=== PATIENT | female | born 1990 | race Caucasian/White ===

== ENCOUNTER 2016-06-10 20:46 | Emergency (ER) | payer OTHER ==
[~2016-06-10] VITALS: Ht 154.9 cm; Wt 46.1 kg
[~2016-06-10 20:46] MED LIST: CLX/20 PO; DOXY25TA7 PO; FERR325T51 PO; PREDNISOLONE 5 MG PO; PRENTAB26 PO; VLT500 PO; ZNTT/150 PO
[2016-06-10 20:50] VITALS: TEMP 37.4; Ht 154.9 cm; Wt 46.1 kg
[2016-06-10] MEDS ORDERED: ACET-1256 PO (21:02)
[2016-06-10] MEDS ORDERED: NORE5TAB5 PO (21:02)
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
[2016-06-10] MEDS ORDERED: AMOXICIL/CLAVU 875MG HOME PACK PO ONE (21:30)
[2016-06-10] MEDS ORDERED: AMOX875T PO (21:34)
[2016-06-10 22:15] VITALS: BP 93/48; PULSE 82; O2SAT 97
[2016-08-02] MEDS ORDERED: FERR325T PO (04:16)
[2016-09-14] MEDS ORDERED: OXYC-57 PO (13:33)
[2016-09-14] MEDS ORDERED: ONDA4TAB10 SL (13:33)
[2016-09-15] MEDS ORDERED: CITA20TA9 PO (15:40)
[2016-09-15] MEDS ORDERED: OXYC-57 PO (15:42)
[2016-09-15] MEDS ORDERED: ONDA4TAB46 PO (15:42)
[2016-11-24] MEDS ORDERED: CITA20TA4 PO (14:49)
== END 2016-06-10 22:15 | disposition home or self-care (01) ==
LOC: C.EDB 20:47 → C.EDC 22:15
DX: R59.1 Generalized enlarged lymph nodes (principal); J02.9 Acute pharyngitis, unspecified; K21.9 Gastro-esophageal reflux disease without esophagitis

== ENCOUNTER 2016-08-02 03:32 | Inpatient (IN) | payer OTHER ==
[~2016-08-02] VITALS: Ht 154.9 cm; Wt 44.6 kg
[~2016-08-02 03:32] MED LIST changes: +ACET-1256 PO; +NORE5TAB5 PO; -PREDNISOLONE 5 MG PO; -VLT500 PO; -ZNTT/150 PO
[2016-08-02] MEDS ORDERED: ONDANSETRON INJ 2 MG/ML 2 ML VIAL IV STA (03:55)
[2016-08-02] MEDS ORDERED: PANTOprazole INJ 40 MG in SYRINGE 0 ML IV ONE (04:00)
[2016-08-02] MEDS ORDERED: KETOROLAC TROMETHAMINE 15 MG/ML VIAL IV ONE (04:00)
[2016-08-02] MEDS ORDERED: GI COCKTAIL PO ONE (04:00)
[2016-08-02] MEDS ORDERED: SODIUM CHLORIDE 0.9% 1000ML 1,000 ML IV ONE (04:00)
[2016-08-02] MEDS ORDERED: FERR1TAB62 PO (04:16)
[2016-08-02 04:18] LABS: BASO % 0.5 %; BASO ABS # 0.04 K/uL (0-0.2); COMPLETE YES; EOS % 5.1 %; HEMATOCRIT 46.6 % (37-47); IG% 0.1 %; LYMPH % 33.7 %; LYMPH ABS # 2.59 K/uL (1.2-3.4); MEAN CELL VOLUME 86.5 fL (80-100); MEAN CORPUSCULAR HGB CONC 32.4 g/dl (32-36); MEAN PLATELET VOLUME 9.7 fL (7.4-10.4); MONO % 7.9 %; NEUT % 52.7 %; PLATELET COUNT 274 K/uL (130-400); RED BLOOD COUNT 5.39 M/uL (4.2-5.4); URINE APPEARANCE CLEAR (CLEAR); URINE BILIRUBIN NEG (NEG); URINE COLOR DK YELLOW; URINE EPITHELIAL CELL AUTO 20-30 /lpf (0-5); URINE NITRITE NEG (NEG); URINE SPECIFIC GRAVITY 1.028 (1.000-1.030); UROBILINOGEN NEG (NEG); WHITE BLOOD COUNT 7.69 K/uL (4.8-10.8); ZZUR CULT IF INDIC CLEAN CATCH NO
[2016-08-02 04:19] LABS: MANUAL MICROSCOPIC REQUIRED? NO; REVIEW REQ? NO
[2016-08-02] MEDS ORDERED: KETOROLAC TROMETHAMINE 30 MG/ML VIAL ONE (04:22)
[2016-08-02] MEDS ORDERED: LIDOCAINE HCL 2% VISC SOLN 20 ML UDC ONE (04:22)
[2016-08-02] MEDS ORDERED: ALUMINUM/MAGNESIUM SUSP 30 ML UDC ONE (04:22)
[2016-08-02 04:36] LABS: BUN/CREATININE RATIO 25.4 (10-20); CREATININE 0.85 mg/dl (0.60-1.20); POTASSIUM 3.6 mmol/L (3.5-5.1)
[2016-08-02 04:39] LABS: ALB/GLOB RATIO 1.2 (0.9-2)
[2016-08-02] MEDS ORDERED: MoRPHine SULFATE 2 MG/ML CARP IV STA (04:49)
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
[2016-08-02] MEDS ORDERED: ALUMINUM/MAGNESIUM/SIMETH (MAALOX MAX) 30 ML UDC PO PRN (05:30)
[2016-08-02] MEDS ORDERED: POLYETHYLENE (MIRALAX) 17 GM PACK PO PRN (05:30)
[2016-08-02] MEDS ORDERED: ONDANSETRON INJ 2 MG/ML 2 ML VIAL IV PRN (05:30)
[2016-08-02] MEDS ORDERED: ACETAMINOPHEN 325 MG TAB PO PRN (05:30)
[2016-08-02] MEDS ORDERED: MoRPHine SULFATE 2 MG/ML CARP IV PRN (05:30)
[2016-08-02] MEDS ORDERED: MAGNESIUM HYDROXIDE SUSP 30 ML UDC PO PRN (05:30)
[2016-08-02 05:35] VITALS: O2SAT 99
--- NOTE | 2016-08-02 05:41 | History and Physical ---
History & Physical Date & Time of Service: Aug 02, 2016 at 05:29 Chief Complaint: Abd Pain,Nausea,Vomiting,Diarrhea Primary Care Physician: Yakov Nolasco D.O.Int.Med. History of Present Illness Source: patient 26 y/o F Hx renal calculi, pancreatitis. Pt developed upper quadrant/ epigastric abdominal pain, nausea, vomiting. She is 6 months post- and breast feeding presently and was concerned with potential dehydration. Initial lipase is elevated. She feels symptoms are similar to previous episode of pancreatitis. No etiology was elucidated during previous episode. She has not had fevers or diarrhea. Past Medical/Surgical History 1) Pancreatitis - idiopathic - pt had been evaluated for suspected PSC at [place] - underwent ERCP which was normal 2) Renal calculi w/stent placement 3) Depression 4) Anxiety 5) Eating disorder - resolved Surgical Problems: (1) History of lithotripsy Status: Resolved (2) History of renal stent Status: Resolved Family History FH: cancer FH: gallbladder disease Heart disease Mother had breast CA Father with HTN Social History Smoking Status: Never Smoker Drug Use: none Marital Status: Housing status: lives with significant other Occupational Status: employed Immunizations History of Influenza Vaccine: Yes History of Tetanus Vaccine?: Yes History of Pneumococcal: Unknown History of Hepatitis B Vaccine: Yes Multi-Drug Resistant Organisms History of MDRO: No Allergies Coded Allergies: Cephalexin (Unverified Allergy, Unknown, itching, 08/02/16) Home Medications Scheduled Citalopram (Citalopram Hydrobromide), 20 MG PO HS Ferrous Sulfate (Ferrous Sulfate), 325 MG PO DAILY Multivit/Min/Iron/Fol Ac/Pren ( Vitamin), 1 TAB PO HS Norethindrone (Aygestin), 5 MG PO HS Scheduled PRN Acetaminophen (Tylenol), 1,000 MG PO Q4 PRN for Pain Doxylamine Succinate (Sleep) (Unisom), 25 MG PO HS PRN for Sleep Review of Systems Constitutional: No chills, No fever, No sweats Eyes: No eye pain, No worsening of vision ENT: No hearing loss, No nasal symptoms, No unusual epistaxis Respiratory: No cough, No sputum, No wheezing Cardiovascular: No PND, No chest pain, No orthopnea Abdomen: + nausea, + pain, + vomiting Musculoskeletal: No joint pain, No muscle pain Genitourinary - Female: No dysuria, No hematuria, No urinary frequency, No urinary incontinence, No urinary retention, No urinary urgency Neurologic: No memory loss, No paralysis Psychiatric: No depression symptoms Endocrine: No excessive thirst, No fatigue Hematologic / Lymphatic: No abnormal bleeding/bruising Integumentary: No rash Allergic / Immunologic: No environmental allergies Physical Exam Vital Signs Date Time Temp Pulse Resp B/P Pulse Ox O2 Delivery O2 Flow Rate FiO2 08/02/16 04:53 71 16 87/52 98 Room Air 08/02/16 03:34 36.3 105 18 106/69 98 Room Air General Appearance: WD/WN, no apparent distress Head: normocephalic, atraumatic Eyes: normal inspection, PERRL, EOMI ENT: normal ENT inspection, hearing grossly normal, TMs normal, pharynx normal Neck: supple, thyroid normal, no JVD Respiratory/Chest: chest non-tender, lungs clear, normal breath sounds, no respiratory distress, no accessory muscle use Cardiovascular: regular rate, rhythm, no edema, no gallop, no JVD, no murmur, normal peripheral pulses, + JVD Abdomen/GI: normal bowel sounds, + tenderness (epigastric) Back: no CVA tenderness Extremities/Musculoskelatal: normal inspection, no calf tenderness, normal capillary refill, no pedal edema, normal range of motion Neurologic/Psych: white metal corrosion proofer II-XII nml as tested, no motor/sensory deficits, alert, normal mood/affect, normal reflexes, oriented x 3 Skin: normal color, warm/dry, no rash Diagnostics Laboratory Results Results Past 24 Hours Test 08/02/16 04:00 Range/Units White Blood Count 7.69 4.8-10.8 K/uL Red Blood Count 5.39 4.2-5.4 M/uL Hemoglobin 15.1 12.0-16.0 g/dL Hematocrit 46.6 37-47 % Mean Corpuscular Volume 86.5 80-100 fL Mean Corpuscular Hemoglobin 28.0 25-34 pg Mean Corpuscular Hemoglobin Concent 32.4 32-36 g/dl Platelet Count 274 130-400 K/uL Mean Platelet Volume 9.7 7.4-10.4 fL Neutrophils (%) (Auto) 52.7 % Lymphocytes (%) (Auto) 33.7 % Monocytes (%) (Auto) 7.9 % Eosinophils (%) (Auto) 5.1 % Basophils (%) (Auto) 0.5 % Neutrophils # (Auto) 4.05 1.4-6.5 K/uL Lymphocytes # (Auto) 2.59 1.2-3.4 K/uL Monocytes # (Auto) 0.61 0.11-0.59 K/uL Eosinophils # (Auto) 0.39 0-0.5 K/uL Basophils # (Auto) 0.04 0-0.2 K/uL RDW Standard Deviation 40.1 36.4-46.3 fL RDW Coefficient of Variation 12.6 11.5-14.5 % Immature Granulocyte % (Auto) 0.1 % Immature Granulocyte # (Auto) 0.01 0.00-0.02 K/uL Urine Color DK YELLOW Urine Appearance CLEAR CLEAR Urine pH 5.0 4.5-7.5 Urine Specific [place] 1.028 1.000-1.030 Urine Protein NEG NEG Urine Glucose (UA) NEG NEG Urine Ketones NEG NEG Urine Occult Blood 2+ NEG Urine Nitrite NEG NEG Urine Bilirubin NEG NEG Urine Urobilinogen NEG NEG Urine Leukocyte Esterase NEG NEG Urine WBC (Auto) 1-5 0-5 /hpf Urine RBC (Auto) 10-30 0-4 /hpf Urine Hyaline Casts (Auto) 1-5 0-5 /lpf Urine Epithelial Cells (Auto) 20-30 0-5 /lpf Urine Bacteria (Auto) NEG NEG Urine Test NEG NEG Sodium Level 144 136-145 mmol/L Potassium Level 3.6 3.5-5.1 mmol/L Chloride Level 109 98-107 mmol/L Carbon Dioxide Level 30 21-32 mmol/L Anion Gap 5.0 3-11 mmol/L Blood Urea Nitrogen 22 7-18 mg/dl Creatinine 0.85 0.60-1.20 mg/dl Est Creatinine Clear Calc Drug Dose 68.1 ml/min Estimated GFR () 108.1 Estimated GFR (Non- 93.2 BUN/Creatinine Ratio 25.4 10-20 Random Glucose 86 70-99 mg/dl Calcium Level 9.0 8.5-10.1 mg/dl Total Bilirubin 0.3 0.2-1 mg/dl Aspartate Amino Transf (AST/SGOT) 11 15-37 U/L Alanine Aminotransferase (ALT/SGPT) 26 12-78 U/L Alkaline Phosphatase 86 45-117 U/L Total Protein 7.1 6.4-8.2 gm/dl Albumin 3.8 3.4-5.0 gm/dl Globulin 3.3 2.5-4.0 gm/dl Albumin/Globulin Ratio 1.2 0.9-2 Amylase Level 143 25-115 U/L Lipase 1226 73-393 U/L Impression Assessment and Plan 26 y/o F Hx renal calculi, pancreatitis. Pt developed upper quadrant abdominal pain, nausea, vomiting. She is 6 months post- and breast feeding presently and was concerned with potential dehydration. Initial lipase is elevated. She feels symptoms are similar to previous episode of pancreatitis. No etiology was elucidated during previous episode. Pt will be treated w/IVF, antiemetics, pain control. Abdominal US requested. Would consider GI consult if there is no immediate improvement. Placed on clear liquid diet. SCDs, full code Total time for this admit including review of labs, meds, records - discussion with pt and ER attending - 33 min Level of Care Med/Surg Resuscitation Status FULL RESUSCITATION VTE Prophylaxis VTE Risk Assessment Done? Y/N: Yes Risk Level: Low Given or contraindicated: SCD's
[2016-08-02 06:34] VITALS: BP 90/60; PULSE 84; TEMP 36.5; O2SAT 100
[2016-08-02 06:35] VITALS: BP 90/60; PULSE 18; TEMP 36.5; Ht 154.9 cm; Wt 44.6 kg
--- NOTE | 2016-08-02 06:54 | DIAGNOSTIC IMAGING REPORT ---
BILIARY ULTRASOUND CLINICAL HISTORY: Right upper quadrant abdominal pain COMPARISON STUDY: 02/03/2016 FINDINGS: The pancreas appears sonographically normal. There are no focal hepatic masses. There is no right-sided hydronephrosis. Multiple right renal calculi are suspected. There is no right-sided hydronephrosis. No gallstones are visualized. There is minimal sludge in the gallbladder. There is no gallbladder wall thickening. There is no ductal dilatation. The common bile duct measures 3 mm. IMPRESSION: 1. Right-sided nephrolithiasis 2. Minimal sludge within the gallbladder. No ductal dilatation. 3. Ultrasonographically normal pancreas and liver Electronically signed by: Rajinder Hernandez M.D. 08/02/2016 6:52 AM Dictated Date/Time: 08/02/2016 6:50 AM
--- NOTE | 2016-08-02 06:59 | DIAGNOSTIC IMAGING REPORT ---
ABDOMEN 2VIEW W/PA CHEST RTN CLINICAL HISTORY: epigastric abd pain NAUSEA COMPARISON STUDY: No previous studies for comparison. FINDINGS: The erect chest reveals no free air. There is no focal pulmonary consolidation. Erect and supine views the abdomen reveal no abnormally dilated loops of large or small bowel. There are scattered right lower quadrant air-fluid levels. There are multiple bilateral renal calculi. There is a 4 mm left pelvic basin calcification. This appears to have been present in March 2015, favoring a phlebolith over distal ureteral calculus.. IMPRESSION: 1. No evidence of bowel obstruction. No evidence of free air 2. Nonspecific right lower quadrant air-fluid levels 3. Suspected bilateral nephrolithiasis 4. There is a curvilinear structure within the left mid abdomen which resembles a small piece of catheter. It is unclear what this is intrinsic or extrinsic to the patient. Electronically signed by: Rajinder Hernandez M.D. 08/02/2016 6:57 AM Dictated Date/Time: 08/02/2016 6:53 AM
[2016-08-02 07:23] VITALS: BP 93/56; PULSE 75; TEMP 36.6; O2SAT 99
[2016-08-02] MEDS: D5NSS + 20MEQ KCL 1,000 ML IV SCH ×2 (07:40→12:20)
[2016-08-02 13:20] LABS: HEMATOCRIT 36.8 % (37-47); MEAN CELL VOLUME 88.5 fL (80-100); MEAN CORPUSCULAR HEMOGLOBIN 29.1 pg (25-34); MEAN CORPUSCULAR HGB CONC 32.9 g/dl (32-36); MEAN PLATELET VOLUME 9.6 fL (7.4-10.4); PLATELET COUNT 190 K/uL (130-400); RED BLOOD COUNT 4.16 M/uL (4.2-5.4); WHITE BLOOD COUNT 4.95 K/uL (4.8-10.8)
--- NOTE | 2016-08-02 13:41 | DIAGNOSTIC IMAGING REPORT ---
KUB HISTORY: Generalized abdominal pain. pancreatitis COMPARISON: None. FINDINGS: The bowel gas pattern is unremarkable. There are no dilated loops of small bowel to suggest an obstruction. Bilateral nephrolithiasis, unchanged. Dominant stone within the left kidney measures 8 mm. Curvilinear structure within the left midabdomen remains unchanged in position. Stable calcifications in the left deep pelvis which favors a phlebolith. No pneumoperitoneum or pneumatosis. A button overlying the deep pelvis was demonstrated to be external to the patient. IMPRESSION: 1. No change compared to the prior study. No evidence for bowel obstruction. 2. Bilateral nephrolithiasis. 3. Stable small curvilinear structure within the left midabdomen. This resembles a small catheter or stent. Electronically signed by: Gagandeep Pollock M.D. 08/02/2016 1:39 PM Dictated Date/Time: 08/02/2016 1:32 PM
[2016-08-02 13:48] LABS: ALB/GLOB RATIO 1.2 (0.9-2); BUN/CREATININE RATIO 18.2 (10-20); CALCIUM 7.6 mg/dl (8.5-10.1); CREATININE 0.7 mg/dl (0.60-1.20); POTASSIUM 3.9 mmol/L (3.5-5.1)
[2016-08-02 14:11] LABS: BASO % 0.6 %; BASO ABS # 0.03 K/uL (0-0.2); COMPLETE YES; EOS % 4.8 %; IG% 0.2 %; LYMPH % 43.8 %; LYMPH ABS # 2.17 K/uL (1.2-3.4); MONO % 6.1 %; NEUT % 44.5 %
[2016-08-02 14:44] VITALS: BP 90/55; PULSE 71; TEMP 36.5; O2SAT 100
--- NOTE | 2016-08-02 15:43 | Discharge Instructions ---
Discharge Instructions Date of Service Aug 02, 2016. Admission Reason for Admission: Pancreatitis Discharge Discharge Diagnosis / Problem: 1) Viral gastroenteritis with elevated lipase Discharge Goals Goal(s): Decrease discomfort, Improve nutritional status, Diagnostic testing, Therapeutic intervention, Prevent Disease Progression Activity Recommendations Activity Limitations: resume your previous activity Lifting Limitations: none Exercise/Sports Limitations: none May Resume Sexual Activity: when tolerated Shower/Bathe: no limitations Driving or Machine Use: no limitations No work thru (and including) of this week. . Instructions / Follow-Up Instructions / Follow-Up 1) Follow up with GI as scheduled this month. Current Hospital Diet Patient's current hospital diet: Clear Liquid Diet Discharge Diet Recommended Diet: Regular Diet Procedures Procedures Performed: None Pending Studies Studies pending at discharge: no Laboratory Results Last 24 Hours Test 08/02/16 04:00 08/02/16 12:55 White Blood Count 7.69 K/uL 4.95 K/uL Red Blood Count 5.39 M/uL 4.16 M/uL Hemoglobin 15.1 g/dL 12.1 g/dL Hematocrit 46.6 % 36.8 % Mean Corpuscular Volume 86.5 fL 88.5 fL Mean Corpuscular Hemoglobin 28.0 pg 29.1 pg Mean Corpuscular Hemoglobin Concent 32.4 g/dl 32.9 g/dl Platelet Count 274 K/uL 190 K/uL Mean Platelet Volume 9.7 fL 9.6 fL Neutrophils (%) (Auto) 52.7 % 44.5 % Lymphocytes (%) (Auto) 33.7 % 43.8 % Monocytes (%) (Auto) 7.9 % 6.1 % Eosinophils (%) (Auto) 5.1 % 4.8 % Basophils (%) (Auto) 0.5 % 0.6 % Neutrophils # (Auto) 4.05 K/uL 2.20 K/uL Lymphocytes # (Auto) 2.59 K/uL 2.17 K/uL Monocytes # (Auto) 0.61 K/uL 0.30 K/uL Eosinophils # (Auto) 0.39 K/uL 0.24 K/uL Basophils # (Auto) 0.04 K/uL 0.03 K/uL RDW Standard Deviation 40.1 fL 40.9 fL RDW Coefficient of Variation 12.6 % 12.7 % Immature Granulocyte % (Auto) 0.1 % 0.2 % Immature Granulocyte # (Auto) 0.01 K/uL 0.01 K/uL Urine Color DK YELLOW Urine Appearance CLEAR Urine pH 5.0 Urine Specific [place] 1.028 Urine Protein NEG Urine Glucose (UA) NEG Urine Ketones NEG Urine Occult Blood 2+ Urine Nitrite NEG Urine Bilirubin NEG Urine Urobilinogen NEG Urine Leukocyte Esterase NEG Urine WBC (Auto) 1-5 /hpf Urine RBC (Auto) 10-30 /hpf Urine Hyaline Casts (Auto) 1-5 /lpf Urine Epithelial Cells (Auto) 20-30 /lpf Urine Bacteria (Auto) NEG Urine Test NEG Sodium Level 144 mmol/L 147 mmol/L Potassium Level 3.6 mmol/L 3.9 mmol/L Chloride Level 109 mmol/L 116 mmol/L Carbon Dioxide Level 30 mmol/L 26 mmol/L Anion Gap 5.0 mmol/L 5.0 mmol/L Blood Urea Nitrogen 22 mg/dl 13 mg/dl Creatinine 0.85 mg/dl 0.70 mg/dl Est Creatinine Clear Calc Drug Dose 68.1 ml/min 84.2 ml/min Estimated GFR () 108.1 136.7 Estimated GFR (Non- 93.2 117.9 BUN/Creatinine Ratio 25.4 18.2 Random Glucose 86 mg/dl 123 mg/dl Calcium Level 9.0 mg/dl 7.6 mg/dl Total Bilirubin 0.3 mg/dl 0.3 mg/dl Aspartate Amino Transf (AST/SGOT) 11 U/L 7 U/L Alanine Aminotransferase (ALT/SGPT) 26 U/L 22 U/L Alkaline Phosphatase 86 U/L 57 U/L Total Protein 7.1 gm/dl 4.9 gm/dl Albumin 3.8 gm/dl 2.7 gm/dl Globulin 3.3 gm/dl 2.2 gm/dl Albumin/Globulin Ratio 1.2 1.2 Amylase Level 143 U/L 68 U/L Lipase 1226 U/L 195 U/L Medical Emergencies . Who to Call and When: Medical Emergencies: If at any time you feel your situation is an emergency, please call 911 immediately. . Non-Emergent Contact Non-Emergency issues call your: Primary Care Provider, Sql Programmer Analyst Call Non-Emergent contact if: you have a fever, your pain is not controlled, your pain is worsening, your pain is unusual for you, your pain is concerning you . . "Provider Documentation" section prepared by Ronak Meyer. . VTE Core Measure Inpt VTE Proph given/why not?: SCD's
--- NOTE | 2016-08-02 15:53 | Discharge Summary ---
Discharge Summary Date of Service Aug 02, 2016. Discharge Summary Admission Date: Aug 02, 2016 at 05:27 Discharge Date: Aug 02, 2016 Discharge Disposition: Home Principal Diagnosis: #1 viral gastroenteritis #2 elevated lipase Procedures: None Vaccinations: None Consultations: None Pending Studies/Follow-Up: None Medication Reconciliation Continued Medications: Acetaminophen (Tylenol) 500 Mg Tab 1000 MG PO Q4 PRN for Pain Citalopram (Citalopram Hydrobromide) 20 Mg Tab 20 MG PO HS Doxylamine Succinate (Sleep) (Unisom) 25 Mg Tab 25 MG PO HS PRN for Sleep Ferrous Sulfate (Ferrous Sulfate) 325 Mg Tab 325 MG PO DAILY Multivit/Min/Iron/Fol Ac/Pren ( Vitamin) Tab 1 TAB PO HS, TAB Norethindrone (Aygestin) 5 Mg Tab 5 MG PO HS, TAB Admission Information HPI (per Admitting provider): 26-year-old female with history of renal calculi and pancreatitis presents to the emergency department with upper quadrant epigastric pain nausea vomiting and diarrhea. The patient explained that her had similar symptoms the day previous and since has resolved. The patient was seen and evaluated in emergency department. Her initial lipase was noted to be elevated. Given her prior episodes of pancreatitis and concern for her ability to tolerate by mouth liquids, she was brought to the hospital for further evaluation including intravenous fluids. Physical Exam (per Admitting): General Appearance: WD/WN, no apparent distress Head: normocephalic, atraumatic Eyes: normal inspection, PERRL, EOMI ENT: normal ENT inspection, hearing grossly normal, TMs normal, pharynx normal Neck: supple, thyroid normal, no JVD Respiratory/Chest: chest non-tender, lungs clear, normal breath sounds, no respiratory distress, no accessory muscle use Cardiovascular: regular rate, rhythm, no edema, no gallop, no JVD, no murmur , normal peripheral pulses, + JVD Abdomen/GI: normal bowel sounds, + tenderness (epigastric) Back: no CVA tenderness Extremities/Musculoskelatal: normal inspection, no calf tenderness, normal capillary refill, no pedal edema, normal range of motion Neurologic/Psych: central supply nurse II-XII nml as tested, no motor/sensory deficits, alert , normal mood/affect, normal reflexes, oriented x 3 Skin: normal color, warm/dry, no rash Hospital Course The patient was placed in the general medical floor. When I saw her later on the day of her admission she noted much improved symptoms; she denied nausea and vomiting. She no further episodes of diarrhea since early in the morning. A repeat lipase had normalized. Her CBC remainder of her comprehensive metabolic panel also unremarkable. I gave the patient the option of staying overnight were going home this evening. She felt as if she be more comfortable at home, especially since family members were coming to help care for her 6- month-old child. Discussed the possible etiologies of this presentation. She has had a history of questionable pancreatitis before; however in this case, with her having similar symptoms, and her symptoms include nausea vomiting diarrhea, I suspect both her and her had a viral gastroenteritis. A short-term elevation of lipase would not be unheard of in the setting of a gastroenteritis. Fortunately, the patient has follow-up with her business intelligence director next week and they will be able to review the diagnostics completed today. Of note, there also was found to be a small curvilinear structure in her left abdomen on her admission abdominal x-ray and on a repeat KUB film after admission. I discussed this finding with radiology; this likely represents a temporary pancreatic stent was placed previously and is slowly progressing. I reviewed this finding with the patient; it does not have any bearing on her admission and her presentation. Total time spent on discharge = This includes examination of the patient, discharge planning, medication reconciliation, and communication with other providers. Discharge Instructions Reviewed the signs and symptoms for which she would need to return to the hospital. These include inability to tolerate by mouth food and fluids, increasing abdominal pain, or fever. Recommended that she not work for the next 2 days. 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
[2016-08-02 16:42] VITALS: BP 90/55; PULSE 71; TEMP 36.5; O2SAT 100
[2016-09-14] MEDS ORDERED: OXYC-57 PO (13:33)
[2016-09-14] MEDS ORDERED: ONDA4TAB10 SL (13:33)
[2016-09-15] MEDS ORDERED: CITA20TA9 PO (15:40)
[2016-09-15] MEDS ORDERED: OXYC-57 PO (15:42)
[2016-09-15] MEDS ORDERED: ONDA4TAB46 PO (15:42)
[2016-11-24] MEDS ORDERED: CITA20TA4 PO (14:49)
== END 2016-08-02 16:55 | disposition home or self-care (01) | DRG 392 ==
LOC: ENRESERVDT → ENRESERVTM → C.EDB 03:33 → C.4E 05:27
PROVIDERS: ADMIT Internal Medicine; ATTEND Family Medicine
DX: A08.4 Viral intestinal infection, unspecified (principal); R79.89 Other specified abnormal findings of blood chemistry; F32.9 Major depressive disorder, single episode, unspecified; K21.9 Gastro-esophageal reflux disease without esophagitis; Z80.3 Family history of malignant neoplasm of breast; Z87.442 Personal history of urinary calculi

== ENCOUNTER → 2016-08-11 | Outpatient (CLI) | payer OTHER ==
[~2016-08-11] MED LIST changes: +CITA20TA4 PO; +CITA20TA9 PO; +FERR1TAB62 PO; -FERR325T51 PO; +NORE1TAB50 PO; +ONDA4TAB10 SL; +ONDA4TAB46 PO; +OXYC-57 PO; +OXYC1TAB3 PO; +POTA1CAP2 PO
--- NOTE | 2016-08-12 08:11 | MAMMOGRAPHY REPORT ---
ULTRASOUND OF LEFT BREAST: 08/11/2016 CLINICAL HISTORY: The patient is currently breast-feeding, and reports an increasing palpable lump i n the left breast since May. She reports that a left breast "lesion" was seen on an outside MR CP in March. COMPARISON: Comparison is made to exams dated: 04/24/2014 ultrasound and 04/25/2014 ultrasound biopsy - [facility]. The outside MRCP exam is not available for review. TECHNIQUE: Real-time targeted ultrasound of the left breast was performed. FINDINGS: Targeted ultrasound was performed of the area of the palpable lump pointed out by the pat ient, in the left breast at 12:00 periareolar region. At the site of the palpable lump there is an oval anechoic circumscribed mass which measures 1.1 x 0.8 x 1.1 cm. Findings are consistent with a benign simple cyst. Expected benign lactational changes are noted in this region. IMPRESSION: ACR BI-RADS CATEGORY 2: BENIGN The palpable lump in the left 12:00 breast corresponds with a benign 1.1 cm simple cyst. There is n o sonographic evidence of malignancy. Recommend clinical follow-up. The patient was verbally notif ied of the results. Gretel Goodman M.D. /:08/11/2016 14:35:[address] [employer]: Susan TOLEDO)([place]), [facility] letter sent: Normal 1/2 BI-RADS Code: ACR BI-RADS Category 2: Benign
== END | disposition home or self-care (01) ==
LOC: C.MAMM 13:58
PROVIDERS: ATTEND Family Medicine
DX: N63 Unspecified lump in breast (principal)

== ENCOUNTER 2016-08-31 05:44 | Emergency (ER) | payer OTHER ==
[~2016-08-31] VITALS: Ht 154.9 cm; Wt 44.5 kg
[~2016-08-31 05:44] MED LIST changes: -CITA20TA4 PO; -CITA20TA9 PO; -NORE1TAB50 PO; -ONDA4TAB10 SL; -ONDA4TAB46 PO; -OXYC-57 PO; -OXYC1TAB3 PO; -POTA1CAP2 PO
[2016-08-31 05:49] VITALS: TEMP 36.3; Ht 154.9 cm; Wt 44.5 kg
[2016-08-31] MEDS ORDERED: KETOROLAC TROMETHAMINE 15 MG/ML VIAL IV ONE (06:00)
[2016-08-31] MEDS ORDERED: SODIUM CHLORIDE 0.9% 1000ML 1,000 ML IV ONE (06:00)
[2016-08-31] MEDS ORDERED: ONDANSETRON INJ 2 MG/ML 2 ML VIAL IV STA ×2 (06:00→10:45)
[2016-08-31] MEDS ORDERED: KETOROLAC TROMETHAMINE 30 MG/ML VIAL ONE (06:10)
[2016-08-31] MEDS: MoRPHine SULFATE 2 MG/ML CARP IV PRN ×3 (06:17→11:15)
[2016-08-31 06:18] LABS: BASO % 0.5 %; BASO ABS # 0.04 K/uL (0-0.2); COMPLETE YES; HEMATOCRIT 44.5 % (37-47); IG% 0.3 %; LYMPH % 38.5 %; LYMPH ABS # 2.81 K/uL (1.2-3.4); MEAN CELL VOLUME 86.4 fL (80-100); MEAN CORPUSCULAR HEMOGLOBIN 29.3 pg (25-34); MEAN CORPUSCULAR HGB CONC 33.9 g/dl (32-36); MEAN PLATELET VOLUME 9.7 fL (7.4-10.4); NEUT % 50.7 %; PLATELET COUNT 248 K/uL (130-400); RED BLOOD COUNT 5.15 M/uL (4.2-5.4); WHITE BLOOD COUNT 7.29 K/uL (4.8-10.8)
[2016-08-31 06:36] LABS: BUN/CREATININE RATIO 22.2 (10-20); CALCIUM 8.7 mg/dl (8.5-10.1); CREATININE 0.87 mg/dl (0.60-1.20); POTASSIUM 3.5 mmol/L (3.5-5.1)
[2016-08-31 06:39] LABS: ALB/GLOB RATIO 1.3 (0.9-2)
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
--- NOTE | 2016-08-31 07:09 | DIAGNOSTIC IMAGING REPORT ---
ABDOMEN 2VIEW W/PA CHEST RTN CLINICAL HISTORY: epigastric abd pain COMPARISON STUDY: 08/02/2016 FINDINGS: The soft tissues, psoas shadows, renal outlines and intestinal gas pattern appear normal. There is no evidence for bowel obstruction. There is no evidence for free intraperitoneal air. No abnormal abdominal calcifications are seen. A frontal view of the chest was performed and is unremarkable. Bilateral nephrocalcinosis. IMPRESSION: No acute process the chest or abdomen. Bilateral nephrocalcinosis. Electronically signed by: Abdirashid Hernandez M.D. 08/31/2016 7:08 AM Dictated Date/Time: 08/31/2016 7:07 AM
--- NOTE | 2016-08-31 07:36 | DIAGNOSTIC IMAGING REPORT ---
Right upper quadrant ultrasound GALLBLADDER-ABD LIMITED CLINICAL HISTORY: RUQ abd pain. N/V. Nausea. Vomiting. TECHNIQUE: Ultrasound COMPARISON STUDY: 08/02/2016 FINDINGS: Sludge within the gallbladder lumen. Common bile duct 3 mm. Liver is uniform. Pancreas and right kidney are unremarkable. Several nonobstructing right renal calcifications. IMPRESSION: 1. Gallbladder sludge. 2. Normal caliber bile duct. 3. Several nonobstructing right renal calcifications. 4. No change from the prior exam. Electronically signed by: Abdirashid Hernandez M.D. 08/31/2016 7:34 AM Dictated Date/Time: 08/31/2016 7:29 AM
[2016-08-31 09:02] VITALS: O2SAT 100
--- NOTE | 2016-08-31 10:49 | EMERGENCY ROOM VISIT NOTE ---
ED Visit Note First contact with patient: 08:22 Care of this patient was signed out to me by Jeison Anthony PA-C at change of shift. At that time, patient was awaiting right upper quadrant ultrasound. Labs were reviewed and show no leukocytosis. LFTs and kidney functions within normal limits. Urinalysis was obtained and did show blood as well as evidence of contamination. This will be sent for culture. Ultrasound was obtained and was unchanged from a previous ultrasound. There is gallbladder sludge but no evidence of acute cholecystitis. The patient was reassessed and pain was under control. She was given an additional dose of morphine and Zofran prior to discharge. She remained slightly hypotensive which is baseline for her. She will follow-up with her primary care provider and Dr. Barker as scheduled. She will return as needed for any worsening or new/concerning symptoms. She verbalized understanding of my assessment and treatment plan and was discharged home in good condition. Problem List Medical Problems: (1) Anemia Nos Status: Chronic (2) Depression Status: Chronic (3) Esophageal Reflux Status: Chronic (4) Gastroenteritis Status: Resolved (5) Hydronephrosis Status: Resolved (6) Kidney stones Status: Resolved (7) Pancreatitis Status: Resolved (8) Pancreatitis Status: Chronic Surgical Problems: (1) History of lithotripsy Status: Resolved (2) History of renal stent Status: Resolved (3) Hydronephrosis Status: Resolved Current/Historical Medications Scheduled Citalopram (Citalopram Hydrobromide), 20 MG PO HS Ferrous Sulfate (Ferrous Sulfate), 325 MG PO DAILY Multivit/Min/Iron/Fol Ac/Pren ( Vitamin), 1 TAB PO HS Norethindrone (Aygestin), 5 MG PO HS Scheduled PRN Acetaminophen (Tylenol), 1,000 MG PO Q4 PRN for Pain Doxylamine Succinate (Sleep) (Unisom), 25 MG PO HS PRN for Sleep Allergies Coded Allergies: Cephalexin (Verified Adverse Reaction, Mild, ITCHINESS, 08/31/16) Vital Signs Date Time Temp Pulse Resp B/P Pulse Ox O2 Delivery O2 Flow Rate FiO2 08/31/16 11:11 74 16 100/52 08/31/16 09:02 80 16 92/55 100 Room Air 08/31/16 07:22 71 16 89/53 99 Room Air 08/31/16 05:49 36.3 87 19 97/65 97 Room Air Laboratory Results 08/31/16 06:06 Red Blood Count 5.15, Mean Corpuscular Volume 86.4, Mean Corpuscular Hemoglobin 29.3, Mean Corpuscular Hemoglobin Concent 33.9, Mean Platelet Volume 9.7, Neutrophils (%) (Auto) 50.7, Lymphocytes (%) (Auto) 38.5, Monocytes (%) (Auto) 6.0, Eosinophils (%) (Auto) 4.0, Basophils (%) (Auto) 0.5, Neutrophils # (Auto) 3.69, Lymphocytes # (Auto) 2.81, Monocytes # (Auto) 0.44, Eosinophils # (Auto) 0.29, Basophils # (Auto) 0.04 08/31/16 06:06 Test 08/31/16 06:06 08/31/16 08:45 White Blood Count 7.29 K/uL (4.8-10.8) Red Blood Count 5.15 M/uL (4.2-5.4) Hemoglobin 15.1 g/dL (12.0-16.0) Hematocrit 44.5 % (37-47) Mean Corpuscular Volume 86.4 fL (80-100) Mean Corpuscular Hemoglobin 29.3 pg (25-34) Mean Corpuscular Hemoglobin Concent 33.9 g/dl (32-36) Platelet Count 248 K/uL (130-400) Mean Platelet Volume 9.7 fL (7.4-10.4) Neutrophils (%) (Auto) 50.7 % Lymphocytes (%) (Auto) 38.5 % Monocytes (%) (Auto) 6.0 % Eosinophils (%) (Auto) 4.0 % Basophils (%) (Auto) 0.5 % Neutrophils # (Auto) 3.69 K/uL (1.4-6.5) Lymphocytes # (Auto) 2.81 K/uL (1.2-3.4) Monocytes # (Auto) 0.44 K/uL (0.11-0.59) Eosinophils # (Auto) 0.29 K/uL (0-0.5) Basophils # (Auto) 0.04 K/uL (0-0.2) RDW Standard Deviation 40.8 fL (36.4-46.3) RDW Coefficient of Variation 12.8 % (11.5-14.5) Immature Granulocyte % (Auto) 0.3 % Immature Granulocyte # (Auto) 0.02 K/uL (0.00-0.02) Anion Gap 7.0 mmol/L (3-11) Est Creatinine Clear Calc Drug Dose 67.6 ml/min Estimated GFR () 105.1 Estimated GFR (Non- 90.7 BUN/Creatinine Ratio 22.2 (10-20) Calcium Level 8.7 mg/dl (8.5-10.1) Total Bilirubin 0.3 mg/dl (0.2-1) Aspartate Amino Transf (AST/SGOT) 11 U/L (15-37) Alanine Aminotransferase (ALT/SGPT) 25 U/L (12-78) Alkaline Phosphatase 83 U/L (45-117) Total Protein 6.8 gm/dl (6.4-8.2) Albumin 3.8 gm/dl (3.4-5.0) Globulin 3.0 gm/dl (2.5-4.0) Albumin/Globulin Ratio 1.3 (0.9-2) Amylase Level 90 U/L (25-115) Lipase 191 U/L (73-393) Urine Color DK YELLOW Urine Appearance CLOUDY (CLEAR) Urine pH 5.5 (4.5-7.5) Urine Specific [place] 1.030 (1.000-1.030) Urine Protein 2+ (NEG) Urine Glucose (UA) NEG (NEG) Urine Ketones NEG (NEG) Urine Occult Blood 3+ (NEG) Urine Nitrite NEG (NEG) Urine Bilirubin NEG (NEG) Urine Urobilinogen NEG (NEG) Urine Leukocyte Esterase SMALL (NEG) Urine WBC (Auto) 5-10 /hpf (0-5) Urine RBC (Auto) >30 /hpf (0-4) Urine Hyaline Casts (Auto) 1-5 /lpf (0-5) Urine Epithelial Cells (Auto) >30 /lpf (0-5) Urine Bacteria (Auto) NEG (NEG) Urine Test NEG (NEG) Medications Administered Medications (Trade) Dose Ordered Sig/Tereso Route Start Time Stop Time Status Last Admin Dose Admin Sodium Chloride (Nss 1000ml) 1,000 ml @ 999 mls/hr Q1H1M ONCE IV 08/31/16 06:00 08/31/16 07:00 DC 08/31/16 06:14 999 MLS/HR Ketorolac Tromethamine (Toradol Inj) 15 mg NOW ONCE IV 08/31/16 06:00 08/31/16 06:02 DC 08/31/16 06:16 15 MG Morphine Sulfate (MoRPHine SULFATE INJ) 2 mg Q1H PRN IV 08/31/16 06:00 08/31/16 12:14 DC 08/31/16 11:15 2 MG Ondansetron HCl (Zofran Inj) 4 mg NOW STAT IV 08/31/16 06:00 08/31/16 06:02 DC 08/31/16 06:15 4 MG Ondansetron HCl (Zofran Inj) 4 mg NOW STAT IV 08/31/16 10:45 08/31/16 10:47 DC 08/31/16 11:15 4 MG Departure Information Impression Primary Impression: Epigastric abdominal pain Dispostion Home / Self-Care Condition GOOD Referrals Yakov Nolasco D.O.Int.Med. (PCP) Forms HOME CARE DOCUMENTATION FORM, IMPORTANT VISIT INFORMATION Patient Instructions My [facility] Additional Instructions You have been treated in the Emergency Department your Abdominal Pain. Laboratory results and imaging studies have ruled out any emergent causes for your abdominal pain which would warrant admission or surgery. Drink plenty of water and stay well hydrated. As with any trip to the Emergency Department, you should follow-up with your Primary Care Provider from today's visit. Call Dr. Barker today to schedule follow up. Return to the emergency department if your symptoms persist despite treatment plan outlined above or if the following symptoms occur: Worsening pain, worsening vomiting, fevers or any other new/concerning symptoms.
[2016-08-31 11:08] LABS: URINE APPEARANCE CLOUDY (CLEAR); URINE BILIRUBIN NEG (NEG); URINE COLOR DK YELLOW; URINE EPITHELIAL CELL AUTO >30 /lpf (0-5); URINE NITRITE NEG (NEG); URINE PH 5.5 (4.5-7.5); UROBILINOGEN NEG (NEG); ZZUR CULT IF INDIC CLEAN CATCH NO
[2016-08-31 11:11] VITALS: BP 100/52; PULSE 74
[2016-08-31 11:16] LABS: MANUAL MICROSCOPIC REQUIRED? NO; REVIEW REQ? NO
[2016-09-14] MEDS ORDERED: OXYC-57 PO (13:33)
[2016-09-14] MEDS ORDERED: ONDA4TAB10 SL (13:33)
[2016-09-15] MEDS ORDERED: CITA20TA9 PO (15:40)
[2016-09-15] MEDS ORDERED: ONDA4TAB46 PO (15:42)
[2016-09-15] MEDS ORDERED: OXYC-57 PO (15:42)
[2016-11-24] MEDS ORDERED: CITA20TA4 PO (14:49)
== END 2016-08-31 11:32 | disposition home or self-care (01) ==
LOC: C.EDB 05:45
DX: R10.13 Epigastric pain (principal); R11.2 Nausea with vomiting, unspecified; R00.0 Tachycardia, unspecified; N20.0 Calculus of kidney; K82.8 Other specified diseases of gallbladder; Z87.19 Personal history of other diseases of the digestive system

== ENCOUNTER 2016-09-01 04:28 | Emergency (ER) | payer OTHER ==
[~2016-09-01] VITALS: Ht 154.9 cm; Wt 46.2 kg
[2016-09-01 04:30] VITALS: TEMP 36.7; Ht 154.9 cm; Wt 46.2 kg
[2016-09-01] MEDS ORDERED: LIDOCAINE HCL 2% VISC SOLN 20 ML UDC PO STA (04:44)
[2016-09-01] MEDS ORDERED: ONDANSETRON INJ 2 MG/ML 2 ML VIAL IV STA (04:44)
[2016-09-01] MEDS ORDERED: FAMOTIDINE 20MG/102 ML D5W IV STA (04:44)
[2016-09-01] MEDS ORDERED: ALUMINUM/MAGNESIUM SUSP 30 ML UDC PO STA (04:44)
[2016-09-01] MEDS ORDERED: SODIUM CHLORIDE 0.9% 1000ML 1,000 ML IV STA (04:44)
[2016-09-01 05:06] VITALS: O2SAT 96
[2016-09-01 05:24] LABS: BASO % 0.4 %; BASO ABS # 0.03 K/uL (0-0.2); COMPLETE YES; EOS % 4.8 %; HEMATOCRIT 39.4 % (37-47); IG% 0.3 %; LYMPH % 36.3 %; MEAN CELL VOLUME 87.6 fL (80-100); MEAN CORPUSCULAR HEMOGLOBIN 29.1 pg (25-34); MEAN CORPUSCULAR HGB CONC 33.2 g/dl (32-36); MONO % 8.4 %; NEUT % 49.8 %; PLATELET COUNT 225 K/uL (130-400); WHITE BLOOD COUNT 6.89 K/uL (4.8-10.8)
[2016-09-01 05:30] LABS: URINE APPEARANCE CLEAR (CLEAR); URINE BILIRUBIN NEG (NEG); URINE COLOR DK YELLOW; URINE EPITHELIAL CELL AUTO >30 /lpf (0-5); URINE NITRITE NEG (NEG); URINE SPECIFIC GRAVITY 1.024 (1.000-1.030); UROBILINOGEN NEG (NEG); ZZUR CULT IF INDIC CLEAN CATCH NO
[2016-09-01] MEDS ORDERED: DiphenhydrAMINE HCL 50 MG/ML VIAL IV STA (05:32)
[2016-09-01] MEDS ORDERED: KETOROLAC TROMETHAMINE 30 MG/ML VIAL IV STA (05:32)
[2016-09-01] MEDS ORDERED: METOCLOPRAMIDE HCL INJ 5 MG/ML 2 ML VIAL IV STA (05:32)
[2016-09-01 05:37] LABS: MANUAL MICROSCOPIC REQUIRED? NO; REVIEW REQ? NO
[2016-09-01 05:50] LABS: ALT/SGPT 22 U/L (12-78); AST/SGOT 12 U/L (15-37); BLOOD UREA NITROGEN 18 mg/dl (7-18); BUN/CREATININE RATIO 25.6 (10-20); CALCIUM 8.1 mg/dl (8.5-10.1); CARBON DIOXIDE 27 mmol/L (21-32); CHLORIDE 111 mmol/L (98-107); GLUCOSE 78 mg/dl (70-99); POTASSIUM 3.5 mmol/L (3.5-5.1); SODIUM 145 mmol/L (136-145)
[2016-09-01 05:52] LABS: ALKALINE PHOSPHATASE 81 U/L (45-117)
[2016-09-01 06:05] LABS: PREG INTERNAL NEGATIVE QC NEG CLEAR BACKGROUND; PREG INTERNAL POSITIVE QC POS CONTROL LINE
[2016-09-01 06:07] VITALS: BP 104/71
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
[2016-09-01] MEDS ORDERED: ONDANSETRON HOME PACK 4MG OD TAB PO ONE (07:00)
[2016-09-01 07:09] VITALS: PULSE 78; O2SAT 98
[2016-09-14] MEDS ORDERED: ONDA4TAB10 SL (13:33)
[2016-09-14] MEDS ORDERED: OXYC-57 PO (13:33)
[2016-09-15] MEDS ORDERED: CITA20TA9 PO (15:40)
[2016-09-15] MEDS ORDERED: OXYC-57 PO (15:42)
[2016-09-15] MEDS ORDERED: ONDA4TAB46 PO (15:42)
[2016-11-24] MEDS ORDERED: CITA20TA4 PO (14:49)
== END 2016-09-01 07:10 | disposition home or self-care (01) ==
LOC: C.EDB 04:28
DX: R10.13 Epigastric pain (principal); D64.9 Anemia, unspecified; F32.9 Major depressive disorder, single episode, unspecified; K21.9 Gastro-esophageal reflux disease without esophagitis; E87.6 Hypokalemia; Z87.442 Personal history of urinary calculi; K85.90 Acute pancreatitis without necrosis or infection, unspecified; Z80.9 Family history of malignant neoplasm, unspecified; Z83.79 Family history of other diseases of the digestive system; Z82.49 Family history of ischemic heart disease and other diseases of the circulatory system; Z79.899 Other long term (current) drug therapy

== ENCOUNTER 2016-09-22 05:14 | Day surgery (SDC) | payer OTHER ==
[2016-09-15 15:43] VITALS: BMI 19.0
[~2016-09-22] VITALS: Ht 154.9 cm; Wt 45.5 kg
[~2016-09-22 05:14] MED LIST changes: +ANCEF: ALLERGY NOTED TO ORDERED MEDICATION SCH; +CITA20TA9 PO; -CLX/20 PO; +ONDA4TAB46 PO; +OXYC-57 PO
[2016-09-22 05:25] VITALS: BP 96/60; PULSE 77; TEMP 36.9; O2SAT 98; Ht 154.9 cm; Wt 45.5 kg
[2016-09-22] MEDS ORDERED: CEFAZOLIN 2000 MG/60 ML D5W IV SCH (06:00)
[2016-09-22] MEDS ORDERED: CLINDAMYCIN 600 MG/54 ML D5W IV SCH (06:00)
[2016-09-22] MEDS ORDERED: LACTATED RINGER'S 1000ML 1,000 ML IV SCH ×3 (06:00→08:10)
[2016-09-22] MEDS ORDERED: FENTANYL CITRATE INJ 50 MCG/1 ML 2 ML VIAL ONE ×2 (06:34→07:18)
[2016-09-22] MEDS ORDERED: MIDAZOLAM HCL 1 MG/ML 2ML VIAL ONE (06:34)
[2016-09-22] MEDS ORDERED: HYDROmorphone INJ 2 MG/ML SYR/VIAL ONE (06:47)
[2016-09-22] MEDS ORDERED: CONRAY 60% 50 ML VIAL ONE (06:49)
--- NOTE | 2016-09-22 06:49 | History & Physical Bridge Note ---
H&P Re-Evaluation Bridge Note: I have examined the patient, reviewed the History & Physical and in the interval since the performance of the History & Physical I have noted the following changes of clinical significance: No changes noted
[2016-09-22] MEDS ORDERED: SCOPOLAMINE 1.5 MG TDSY TD ONE ×2 (06:51→07:00)
[2016-09-22] MEDS ORDERED: BUPIVACAINE/EPINEPHRINE 0.5% MPF 1:200,000 30 ML VIAL ONE (07:04)
[2016-09-22] MEDS ORDERED: ROCURONIUM BROMIDE 10 MG/ML 5 ML VIAL ONE (07:26)
[2016-09-22] MEDS ORDERED: PROPOFOL IV EMULSION 10 MG/ML 20 ML VIAL IV ONE (07:26)
[2016-09-22] MEDS ORDERED: METOCLOPRAMIDE HCL INJ 5 MG/ML 2 ML VIAL ONE (07:26)
[2016-09-22] MEDS ORDERED: NEOSTIGMINE METHYLSULFATE 5 MG/5 ML SYR ONE (07:26)
[2016-09-22] MEDS ORDERED: ONDANSETRON INJ 2 MG/ML 2 ML VIAL ONE (07:26)
[2016-09-22] MEDS ORDERED: GLYCOPYRROLATE INJ 0.2 MG/ML VIAL ONE (07:26)
[2016-09-22] MEDS ORDERED: DiphenhydrAMINE HCL 50 MG/ML VIAL ONE (07:26)
[2016-09-22] MEDS ORDERED: LIDOCAINE HCL 2% 2 ML VIAL (20MG/ML) ONE (07:26)
[2016-09-22] MEDS ORDERED: DEXAMETHASONE SOD INJ 4 MG/ML VIAL ONE (07:26)
[2016-09-22] MEDS ORDERED: SODIUM CHLORIDE 0.9% INJ 10 ML VIAL ONE (07:41)
[2016-09-22] MEDS ORDERED: LARYING-O-JET KIT (LTA) ONE ×2 (07:42)
[2016-09-22] MEDS ORDERED: OXYC-57 PO (08:12)
--- NOTE | 2016-09-22 08:14 | Discharge Instructions ---
Discharge Instructions Date of Service Sep 22, 2016. Visit Reason for Visit: Gallbladder Sludge Discharge Discharge Diagnosis / Problem: laparoscopic cholecystectomy Discharge Goals Goal(s): Decrease discomfort Activity Recommendations Activity Limitations: as noted below Lifting Limitations: no more than 10 pounds Shower/Bathe: no limitations Driving or Machine Use: resume 3 days after discharge Anesthesia . Post Anesthesia Instructions: If you have had General Anesthesia or IV Sedation: * Do not drive today. * Resume driving when surgeon permits. * Do not make important decisions or sign legal documents today. * Call surgeon for: 1. Temperature elevations greater than 101 degrees F. 2. Uncontrollable pain. 3. Excessive bleeding. 4. Persistent nausea and vomiting. 5. Medication intolerance (nausea, vomiting or rash). * For nausea and vomiting use only clear liquids such as: tea, soda, bouillon until nausea subsides, then gradually increase diet as tolerated. * If you have any concerns or questions, call your surgeon's office. If physician is unavailable and it is an emergency, call 911 or go to the nearest emergency room. . Instructions / Follow-Up Instructions / Follow-Up Dr. Barker in 2 weeks, office [phone], Bill cell [phone] Diet Recommendations Recommended Home Diet: no limitations Procedures Procedures Performed: Laparoscopic Cholecystectomy with Cholangiogram Pending Studies Studies pending at discharge: yes List of pending studies: Pathology Medical Emergencies . Who to Call and When: Medical Emergencies: If at any time you feel your situation is an emergency, please call 911 immediately. . Non-Emergent Contact Non-Emergency issues call your: Surgeon Call Non-Emergent contact if: you have a fever, temperature is above 101.5, your pain is not controlled . . "Provider Documentation" section prepared by Mike Lawrence. .
[2016-09-22] MEDS ORDERED: OXYCODONE/ACETAMINOPHEN 5-325 TAB PO PRN ×2 (08:15)
[2016-09-22] MEDS ORDERED: MoRPHine SULFATE 4 MG/ML 1 ML CARP\\VIAL IV PRN (08:15)
[2016-09-22] MEDS ORDERED: MoRPHine SULFATE 2 MG/ML CARP IV PRN (08:15)
[2016-09-22] MEDS ORDERED: ONDANSETRON INJ 2 MG/ML 2 ML VIAL IV PRN ×2 (08:15→08:45)
--- NOTE | 2016-09-22 08:31 | [facility] Operative Report ---
Operative Report Operative Date Sep 22, 2016. 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 Gallbladder Anesthesia GET Complication(s) None Disposition Recovery Room / PACU I attest to the content of the Intraoperative Record and any orders documented therein. Any exceptions are noted below.
[2016-09-22] MEDS ORDERED: ATROPINE SULFATE 0.1 MG/ML 5ML SYR IV PRN (08:45)
[2016-09-22] MEDS ORDERED: PROMETHAZINE HCL INJ 6.25 MG in SODIUM CHLORIDE 0.9% 50ML 50 ML IV PRN (08:45)
[2016-09-22] MEDS ORDERED: FENTANYL CITRATE INJ 50 MCG/1 ML 2 ML VIAL IV PRN (08:45)
--- NOTE | 2016-09-22 09:00 | OPERATIVE REPORT ---
DATE OF OPERATION: 09/22/2016 PREOPERATIVE DIAGNOSIS: History of recurrent gallstone pancreatitis. POSTOPERATIVE DIAGNOSIS: Same with an umbilical hernia. PROCEDURES: Laparoscopic cholecystectomy with intraoperative cholangiogram and repair of umbilical hernia. SURGEON: Dr. Barker. DIPPER AND DRIER: Tj Lawrence PA-C and Kathi Shetty PA-C. ESTIMATED BLOOD LOSS: Approximately 10 mL. COMPLICATIONS: No immediate. ANESTHESIA: General. The patient tolerated the procedure well. OPERATION AND FINDINGS: OPERATIVE NOTE: After informed consent was obtained, the patient taken to the operating suite, placed in supine position. After successful intubation, the abdomen was sterilely prepped and draped in usual fashion. We began with an incision at the inferior portion of her umbilicus. As soon as we opened the skin we noted an umbilical hernia and we had gone through the hernia sac. We went ahead and took down the hernia sac and placed 0 Vicryl stay sutures in the fascial edges. We then finger penetrated the peritoneum and did a finger sweep. A 12 mm Suman trocar was placed and the abdomen was insufflated to 15 mmHg. Laparoscope was inserted and the abdomen examined 360 degrees. No gross abnormalities were identified. We placed a subxiphoid 5 mm port and 2 right upper quadrant 5 mm ports under direct vision. The patient was placed in reverse Trendelenburg position. We grasped the gallbladder and elevated it superiorly and laterally. There were some adhesions to the neck of the gallbladder that we took down with traction as well as some sharp scissor lysis. We then used a [place] dissector to bluntly delineate the cystic duct. We clamped it once distally and then transected about 60% of it. We brought in a cholangiocath and inserted it into the cystic duct and then inflated the balloon. We used Omnipaque and performed an intraoperative cholangiogram. The common hepatic, common bile duct and duodenum readily filled with contrast as did the right and left radicles I did not see any evidence of intraluminal defects. Once we completed the cholangiogram I then clipped the cystic duct twice proximally and finished transecting it. The cystic artery was skeletonized, clipped twice proximally and once distally and transected as well. The gallbladder was removed from the gallbladder fossa using electrocautery. It was removed intact and placed into an EndoCatch bag. Several small bleeding points on the fossa were controlled using electrocautery. We thoroughly irrigated the right upper quadrant. At the end of the procedure, there was adequate hemostasis and no evidence of a bile leak. We did lift up the left lobe of the liver. There was no evidence of any hiatal hernia or other gross abnormality. We then removed the gallbladder as well as the trocars and desufflated the abdomen. The hernia defect was closed using interrupted figure-of-8 0 Vicryl sutures. We then irrigated all wounds and closed the skin with 4-0 Monocryl. Marcaine was injected around all the incisions for postoperative analgesia and skin glue used as a dressing. The patient was awakened, extubated, and transferred to recovery in stable condition. I attest to the content of the Intraoperative Record and any orders documented therein. Any exception s are noted below.
--- NOTE | 2016-09-22 09:12 | Anesthesiology Progress Note ---
Anesthesia Post Op Note Date & Time Sep 22, 2016 at 09:12 Vital Signs Pain Intensity: 4 Vital Signs Past 12 Hours Date Time Temp Pulse Resp B/P (MAP) Pulse Ox O2 Delivery O2 Flow Rate FiO2 09/22/16 09:05 64 12 111/66 94 Room Air 09/22/16 08:55 63 16 128/84 99 Room Air 09/22/16 08:45 64 16 134/86 100 Room Air 09/22/16 08:35 68 18 128/80 100 Mask 10 09/22/16 08:25 79 18 130/75 100 Mask 10 09/22/16 08:19 36.7 86 16 139/81 100 Mask 10 09/22/16 05:25 36.9 77 18 96/60 (72) 98 Room Air Notes Mental Status: alert / awake / arousable, participated in evaluation Pt Amnestic to Procedure: Yes Nausea / Vomiting: adequately controlled Pain: adequately controlled Airway Patency, RR, SpO2: stable & adequate BP & HR: stable & adequate Hydration State: stable & adequate Anesthetic Complications: no major complications apparent
[2016-09-22 09:25] VITALS: BP 115/69; PULSE 70; TEMP 37.1; O2SAT 98
[2016-09-22 09:55] VITALS: BP 104/63; PULSE 72; TEMP 37.1; O2SAT 98
[2016-09-22 10:25] VITALS: BP 101/59; PULSE 75; TEMP 37.1; O2SAT 98
--- NOTE | 2016-09-22 10:30 | DIAGNOSTIC IMAGING REPORT ---
INTRAOPERATIVE CHOLANGIOGRAM CLINICAL HISTORY: Intraoperative examination during cholecystectomy COMPARISON STUDY: Gallbladder ultrasound dated 08/31/2016 FLUOROSCOPY TIME: 3.5 seconds. 3 fluoroscopic spot images were acquired. FINDINGS: The cystic duct was cannulated and contrast was instilled into the common bile duct. There is free flow into the duodenum. There were no filling defects to indicate retained calculi. IMPRESSION: No retained calculi identified. Free flow into the duodenum. Electronically signed by: Rajinder Hernandez M.D. 09/22/2016 10:29 AM Dictated Date/Time: 09/22/2016 10:28 AM
[2016-09-22 11:25] VITALS: BP 105/60; PULSE 70; TEMP 37.1; O2SAT 97
[2016-11-24] MEDS ORDERED: CITA20TA4 PO (14:49)
== END 2016-09-22 12:10 | disposition home health service (06) ==
LOC: C.ACU 05:14
PROVIDERS: ATTEND Surgery
DX: K85.10 Biliary acute pancreatitis without necrosis or infection (principal); K42.9 Umbilical hernia without obstruction or gangrene; K82.8 Other specified diseases of gallbladder; K82.4 Cholesterolosis of gallbladder; F41.8 Other specified anxiety disorders; Z68.1 Body mass index [BMI] 19.9 or less, adult; Z98.890 Other specified postprocedural states; F32.9 Major depressive disorder, single episode, unspecified

== ENCOUNTER 2016-11-17 03:17 | Emergency (ER) | payer OTHER ==
[~2016-11-17] VITALS: Ht 154.9 cm; Wt 45.3 kg
[~2016-11-17 03:17] MED LIST changes: -ANCEF: ALLERGY NOTED TO ORDERED MEDICATION SCH; -FERR1TAB62 PO; +FERR325T PO
[2016-11-17 03:22] VITALS: TEMP 36.5; Ht 154.9 cm; Wt 45.3 kg
[2016-11-17] MEDS ORDERED: SODIUM CHLORIDE 0.9% 1000ML 1,000 ML IV STA (03:33)
[2016-11-17] MEDS ORDERED: ONDANSETRON INJ 2 MG/ML 2 ML VIAL IV STA (03:33)
[2016-11-17] MEDS ORDERED: KETOROLAC TROMETHAMINE 30 MG/ML VIAL IV STA (03:33)
[2016-11-17 03:57] LABS: BASO % 0.9 %; BASO ABS # 0.07 K/uL (0-0.2); COMPLETE YES; EOS % 6.4 %; HEMATOCRIT 43.8 % (37-47); IG% 0.4 %; LYMPH % 30.1 %; LYMPH ABS # 2.32 K/uL (1.2-3.4); MEAN CELL VOLUME 85.7 fL (80-100); MEAN CORPUSCULAR HEMOGLOBIN 29.9 pg (25-34); MEAN CORPUSCULAR HGB CONC 34.9 g/dl (32-36); MEAN PLATELET VOLUME 9.6 fL (7.4-10.4); MONO % 6.5 %; NEUT % 55.7 %; PLATELET COUNT 270 K/uL (130-400); RED BLOOD COUNT 5.11 M/uL (4.2-5.4)
[2016-11-17 04:13] LABS: BUN/CREATININE RATIO 18.1 (10-20); CALCIUM 8.7 mg/dl (8.5-10.1); CREATININE 0.92 mg/dl (0.60-1.20); POTASSIUM 3.2 mmol/L (3.5-5.1)
[2016-11-17 04:46] LABS: PREG INTERNAL NEGATIVE QC NEG CLEAR BACKGROUND; PREG INTERNAL POSITIVE QC POS CONTROL LINE
[2016-11-17] MEDS ORDERED: MoRPHine SULFATE 4 MG/ML 1 ML CARP\\VIAL IV STA (04:51)
[2016-11-17] MEDS ORDERED: POTASSIUM CHLORIDE 10 MEQ TABCR PO STA (04:56)
[2016-11-17 05:03] LABS: URINE APPEARANCE CLEAR (CLEAR); URINE BILIRUBIN NEG (NEG); URINE COLOR DK YELLOW; URINE EPITHELIAL CELL AUTO >30 /lpf (0-5); URINE NITRITE NEG (NEG); URINE SPECIFIC GRAVITY 1.024 (1.000-1.030); UROBILINOGEN NEG (NEG); ZZUR CULT IF INDIC CLEAN CATCH NO
[2016-11-17 05:04] LABS: MANUAL MICROSCOPIC REQUIRED? NO; REVIEW REQ? NO
[2016-11-17 05:29] VITALS: O2SAT 100
[2016-11-17] MEDS ORDERED: DiphenhydrAMINE HCL 50 MG/ML VIAL IV STA (05:29)
[2016-11-17] MEDS ORDERED: DiphenhydrAMINE HCL 50 MG/ML VIAL ONE (05:29)
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
[2016-11-17] MEDS ORDERED: OXYCODONE IR HOME PACK PO ONE (05:45)
[2016-11-17] MEDS ORDERED: ONDANSETRON HOME PACK 4MG OD TAB PO ONE (05:45)
[2016-11-17] MEDS ORDERED: ONDA4TAB10 SL (05:46)
[2016-11-17] MEDS ORDERED: OXYC1TAB3 PO (05:46)
[2016-11-17 06:45] VITALS: BP 109/78; PULSE 78; O2SAT 100
--- NOTE | 2016-11-17 06:59 | DIAGNOSTIC IMAGING REPORT ---
(RENAL)RETROPERITON COMP HISTORY: 26 years-old Female acute left-sided flank pain. COMPARISON: CT abdomen and pelvis 03/17/2015 TECHNIQUE: Multiple real-time sonographic images of the kidneys and urinary bladder were obtained assessing grayscale appearance and color flow. FINDINGS: Right kidney measures 10.1 x 3.7 x 4.7 cm. At least 3 calculi with twinkle artifact are noted within the right kidney, largest of which measures up to 0.7 cm. There is no associated hydronephrosis identified. Left kidney measures 11.5 x 4.5 x 4.0 cm. There is moderate dilation of the central and peripheral calyces, renal pelvis and proximal ureter secondary to an obstructing stone measuring up to 1.7 cm in the region of the ureteropelvic junction. There is an additional nonobstructing calculus of the inferior pole left kidney measuring up to 1.2 x 0.7 cm. Urinary bladder is collapsed with limited evaluation of the ureteral jets. IMPRESSION: 1. 1.7 cm calculus of the left ureteropelvic junction is present causing associated moderate obstructive uropathy. 2. Multiple additional nonobstructing renal calculi are present bilaterally. 3. Collapsed urinary bladder. The above report was generated using voice recognition software. It may contain grammatical, syntax or spelling errors. Electronically signed by: Aldo Carlos M.D. 11/17/2016 6:58 AM Dictated Date/Time: 11/17/2016 6:54 AM
[2016-11-18] MEDS ORDERED: NORE1TAB50 PO (15:38)
[2016-11-24] MEDS ORDERED: CITA20TA4 PO (14:49)
== END 2016-11-17 06:45 | disposition home or self-care (01) ==
LOC: C.EDB 03:18 → C.EDA 06:45
DX: N20.2 Calculus of kidney with calculus of ureter (principal); R10.9 Unspecified abdominal pain; R11.2 Nausea with vomiting, unspecified

== ENCOUNTER 2016-11-18 11:55 | Inpatient (IN) | payer OTHER ==
[~2016-11-18] VITALS: Ht 154.9 cm; Wt 46.2 kg
[2016-11-18] VITALS (9 sets, daily range): BP systolic 89–99; BP diastolic 50–66; PULSE 79–90; TEMP 36.5–36.8; O2SAT 97–99; Ht 154.9 cm; Wt 46.2 kg
[~2016-11-18 11:55] MED LIST changes: +ONDA4TAB10 SL; -OXYC-57 PO; +OXYC1TAB3 PO
[2016-11-18 12:59] LABS: BASO % 0.4 %; BASO ABS # 0.03 K/uL (0-0.2); COMPLETE YES; EOS % 3.2 %; HEMATOCRIT 39.6 % (37-47); IG% 0.4 %; LYMPH % 24.4 %; LYMPH ABS # 1.99 K/uL (1.2-3.4); MEAN CELL VOLUME 85.9 fL (80-100); MEAN CORPUSCULAR HEMOGLOBIN 29.9 pg (25-34); MEAN CORPUSCULAR HGB CONC 34.8 g/dl (32-36); MEAN PLATELET VOLUME 9.4 fL (7.4-10.4); MONO % 8.4 %; NEUT % 63.2 %; PLATELET COUNT 248 K/uL (130-400); RED BLOOD COUNT 4.61 M/uL (4.2-5.4); WHITE BLOOD COUNT 8.14 K/uL (4.8-10.8)
[2016-11-18] MEDS ORDERED: SODIUM CHLORIDE 0.9% 500ML 500 ML IV STA (13:04)
[2016-11-18] MEDS ORDERED: HYDROmorphone INJ 0.5 MG/0.5 ML SYR IV STA (13:04)
[2016-11-18 13:18] LABS: ALT/SGPT 28 U/L (12-78); AST/SGOT 15 U/L (15-37); BLOOD UREA NITROGEN 12 mg/dl (7-18); BUN/CREATININE RATIO 9.6 (10-20); CALCIUM 8.3 mg/dl (8.5-10.1); CARBON DIOXIDE 26 mmol/L (21-32); CHLORIDE 108 mmol/L (98-107); GLUCOSE 100 mg/dl (70-99); POTASSIUM 2.9 mmol/L (3.5-5.1); SODIUM 140 mmol/L (136-145)
[2016-11-18 13:21] LABS: ALKALINE PHOSPHATASE 71 U/L (45-117)
--- NOTE | 2016-11-18 13:34 | DIAGNOSTIC IMAGING REPORT ---
KUB HISTORY: 26 years-old Female nephrolithiasis with acute left flank pain COMPARISON: Renal ultrasound 11/17/2016, abdominal radiograph 08/31/2016 TECHNIQUE: KUB radiograph FINDINGS: 1.6 x 1.6 cm calculus which was previously noted to be within the region of the ureteropelvic junction is again seen at the level of L2. Right-sided nephrolithiasis redemonstrated as well with calculi measuring up to 4 mm. No additional calculi seen along the course of either ureter Cholecystectomy clips are seen. Bowel gas pattern is nonobstructive. There is no fracture. IMPRESSION: 1. 1.6 cm left ureteropelvic junction calculus has not significantly changed in position. 2. Bilateral nephrolithiasis redemonstrated. The above report was generated using voice recognition software. It may contain grammatical, syntax or spelling errors. Electronically signed by: Aldo Carlos M.D. 11/18/2016 1:33 PM Dictated Date/Time: 11/18/2016 1:28 PM
[2016-11-18 13:48] LABS: URINE APPEARANCE CLOUDY (CLEAR); URINE BILIRUBIN NEG (NEG); URINE COLOR DK YELLOW; URINE EPITHELIAL CELL AUTO >30 /lpf (0-5); URINE NITRITE NEG (NEG); URINE SPECIFIC GRAVITY 1.025 (1.000-1.030); UROBILINOGEN NEG (NEG); ZZUR CULT IF INDIC CLEAN CATCH YES
[2016-11-18 13:50] LABS: PREG INTERNAL NEGATIVE QC NEG CLEAR BACKGROUND; PREG INTERNAL POSITIVE QC POS CONTROL LINE
[2016-11-18 13:54] LABS: MANUAL MICROSCOPIC REQUIRED? NO; REVIEW REQ? NO
[2016-11-18] MEDS ORDERED: ONDANSETRON INJ 2 MG/ML 2 ML VIAL IV STA (13:56)
[2016-11-18] MEDS ORDERED: POTASSIUM CHLORIDE 10 MEQ TABCR PO STA (13:56)
[2016-11-18] MEDS ORDERED: POTASSIUM CHLORIDE 10 MEQ / 100ML WTR IV STA (13:56)
[2016-11-18] MEDS ORDERED: ALUMINUM/MAGNESIUM/SIMETH (MAALOX MAX) 30 ML UDC PO PRN (15:30)
[2016-11-18] MEDS ORDERED: ONDANSETRON INJ 2 MG/ML 2 ML VIAL IV PRN ×2 (15:30→17:00)
[2016-11-18] MEDS ORDERED: POLYETHYLENE (MIRALAX) 17 GM PACK PO PRN (15:30)
[2016-11-18] MEDS ORDERED: HYDROmorphone INJ 0.5 MG/0.5 ML SYR IV PRN (15:30)
[2016-11-18] MEDS ORDERED: ACETAMINOPHEN 325 MG TAB PO PRN (15:30)
[2016-11-18] MEDS ORDERED: MAGNESIUM HYDROXIDE SUSP 30 ML UDC PO PRN (15:30)
[2016-11-18] MEDS ORDERED: NORE1TAB50 PO (15:38)
--- NOTE | 2016-11-18 16:09 | History and Physical ---
History & Physical Date & Time of Service: Nov 18, 2016 at 15:42 Chief Complaint: Left Flank Pain, Nausea, Vomiting Primary Care Physician: Yakov Nolasco D.O.Int.Med. History of Present Illness Source: patient, clinic records, hospital records This is a 26 y/o female with a history of kidney stones, depression, GERD, ulcerative colitis, recurrent pancreatitis, and iron deficiency anemia who presented to the ED on 11/18 with left flank pain x 2 days. The patient had actually presented to the ED on 11/17 with similar complaints. The patient was found to have a 1.7 cm left ureteral calculus with moderate obstructive uropathy on renal ultrasound on 11/17, which was confirmed on KUB on 11/18. The patient had been given oxycodone and sent home. The patient returned due to worsening pain. The patient describes the pain as a 7/10 aching pain in the left flank at its worst. She has received Dilaudid in the ED, and now rates her pain as a 3/10. She also complains of nausea, vomiting, and chills. She denies prasanna hematuria or dysuria but does note decreased urinary frequency. The patient has a history of previous kidney stones and lithotripsy for which she has seen Dr. Fajardo. The patient denies fevers, sweats, chest pain, palpitations, claudication, cough, wheezing, shortness of breath, dysuria, hematuria, urinary retention, paralysis, weakness, numbness and tingling. Past Medical/Surgical History Medical Problems: (1) Iron deficiency anemia Status: Chronic (2) Depression Status: Chronic (3) Esophageal Reflux Status: Chronic (4) Gastroenteritis Status: Resolved (5) Hydronephrosis Status: Resolved (6) Kidney stones Status: Resolved (7) Pancreatitis Status: Resolved Ulcerative colitis Surgical Problems: (1) History of lithotripsy Status: Resolved (2) History of renal stent Status: Resolved (3) Hydronephrosis Status: Resolved Family History FH: cancer FH: gallbladder disease Heart disease Myocardial infarction Social History Smoking Status: Never Smoker Smokeless Tobacco Use: No Alcohol Use: none Drug Use: none Marital Status: Housing status: lives with family ( and child) Occupational Status: employed Immunizations History of Influenza Vaccine: Yes History of Tetanus Vaccine?: Yes History of Pneumococcal: Unknown History of Hepatitis B Vaccine: Yes Multi-Drug Resistant Organisms History of MDRO: No Allergies Coded Allergies: Cephalexin (Verified Allergy, Mild, ITCHINESS, 11/18/16) Nickel (Verified Allergy, Unknown, ITCHY RED WITH EARRINGS, 11/18/16) Morphine (Verified Adverse Reaction, Unknown, SHORTNESS OF BREATH, 11/18/16 ) Home Medications Scheduled Citalopram Hydrobromide (Celexa), 20 MG PO HS Ferrous Sulfate (Ferrous Sulfate), 325 MG PO HS Multivit/Min/Iron/Fol Ac/Pren ( Vitamin), 1 TAB PO HS Norethindrone (Contraceptive) (Norethindrone), 0.35 MG PO HS Ondasetron Odt (Zofran Odt), 4 MG SL Q6H Scheduled PRN Acetaminophen (Tylenol), 1,000 MG PO Q4 PRN for Pain Doxylamine Succinate (Sleep) (Unisom), 25 MG PO HS PRN for Sleep Ondansetron Hcl (Zofran), 4 MG PO PRN PRN for Nausea Oxycodone Immediate Rel Tab (Roxicodone Ir), 1-2 TAB PO Q4H PRN for Severe Pain Review of Systems Constitutional: + chills, + fatigue, No fever, No sweats, No weakness Eyes: No worsening of vision, No eye pain, No diplopia ENT: No hearing loss, No sore throat, No trouble swallowing Respiratory: No cough, No wheezing, No shortness of breath Cardiovascular: No chest pain, No claudication, No palpitations Abdomen: + pain, + nausea, + vomiting Musculoskeletal: No joint pain, No muscle pain, No calf pain Genitourinary - Female: + problem reported (decreased frequency), No dysuria, No hematuria Neurologic: No paralysis, No weakness, No numbness/tingling Integumentary: No rash, No itch, No color change Physical Exam Vital Signs Date Time Temp Pulse Resp B/P (MAP) Pulse Ox O2 Delivery O2 Flow Rate FiO2 11/18/16 14:16 92 18 114/68 99 Room Air 11/18/16 13:31 79 16 90/60 99 Room Air 11/18/16 12:02 36.7 92 18 102/69 97 Room Air General appearance: +Thin. Well-developed, well-nourished, no apparent distress Head: Normocephalic, atraumatic Eyes: Normal inspection, PERRL, EOMI ENT: Normal ENT inspection, hearing grossly normal, pharynx normal Neck: Supple, no JVD, trachea midline Respiratory/Chest: Lungs clear to auscultation, normal breath sounds, no respiratory distress Cardiovascular: Regular rate & rhythm, no gallop, no murmur Abdomen/GI: +Left flank TTP. Left CVA tenderness. Normal bowel sounds, soft Extremities/Musculoskeletal: Normal inspection, no calf tenderness, no pedal edema Neurological/Psych: Alert, normal mood/affect, oriented x 3 Skin: Normal color, warm/dry, no rash Diagnostics Laboratory Results Results Past 24 Hours Test 11/18/16 12:45 11/18/16 13:15 11/18/16 15:28 Range/Units White Blood Count 8.14 4.8-10.8 K/uL Red Blood Count 4.61 4.2-5.4 M/uL Hemoglobin 13.8 12.0-16.0 g/dL Hematocrit 39.6 37-47 % Mean Corpuscular Volume 85.9 80-100 fL Mean Corpuscular Hemoglobin 29.9 25-34 pg Mean Corpuscular Hemoglobin Concent 34.8 32-36 g/dl Platelet Count 248 130-400 K/uL Mean Platelet Volume 9.4 7.4-10.4 fL Neutrophils (%) (Auto) 63.2 % Lymphocytes (%) (Auto) 24.4 % Monocytes (%) (Auto) 8.4 % Eosinophils (%) (Auto) 3.2 % Basophils (%) (Auto) 0.4 % Neutrophils # (Auto) 5.15 1.4-6.5 K/uL Lymphocytes # (Auto) 1.99 1.2-3.4 K/uL Monocytes # (Auto) 0.68 0.11-0.59 K/uL Eosinophils # (Auto) 0.26 0-0.5 K/uL Basophils # (Auto) 0.03 0-0.2 K/uL RDW Standard Deviation 43.0 36.4-46.3 fL RDW Coefficient of Variation 13.8 11.5-14.5 % Immature Granulocyte % (Auto) 0.4 % Immature Granulocyte # (Auto) 0.03 0.00-0.02 K/uL Sodium Level 140 136-145 mmol/L Potassium Level 2.9 3.5-5.1 mmol/L Chloride Level 108 98-107 mmol/L Carbon Dioxide Level 26 21-32 mmol/L Anion Gap 6.0 3-11 mmol/L Blood Urea Nitrogen 12 7-18 mg/dl Creatinine 1.30 0.60-1.20 mg/dl Est Creatinine Clear Calc Drug Dose 47.0 ml/min Estimated GFR () 64.7 Estimated GFR (Non- 55.8 BUN/Creatinine Ratio 9.6 10-20 Random Glucose 100 70-99 mg/dl Calcium Level 8.3 8.5-10.1 mg/dl Total Bilirubin 0.3 0.2-1 mg/dl Direct Bilirubin < 0.1 0-0.2 mg/dl Aspartate Amino Transf (AST/SGOT) 15 15-37 U/L Alanine Aminotransferase (ALT/SGPT) 28 12-78 U/L Alkaline Phosphatase 71 45-117 U/L Total Protein 6.4 6.4-8.2 gm/dl Albumin 3.4 3.4-5.0 gm/dl Lipase 152 73-393 U/L Urine Color DK YELLOW Urine Appearance CLOUDY CLEAR Urine pH 6.0 4.5-7.5 Urine Specific [place] 1.025 1.000-1.030 Urine Protein 1+ NEG Urine Glucose (UA) NEG NEG Urine Ketones TRACE NEG Urine Occult Blood 2+ NEG Urine Nitrite NEG NEG Urine Bilirubin NEG NEG Urine Urobilinogen NEG NEG Urine Leukocyte Esterase SMALL NEG Urine WBC (Auto) 10-30 0-5 /hpf Urine RBC (Auto) >30 0-4 /hpf Urine Hyaline Casts (Auto) 5-10 0-5 /lpf Urine Epithelial Cells (Auto) >30 0-5 /lpf Urine Bacteria (Auto) NEG NEG Urine Test NEG NEG Microbiology Results 11/18/16 Urine Culture, Received Pending Diagnostic Radiology Reviewed the following studies and agree with interpretation as follows: Patient Name: EDDA SALAZAR Unit Number: [id number] Dictated: 11/18/161327 Transcribed: 11/18/161327 GIO Printed Date/Time: [~ rep prt dt]/[~ rep prt tm] [~ rep ct labl] - [~ rep ct ivnm] [facility] Radiology [place] [address] Dictated: 11/18/16 1328 Transcribed: 11/18/16 1328 JRB Printed Date/Time: [~ rep prt dt]/[~ rep prt tm] [~ rep ct labl] - [~ rep ct ivnm] Patient: EDDA SALAZAR Address1: [address] [place] [address] Med Rec: [id number] Address2: Acct ID: [id number] [facility] Zip: [place] [address] Date: 1990 Sex: F Room/Bed: Ref Phy: Yakov Nolasco D.O.Int.Med. SC: CARLOS Att Phy: Report #: [id number] Leslie Phy: Yakov Nolasco D.O.Int.Med. Test: KUB Admit Phy: Store Shopper: FLORENCIO Interpreting Phy: Ramin Carlos D.O. Diagnosis: LEFT FLANK PAIN, NAUSEA , VOMITING Ordering Phy: Rip Turner DO Service Date: 11/18/16 Admit Date: 11/18/16 MNE: [id number] CONF: DICTATED BY: Ramin Carlos D.O.]] CC: Rip Turner, Yakov Salmon D.O.Int.Med. Endcc: [~ rep ct add3]] KUB HISTORY: 26 years-old Female nephrolithiasis with acute left flank pain COMPARISON: Renal ultrasound 11/17/2016, abdominal radiograph 08/31/2016 TECHNIQUE: KUB radiograph FINDINGS: 1.6 x 1.6 cm calculus which was previously noted to be within the region of the ureteropelvic junction is again seen at the level of L2. Right-sided nephrolithiasis redemonstrated as well with calculi measuring up to 4 mm. No additional calculi seen along the course of either ureter Cholecystectomy clips are seen. Bowel gas pattern is nonobstructive. There is no fracture. IMPRESSION: 1. 1.6 cm left ureteropelvic junction calculus has not significantly changed in position. 2. Bilateral nephrolithiasis redemonstrated. The above report was generated using voice recognition software. It may contain grammatical, syntax or spelling errors. Electronically signed by: Aldo Carlos M.D. 11/18/2016 1:33 PM Dictated Date/Time: 11/18/2016 1:28 PM The status of this report is Signed. Draft = Not yet reviewed or approved by Radiologist. Signed = Reviewed and approved by Radiologist. <AttendingPhy></AttendingPhy> <FamilyPhy>Yakov Nolasco D.O.Int.Med.</ FamilyPhy> <PrimaryPhy>Yakov Nolasco D.O.Int.Med.</PrimaryPhy> <UnitNumber> [id number]</UnitNumber> <VisitNumber>[id number]</VisitNumber> <PatientName> LYNDSEYROSE MARIEEDDA</PatientName> <DateOfBirth>1990</DateOfBirth> <Location> C.EDB</Location> <ServiceDate>11/18/16</ServiceDate> <MNE>ESINDI</MNE> < OrderingPhy>Rip Turner DO</OrderingPhy> <OrderingPhyMNE>f rep ord dr quintana</ OrderingPhyMNE> <DictatingPhyMNE>f rep dict dr quintana</DictatingPhyMNE> <CCListMNE> f rep ct mne</CCListMNE> <AdmittingPhyMNE>f pt admit dr quintana</AdmittingPhyMNE> < AttendingPhyMNE>f pt attend dr quintana</AttendingPhyMNE> <ConsultingPhyMNE>f pt consult dr quintana</ConsultingPhyMNE> <FamilyPhyMNE>f pt fam dr quintana</FamilyPhyMNE> <OtherPhyMNE>f pt other dr quintana</OtherPhyMNE> < PrimaryPhyMNE>f pt prim care dr quintana</PrimaryPhyMNE> <ReferringPhyMNE>f pt referring dr quintana</ReferringPhyMNE> Impression Assessment and Plan 26 y/o female with a history of kidney stones, depression, GERD, ulcerative colitis, recurrent pancreatitis, and iron deficiency anemia who presented to the ED on 11/18 with left flank pain x 2 days. 1.6 cm left ureteral stone at uteropelvic junction with moderate obstruction. Pt afebrile, VSS on arrival to ED. Pt did develop hypotension with BP of 90/60, but this improved after receiving a 500 cc bolus of NSS. No leukocytosis. Potassium low at 2.9, and was replaced in the ED with KCl 40 mEq PO and 10 mEq IV. 1.6-1.7 cm left ureteral stone, h/o kidney stones -Admit to med/surg -NSS + 20 mEq KCl at 100 cc/hr -Flomax 0.4 mg PO qhs -Dilaudid 0.5 mg IV q4h prn pain -Zofran 4 mg IV q6h prn nausea -Urology consulted, appreciate recs: Spoke with Dr. De Anda. Will try to get pt in for stent placement this evening around 17:30 and can do lithotripsy at a later date. -NPO for procedure DUSTIN -Creatinine 1.3 on admission, had been 0.92 one day prior to arrival -IVF as above, continue to monitor Hypokalemia--likely secondary to vomiting -Potassium 2.9 on admission -Received 40 mEq PO and 10 mEq IV in ED -Check magnesium now, replace if needed -Continue to monitor Depression -Continue Celexa 20 mg PO qd Ulcerative colitis--per pt and outpt records, pt had been on mesalamine, no longer taking anything for now. Follows with Dr. Arora's office Recurrent pancreatitis--resolved, believed to be secondary to gallbladder sludge. Cholecystectomy 09/22/[address] Barker Iron deficiency anemia--stable -Hgb WNL on admission -Continue ferrous sulfate 325 mg PO qhs DVT prophylaxis -Hold chemical prophylaxis due to stent placement -TACOS noel and AMILCARs Code Status -Level I, FULL RESUSCITATION STATUS Resident Physician Supervision Note: I was present with A Geovanny AGARWAL during the history and exam. I discussed the PA with the resident and agree with the findings and plan as documented in the note. Any exceptions or clarifications are listed here: 26 y/o F Hx UC, pancreatitis Presents with significant flank pain for second time in 2 days - diagnosed with 1.6mm L ureteral calculus OE AAO x 3 S1,2 R CTAB NT, ND, BS+ No CCE P: Pt was evaluate by uruology in ER and will proceed to OR for stenting scheduled this afternoon Med will f/u post in AM Documented By: Onel Shukla Level of Care Med/Surg Resuscitation Status FULL RESUSCITATION VTE Prophylaxis VTE Risk Assessment Done? Y/N: Yes Risk Level: Moderate Given or contraindicated: T.E.D. Stockings, SCD's
[2016-11-18] MEDS ORDERED: PROMETHAZINE HCL INJ 6.25 MG in SODIUM CHLORIDE 0.9% 50ML 50 ML IV PRN (17:00)
[2016-11-18] MEDS ORDERED: FENTANYL CITRATE INJ 50 MCG/1 ML 2 ML VIAL IV PRN (17:00)
[2016-11-18] MEDS ORDERED: ATROPINE SULFATE 0.1 MG/ML 5ML SYR IV PRN (17:00)
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
[2016-11-18] MEDS ORDERED: CONRAY 30% 150ML BOTTLE ONE (17:49)
[2016-11-18] MEDS ORDERED: MIDAZOLAM HCL 1 MG/ML 2ML VIAL ONE (17:51)
[2016-11-18] MEDS ORDERED: FENTANYL CITRATE INJ 50 MCG/1 ML 2 ML VIAL ONE (17:51)
[2016-11-18] MEDS ORDERED: GENTAMICIN SULFATE 40 MG/ML 2 ML VIAL ONE (18:09)
[2016-11-18] MEDS ORDERED: BELLADONNA/OPIUM SUPP 60 MG SUPP PR ONE ×2 (18:28→19:06)
[2016-11-18] MEDS ORDERED: LIDOCAINE HCL 2% 2 ML VIAL (20MG/ML) ONE (18:32)
[2016-11-18] MEDS ORDERED: PROPOFOL IV EMULSION 10 MG/ML 20 ML VIAL IV ONE (18:32)
[2016-11-18] MEDS ORDERED: ONDANSETRON INJ 2 MG/ML 2 ML VIAL ONE (18:32)
[2016-11-18] MEDS ORDERED: DEXAMETHASONE SOD INJ 4 MG/ML VIAL ONE (18:32)
[2016-11-18] MEDS ORDERED: METOCLOPRAMIDE HCL INJ 5 MG/ML 2 ML VIAL ONE (18:35)
[2016-11-18] MEDS ORDERED: DiphenhydrAMINE HCL 50 MG/ML VIAL ONE (18:36)
--- NOTE | 2016-11-18 18:43 | [facility] Operative Report ---
Operative Report Operative Date Nov 18, 2016. Pre-Operative Diagnosis Left renal stone Post-Operative Diagnosis same Procedure(s) Performed Cystoscopy, retrograde, stent placement Left Surgeon Dr De Anda Supervisor Acoustical [employer]ile Carpenters Surgeon(s) none Estimated Blood Loss o ml Findings Large obstructing UPJ stone on Left Specimens none Drains 6 x24 Double J on Left Complication(s) None Disposition Recovery Room / PACU Indications Obstructing UPJ stone with intractable n/v. Long conversation of options. Patient consented and agreeable. All questions answered. Description of Procedure Patient was consented and brought back to the operating room. Patient was placed under anesthesia and into the dorsal lithotomy position. A time out was completed. A 30degree Cystoscope was placed into the bladder and the entire bladder was examined. The UO's were identified. The left UO was cannulized with a catheter and a retrograde pyelogram was completed. A wire was then placed. With the wire in place, a 6 x 24 Double J stent was placed. It was confirmed with fluoroscopy. With the stent in place, the bladder was emptied. The scope was removed. The patient was cleaned, aroused from anesthesia, and transferred to the pacu in stable condition having tolerated the procedure well with no complications. I was present and participated in all aspects of the procedure. The patient will be monitored in the PACU until transferred. Plan to monitor the patient. Will likely need ESWL or Laser Lithotripsy once over acute episode for management of large stone. I attest to the content of the Intraoperative Record and any orders documented therein. Any exceptions are noted below.
--- NOTE | 2016-11-18 18:52 | DIAGNOSTIC IMAGING REPORT ---
RETROGRADE INCLUDES KUB HISTORY: CYSTO WITH STENT PLACEMENT FLUOROSCOPY TIME: 31 seconds. FINDINGS: 3 fluoroscopic spot images were submitted for review. There is a left ureteral stent which appears in good position. Contrast within the left renal collecting system. There is a large stone within the left renal pelvis. IMPRESSION: Fluoroscopy provided for left ureteral stent placement. Electronically signed by: Gagandeep Pollock M.D. 11/18/2016 6:51 PM Dictated Date/Time: 11/18/2016 6:49 PM
--- NOTE | 2016-11-18 19:26 | Anesthesiology Progress Note ---
Anesthesia Post Op Note Date & Time Nov 18, 2016 at 19:26 Vital Signs Pain Intensity: 0 Vital Signs Past 12 Hours Date Time Temp Pulse Resp B/P (MAP) Pulse Ox O2 Delivery O2 Flow Rate FiO2 11/18/16 19:17 80 16 11/18/16 19:17 80 16 100 11/18/16 19:16 111/65 11/18/16 19:12 75 14 100 11/18/16 19:12 76 14 11/18/16 19:11 106/66 11/18/16 19:07 78 16 100 11/18/16 19:07 78 16 11/18/16 19:06 108/65 11/18/16 19:05 93 15 100 11/18/16 19:05 91 15 11/18/16 19:01 112/72 11/18/16 19:00 90 18 11/18/16 19:00 92 18 100 11/18/16 18:56 119/70 11/18/16 18:55 108 16 100 11/18/16 18:55 36.6 92 16 119/70 99 Mask 10 11/18/16 18:55 108 16 11/18/16 16:55 36.7 82 16 97/64 (75) 99 Room Air 11/18/16 16:55 36.7 82 16 97/64 (75) 99 Room Air 11/18/16 16:17 36.7 84 16 99/63 98 Room Air 11/18/16 16:03 84 16 99/63 98 Room Air 11/18/16 14:16 92 18 114/68 99 Room Air 11/18/16 13:31 79 16 90/60 99 Room Air 11/18/16 12:02 36.7 92 18 102/69 97 Room Air Notes Mental Status: alert / awake / arousable, participated in evaluation Pt Amnestic to Procedure: Yes Nausea / Vomiting: adequately controlled Pain: adequately controlled Airway Patency, RR, SpO2: stable & adequate BP & HR: stable & adequate Hydration State: stable & adequate Anesthetic Complications: no major complications apparent
[2016-11-18] MEDS: NSS + 20MEQ KCL 1000ML 1,000 ML IV SCH (20:31)
[2016-11-18] MEDS ORDERED: TAMSULOSIN HCL 0.4 MG CAP PO SCH (21:00)
[2016-11-18] MEDS ORDERED: PRENATAL VITAMIN TAB PO SCH (21:00)
[2016-11-18] MEDS ORDERED: FERROUS SULFATE 325 MG TAB PO SCH (21:00)
[2016-11-18] MEDS ORDERED: CITALOPRAM 20 MG TAB PO SCH (21:00)
[2016-11-19] MEDS: NSS + 20MEQ KCL 1000ML 1,000 ML IV SCH (02:59)
[2016-11-19 03:01] VITALS: BP 92/47; PULSE 86; TEMP 36.8; O2SAT 97
[2016-11-19 07:16] LABS: HEMATOCRIT 34.4 % (37-47); MEAN CELL VOLUME 87.8 fL (80-100); MEAN CORPUSCULAR HEMOGLOBIN 29.6 pg (25-34); MEAN CORPUSCULAR HGB CONC 33.7 g/dl (32-36); MEAN PLATELET VOLUME 9.6 fL (7.4-10.4); PLATELET COUNT 204 K/uL (130-400); RED BLOOD COUNT 3.92 M/uL (4.2-5.4); WHITE BLOOD COUNT 6.05 K/uL (4.8-10.8)
[2016-11-19 07:51] VITALS: BP 92/54; PULSE 77; TEMP 36.7; O2SAT 98
[2016-11-19 07:57] LABS: CALCIUM 7.5 mg/dl (8.5-10.1); CREATININE 0.75 mg/dl (0.60-1.20); MAGNESIUM 1.8 mg/dl (1.8-2.4); POTASSIUM 3.7 mmol/L (3.5-5.1)
--- NOTE | 2016-11-19 10:00 | Discharge Instructions ---
Discharge Instructions Date of Service Nov 19, 2016. Admission Reason for Admission: Left Ureteral Calculus Discharge Discharge Diagnosis / Problem: cystoscopy and left ureteral stent Discharge Goals Goal(s): Decrease discomfort, Improve function, Improve disease control Activity Recommendations Activity Limitations: as noted below Lifting Limitations: gradually increase as tolerated Exercise/Sports Limitations: rest today, gradually increase as tolerated May Resume Sexual Activity: when tolerated Shower/Bathe: no limitations Driving or Machine Use: no limitations . Current Hospital Diet Patient's current hospital diet: Clear Liquid Diet Discharge Diet Recommended Diet: Regular Diet Procedures Procedures Performed: Cystoscopy, retrograde, stent placement Left Pending Studies Studies pending at discharge: no Medical Emergencies . Who to Call and When: Medical Emergencies: If at any time you feel your situation is an emergency, please call 911 immediately. . Non-Emergent Contact Non-Emergency issues call your: Primary Care Provider Call Non-Emergent contact if: you have a fever, temperature is above 101, your pain is not controlled, your pain is worsening, your pain is unusual for you . . "Provider Documentation" section prepared by Syd Brush . VTE Core Measure Inpt VTE Proph given/why not?: Norman Bhat, AMILCAR's
--- NOTE | 2016-11-19 10:15 | Discharge Summary ---
Discharge Summary Date of Service Nov 19, 2016. Discharge Summary Admission Date: Nov 18, 2016 at 15:41 Discharge Date: Nov 19, 2016 Discharge Disposition: Home Principal Diagnosis: Left ureteral calculus Immunizations: Have You Had Influenza Vaccine: Yes History of Tetanus Vaccine?: Yes History of Pneumococcal: Unknown History of Hepatitis B Vaccine: Yes Consultations: Urology consult for cystoscopy and stent Medication Reconciliation Continued Medications: Acetaminophen (Tylenol) 500 Mg Tab 1000 MG PO Q4 PRN for Pain Citalopram Hydrobromide (Celexa) 20 Mg Tab 20 MG PO HS, TAB Doxylamine Succinate (Sleep) (Unisom) 25 Mg Tab 25 MG PO HS PRN for Sleep Ferrous Sulfate (Ferrous Sulfate) 325 Mg Tab 325 MG PO HS Multivit/Min/Iron/Fol Ac/Pren ( Vitamin) Tab 1 TAB PO HS, TAB Norethindrone (Contraceptive) (Norethindrone) 0.35 Mg Tab 0.35 MG PO HS Discontinued Medications: Ondansetron Hcl (Zofran) 4 Mg Tab 4 MG PO PRN PRN for Nausea, TAB Ondasetron Odt (Zofran Odt) 4 Mg Tab 4 MG SL Q6H, #10 TAB Oxycodone Immediate Rel Tab (Roxicodone Ir) 5 Mg Tab 1-2 TAB PO Q4H PRN for Severe Pain, #15 TAB Referrals At Discharge Follow up Referrals: Urologist Referral - Within 1 Week with Bryon De Anda D.O. Discharge Exam Pt is seen and examined by me. Pt denies, nausea, vomiting and abdominal pain. Pt denies Cp, Sob, dizziness, palpitation and LOC. Pt states her pain is completely resolved since she received stent and slept very good last night, and able to tolerate the diet. Review of Systems: Constitutional: No fever, No chills, No weight loss, No weakness Cardiovascular: No chest pain Abdomen: No pain, No nausea, No vomiting Genitourinary - Female: No dysuria, No urinary frequency, No urinary urgency , No urinary incontinence, No urinary retention Physical Exam: General Appearance: no apparent distress Neck: supple, no adenopathy Respiratory/Chest: lungs clear, normal breath sounds, no respiratory distress Cardiovascular: regular rate, rhythm, no edema, no gallop Abdomen / GI: normal bowel sounds, non tender, no organomegaly Extremities: normal inspection, no calf tenderness Skin: normal color, warm/dry Hospital Course Assessment and Plan 26 y/o female with a history of kidney stones, depression, GERD, ulcerative colitis, recurrent pancreatitis, and iron deficiency anemia who presented to the ED on 11/18 with left flank pain x 2 days. 1.6 cm left ureteral stone at uteropelvic junction with moderate obstruction. Pt afebrile, VSS on arrival to ED. Pt did develop hypotension with BP of 90/60, but this improved after receiving a 500 cc bolus of NSS. No leukocytosis. Potassium low at 2.9, and was replaced in the ED with KCl 40 mEq PO and 10 mEq IV. 1.6-1.7 cm left ureteral stone, h/o kidney stones -Admit to med/surg -NSS + 20 mEq KCl at 100 cc/hr -Flomax 0.4 mg PO qhs -Dilaudid 0.5 mg IV q4h prn pain -Zofran 4 mg IV q6h prn nausea -Urology consulted, appreciate recs: Spoke with Dr. De Anda. Will try to get pt in for stent placement this evening around 17:30 and can do lithotripsy at a later date. -NPO for procedure 11/19/16. Pt is s/p cystoscopy and left ureteral stent, need to follow up with urology for possible ESWL once acute symptoms subsides Pt is good to go home. DUSTIN -Creatinine 1.3 on admission, had been 0.92 one day prior to arrival -IVF as above, continue to monitor Hypokalemia--likely secondary to vomiting -Potassium 2.9 on admission -Received 40 mEq PO and 10 mEq IV in ED -Check magnesium now, replace if needed -Continue to monitor Depression -Continue Celexa 20 mg PO qd Ulcerative colitis--per pt and outpt records, pt had been on mesalamine, no longer taking anything for now. Follows with Dr. Arora's office Recurrent pancreatitis--resolved, believed to be secondary to gallbladder sludge. Cholecystectomy 09/22/[address] Barker Iron deficiency anemia--stable -Hgb WNL on admission -Continue ferrous sulfate 325 mg PO qhs Total Time Spent: Greater than 30 minutes This includes examination of the patient, discharge planning, medication reconciliation, and communication with other providers. Discharge Instructions Please refer to the electronic Patient Visit Report (Discharge Instructions) for additional information. Follow-Up Follow up with PCP in 2 week Follow up with urology in 1 week Additional Copies To Yakov Nolasco D.O.Int.Med.
[2016-11-19 10:27] VITALS: BP 92/54; PULSE 77; TEMP 36.7; O2SAT 98
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
[2016-11-24] MEDS ORDERED: CITA20TA4 PO (14:49)
== END 2016-11-19 11:20 | disposition home or self-care (01) | DRG 694 ==
LOC: C.EDB 11:57 → C.MSN 15:41 → ENRESERV 15:57
PROVIDERS: ADMIT Internal Medicine; ATTEND Internal Medicine
PROC: 0T778DZ Dilation of Left Ureter with Intraluminal Device, Via Natural or Artificial Opening Endoscopic (ICD-10-PCS; principal; 2016-11-18 17:30)
DX: N20.1 Calculus of ureter (principal); N17.9 Acute kidney failure, unspecified; K51.90 Ulcerative colitis, unspecified, without complications; K21.9 Gastro-esophageal reflux disease without esophagitis; F32.9 Major depressive disorder, single episode, unspecified; E87.6 Hypokalemia; K52.9 Noninfective gastroenteritis and colitis, unspecified

== ENCOUNTER → 2016-12-01 | Outpatient (CLI) | payer OTHER ==
[~2016-12-01] MED LIST changes: +CITA20TA4 PO; -CITA20TA9 PO; +NORE1TAB50 PO; -NORE5TAB5 PO; -ONDA4TAB46 PO; -OXYC1TAB3 PO; +POTA1CAP2 PO
--- NOTE | 2016-12-01 15:52 | DIAGNOSTIC IMAGING REPORT ---
KUB CLINICAL HISTORY: Nephrolithiasis. COMPARISON STUDY: KUB November 18, 2016. FINDINGS: There has been interval placement of a left double-J ureteral stent. Proximal aspect of the stent projects over the renal pelvis and distal aspect projects over the bladder. A left pelvic calcification represents a phlebolith. A 1.8 x 1.5 cm left renal pelvis calculus is noted. Smaller bilateral renal calculi are noted. No ureteral calculi are identified. IMPRESSION: 1. Appropriately positioned left ureteral stent. 1.8 x 1.5 cm left renal pelvis calculus. 2. No ureteral calculi. 3. Bilateral nephrolithiasis. Electronically signed by: Alexis Ulrich M.D. 12/01/2016 3:50 PM Dictated Date/Time: 12/01/2016 3:47 PM
== END | disposition home or self-care (01) ==
LOC: C.RAD 10:29
PROVIDERS: ATTEND Urology
DX: N20.0 Calculus of kidney (principal)

== ENCOUNTER → 2016-12-02 | Day surgery (SDC) | payer OTHER ==
[2016-11-24 14:49] VITALS: Ht 154.9 cm; Wt 50.0 kg
[~2016-12-02] VITALS: Ht 154.9 cm; Wt 50.0 kg
[~2016-12-02] MED LIST changes: +ATROPINE SULFATE 0.1 MG/ML 5ML SYR IV PRN; +CIPROFLOXACIN 400MG / D5W IV SCH; +DEXAMETHASONE SOD INJ 4 MG/ML VIAL ONE; +EpHEDrine SULFATE INJ 50 MG/ML AMP IV PRN; +FENTANYL CITRATE INJ 50 MCG/1 ML 2 ML VIAL IV PRN; +FENTANYL CITRATE INJ 50 MCG/1 ML 2 ML VIAL ONE; +FLUMAZENIL 0.1 MG/1 ML 10 ML VIAL IV PRN; +LABETALOL HCL IV 5 MG/ML 20ML IV PRN; +LACTATED RINGER'S 1000ML 1,000 ML IV SCH; +LIDOCAINE HCL 2% 2 ML VIAL (20MG/ML) ONE; +MEPERIDINE HCL 25 MG/ML CARP IV PRN; +MIDAZOLAM HCL 1 MG/ML 2ML VIAL ONE; +NALOXONE HCL 0.4 MG/1 ML VIAL/CARP IV PRN; +ONDANSETRON INJ 2 MG/ML 2 ML VIAL IV PRN; +ONDANSETRON INJ 2 MG/ML 2 ML VIAL ONE; +PHENYLEPHRINE 100MCG/ML 5ML SYR IV PRN; +PROPOFOL IV EMULSION 10 MG/ML 20 ML VIAL IV ONE
--- NOTE | 2016-12-02 11:23 | Discharge Instructions-SurgCtr ---
Discharge Instructions Date of Service Dec 02, 2016. Visit Reason for Visit: Stones Discharge Discharge Diagnosis / Problem: left renal stone Discharge Goals Goal(s): Decrease discomfort, Increase independence, Improve disease control Activity Recommendations Activity Limitations: resume your previous activity Anesthesia . Post Anesthesia Instructions: If you have had General Anesthesia or IV Sedation: * Do not drive today. * Resume driving when surgeon permits. * Do not make important decisions or sign legal documents today. * Call surgeon for: 1. Temperature elevations greater than 101 degrees F. 2. Uncontrollable pain. 3. Excessive bleeding. 4. Persistent nausea and vomiting. 5. Medication intolerance (nausea, vomiting or rash). * For nausea and vomiting use only clear liquids such as: tea, soda, bouillon until nausea subsides, then gradually increase diet as tolerated. * If you have any concerns or questions, call your surgeon's office. If physician is unavailable and it is an emergency, call 911 or go to the nearest emergency room. . Diet Recommendations Home Diet: resume previous diet Procedures Procedures Performed: Left Extracorporeal Shock Wave Lithotripsy - Renal Pending Studies Studies pending at discharge: no Medical Emergencies . Who to Call and When: Medical Emergencies: If at any time you feel your situation is an emergency, please call 911 immediately. . Non-Emergent Contact Non-Emergency issues call your: Urologist Call Non-Emergent contact if: temperature is above 100.5 . . "Provider Documentation" section prepared by Baljit Junior. .
--- NOTE | 2016-12-02 11:24 | [facility] Post Operative Brief Note ---
Immediate Operative Summary Operative Date Dec 02, 2016. Pre-Operative Diagnosis Left renal calculi Post-Operative Diagnosis Same as pre-op Procedure(s) Performed Left Extracorporeal Shock Wave Lithotripsy - Renal Surgeon Dr. Thien Junior Wash Oil Cooler Operator Surgeon(s) None Estimated Blood Loss 0 mL Findings stone appeared to fragment Specimens None
--- NOTE | 2016-12-02 11:45 | OPERATIVE REPORT ---
DATE OF OPERATION: 12/02/2016 PROCEDURE PERFORMED: Left renal ESWL. PREOPERATIVE DIAGNOSIS: Left renal stone. POSTOPERATIVE DIAGNOSIS: Same. INDICATIONS: The patient is a 26-year-old female with a stent placed for 1.5 cm left renal stone, here for lithotripsy. DESCRIPTION OF THE PROCEDURE: She was taken to the operating room. She was placed in the supine position after being given ciprofloxacin. She had Venodyne stockings placed. She was placed in supine position and given general anesthesia. The stone was localized from posterior and she was given 2500 shocks, the majority at level 4 with the last 200 being over the kidney where the stones had spread out, trying to break the broken stones into smaller pieces. At the end the procedure, she was transferred to the recovery room in stable condition. I attest to the content of the Intraoperative Record and any orders documented therein. Any exception s are noted below.
[2016-12-02 12:15] VITALS: TEMP 36.8
--- NOTE | 2016-12-02 12:31 | Anesthesia Progress Nt - [facility] ---
Anesthesia Post Op Note Date & Time Dec 02, 2016 at 12:31 Vital Signs Pain Intensity: 2 Vital Signs Past 12 Hours Date Time Temp Pulse Resp B/P (MAP) Pulse Ox O2 Delivery O2 Flow Rate FiO2 12/02/16 12:15 36.8 75 16 109/71 (84) 100 Room Air 12/02/16 12:09 36.9 71 16 105/72 99 Room Air 12/02/16 12:05 105/72 12/02/16 12:01 72 12 100 12/02/16 12:01 72 12 12/02/16 12:00 104/74 12/02/16 11:56 76 17 12/02/16 11:56 76 17 100 12/02/16 11:55 100/74 12/02/16 11:51 79 16 12/02/16 11:51 81 16 104/67 100 12/02/16 11:46 83 17 12/02/16 11:46 83 17 100 12/02/16 11:45 104/68 12/02/16 11:41 64 13 100 12/02/16 11:41 64 13 12/02/16 11:40 69 18 103/70 100 12/02/16 11:40 68 18 12/02/16 11:35 68 19 107/73 100 12/02/16 11:35 68 19 12/02/16 11:35 36.5 72 14 107/73 100 8 12/02/16 08:37 37 95 16 104/65 (78) 99 Room Air Notes Mental Status: alert / awake / arousable, participated in evaluation Pt Amnestic to Procedure: Yes Nausea / Vomiting: adequately controlled Pain: adequately controlled Airway Patency, RR, SpO2: stable & adequate BP & HR: stable & adequate Hydration State: stable & adequate Anesthetic Complications: no major complications apparent
[2016-12-02 12:35] VITALS: BP 105/68; PULSE 77; O2SAT 100
== END | disposition home or self-care (01) ==
LOC: X.SURG 08:19
PROVIDERS: ATTEND Urology
DX: N20.0 Calculus of kidney (principal); Z39.2 Encounter for routine postpartum follow-up; R10.9 Unspecified abdominal pain; K21.9 Gastro-esophageal reflux disease without esophagitis; K51.90 Ulcerative colitis, unspecified, without complications; R20.2 Paresthesia of skin

== ENCOUNTER → 2016-12-13 | Outpatient (CLI) | payer OTHER ==
[~2016-12-13] MED LIST changes: -ATROPINE SULFATE 0.1 MG/ML 5ML SYR IV PRN; -CIPROFLOXACIN 400MG / D5W IV SCH; -DEXAMETHASONE SOD INJ 4 MG/ML VIAL ONE; -EpHEDrine SULFATE INJ 50 MG/ML AMP IV PRN; -FENTANYL CITRATE INJ 50 MCG/1 ML 2 ML VIAL IV PRN; -FENTANYL CITRATE INJ 50 MCG/1 ML 2 ML VIAL ONE; -FLUMAZENIL 0.1 MG/1 ML 10 ML VIAL IV PRN; -LABETALOL HCL IV 5 MG/ML 20ML IV PRN; -LACTATED RINGER'S 1000ML 1,000 ML IV SCH; -LIDOCAINE HCL 2% 2 ML VIAL (20MG/ML) ONE; -MEPERIDINE HCL 25 MG/ML CARP IV PRN; -MIDAZOLAM HCL 1 MG/ML 2ML VIAL ONE; -NALOXONE HCL 0.4 MG/1 ML VIAL/CARP IV PRN; -ONDANSETRON INJ 2 MG/ML 2 ML VIAL IV PRN; -ONDANSETRON INJ 2 MG/ML 2 ML VIAL ONE; -PHENYLEPHRINE 100MCG/ML 5ML SYR IV PRN; -PROPOFOL IV EMULSION 10 MG/ML 20 ML VIAL IV ONE
--- NOTE | 2016-12-13 11:34 | DIAGNOSTIC IMAGING REPORT ---
KUB CLINICAL HISTORY: Nephrolithiasis. COMPARISON STUDY: KUB December 01, 2016. FINDINGS: A left ureteral stent is in place. There has been interval fragmentation of the left renal pelvis calculus shown on exam of December 01, 2016. There are numerous calculi fragments within the proximal left ureter which measure up to 6 mm. A 7 mm calculus within the lower pole the left kidney is noted. A left pelvic calcification reflects a phlebolith. There are multiple right renal calculi. IMPRESSION: 1. Left ureteral stent in place. Interval fragmentation of left renal pelvis calculus. Numerous calculus fragments within the proximal left ureter which measure up to approximately 6 mm. 2. Bilateral nephrolithiasis. Electronically signed by: Alexis Ulrich M.D. 12/13/2016 11:32 AM Dictated Date/Time: 12/13/2016 11:30 AM
== END | disposition home or self-care (01) ==
LOC: C.RAD 10:50
PROVIDERS: ATTEND Urology
DX: N20.0 Calculus of kidney (principal); N20.1 Calculus of ureter

== ENCOUNTER 2016-12-26 07:21 | Emergency (ER) | payer OTHER ==
[~2016-12-26] VITALS: Ht 154.9 cm; Wt 45.5 kg
[~2016-12-26 07:21] MED LIST changes: -ONDA4TAB10 SL; -POTA1CAP2 PO
[2016-12-26 07:25] VITALS: TEMP 36.9; Ht 154.9 cm; Wt 45.5 kg
[2016-12-26] MEDS ORDERED: ONDANSETRON INJ 2 MG/ML 2 ML VIAL IV STA (07:50)
[2016-12-26] MEDS ORDERED: LACTATED RINGER'S 1000ML 1,000 ML IV STA (07:50)
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
[2016-12-26 08:37] LABS: BASO % 0.4 %; BASO ABS # 0.05 K/uL (0-0.2); COMPLETE YES; EOS % 2.2 %; HEMATOCRIT 41.5 % (37-47); IG% 0.5 %; LYMPH % 14.9 %; LYMPH ABS # 1.92 K/uL (1.2-3.4); MEAN CELL VOLUME 87.2 fL (80-100); MEAN CORPUSCULAR HEMOGLOBIN 29.2 pg (25-34); MEAN CORPUSCULAR HGB CONC 33.5 g/dl (32-36); MEAN PLATELET VOLUME 9.6 fL (7.4-10.4); MONO % 5.3 %; NEUT % 76.7 %; PLATELET COUNT 278 K/uL (130-400); RED BLOOD COUNT 4.76 M/uL (4.2-5.4)
--- NOTE | 2016-12-26 08:48 | DIAGNOSTIC IMAGING REPORT ---
CHEST 2 VIEWS ROUTINE CLINICAL HISTORY: Presyncope. Tachycardia. COMPARISON STUDY: Chest radiograph August 31, 2016. FINDINGS: The lung volumes are normal. The lungs are clear. No pneumothorax or pleural effusion is present. Pulmonary vascularity is normal. Cardiomediastinal silhouette is normal. The appearance of the chest is unchanged. Cholecystectomy clips are noted. IMPRESSION: No acute cardiopulmonary findings. Electronically signed by: Alexis Ulrich M.D. 12/26/2016 8:46 AM Dictated Date/Time: 12/26/2016 8:44 AM
[2016-12-26 09:09] LABS: ALB/GLOB RATIO 1.2 (0.9-2); ALKALINE PHOSPHATASE 61 U/L (45-117); ALT/SGPT 26 U/L (12-78); AST/SGOT 16 U/L (15-37); BLOOD UREA NITROGEN 20 mg/dl (7-18); BUN/CREATININE RATIO 18.5 (10-20); CALCIUM 8.5 mg/dl (8.5-10.1); CARBON DIOXIDE 29 mmol/L (21-32); CHLORIDE 103 mmol/L (98-107); GLUCOSE 82 mg/dl (70-99); POTASSIUM 2.5 mmol/L (3.5-5.1); SODIUM 140 mmol/L (136-145)
[2016-12-26] MEDS ORDERED: SODIUM CHLORIDE 0.9% 1000ML 1,000 ML IV STA (11:34)
[2016-12-26] MEDS ORDERED: POTASSIUM CHLORIDE 10 MEQ / 100ML WTR IV STA (11:34)
[2016-12-26] MEDS ORDERED: POTASSIUM CHLORIDE 10 MEQ TABCR PO STA (11:43)
[2016-12-26] MEDS ORDERED: POTA1CAP2 PO (11:50)
[2016-12-26] MEDS ORDERED: ONDA4TAB10 SL (11:50)
[2016-12-26 11:52] VITALS: BP 116/53; PULSE 80; O2SAT 99
== END 2016-12-26 12:14 | disposition left against medical advice (07) ==
LOC: C.EDB 07:22 → C.EDA 12:14
DX: K85.90 Acute pancreatitis without necrosis or infection, unspecified (principal); E87.6 Hypokalemia; D64.9 Anemia, unspecified; F32.9 Major depressive disorder, single episode, unspecified; K21.9 Gastro-esophageal reflux disease without esophagitis; Z87.442 Personal history of urinary calculi; Z80.9 Family history of malignant neoplasm, unspecified; Z82.49 Family history of ischemic heart disease and other diseases of the circulatory system; Z79.899 Other long term (current) drug therapy; Z91.19 Patient's noncompliance with other medical treatment and regimen

== ENCOUNTER 2017-02-21 01:00 | Emergency (ER) | payer OTHER ==
[~2017-02-21] VITALS: Ht 154.9 cm; Wt 49.4 kg
[~2017-02-21 01:00] MED LIST changes: +FERR1TAB62 PO; -FERR325T PO; +ONDA4TAB10 SL
[2017-02-21 01:04] VITALS: TEMP 36.6; Ht 154.9 cm; Wt 49.4 kg
[2017-02-21] MEDS ORDERED: MECLIZINE HCL 25 MG TAB PO STA (01:22)
[2017-02-21] MEDS ORDERED: ACETAMINOPHEN 500 MG TAB PO STA (01:22)
[2017-02-21] MEDS ORDERED: SODIUM CHLORIDE 0.9% 1000ML 1,000 ML IV ONE (01:30)
[2017-02-21 01:40] LABS: BASO % 0.3 %; BASO ABS # 0.03 K/uL (0-0.2); COMPLETE YES; EOS % 1.5 %; IG% 0.4 %; LYMPH % 23.5 %; LYMPH ABS # 2.55 K/uL (1.2-3.4); MEAN CELL VOLUME 87.1 fL (80-100); MEAN CORPUSCULAR HEMOGLOBIN 30.4 pg (25-34); MEAN CORPUSCULAR HGB CONC 34.9 g/dl (32-36); MEAN PLATELET VOLUME 9.5 fL (7.4-10.4); MONO % 6.4 %; NEUT % 67.9 %; PLATELET COUNT 269 K/uL (130-400); RED BLOOD COUNT 4.48 M/uL (4.2-5.4); WHITE BLOOD COUNT 10.87 K/uL (4.8-10.8)
[2017-02-21 01:58] LABS: BUN/CREATININE RATIO 19.6 (10-20); CALCIUM 8.7 mg/dl (8.5-10.1); CREATININE 0.66 mg/dl (0.60-1.20); POTASSIUM 3.3 mmol/L (3.5-5.1)
[2017-02-21 02:00] LABS: ALB/GLOB RATIO 1.2 (0.9-2)
[2017-02-21] MEDS ORDERED: ONDANSETRON 4MG OD TAB PO STA (02:03)
[2017-02-21] MEDS ORDERED: ONDANSETRON HOME PACK 4MG OD TAB PO ONE (03:15)
[2017-02-21 03:28] VITALS: BP 123/84; PULSE 81; O2SAT 100
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
--- NOTE | 2017-02-21 06:35 | DIAGNOSTIC IMAGING REPORT ---
HEAD WITHOUT CONTRAST (CT) CLINICAL HISTORY: 27 years-old Female with Headache. Vertigo. 7wk . Acute headache with vertigo TECHNIQUE: Multiple axial CT images of the head were obtained without contrast. A dose lowering technique was utilized adhering to the principles of ALARA. CT DOSE: 537.48 mGy.cm COMPARISON: CT head 02/03/2016. FINDINGS: No acute intracranial hemorrhage, midline shift, mass, large territorial ischemia or abnormal extra-axial collection. The calvarium is intact. The paranasal sinuses, mastoid air cells, and middle ear cavities are clear. IMPRESSION: No acute intracranial abnormality. The above report was generated using voice recognition software. It may contain grammatical, syntax or spelling errors. Electronically signed by: Aldo Carlos M.D. 02/21/2017 6:33 AM Dictated Date/Time: 02/21/2017 6:32 AM
== END 2017-02-21 03:29 | disposition home or self-care (01) ==
LOC: C.EDB 01:02 → C.EDA 03:29
DX: R42 Dizziness and giddiness (principal); R11.2 Nausea with vomiting, unspecified; K21.9 Gastro-esophageal reflux disease without esophagitis; K86.1 Other chronic pancreatitis; D64.9 Anemia, unspecified; F32.9 Major depressive disorder, single episode, unspecified; Z87.442 Personal history of urinary calculi; Z87.19 Personal history of other diseases of the digestive system; Z79.899 Other long term (current) drug therapy; Z80.9 Family history of malignant neoplasm, unspecified; Z83.79 Family history of other diseases of the digestive system; Z82.49 Family history of ischemic heart disease and other diseases of the circulatory system

== ENCOUNTER → 2017-03-06 | Outpatient (CLI) | payer OTHER ==
[~2017-03-06] MED LIST changes: -ACET-1256 PO; -DOXY25TA7 PO; -NORE1TAB50 PO; -ONDA4TAB10 SL
[2017-03-06 17:19] LABS: URINE APPEARANCE CLEAR (CLEAR); URINE BILIRUBIN NEG (NEG); URINE COLOR DK YELLOW; URINE EPITHELIAL CELL AUTO 20-30 /lpf (0-5); URINE NITRITE NEG (NEG); URINE PH 5.5 (4.5-7.5); URINE SPECIFIC GRAVITY 1.026 (1.000-1.030); UROBILINOGEN NEG (NEG)
[2017-03-06 17:23] LABS: MANUAL MICROSCOPIC REQUIRED? NO; REVIEW REQ? NO
== END | disposition home or self-care (01) ==
LOC: C.LABSPEC 16:46
PROVIDERS: ATTEND Obstetrics & Gynecology
DX: Z34.81 Encounter for supervision of other normal pregnancy, first trimester (principal); Z3A.00 Weeks of gestation of pregnancy not specified

== ENCOUNTER → 2017-03-14 | Outpatient (CLI) | payer OTHER ==
[2017-03-14 16:39] LABS: BASO % 0.2 %; BASO ABS # 0.02 K/uL (0-0.2); COMPLETE YES; EOS % 1.3 %; HEMATOCRIT 40.8 % (37-47); IG% 0.5 %; LYMPH % 27.2 %; LYMPH ABS # 3.26 K/uL (1.2-3.4); MEAN CELL VOLUME 86.8 fL (80-100); MEAN CORPUSCULAR HEMOGLOBIN 30.2 pg (25-34); MEAN CORPUSCULAR HGB CONC 34.8 g/dl (32-36); MEAN PLATELET VOLUME 9.7 fL (7.4-10.4); MONO % 5.6 %; NEUT % 65.2 %; PLATELET COUNT 301 K/uL (130-400); WHITE BLOOD COUNT 11.99 K/uL (4.8-10.8)
[2017-03-17 02:52] LABS: CHLAMYDIA TRACH RNA*** NOT DETECTED (NOT DETECTED); GC (NEIS GONORRHOEAE)RNA** NOT DETECTED (NOT DETECTED)
== END | disposition home or self-care (01) ==
LOC: C.LAB1850 16:04
PROVIDERS: ATTEND Obstetrics & Gynecology
DX: Z34.81 Encounter for supervision of other normal pregnancy, first trimester (principal)

== ENCOUNTER → 2017-04-12 | Outpatient (CLI) | payer OTHER ==
[~2017-04-12] MED LIST changes: +ACET-1175 PO; +ACET-1693 PO; +BCPILLS PO; +CALC500C3 PO; +CALC667C4 PO; +CLR10 PO; +CPR500 PO; +DOXY25TA8 PO; +FOLI1TAB8 PO; +IBUP-103 PO; +MCRK20 PO; +MESA1.2T3 PO; +METO-157 PO; +METO10TA3 PO; +MGNO400 PO; +NITR1CAP16 PO; +ONDA4TAB10 SL; +OXYC-57 PO; +OXYC-737 PO; +PHEN-774 PO; +POTA-74 PO; +POTA20TA13 PO; +POTTAB2 PO; +RANI150T3 PO; +ZOFRAN ODT 4MG PO
--- NOTE | 2017-04-12 15:37 | DIAGNOSTIC IMAGING REPORT ---
(RENAL)RETROPERITON COMP HISTORY: 27 years-old Female NEPHROLITHIASIS follow-up study in a patient with nephrolithiasis and COMPARISON: Renal ultrasound 11/17/2016 TECHNIQUE: Multiple real-time sonographic images of the kidneys and urinary bladder were obtained assessing grayscale appearance and color flow FINDINGS: The right kidney measures 11.0 x 5.3 x 3.8 cm. Multiple calculi are again seen within the right kidney, largest of which measures 9 mm within the superior pole. No right-sided hydronephrosis. The left kidney measures 11.3 x 5.0 x 4.9 cm. Multiple calculi are seen within the left kidney, largest of which measures 9 mm within the interpolar region. Mild dilation of the left renal pelvis, central and peripheral calyces. Mild amount of echogenic debris is noted throughout the urinary bladder. Right ureteral jet not visualized. head is noted causing mild mass effect upon the urinary bladder. IMPRESSION: 1. Mild left-sided hydronephrosis without obstructing calculus identified. 2. Bilateral nephrolithiasis. 3. Nonspecific mild amount of echogenic debris is noted within the urinary bladder lumen. Correlate with urinalysis. The above report was generated using voice recognition software. It may contain grammatical, syntax or spelling errors. Electronically signed by: Aldo Carlos M.D. 04/12/2017 3:36 PM Dictated Date/Time: 04/12/2017 3:33 PM
== END | disposition home or self-care (01) ==
LOC: C.ULTR 14:23
PROVIDERS: ATTEND Urology
DX: N20.0 Calculus of kidney (principal)

== ENCOUNTER 2017-04-13 14:29 | Day surgery (SDC) | payer OTHER ==
[~2017-04-13] VITALS: Ht 154.9 cm; Wt 50.0 kg
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
[~2017-04-13 14:29] MED LIST changes: -ACET-1175 PO; -ACET-1693 PO; -BCPILLS PO; -CALC500C3 PO; -CALC667C4 PO; -CLR10 PO; -CPR500 PO; -DOXY25TA8 PO; -FOLI1TAB8 PO; -IBUP-103 PO; -MCRK20 PO; -MESA1.2T3 PO; -METO-157 PO; -METO10TA3 PO; -MGNO400 PO; -NITR1CAP16 PO; -ONDA4TAB10 SL; -OXYC-57 PO; -OXYC-737 PO; -PHEN-774 PO; -POTA-74 PO; -POTA20TA13 PO; -POTTAB2 PO; -RANI150T3 PO; -ZOFRAN ODT 4MG PO
[2017-04-13] MEDS ORDERED: ACET325T96 PO (14:49)
[2017-04-13] MEDS ORDERED: ACET-1175 PO (14:49)
[2017-04-13 14:53] VITALS: BP 103/60; PULSE 105; TEMP 37.1; O2SAT 99; Ht 154.9 cm; Wt 50.0 kg
[2017-04-13] MEDS ORDERED: CONRAY 30% 150ML BOTTLE ONE (15:34)
[2017-04-13] MEDS ORDERED: SUCCINYLCHOLINE CHLORIDE 20 MG/ML 10 ML VIAL IV ONE (15:40)
[2017-04-13] MEDS ORDERED: ONDANSETRON INJ 2 MG/ML 2 ML VIAL ONE (15:40)
[2017-04-13] MEDS ORDERED: PROPOFOL IV EMULSION 10 MG/ML 20 ML VIAL IV ONE (15:40)
[2017-04-13] MEDS ORDERED: FENTANYL CITRATE INJ 50 MCG/1 ML 2 ML VIAL ONE (15:41)
--- NOTE | 2017-04-13 15:52 | Discharge Instructions ---
Discharge Instructions Date of Service Apr 13, 2017. Admission Reason for Admission: Stones Discharge Discharge Diagnosis / Problem: L UPJ stone s/p ureteroscopy, laser litho and stent Discharge Goals Goal(s): Decrease discomfort, Improve function, Therapeutic intervention Activity Recommendations Activity Limitations: as noted below Lifting Limitations: no more than 25 pounds, gradually increase as tolerated Exercise/Sports Limitations: rest today, gradually increase as tolerated May Resume Sexual Activity: when tolerated Shower/Bathe: no limitations Driving or Machine Use: resume 1 day after discharge . Instructions / Follow-Up Instructions / Follow-Up In office for cystoscopy and stent removal on Apr 26 at 4:15 PM Current Hospital Diet Patient's current hospital diet: Discharge Diet Recommended Diet: Regular Diet (good fluid intake) Procedures Procedures Performed: Cystoscopy, left ureteroscopy with laser lithotripsy, ureteral stent placement Pending Studies Studies pending at discharge: no Medical Emergencies . Who to Call and When: Medical Emergencies: If at any time you feel your situation is an emergency, please call 911 immediately. . Non-Emergent Contact Non-Emergency issues call your: Urologist Call Non-Emergent contact if: you have a fever, temperature is above 101, your pain is not controlled, your pain is worsening, your pain is unusual for you, your pain is concerning you, you have any medication questions . . "Provider Documentation" section prepared by Hussein Fajardo. . VTE Core Measure Inpt VTE Proph given/why not?: [facility] [place] Drug Monitoring Program Search Results: patient reviewed within database, see additional documentation (last Rx Sep 2016)
[2017-04-13] MEDS ORDERED: FENTANYL CITRATE INJ 50 MCG/1 ML 2 ML VIAL IV PRN (16:00)
[2017-04-13] MEDS ORDERED: ATROPINE SULFATE 0.1 MG/ML 5ML SYR IV PRN (16:00)
[2017-04-13] MEDS ORDERED: EpHEDrine SULFATE INJ 50 MG/ML AMP IV PRN (16:00)
[2017-04-13] MEDS ORDERED: ONDANSETRON INJ 2 MG/ML 2 ML VIAL IV PRN (16:00)
[2017-04-13] MEDS ORDERED: PHENYLEPHRINE 100MCG/ML 5ML SYR ONE (16:46)
[2017-04-13] MEDS ORDERED: LIDOCAINE HCL 2% 2 ML VIAL (20MG/ML) ONE (16:46)
[2017-04-13] MEDS ORDERED: ARTIFICIAL TEARS OP OINT 3.5 GM TUBE ONE (16:50)
--- NOTE | 2017-04-13 17:01 | [facility] Operative Report ---
Operative Report Operative Date Apr 13, 2017. Pre-Operative Diagnosis Left ureteral and renal stones. Post-Operative Diagnosis Left renal stones. Procedure(s) Performed Cystoscopy, left semi-rigid and flexible ureteroscopy, laser lithotripsy, and left ureteral stent insertion Surgeon Dr. 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 Specimens NA Drains 6 fr multilength stent on left Anesthesia GAET Complication(s) None Disposition Recovery Room / PACU Indications 27-year-old female, well-known to our service who presents with acute left- sided colic in the midst of her . Renal ultrasound performed yesterday is demonstrated left-sided hydronephrosis and stone with no evidence of obstruction on the right-hand side. Her prior KUB demonstrates residual left -sided stones. Please see H&P for further details. Patient is elected for acute intervention today to remove her stone in the context of her early . Risks and benefits were reviewed preoperatively. Seen a questionable history of allergy to cephalexin and a contraindication to quinolones no preoperative antibiotics were provided as noted. SCDs used for DVT prophylaxis. Description of Procedure Patient was properly identified and brought into the operative suite after identification of appropriate consent on the chart. General anesthesia with endotracheal intubation was initiated and patient was prepped and draped in the standard fashion for this procedure. Full timeout procedure was followed. 22 Bulgarian rigid cystoscope was passed into the bladder under direct visualization and mass effect from the gravid uterus was appreciated. Both ureteral orifices were in the normal anatomic location, somewhat patulous due to prior history of stone intervention. Left-sided ureteral orifice was cannulated using a sensor tip wire which was advanced without resistance or difficulties. A short semirigid ureteroscope was easily able to be passed into the ureter and up to the level of the proximal ureter demonstrating no evidence of ureteral stone, inflammation, strictures or other abnormalities. No evidence of recent stone presence was noted. A second working sensor tip wire was placed via the semirigid ureteroscope under direct visualization into the renal pelvis. Semirigid ureteroscope was backloaded off of the working wire and a flexible ureteroscope was easily advanced under direct visualization to the level of the left renal pelvis, monitoring its ascent directly. Complete left-sided pyeloscopy was performed demonstrating a large stone at the level of the UPJ with inflammation of the proximal ureter felt to be consistent with obstruction at this level from her solitary calculus. No ureteral access sheath was used to avoid blind placement but a 14 Bulgarian red rubber catheter was left within the bladder alongside the ureteroscope to avoid overdistention. Using a 200 holmium laser fiber the stone was fragmented and dusted into small pieces felt to be easily passable. After this was complete pyeloscopy was repeated demonstrating no large residual stone fragments were injuries. Complete exit ureteroscopy was performed demonstrating an intact and uninjured ureter with the safety wire being within the confines of the ureter along its entire length with no submucosal areas. After this was complete the cystoscope was backloaded over the safety wire and a 6 Bulgarian multilength stent was placed with a double coil left within the bladder and a hydronephrotic drip. Bladder was drained and cystoscope was removed. Anesthesia was reversed and patient was transferred to the recovery room in stable condition. No fluoroscopy was used within the case. Follow-up care: Patient will be discharged with a short course of nitrofurantoin for antibiotic coverage as well as prescribed Percocet and Pyridium. Cystoscopy and stent removal has been scheduled. Discharge instructions reviewed the patient is advised against her current plan to work tomorrow. Patient to contact us with any fevers, chills, nausea, vomiting or other significant difficulties in the postoperative period. I attest to the content of the Intraoperative Record and any orders documented therein. Any exceptions are noted below.
[2017-04-13] MEDS ORDERED: PHEN-939 PO (17:22)
[2017-04-13] MEDS ORDERED: NITR1CAP16 PO (17:22)
[2017-04-13] MEDS ORDERED: OXYC-57 PO (17:22)
[2017-04-13] MEDS ORDERED: OXYCODONE/ACETAMINOPHEN 5-325 TAB PO PRN ×2 (17:30)
[2017-04-13] MEDS ORDERED: PHENAZOPYRIDINE HCL 200 MG TAB PO PRN (17:30)
--- NOTE | 2017-04-13 17:33 | Anesthesiology Progress Note ---
Anesthesia Post Op Note Date & Time Apr 13, 2017 at 17:31 Vital Signs Pain Intensity: 0 Vital Signs Past 12 Hours Date Time Temp Pulse Resp B/P (MAP) Pulse Ox O2 Delivery O2 Flow Rate FiO2 04/13/17 17:20 95 20 110/77 100 Oxymask 10 04/13/17 17:13 37.1 95 16 107/69 100 Oxymask 10 04/13/17 14:53 37.1 105 18 103/60 (74) 99 Room Air Notes Mental Status: alert / awake / arousable, participated in evaluation Pt Amnestic to Procedure: Yes Nausea / Vomiting: adequately controlled Pain: adequately controlled Airway Patency, RR, SpO2: stable & adequate BP & HR: stable & adequate Hydration State: stable & adequate Anesthetic Complications: no major complications apparent HR in PACU was 120's. Patient without complaints of nausea and states pain is tolerable. All questions answered. VSS. No complications.
[2017-04-13 18:00] VITALS: BP 102/59; PULSE 91; TEMP 36.8; O2SAT 98
[2017-04-13 18:31] VITALS: BP 99/60; PULSE 91; TEMP 36.8; O2SAT 98
== END 2017-04-13 18:35 | disposition home or self-care (01) ==
LOC: C.ACU 14:29
PROVIDERS: ATTEND Urology
DX: O26.831 Pregnancy related renal disease, first trimester (principal); N20.0 Calculus of kidney; Z3A.14 14 weeks gestation of pregnancy; Z87.442 Personal history of urinary calculi; O99.341 Other mental disorders complicating pregnancy, first trimester; F32.9 Major depressive disorder, single episode, unspecified; O99.611 Diseases of the digestive system complicating pregnancy, first trimester; K44.9 Diaphragmatic hernia without obstruction or gangrene; Z82.49 Family history of ischemic heart disease and other diseases of the circulatory system

== ENCOUNTER 2017-04-13 23:38 | Observation (INO) | payer OTHER ==
[~2017-04-13] VITALS: Ht 154.9 cm; Wt 46.9 kg
[~2017-04-13 23:38] MED LIST changes: +ACET-1175 PO; +ACET325T96 PO; +NITR1CAP16 PO; +OXYC-57 PO; +PHEN-939 PO
[2017-04-14] VITALS (8 sets, daily range): BP systolic 95–130; BP diastolic 60–85; PULSE 72–115; TEMP 36.5–37; O2SAT 96–100; Ht 154.9 cm; Wt 46.9 kg
[2017-04-14] MEDS ORDERED: SODIUM CHLORIDE 0.9% 1000ML 1,000 ML IV STA ×3 (00:09→14:40)
[2017-04-14] MEDS ORDERED: ONDANSETRON INJ 2 MG/ML 2 ML VIAL IV STA (00:09)
[2017-04-14] MEDS ORDERED: OXYCODONE/ACETAMINOPHEN 5-325 TAB PO STA (00:15)
[2017-04-14 00:23] LABS: BASO % 0.2 %; BASO ABS # 0.03 K/uL (0-0.2); EOS ABS # 0.14 K/uL (0-0.5); HEMATOCRIT 35.9 % (37-47); HEMOGLOBIN 12.3 g/dL (12.0-16.0); IG# 0.11 K/uL (0.00-0.02); LYMPH % 21.5 %; LYMPH ABS # 2.95 K/uL (1.2-3.4); MEAN CELL VOLUME 88.9 fL (80-100); MEAN CORPUSCULAR HEMOGLOBIN 30.4 pg (25-34); MEAN CORPUSCULAR HGB CONC 34.3 g/dl (32-36); MEAN PLATELET VOLUME 9.2 fL (7.4-10.4); MONO % 5.7 %; MONO ABS # 0.78 K/uL (0.11-0.59); NEUT % 70.8 %; NEUT ABS # 9.74 K/uL (1.4-6.5); PLATELET COUNT 255 K/uL (130-400); RED CELL DISTRIBUTION WIDTH CV 13.1 % (11.5-14.5); RED CELL DISTRIBUTION WIDTH SD 42.4 fL (36.4-46.3); WHITE BLOOD COUNT 13.75 K/uL (4.8-10.8)
[2017-04-14 00:43] LABS: ALBUMIN 2.8 gm/dl (3.4-5.0); CALCIUM 8.1 mg/dl (8.5-10.1); CREATININE 0.88 mg/dl (0.60-1.20); POTASSIUM 3.6 mmol/L (3.5-5.1)
[2017-04-14] MEDS ORDERED: PROMETHAZINE HCL INJ 12.5 MG in SODIUM CHLORIDE 0.9% 50ML 50 ML IV STA (01:27)
[2017-04-14] MEDS ORDERED: HYDROmorphone INJ 0.5 MG/0.5 ML SYR IV STA (02:17)
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
[2017-04-14] MEDS ORDERED: HYDROmorphone INJ 1 MG/ML SYR IV STA (03:49)
[2017-04-14] MEDS ORDERED: HYDROmorphone INJ 1 MG/ML SYR IV PRN (04:30)
[2017-04-14] MEDS ORDERED: ONDANSETRON INJ 2 MG/ML 2 ML VIAL IV PRN ×2 (04:30→14:45)
[2017-04-14] MEDS ORDERED: ACETAMINOPHEN 325 MG TAB PO PRN (04:30)
[2017-04-14] MEDS ORDERED: NITROFURANTOIN MONOHYDRATE 100 MG CAP PO ONE (04:30)
--- NOTE | 2017-04-14 04:48 | History and Physical ---
History & Physical Date & Time of Service: Apr 14, 2017 at 04:32 Chief Complaint: R-Flank Pain,Return From Surgery Today Primary Care Physician: Twila Hargrove M.D. History of Present Illness Source: patient 27 y/o F who is 14 weeks - history of nephrolithiasis and placement of a stent in her L ureter 1 day prior. The pt developed progressive R sided flank pain and returned therefore to the hospital. An ultrasound confirmed new R sided hydro with 2 obstructing calculi in the distal ureter. She describes nausea without vomiting and denies fevers or rigors. Her pain has not been adequately controlled with PO narcotics. 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 [employer] Smoking Status: Never Smoker Drug Use: none Marital Status: Housing status: lives with significant other Occupational Status: employed Immunizations History of Influenza Vaccine: Yes History of Tetanus Vaccine?: Yes History of Pneumococcal: Unknown History of Hepatitis B Vaccine: Yes Multi-Drug Resistant Organisms History of MDRO: No Allergies Coded Allergies: Cephalexin (Verified Allergy, Mild, ITCHINESS, 04/13/17) Nickel (Verified Allergy, Unknown, ITCHY RED WITH EARRINGS, 04/13/17) Morphine (Verified Adverse Reaction, Unknown, SHORTNESS OF BREATH, 04/13/17) Home Medications Scheduled Citalopram Hydrobromide (Citalopram Hydrobromide), 20 MG PO HS Ferrous Sulfate (Ferrous Sulfate), 325 MG PO HS Multivit/Min/Iron/Fol Ac/Pren ( Vitamin), 1 TAB PO HS Nitrofurantoin Monohyd Macro (Macrobid), 100 MG PO BID Scheduled PRN Acetaminophen Tab (Tylenol), 650 MG PO UD PRN for Pain Oxycodone/Acetaminophen 5MG/325MG (Percocet 5MG/325MG), 1 TABLET PO Q4H PRN for Pain Phenazopyridine Hcl (Pyridium), 100 MG PO Q8 PRN for Bladder pain Review of Systems Constitutional: No fever, No chills, No sweats Eyes: No worsening of vision ENT: No hearing loss, No nasal symptoms Respiratory: No cough, No sputum, No wheezing Cardiovascular: No chest pain, No PND Abdomen: + nausea, No pain, No vomiting Musculoskeletal: No joint pain Genitourinary - Female: + problem reported (R flank pain), No dysuria Neurologic: No memory loss, No paralysis, No weakness Psychiatric: No depression symptoms Endocrine: No fatigue Hematologic / Lymphatic: No abnormal bleeding/bruising Integumentary: No rash Allergic / Immunologic: No environmental allergies Physical Exam Vital Signs Date Time Temp Pulse Resp B/P (MAP) Pulse Ox O2 Delivery O2 Flow Rate FiO2 04/14/17 03:33 130 20 145/102 98 Room Air 04/14/17 01:51 118 16 145/82 97 Room Air 04/13/17 23:47 36.7 104 18 123/63 99 Room Air General Appearance: WD/WN, no apparent distress Head: normocephalic ENT: normal ENT inspection, pharynx normal Neck: supple, no JVD Respiratory/Chest: chest non-tender, lungs clear, normal breath sounds Cardiovascular: regular rate, rhythm, no edema, no gallop Abdomen/GI: normal bowel sounds, non tender, soft Back: normal inspection, + right CVA tenderness Extremities/Musculoskelatal: normal inspection, no calf tenderness, normal capillary refill Neurologic/Psych: 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 as tested, no motor/sensory deficits, alert, oriented x 3 Skin: normal color Diagnostics Laboratory Results Results Past 24 Hours Test 04/13/17 23:55 Range/Units White Blood Count 13.75 4.8-10.8 K/uL Red Blood Count 4.04 4.2-5.4 M/uL Hemoglobin 12.3 12.0-16.0 g/dL Hematocrit 35.9 37-47 % Mean Corpuscular Volume 88.9 80-100 fL Mean Corpuscular Hemoglobin 30.4 25-34 pg Mean Corpuscular Hemoglobin Concent 34.3 32-36 g/dl Platelet Count 255 130-400 K/uL Mean Platelet Volume 9.2 7.4-10.4 fL Neutrophils (%) (Auto) 70.8 % Lymphocytes (%) (Auto) 21.5 % Monocytes (%) (Auto) 5.7 % Eosinophils (%) (Auto) 1.0 % Basophils (%) (Auto) 0.2 % Neutrophils # (Auto) 9.74 1.4-6.5 K/uL Lymphocytes # (Auto) 2.95 1.2-3.4 K/uL Monocytes # (Auto) 0.78 0.11-0.59 K/uL Eosinophils # (Auto) 0.14 0-0.5 K/uL Basophils # (Auto) 0.03 0-0.2 K/uL RDW Standard Deviation 42.4 36.4-46.3 fL RDW Coefficient of Variation 13.1 11.5-14.5 % Immature Granulocyte % (Auto) 0.8 % Immature Granulocyte # (Auto) 0.11 0.00-0.02 K/uL Urine Color DK YELLOW Urine Appearance CLOUDY CLEAR Urine pH 6.5 4.5-7.5 Urine Specific [place] 1.021 1.000-1.030 Urine Protein 3+ NEG Urine Glucose (UA) NEG NEG Urine Ketones TRACE NEG Urine Occult Blood 3+ NEG Urine Nitrite NEG NEG Urine Bilirubin NEG NEG Urine Urobilinogen NEG NEG Urine Leukocyte Esterase LARGE NEG Urine WBC (Auto) >30 0-5 /hpf Urine RBC (Auto) >30 0-4 /hpf Urine Hyaline Casts (Auto) 0 0-5 /lpf Urine Epithelial Cells (Auto) 10-20 0-5 /lpf Urine Bacteria (Auto) NEG NEG Urine Pathogenic Casts 0 /lpf Urine Yeast (Auto) NONE PRSENT Sodium Level 135 136-145 mmol/L Potassium Level 3.6 3.5-5.1 mmol/L Chloride Level 98 98-107 mmol/L Carbon Dioxide Level 30 21-32 mmol/L Anion Gap 7.0 3-11 mmol/L Blood Urea Nitrogen 14 7-18 mg/dl Creatinine 0.88 0.60-1.20 mg/dl Est Creatinine Clear Calc Drug Dose 71.1 ml/min Estimated GFR () 102.9 Estimated GFR (Non- 88.8 BUN/Creatinine Ratio 16.4 10-20 Random Glucose 78 70-99 mg/dl Calcium Level 8.1 8.5-10.1 mg/dl Total Bilirubin 0.3 0.2-1 mg/dl Aspartate Amino Transf (AST/SGOT) 15 15-37 U/L Alanine Aminotransferase (ALT/SGPT) 24 12-78 U/L Alkaline Phosphatase 52 45-117 U/L Total Protein 6.0 6.4-8.2 gm/dl Albumin 2.8 3.4-5.0 gm/dl Globulin 3.2 2.5-4.0 gm/dl Albumin/Globulin Ratio 0.9 0.9-2 Lipase 991 73-393 U/L Diagnostic Radiology 6mm and 10mm stones in distal R ureter - hydronephrosis present - L hydronephrosis has resolved following stent placement Impression Assessment and Plan 27 y/o F who is 14 weeks - history of nephrolithiasis and placement of a stent in her L ureter 1 day prior. The pt developed progressive R sided flank pain and returned therefore to the hospital. An ultrasound confirmed new R sided hydro with 2 obstructing calculi in the distal ureter. She describes nausea without vomiting and denies fevers or rigors. Her pain has not been adequately controlled with PO narcotics. The pt is admitted for pain control and evaluation by urology for possible stent placement. She will be kept NPO and provided with IVF. Her UA is equivocal - she was placed on Macrobid by urology which we will continue. If an extended stay is needed, it may be prudent to consult OBGYN. US in the ER is reported as normal. Full code - SCDs pending urology eval Total time for this admit including review of labs, meds, records, US - discussion with pt and ER attending - 36 min Level of Care Med/Surg Resuscitation Status FULL RESUSCITATION VTE Prophylaxis VTE Risk Assessment Done? Y/N: Yes Risk Level: Moderate Given or contraindicated: SCD's
[2017-04-14] MEDS ORDERED: ACETAMINOPHEN 325 MG TAB ONE (05:22)
[2017-04-14] MEDS ORDERED: IV FLUIDS COMPLETED PRN (05:45)
[2017-04-14] MEDS ORDERED: HYDROmorphone INJ 1 MG/ML SYR ONE (05:56)
--- NOTE | 2017-04-14 06:37 | DIAGNOSTIC IMAGING REPORT ---
LIMITED (US) CLINICAL HISTORY: 14 wks , right flank and abdominal pain pain TECHNIQUE: Ultrasound COMPARISON STUDY: None FINDINGS: Single, viable intrauterine . heart rate is confirmed at 1 45 bpm. Posterior placenta previa. Follow-up evaluation is recommended a later date. No evidence for bronchial placenta. Action is contraction present during the exam. IMPRESSION: Single, viable intrauterine . Estimated gestational age 14 weeks. Variable position. Posterior placenta previa with follow-up at a later date recommended The above report was generated using voice recognition software. It may contain grammatical, syntax or spelling errors. Electronically signed by: Abdirashid Hernandez M.D. 04/14/2017 6:36 AM Dictated Date/Time: 04/14/2017 6:33 AM
--- NOTE | 2017-04-14 07:09 | DIAGNOSTIC IMAGING REPORT ---
(RENAL)RETROPERITON COMP HISTORY: 27 years-old Female right flank pain, hx stones w/ left ureteral stent, acute right flank pain with COMPARISON: Renal ultrasound 04/12/2017 TECHNIQUE: Multiple real-time sonographic images of the kidneys and urinary bladder were obtained assessing grayscale appearance and color flow FINDINGS: Right kidney measures 11.4 x 5.9 x 5.1 cm. There is moderate right-sided hydroureteronephrosis which is new from prior study. Multiple right-sided nonobstructing kidney stones redemonstrated, largest of which measures 6 mm. There are 2 stones noted within the mid to distal right ureter measuring 0.6 and 1.0 cm respectively nicely seen on image 39. The left kidney measures 12.0 x 4.5 x 3.7 cm. Left ureteral stent is in place with resolution of the previously described obstructive uropathy. Multiple left-sided kidney stones are again seen, largest of which is within the mid pole, 1.1 cm. Visualization of the kidney is somewhat limited secondary to obscuring bowel gas. Decompressed urinary bladder with intrauterine gestation noted. IMPRESSION: 1. Interval development of moderate right-sided hydroureteronephrosis secondary to two ureteral stones within the mid to distal right ureter measuring up to 1.0 cm. 2. Interval placement of a left ureteral stent with resolution of the previously described left-sided obstructive uropathy. 3. Decompressed urinary bladder with intrauterine gestation noted. The above report was generated using voice recognition software. It may contain grammatical, syntax or spelling errors. Electronically signed by: Aldo Carlos M.D. 04/14/2017 7:08 AM Dictated Date/Time: 04/14/2017 7:01 AM
[2017-04-14] MEDS ORDERED: D5NSS + 20MEQ KCL 1,000 ML IV SCH (07:30)
--- NOTE | 2017-04-14 07:33 | Family Medicine Progress Note ---
Progress Note Date of Service Apr 14, 2017. Subjective Pt evaluation today including: conversation w/ patient, physical exam, chart review, lab review Pain: 5/10 right flank Voiding: no voiding problems 27 year old female 14 weeks admitted this morning for right sided renal colic. Known kidney stones in the past and under [facility] urology. Most recently had left sided stones in the past week with left sided ureteral stent placement on Monday. Right sided renal colic pain started yesterday and progressively getting worse. Dilaudid helping but still having 5/10 pain at present (right flank). She denies any dysuria, fevers or chills. Medications Current Inpatient Medications Medications (Trade) Dose Ordered Sig/Tereso Route Start Time Stop Time Status Last Admin Dose Admin Hydromorphone HCl (Dilaudid Inj) 1 mg Q3H PRN IV 04/14/17 04:30 04/28/17 04:29 Acetaminophen (Tylenol Tab) 650 mg Q4H PRN PO 04/14/17 04:30 05/14/17 04:29 Ondansetron HCl (Zofran Inj) 4 mg Q6H PRN IV 04/14/17 04:30 05/14/17 04:29 Potassium Chloride/Dextrose/ Sod Cl 1,000 ml @ 100 mls/hr Q10H IV 04/14/17 07:30 04/15/17 03:29 Citalopram Hydrobromide (celeXA TAB) 20 mg HS PO 04/14/17 21:00 05/14/17 20:59 Nitrofurantoin Macrocrystals (Macrobid Cap) 100 mg BID PO 04/14/17 21:00 04/19/17 20:59 Miscellaneous (Iv Fluids Completed) 1 ea PRN PRN N/A 04/14/17 05:45 04/14/18 05:44 Sodium Chloride 1,000 ml @ 999 mls/hr Q1H1M STAT IV 04/14/17 06:59 04/14/17 07:59 Objective Vital Signs Date Time Temp Pulse Resp B/P (MAP) Pulse Ox O2 Delivery O2 Flow Rate FiO2 04/14/17 06:23 36.5 115 16 130/85 96 Room Air 04/14/17 05:25 110 20 132/91 97 04/14/17 04:51 116 16 120/79 98 Room Air 04/14/17 03:33 130 20 145/102 98 Room Air 04/14/17 01:51 118 16 145/82 97 Room Air 04/13/17 23:47 36.7 104 18 123/63 99 Room Air Physical Exam General Appearance: WD/WN, no apparent distress Eyes: normal inspection, PERRL, EOMI ENT: normal ENT inspection Neck: supple, no JVD Respiratory/Chest: chest non-tender, lungs clear, normal breath sounds, no respiratory distress, no accessory muscle use Cardiovascular: no murmur, + tachycardia Abdomen: normal bowel sounds, non tender, soft, + pertinent finding (bilateral CVA tenderness to palpation) Neurologic/Psychiatric: no motor/sensory deficits (grossly), alert, normal mood /affect Skin: normal color, warm/dry, no rash Laboratory Results 04/13/17 23:55 Red Blood Count 4.04, Mean Corpuscular Volume 88.9, Mean Corpuscular Hemoglobin 30.4, Mean Corpuscular Hemoglobin Concent 34.3, Mean Platelet Volume 9.2, Neutrophils (%) (Auto) 70.8, Lymphocytes (%) (Auto) 21.5, Monocytes (%) (Auto) 5.7, Eosinophils (%) (Auto) 1.0, Basophils (%) (Auto) 0.2, Neutrophils # (Auto) 9.74, Lymphocytes # (Auto) 2.95, Monocytes # (Auto) 0.78, Eosinophils # (Auto) 0.14, Basophils # (Auto) 0.03 04/13/17 23:55 Test 04/13/17 23:55 White Blood Count 13.75 K/uL (4.8-10.8) Red Blood Count 4.04 M/uL (4.2-5.4) Hemoglobin 12.3 g/dL (12.0-16.0) Hematocrit 35.9 % (37-47) Mean Corpuscular Volume 88.9 fL (80-100) Mean Corpuscular Hemoglobin 30.4 pg (25-34) Mean Corpuscular Hemoglobin Concent 34.3 g/dl (32-36) Platelet Count 255 K/uL (130-400) Mean Platelet Volume 9.2 fL (7.4-10.4) Neutrophils (%) (Auto) 70.8 % Lymphocytes (%) (Auto) 21.5 % Monocytes (%) (Auto) 5.7 % Eosinophils (%) (Auto) 1.0 % Basophils (%) (Auto) 0.2 % Neutrophils # (Auto) 9.74 K/uL (1.4-6.5) Lymphocytes # (Auto) 2.95 K/uL (1.2-3.4) Monocytes # (Auto) 0.78 K/uL (0.11-0.59) Eosinophils # (Auto) 0.14 K/uL (0-0.5) Basophils # (Auto) 0.03 K/uL (0-0.2) RDW Standard Deviation 42.4 fL (36.4-46.3) RDW Coefficient of Variation 13.1 % (11.5-14.5) Immature Granulocyte % (Auto) 0.8 % Immature Granulocyte # (Auto) 0.11 K/uL (0.00-0.02) Urine Color DK YELLOW Urine Appearance CLOUDY (CLEAR) Urine pH 6.5 (4.5-7.5) Urine Specific [place] 1.021 (1.000-1.030) Urine Protein 3+ (NEG) Urine Glucose (UA) NEG (NEG) Urine Ketones TRACE (NEG) Urine Occult Blood 3+ (NEG) Urine Nitrite NEG (NEG) Urine Bilirubin NEG (NEG) Urine Urobilinogen NEG (NEG) Urine Leukocyte Esterase LARGE (NEG) Urine WBC (Auto) >30 /hpf (0-5) Urine RBC (Auto) >30 /hpf (0-4) Urine Hyaline Casts (Auto) 0 /lpf (0-5) Urine Epithelial Cells (Auto) 10-20 /lpf (0-5) Urine Bacteria (Auto) NEG (NEG) Urine Pathogenic Casts /lpf (0) Urine Yeast (Auto) (NONE PRSENT) Anion Gap 7.0 mmol/L (3-11) Est Creatinine Clear Calc Drug Dose 71.1 ml/min Estimated GFR () 102.9 Estimated GFR (Non- 88.8 BUN/Creatinine Ratio 16.4 (10-20) Calcium Level 8.1 mg/dl (8.5-10.1) Total Bilirubin 0.3 mg/dl (0.2-1) Aspartate Amino Transf (AST/SGOT) 15 U/L (15-37) Alanine Aminotransferase (ALT/SGPT) 24 U/L (12-78) Alkaline Phosphatase 52 U/L (45-117) Total Protein 6.0 gm/dl (6.4-8.2) Albumin 2.8 gm/dl (3.4-5.0) Globulin 3.2 gm/dl (2.5-4.0) Albumin/Globulin Ratio 0.9 (0.9-2) Lipase 991 U/L (73-393) Assessment and Plan 27 y/o F 14 weeks (intrauterine and previa noted on US discussed with patient). History of nephrolithiasis with stent placed 1 day prior to admission on left side now with progressive right flank pain.Ultrasound confirmed new R sided hydro with 2 obstructing calculi in the distal ureter. Urology consult pending at this time. Right renal colic and obstructing nephrolithiasis with hydronephrosis - Consult urology - Will continue macrobid but also send for urine culture given - Dilaudid prescribed for pain relief - Give 1L NSS bolus now as when seen not receiving IV fluids VTE Prophylaxis - deferred chemical given likely short stay and young age. Although and dehydration are risk factors - SCDs and TEDs Code - Full Disposition - med/surg pending urology consult History Resident Physician Supervision Note: I was present with Dr. Concepcion during the history and exam. I discussed the case with the resident and agree with the findings and plan as documented in the note. Any exceptions or clarifications are listed here. female @ 14 wks seen 1hr following R stent placement and lithotripsy following which she received fentanyl. At present, she reports no flank/abd pain , dysuria, lightheadedness, n/v. General Appearance: WD/WN, no apparent distress Respiratory: chest non-tender, lungs clear, normal breath sounds, no respiratory distress Cardiovascular: normal peripheral pulses, regular rate, rhythm, no edema, no murmur Gastrointestinal: normal bowel sounds, non tender, soft, no organomegaly, other (Gravid) Assessment/Plan 27 y/o female @ 14 wks h/o nephrolithiasis w/ recent L ureteral stent presents iwth right sided flank pain w/ nephrolithiasis Right nephrolithiasis s/p stent and lithotripsy - continue macrobid, IV hydration w/ maintenance atop 1L bolus. Pain control, zofran PRN Tachycardia - likely 2/2 neprholithiasis and dehydration - responded to bolus, hydration as noted, encourage POI - US completed, routine follow up Depression - continue citalopram
--- NOTE | 2017-04-14 07:37 | Medical Student: [facility] ---
Med Student Progress Note Date of Service Apr 14, 2017. Subjective Pain: 07/18 27 y/o F who is 14 weeks with ultrasound confirmed R sided hydronephrosis and 2 obstructing calculi in distal ureter after placement of a stent in L ureter yesterday by Dr. Fajardo outpatient surgery. The pt developed progressive R sided flank pain and returned to the hospital early this morning. Nausea and some mild vomiting. Denies fevers, chills, dysuria, worsening urinary frequency, abdominal pain, back pain. Pain is well controlled at this time. She reports a hx of many stones and is followed by outpatient [facility] [employer]. Made aware of admission. Review of Systems Constitutional: No fever, No chills Respiratory: No shortness of breath Cardiac: No chest pain Abdomen: + nausea, + vomiting, No diarrhea Female : No dysuria, No urinary frequency Endo: No problem reported Skin: No rash Objective Vital Signs Date Time Temp Pulse Resp B/P (MAP) Pulse Ox O2 Delivery O2 Flow Rate FiO2 04/14/17 06:23 36.5 115 16 130/85 96 Room Air 04/14/17 05:25 110 20 132/91 97 04/14/17 04:51 116 16 120/79 98 Room Air 04/14/17 03:33 130 20 145/102 98 Room Air 04/14/17 01:51 118 16 145/82 97 Room Air 04/13/17 23:47 36.7 104 18 123/63 99 Room Air Physical Exam Eyes: bilateral eyes EOMI ENT: hearing grossly normal Respiratory/Chest: lungs clear, normal breath sounds, no respiratory distress Cardiovascular: regular rate, rhythm, no edema, no murmur Abdomen: normal bowel sounds, non tender, soft Neurologic/Psychiatric: alert, normal mood/affect, oriented x 3 Skin: normal color Lymphatic: no adenopathy Comments: no CVA tenderness at this time, no suprapubic tenderness Laboratory Results Last 24 Hours Test 04/13/17 23:55 White Blood Count 13.75 K/uL Red Blood Count 4.04 M/uL Hemoglobin 12.3 g/dL Hematocrit 35.9 % Mean Corpuscular Volume 88.9 fL Mean Corpuscular Hemoglobin 30.4 pg Mean Corpuscular Hemoglobin Concent 34.3 g/dl Platelet Count 255 K/uL Mean Platelet Volume 9.2 fL Neutrophils (%) (Auto) 70.8 % Lymphocytes (%) (Auto) 21.5 % Monocytes (%) (Auto) 5.7 % Eosinophils (%) (Auto) 1.0 % Basophils (%) (Auto) 0.2 % Neutrophils # (Auto) 9.74 K/uL Lymphocytes # (Auto) 2.95 K/uL Monocytes # (Auto) 0.78 K/uL Eosinophils # (Auto) 0.14 K/uL Basophils # (Auto) 0.03 K/uL RDW Standard Deviation 42.4 fL RDW Coefficient of Variation 13.1 % Immature Granulocyte % (Auto) 0.8 % Immature Granulocyte # (Auto) 0.11 K/uL Urine Color DK YELLOW Urine Appearance CLOUDY Urine pH 6.5 Urine Specific [place] 1.021 Urine Protein 3+ Urine Glucose (UA) NEG Urine Ketones TRACE Urine Occult Blood 3+ Urine Nitrite NEG Urine Bilirubin NEG Urine Urobilinogen NEG Urine Leukocyte Esterase LARGE Urine WBC (Auto) >30 /hpf Urine RBC (Auto) >30 /hpf Urine Hyaline Casts (Auto) 0 /lpf Urine Epithelial Cells (Auto) 10-20 /lpf Urine Bacteria (Auto) NEG Urine Pathogenic Casts /lpf Urine Yeast (Auto) Sodium Level 135 mmol/L Potassium Level 3.6 mmol/L Chloride Level 98 mmol/L Carbon Dioxide Level 30 mmol/L Anion Gap 7.0 mmol/L Blood Urea Nitrogen 14 mg/dl Creatinine 0.88 mg/dl Est Creatinine Clear Calc Drug Dose 71.1 ml/min Estimated GFR () 102.9 Estimated GFR (Non- 88.8 BUN/Creatinine Ratio 16.4 Random Glucose 78 mg/dl Calcium Level 8.1 mg/dl Total Bilirubin 0.3 mg/dl Aspartate Amino Transf (AST/SGOT) 15 U/L Alanine Aminotransferase (ALT/SGPT) 24 U/L Alkaline Phosphatase 52 U/L Total Protein 6.0 gm/dl Albumin 2.8 gm/dl Globulin 3.2 gm/dl Albumin/Globulin Ratio 0.9 Lipase 991 U/L Medications Current Inpatient Medications Medications (Trade) Dose Ordered Sig/Tereso Route Start Time Stop Time Status Last Admin Dose Admin Hydromorphone HCl (Dilaudid Inj) 1 mg Q3H PRN IV 04/14/17 04:30 04/28/17 04:29 Acetaminophen (Tylenol Tab) 650 mg Q4H PRN PO 04/14/17 04:30 05/14/17 04:29 Ondansetron HCl (Zofran Inj) 4 mg Q6H PRN IV 04/14/17 04:30 05/14/17 04:29 Potassium Chloride/Dextrose/ Sod Cl 1,000 ml @ 100 mls/hr Q10H IV 04/14/17 07:30 04/15/17 03:29 Citalopram Hydrobromide (celeXA TAB) 20 mg HS PO 04/14/17 21:00 05/14/17 20:59 Nitrofurantoin Macrocrystals (Macrobid Cap) 100 mg BID PO 04/14/17 21:00 04/19/17 20:59 Miscellaneous (Iv Fluids Completed) 1 ea PRN PRN N/A 04/14/17 05:45 04/14/18 05:44 Sodium Chloride 1,000 ml @ 999 mls/hr Q1H1M STAT IV 04/14/17 06:59 04/14/17 07:59 Assessment and Plan Assessment and Plan: 27 y/o F who is 14 weeks with R sided hydronephrosis and 2 obstructing calculi in distal ureter after placement of a stent in L ureter yesterday, prior to discharge by Dr. Fajardo. Admitted for inadequate pain control. 1. Obstructing calculi -Pain management with narcotics because of will not give NSAIDs, well controlled for now 07/18 -IVFs NS 100cc/hr maintenance after bolus is complete -Does not have urosepsis, intractable pain or vomiting, significant DUSTIN but does have hydro indicative of obstruction therefore consult urology -Consider alpha james > CCB to promote ureteral relaxation but stones are in distal ureter and will most likely be passed on their own 2. UTI -UA showed leuk esterase, nitrite negative, assume possible infection given and stones -Abx nitrofurantoin -pending urine cx -Afebrile, urosepsis highly unlikely 3. DVT -SCDs 4. -Single, viable intrauterine . Estimated gestational age 14 weeks. Variable position. -Posterior placenta previa with follow-up at a later date recommended. 4. Disposition -Med 5. Full Code Continued [facility] stay due to: other
[2017-04-14 10:05] LABS: BASO % 0.2 %; BASO ABS # 0.02 K/uL (0-0.2); EOS % 0.3 %; EOS ABS # 0.04 K/uL (0-0.5); HEMATOCRIT 32.7 % (37-47); HEMOGLOBIN 11.3 g/dL (12.0-16.0); IG# 0.11 K/uL (0.00-0.02); LYMPH % 15.7 %; LYMPH ABS # 2.05 K/uL (1.2-3.4); MEAN CELL VOLUME 88.1 fL (80-100); MEAN CORPUSCULAR HEMOGLOBIN 30.5 pg (25-34); MEAN CORPUSCULAR HGB CONC 34.6 g/dl (32-36); MONO % 4.7 %; MONO ABS # 0.62 K/uL (0.11-0.59); NEUT % 78.3 %; NEUT ABS # 10.24 K/uL (1.4-6.5); PLATELET COUNT 203 K/uL (130-400); RED CELL DISTRIBUTION WIDTH CV 13.1 % (11.5-14.5); RED CELL DISTRIBUTION WIDTH SD 42.4 fL (36.4-46.3); WHITE BLOOD COUNT 13.08 K/uL (4.8-10.8)
[2017-04-14] MEDS ORDERED: PROPOFOL IV EMULSION 10 MG/ML 20 ML VIAL IV ONE (12:20)
[2017-04-14] MEDS ORDERED: FENTANYL CITRATE INJ 50 MCG/1 ML 2 ML VIAL ONE (12:20)
[2017-04-14] MEDS ORDERED: SUCCINYLCHOLINE CHLORIDE 20 MG/ML 10 ML VIAL IV ONE (12:20)
[2017-04-14] MEDS ORDERED: ONDANSETRON INJ 2 MG/ML 2 ML VIAL ONE (12:20)
[2017-04-14] MEDS ORDERED: LIDOCAINE HCL 2% 2 ML VIAL (20MG/ML) ONE (12:20)
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
[2017-04-14] MEDS ORDERED: CONRAY 30% 150ML BOTTLE ONE (12:39)
[2017-04-14] MEDS ORDERED: CEFAZOLIN SOD 1000MG/5 ML IV PUSH IV ONE (13:01)
[2017-04-14] MEDS ORDERED: PHENYLEPHRINE 100MCG/ML 5ML SYR ONE (13:56)
--- NOTE | 2017-04-14 14:29 | [facility] Operative Report ---
Operative Report Operative Date Apr 14, 2017. Pre-Operative Diagnosis Right ureteral calculi; Right hydronephrosis Post-Operative Diagnosis Right ureteral calculi; Right hydronephrosis Procedure(s) Performed Cytoscopy, Right Ureteroscopy, Laser Lithotripsy; Right Ureteral Stent placement ([id number] with string) Surgeon Dr. Thien Driscoll Multiple Drill Operator Surgeon(s) none Estimated Blood Loss 0mL Findings obstructing mid ureteral calculi on the right; impacted pre and post procedure monitoring - stable Specimens none per surgeon Drains [id number] stent with a string (right sided) Anesthesia Gen Complication(s) None Disposition Recovery Room / PACU (stable) Indications symptomatic right ureteral stone Description of Procedure The patient was identified in the preoperative holding area, appropriate informed consents were reviewed and completed and the patient was transported to the operating suite. Prior to arrival, heart rate monitoring was completed illustrating stability. Upon arrival, she received a dose of Ancef. Adequate general anesthesia was induced and she was placed in dorsal lithotomy position where she was prepped and draped in standard fashion. I begin the case by passing a 22 [place] cystoscope with 30 lens. Inspection of the bladder revealed a left ureteral stent protruding from the left orifice and periureteral inflammation. There were no stones visible within the bladder itself. The right ureteral orifice was in orthotopic position and had no periureteral inflammation. I cannulated this with a sensor wire which was advanced the kidney without the use of fluoroscopy. I then withdrew the cystoscope and reentered the bladder with a semirigid ureteroscope. I gently guided this into the right distal ureter adjacent to the wire. I advanced to the distal ureter which easily accommodated the scope, but was otherwise unremarkable. In the mid right ureter, I encountered inflammation with 2 stones impacted just above this area of inflammation. I passed a 400 laser fiber and fragmented the stone freeing it from the site of impaction. I then irrigated all stone debris out of the ureter. After clearing the ureter, I advance the scope maximally which was easily navigated to the right uteropelvic junction. My wire was easily seen protruding into the pelvis, no stones were seen floating within the renal pelvis itself. I performed a repeat careful exit ureteroscopy before placing a stent over the existing wire. An excellent curl was seen in the bladder and a string was left attached to the distal aspect of the stent. Stone debris was irrigated out of the bladder but not passed off the table as a specimen as she has had numerous stone analyses in the past. The distal aspect of the stent appeared to be appropriately positioned but no x-ray was used to confirm the proximal aspect. She was subsequently extubated and taken to PACU underwent heart rate monitoring which confirmed stability of the fetus. I attest to the content of the Intraoperative Record and any orders documented therein. Any exceptions are noted below.
--- NOTE | 2017-04-14 14:32 | Progress Note ---
Progress Note Date of Service Apr 14, 2017. Progress Note Successful treatment of right ureteral calculi. Stent inserted. From a standpoint - d/c home seems very reasonable. I will defer the d/c decision to the hospitalist team, however, primarily because her lipase is nearly 1000. I have scheduled her for stent removal in my office on Monday at 2PM. She already is on nitrofurantoin - and I recommend continuing this for 5 days from now.
[2017-04-14] MEDS ORDERED: ATROPINE SULFATE 0.1 MG/ML 5ML SYR IV PRN (14:45)
[2017-04-14] MEDS ORDERED: FENTANYL CITRATE INJ 50 MCG/1 ML 2 ML VIAL IV PRN (14:45)
[2017-04-14] MEDS ORDERED: EpHEDrine SULFATE INJ 50 MG/ML AMP IV PRN (14:45)
[2017-04-14] MEDS ORDERED: NALOXONE HCL 0.4 MG/1 ML VIAL/CARP IV PRN (14:45)
--- NOTE | 2017-04-14 14:46 | Anesthesiology Progress Note ---
Anesthesia Post Op Note Date & Time Apr 14, 2017 at 14:45 Vital Signs Pain Intensity: 0 Vital Signs Past 12 Hours Date Time Temp Pulse Resp B/P (MAP) Pulse Ox O2 Delivery O2 Flow Rate FiO2 04/14/17 14:35 102 17 121/73 100 Oxymask 10 04/14/17 14:25 96 14 111/71 100 Oxymask 10 04/14/17 14:18 36.9 92 16 115/73 99 Oxymask 10 04/14/17 13:15 105 18 120/71 (87) 100 Room Air 04/14/17 11:43 36.7 108 18 99/65 (76) 98 Room Air 04/14/17 08:18 98 Room Air 04/14/17 08:08 37.0 72 16 110/68 (82) 98 Room Air 04/14/17 07:25 Room Air 04/14/17 06:23 36.5 115 16 130/85 96 Room Air 04/14/17 05:25 110 20 132/91 97 04/14/17 04:51 116 16 120/79 98 Room Air 04/14/17 03:33 130 20 145/102 98 Room Air Notes Mental Status: alert / awake / arousable, participated in evaluation Pt Amnestic to Procedure: Yes Nausea / Vomiting: adequately controlled Pain: adequately controlled Airway Patency, RR, SpO2: stable & adequate BP & HR: stable & adequate Hydration State: stable & adequate Anesthetic Complications: no major complications apparent
--- NOTE | 2017-04-14 16:09 | Discharge Instructions ---
Discharge Instructions Date of Service Apr 14, 2017. Admission Reason for Admission: Hydronephrosis Due To Obstruction Of Ureter Discharge Discharge Diagnosis / Problem: Kidney stones, hydronephrosis Discharge Goals Goal(s): Decrease discomfort Activity Recommendations Activity Limitations: resume your previous activity . Instructions / Follow-Up Instructions / Follow-Up Follow up with your urologist on Apr 18 2017 @ 2pm Current Hospital Diet Patient's current hospital diet: Regular Diet Discharge Diet Recommended Diet: Regular Diet Procedures Procedures Performed: Cytoscopy, Right Ureteroscopy, Laser Lithotripsy; Right Ureteral Stent placement ([id number] with string) Pending Studies Studies pending at discharge: no Medical Emergencies . Who to Call and When: Medical Emergencies: If at any time you feel your situation is an emergency, please call 911 immediately. . Non-Emergent Contact Non-Emergency issues call your: Urologist . . "Provider Documentation" section prepared by Julio Concepcion. . VTE Core Measure Inpt VTE Proph given/why not?: SCD's
[2017-04-14] MEDS ORDERED: INFLUENZA ADMINISTRATION CHARGE ONE (16:15)
[2017-04-14] MEDS ORDERED: INFLUENZA VIRUS QUAD VACCINE 0.5 ML SYR IM. ONE (16:15)
[2017-04-14] MEDS ORDERED: CITALOPRAM 20 MG TAB PO SCH (21:00)
[2017-04-14] MEDS ORDERED: NITROFURANTOIN MONOHYDRATE 100 MG CAP PO SCH (21:00)
== END 2017-04-14 19:40 | disposition home or self-care (01) ==
LOC: C.EDB 23:39 → C.MSW 04-14 04:32 → ENRESERV 04-14 05:08 → EDBEDREQ 04-14 05:44
PROVIDERS: ADMIT Internal Medicine; ATTEND Family Medicine
DX: N13.2 Hydronephrosis with renal and ureteral calculous obstruction (principal); K21.9 Gastro-esophageal reflux disease without esophagitis; F32.9 Major depressive disorder, single episode, unspecified; Z79.899 Other long term (current) drug therapy; K44.9 Diaphragmatic hernia without obstruction or gangrene; D64.9 Anemia, unspecified; F41.9 Anxiety disorder, unspecified

== ENCOUNTER → 2017-04-18 | Outpatient (CLI) | payer OTHER ==
[~2017-04-18] MED LIST changes: -ACET-1175 PO; -PHEN-939 PO
== END | disposition home or self-care (01) ==
LOC: C.LABSPEC 17:23
PROVIDERS: ATTEND Obstetrics & Gynecology
DX: O26.899 Other specified pregnancy related conditions, unspecified trimester (principal)

== ENCOUNTER → 2017-04-24 | Outpatient (CLI) | payer OTHER | END | disposition home or self-care (01) | LOC: C.LAB1850 16:16 | PROVIDERS: ATTEND Obstetrics & Gynecology | DX: Z34.82 Encounter for supervision of other normal pregnancy, second trimester (principal) ==

== ENCOUNTER 2017-06-07 04:45 | Inpatient (IN) | payer OTHER ==
[2017-06-07] VITALS (28 sets, daily range): BP systolic 76–101; BP diastolic 31–47; PULSE 106–128; TEMP 37.3–38; O2SAT 96–100; Ht 154.9 cm; Wt 56.7 kg
[~2017-06-07] VITALS: Ht 154.9 cm; Wt 56.7 kg
[~2017-06-07 04:45] MED LIST changes: +ACET-1693 PO; -ACET325T96 PO; -NITR1CAP16 PO
[2017-06-07] MEDS ORDERED: ALUMINUM/MAGNESIUM SUSP 30 ML UDC PO STA (05:00)
[2017-06-07] MEDS ORDERED: SODIUM CHLORIDE 0.9% 1000ML 2,000 ML IV STA (05:00)
[2017-06-07] MEDS ORDERED: ONDANSETRON INJ 2 MG/ML 2 ML VIAL IV STA (05:00)
[2017-06-07 05:27] LABS: BASO % 0.1 %; BASO ABS # 0.01 K/uL (0-0.2); EOS % 0.6 %; EOS ABS # 0.05 K/uL (0-0.5); HEMATOCRIT 37.5 % (37-47); HEMOGLOBIN 12.9 g/dL (12.0-16.0); IG# 0.07 K/uL (0.00-0.02); LYMPH % 5.4 %; LYMPH ABS # 0.47 K/uL (1.2-3.4); MEAN CELL VOLUME 89.7 fL (80-100); MEAN CORPUSCULAR HEMOGLOBIN 30.9 pg (25-34); MEAN CORPUSCULAR HGB CONC 34.4 g/dl (32-36); MEAN PLATELET VOLUME 9.5 fL (7.4-10.4); MONO % 1.8 %; MONO ABS # 0.16 K/uL (0.11-0.59); NEUT % 91.3 %; NEUT ABS # 7.94 K/uL (1.4-6.5); PLATELET COUNT 220 K/uL (130-400); RED CELL DISTRIBUTION WIDTH CV 13.7 % (11.5-14.5); RED CELL DISTRIBUTION WIDTH SD 44.7 fL (36.4-46.3)
[2017-06-07 06:15] LABS: ALBUMIN 2.6 gm/dl (3.4-5.0); ALKALINE PHOSPHATASE 59 U/L (45-117); ALT/SGPT 19 U/L (12-78); AST/SGOT 15 U/L (15-37); BLOOD UREA NITROGEN 12 mg/dl (7-18); CALCIUM 7.7 mg/dl (8.5-10.1); CARBON DIOXIDE 29 mmol/L (21-32); GLUCOSE 108 mg/dl (70-99); LIPASE 907 U/L (73-393); POTASSIUM 2.5 mmol/L (3.5-5.1); SODIUM 136 mmol/L (136-145)
[2017-06-07] MEDS ORDERED: ONDANSETRON HOME PACK 4MG OD TAB PO ONE (06:15)
[2017-06-07] MEDS ORDERED: POTASSIUM CHLORIDE 10 MEQ / 100ML WTR IV STA (06:17)
[2017-06-07] MEDS ORDERED: POTASSIUM CHLORIDE 10 MEQ TABCR PO STA ×2 (06:17→06:24)
[2017-06-07] MEDS ORDERED: METOCLOPRAMIDE HCL INJ 5 MG/ML 2 ML VIAL IV STA (08:09)
[2017-06-07] MEDS ORDERED: MAGNESIUM SULFATE 1GM / D5W 1 GM BAG IV STA (09:12)
--- NOTE | 2017-06-07 10:03 | DIAGNOSTIC IMAGING REPORT ---
ABDOMEN LIMITED (US) HISTORY: 27 years-old Female Assess for pancreatitis, assess gallbladder acute right upper quadrant abdominal pain COMPARISON: Renal ultrasound 04/14/2017 TECHNIQUE: Multiple real-time sonographic images of the abdominal right upper quadrant were obtained assessing grayscale appearance and color flow FINDINGS: Pancreas is obscured by bowel gas and not visualized. The liver appears to be unremarkable without focal mass or intrahepatic biliary ductal dilation. Common bile duct is normal, 4 mm. Prior cholecystectomy. Shadowing calculi of the right kidney are noted, largest of which measures 9 mm within the superior pole. No evidence of right-sided hydronephrosis. Mild right-sided pelviectasis is likely physiologic. IMPRESSION: 1. Prior cholecystectomy. No biliary ductal dilation identified. 2. Pancreas obscured by bowel gas. 3. Right-sided nephrolithiasis. The above report was generated using voice recognition software. It may contain grammatical, syntax or spelling errors. Electronically signed by: Aldo Carlos M.D. 06/07/2017 10:02 AM Dictated Date/Time: 06/07/2017 10:00 AM
[2017-06-07] MEDS ORDERED: ALUMINUM/MAGNESIUM/SIMETH (MAALOX MAX) 30 ML UDC PO PRN (10:15)
[2017-06-07] MEDS ORDERED: ONDANSETRON INJ 2 MG/ML 2 ML VIAL IV PRN (10:15)
--- NOTE | 2017-06-07 10:18 | EMERGENCY ROOM VISIT NOTE ---
ED Visit Note First contact with patient: 07:59 Patient was seen and evaluated by Rita Borges PA-C. The patient case was signed out to me at shift change, and 0700 hours. Upon my evaluation, the patient was persistently tachycardic in the 130s despite 2 L of fluid and potassium IV. She also notes continued nausea. She was given 10 mg of Reglan IV. I did discuss the case with the on-call ACTUARY MANAGER, Dr. Aggarwal. We both agree that the patient would benefit from inpatient management secondary to her hypokalemia, as well as persistent tachycardia despite adequate hydration intravenously. Case was then discussed with the hospitalist for potential inpatient management. I discussed the case with Dr. Sams. Please refer to further documentation regarding her stay.
--- NOTE | 2017-06-07 10:21 | History and Physical ---
History & Physical Date & Time of Service: Jun 07, 2017 at 10:08 Chief Complaint: Nausea Vomiting Abd Pain 22 Wks Primary Care Physician: Twila Hargrove M.D. History of Present Illness This is a 27 yo F with PMHx of recurrent acute pancreatitis, GERD, gallbladder sludge s/p lap cholecystectomy in [place] [address] Barker, and ulcerative colitis. She follows with Dr. Arora and Sophie Raza as an outpatient. Pt currently 22 weeks . The patient presents with acute onset of nausea and vomiting, abdominal pain which started last night at 11 pm. She reports repetitive vomiting overnight and saw small streaks of blood after multiple times. She denies any coffee ground emesis or large volumes of bright red blood. Pt notes having epigastric abdominal pain since this started, but denies any lower abdominal pain, cramping or vaginal bleeding. Pt does feel baby movement today. She reports having mild bouts of indigestion and takes tums as needed. Pt also admits to R frontal headache which she can feel throbbing. She denies any chest pain or shortness of breath. She had a low grade fever this morning at 100.4, and has not taken any medication for this. Her was sick last week with a GI illness with similar presentation. Here in the ER pt has received 2 L of fluids, potassium 40 meq and ordered mag 2 g IV due to depletion on prp. There is no WBC. Afebrile since admitted here although she reports feeling flushed Pt is tachycardic with HR in the 130s at time of admission, and is currently sitting around 110-120s. Past Medical/Surgical History Medical Problems: (1) Anemia Nos (2) Recurrent pancreatitis (3) Depression (4) Hypokalemia (5) Elevated liver enzymes (6) Esophageal Reflux (7) Ulcerative colitis (8) Intrauterine , 21 weeks Surgical Problems: (1) History of lithotripsy (2) History of renal stent (3) Hydronephrosis (4) S/P laparoscopic cholecystectomy Family History FH: cancer FH: gallbladder disease Heart disease Myocardial infarction Social History Smoking Status: Never Smoker Drug Use: none Marital Status: Housing status: lives with significant other Occupational Status: employed Immunizations History of Influenza Vaccine: Yes History of Tetanus Vaccine?: Yes History of Pneumococcal: Unknown History of Hepatitis B Vaccine: Yes Multi-Drug Resistant Organisms History of MDRO: No Allergies Coded Allergies: Cephalexin (Verified Allergy, Mild, ITCHINESS, 06/07/17) Nickel (Verified Allergy, Unknown, ITCHY RED WITH EARRINGS, 06/07/17) Morphine (Verified Adverse Reaction, Unknown, SHORTNESS OF BREATH, 06/07/17 ) Home Medications Scheduled Citalopram Hydrobromide (Citalopram Hydrobromide), 20 MG PO HS Ferrous Sulfate (Ferrous Sulfate), 325 MG PO HS Multivit/Min/Iron/Fol Ac/Pren ( Vitamin), 1 TAB PO HS Scheduled PRN Acetaminophen Tab (Tylenol), 650 MG PO UD PRN for Pain Physical Exam Vital Signs Date Time Temp Pulse Resp B/P (MAP) Pulse Ox O2 Delivery O2 Flow Rate FiO2 06/07/17 09:38 123 18 97/43 98 06/07/17 07:45 127 18 97 Room Air 06/07/17 07:32 82/42 06/07/17 07:15 122 32 96 06/07/17 06:45 119 15 98 06/07/17 06:23 120 06/07/17 06:21 123 18 83/46 100 Room Air 06/07/17 06:20 83/46 06/07/17 05:30 110 18 102/58 100 Room Air 06/07/17 05:28 116 18 92/53 118 102/58 120 98/60 06/07/17 05:23 99 Room Air 06/07/17 04:52 37.2 145 20 94/61 97 Room Air General Appearance: WD/WN, no apparent distress, + thin Head: normocephalic, atraumatic Eyes: PERRL, EOMI ENT: hearing grossly normal, pharynx normal Neck: supple, no JVD Respiratory/Chest: lungs clear, no respiratory distress, no accessory muscle use Cardiovascular: + tachycardia, + systolic murmur (mild soft) Abdomen/GI: normal bowel sounds, soft, no organomegaly, + pertinent finding (+ tenderness in the epigastric region, + fundal height at 1 cm above umbilicus, ) Back: normal inspection, no CVA tenderness Extremities/Musculoskelatal: normal inspection, no calf tenderness Neurologic/Psych: alert, normal mood/affect, oriented x 3 Skin: normal color, warm/dry Diagnostics Laboratory Results Results Past 24 Hours Test 06/07/17 05:00 06/07/17 05:10 Range/Units Urine Color DK YELLOW Urine Appearance CLEAR CLEAR Urine pH 5.5 4.5-7.5 Urine Specific [place] 1.021 1.000-1.030 Urine Protein TRACE NEG Urine Glucose (UA) NEG NEG Urine Ketones NEG NEG Urine Occult Blood 3+ NEG Urine Nitrite NEG NEG Urine Bilirubin NEG NEG Urine Urobilinogen NEG NEG Urine Leukocyte Esterase SMALL NEG Urine WBC (Auto) 5-10 0-5 /hpf Urine RBC (Auto) >30 0-4 /hpf Urine Hyaline Casts (Auto) 1-5 0-5 /lpf Urine Epithelial Cells (Auto) >30 0-5 /lpf Urine Bacteria (Auto) NEG NEG Urine Opiates Screen NEG NEG Urine Methadone, Qualitative NEG NEG Urine Barbiturates NEG NEG Urine Phencyclidine (PCP) Level NEG NEG Ur Amphetamine/Methamphetamine NEG NEG MDMA (Ecstasy) Screen NEG NEG Urine Benzodiazepines Screen NEG NEG Urine Cocaine Metabolite NEG NEG Urine Marijuana (THC) NEG NEG White Blood Count 8.70 4.8-10.8 K/uL Red Blood Count 4.18 4.2-5.4 M/uL Hemoglobin 12.9 12.0-16.0 g/dL Hematocrit 37.5 37-47 % Mean Corpuscular Volume 89.7 80-100 fL Mean Corpuscular Hemoglobin 30.9 25-34 pg Mean Corpuscular Hemoglobin Concent 34.4 32-36 g/dl Platelet Count 220 130-400 K/uL Mean Platelet Volume 9.5 7.4-10.4 fL Neutrophils (%) (Auto) 91.3 % Lymphocytes (%) (Auto) 5.4 % Monocytes (%) (Auto) 1.8 % Eosinophils (%) (Auto) 0.6 % Basophils (%) (Auto) 0.1 % Neutrophils # (Auto) 7.94 1.4-6.5 K/uL Lymphocytes # (Auto) 0.47 1.2-3.4 K/uL Monocytes # (Auto) 0.16 0.11-0.59 K/uL Eosinophils # (Auto) 0.05 0-0.5 K/uL Basophils # (Auto) 0.01 0-0.2 K/uL RDW Standard Deviation 44.7 36.4-46.3 fL RDW Coefficient of Variation 13.7 11.5-14.5 % Immature Granulocyte % (Auto) 0.8 % Immature Granulocyte # (Auto) 0.07 0.00-0.02 K/uL Sodium Level 136 136-145 mmol/L Potassium Level 2.5 3.5-5.1 mmol/L Chloride Level 98 98-107 mmol/L Carbon Dioxide Level 29 21-32 mmol/L Anion Gap 9.0 3-11 mmol/L Blood Urea Nitrogen 12 7-18 mg/dl Creatinine 0.60 0.60-1.20 mg/dl Estimated GFR () 142.8 Estimated GFR (Non- 123.2 BUN/Creatinine Ratio 20.6 10-20 Random Glucose 108 70-99 mg/dl Calcium Level 7.7 8.5-10.1 mg/dl Magnesium Level 1.5 1.8-2.4 mg/dl Total Bilirubin 0.2 0.2-1 mg/dl Direct Bilirubin < 0.1 0-0.2 mg/dl Aspartate Amino Transf (AST/SGOT) 15 15-37 U/L Alanine Aminotransferase (ALT/SGPT) 19 12-78 U/L Alkaline Phosphatase 59 45-117 U/L Total Protein 6.0 6.4-8.2 gm/dl Albumin 2.6 3.4-5.0 gm/dl Lipase 907 73-393 U/L Diagnostic Radiology Abd US limited HISTORY: 27 years-old Female Assess for pancreatitis, assess gallbladder acute right upper quadrant abdominal pain COMPARISON: Renal ultrasound 04/14/2017 TECHNIQUE: Multiple real-time sonographic images of the abdominal right upper quadrant were obtained assessing grayscale appearance and color flow FINDINGS: Pancreas is obscured by bowel gas and not visualized. The liver appears to be unremarkable without focal mass or intrahepatic biliary ductal dilation. Common bile duct is normal, 4 mm. Prior cholecystectomy. Shadowing calculi of the right kidney are noted, largest of which measures 9 mm within the superior pole. No evidence of right-sided hydronephrosis. Mild right-sided pelviectasis is likely physiologic. IMPRESSION: 1. Prior cholecystectomy. No biliary ductal dilation identified. 2. Pancreas obscured by bowel gas. 3. Right-sided nephrolithiasis. EKG Sinus tachycardia ST & T wave abnormality, consider inferior ischemia Abnormal ECG When compared with ECG of 26-DEC-2016 08:08, T wave inversion more evident in Inferior leads Nonspecific T wave abnormality now evident in Anterolateral leads Vent. rate 121 BPM DC interval 168 ms QRS duration 74 ms QT/QTc 316/448 ms P-R-T axes 67 86 -17 Impression Assessment and Plan Tachycardia likely secondary to acute viral illness - Admit to ICU for monitoring - IVFs: NSS + KCl at 100 ml/hr - Follow BPs - Lopressor iv prn for tachycardia if uncontrolled with fluids. Possible that anxiety is also playing a component. - lactic acid was 2.0 at time of admission, check with next set of labs - Consider echo if does not trend downward - Check Blood cultures x 2, lactic acid and repeat PRP along with magnesium Acute Recurrent Pancreatitis - NPO except meds, chips of ice allowed - Start on NSS + KCl at 100 ml/hr - Pt is annie daniel September 2016 - possible that pancreatitis is due to acute viral illness as her had similar illness 1 week ago. - Trend lipase with am labs, prp, mag Hx nephrolithiasis - US RUQ reviewed - showing nephrolithiasis in the R side as well - pt denies CVA tenderness upon exam. - UA appears clear, with mild esterase. No urinary sx. Monitor Hypokalemia - Replaced via IV and PO, will recheck PRP later today Hypomagnesemia - Replaced via IV Intrauterine - [id number] - Currently 22 wks. - Will consult DIRECTOR OF SUPPLY CHAIN - Pt feeling active movement, possible that ob may want to check doppler routinely throughout admission - Pt has had no complications during this . Ulcerative Colitis - Continue anascol, holding previous mesalamine - no recent flares GERD - Can use protonix IV at this time, consider rantidine 75 mg BID if worsening sx throughout . Hx Bulimia - Currently in remission, pt denies sx Depression/anxiety - Continue lexapro 20 mg daily DVT ppx: ambulatory, teds, scds, no chemical ppx CODE STATUS: FULL Disposition: From home, no CM needs anticipated. Time spent reviewed chart, interviewing the patient, coordination with ICU includes 105 minutes. Level of Care Telemetry Resuscitation Status FULL RESUSCITATION VTE Prophylaxis VTE Risk Assessment Done? Y/N: Yes Risk Level: Low Given or contraindicated: T.E.D. Stockings, SCD's Note Total Time: Critical Care 30 - [address] Mojica I performed a history and physical examination on the patient. I reviewed above note and agree with it. I discussed plan with APC and patient. During my face to face encounter with the patient, I answered all of the patient's questions. Patient will be admitted to ICU due to elevated [place] score and hypotension, tachycardia. Patient is also . Patient was informed of the severity of her case. D/W with Dr. Colvin the media traffic manager who accepts patient. Spent 35 minutes in critical care management in addition to the time spent on obtaining her history and physical.
[2017-06-07] MEDS ORDERED: ICU PROTOCOL FOR HYPERGLYCEMIA PRN (11:30)
[2017-06-07] MEDS ORDERED: METOPROLOL TARTRATE 1 MG/ML VIAL IV PRN (12:00)
[2017-06-07] MEDS ORDERED: PANTOprazole INJ 40 MG in SYRINGE 0 ML IV SCH (13:00)
[2017-06-07] MEDS: NSS + 20MEQ KCL 1000ML 1,000 ML IV SCH ×2 (13:23→17:51)
[2017-06-07] MEDS: POTASSIUM CHLR 10 MEQ / WTR 10 MEQ in PREMIXED WATER 100 ML IV SCH ×3 (13:24→20:57)
[2017-06-07] MEDS: ACETAMINOPHEN 325 MG TAB PO PRN ×2 (14:00→17:51)
[2017-06-07 14:07] LABS: CARBON DIOXIDE 23 mmol/L (21-32); CREATININE 0.44 mg/dl (0.60-1.20); GLUCOSE 87 mg/dl (70-99); POTASSIUM 2.4 mmol/L (3.5-5.1); SODIUM 135 mmol/L (136-145)
[2017-06-07 14:13] LABS: BLOOD UREA NITROGEN 7 mg/dl (7-18)
[2017-06-07 14:19] LABS: CALCIUM 6.4 mg/dl (8.5-10.1)
[2017-06-07] MEDS ORDERED: INFLUENZA VIRUS QUAD VACCINE 0.5 ML SYR IM. ONE (15:00)
[2017-06-07] MEDS ORDERED: INFLUENZA ADMINISTRATION CHARGE ONE (15:00)
[2017-06-07] MEDS ORDERED: POTASSIUM PHOS 3 MMOL/1 ML INFUSION IV STA (15:12)
[2017-06-07] MEDS ORDERED: NURSING VERBAL MED ORDER ONE ×2 (15:15→15:30)
[2017-06-07] MEDS ORDERED: POT PHOSPHATE MONOBASIC W/ SOD TAB PO ONE (15:15)
[2017-06-07] MEDS: MAGNESIUM OXIDE 400 MG TAB PO SCH (15:21)
[2017-06-07] MEDS ORDERED: SODIUM CHLORIDE 0.9% 500ML 500 ML IV SCH (15:30)
[2017-06-07] MEDS ORDERED: POTASSIUM PHOSPHATE INJ 18 MMOL in SODIUM CHLORIDE 0.9% 500ML 500 ML IV ONE (15:45)
--- NOTE | 2017-06-07 19:20 | GASTROINTESTINAL CONSULTATION ---
DATE OF CONSULTATION: 06/07/2017 RACE: . ATTENDING PHYSICIAN: Dr. Mojica. CONSULTING PHYSICIAN: Dr. Arora. REASON FOR CONSULTATION: Pancreatitis. HISTORY OF PRESENT ILLNESS: [place] Rosales is a 27-year-old female with a history of recurrent acute pancreatitis status post laparoscopic cholecystectomy in September [address] Barker. Prior to her cholecystectomy, she did have multiple episodes of acute pancreatitis. She also has a history of ulcerative colitis and has not been taking her oral mesalamine therapy since the time of her . She is currently 22 weeks . She presented to the Department of Emergency Medicine last evening with multiple episodes of nausea, vomiting and midepigastric abdominal pain which she described as 10/10 in intensity, radiating to her back. She described it as a sharp ache. She did state that she had some small amount of blood in her vomitus last night and did have low-grade fever to 100.4. She subsequently had laboratory studies which included a hemoglobin of 12.9, hematocrit 37.5 and a platelet count of 220. Her white blood cell count was 8.70. A lipase level on admission was 907, total bilirubin was 0.2, direct bilirubin less than 0.1, AST was 15, ALT 19, alkaline phosphatase was 59. Tox screen was negative. UA did show 3+ occult blood, small amount of leukocyte esterase and 5-10 white blood cells in her urine. Blood cultures and urine cultures were sent. She did have an abdominal ultrasound performed which showed a prior cholecystectomy with no biliary ductal dilatation. CBD was measuring 4 mm. She was admitted to the ICU, was given large volume resuscitation including a 2 liter bolus in the ER and is currently receiving 200 mL of normal saline per hour. At the time that I saw the patient, she states that she was feeling much better, she states that her abdominal pain is now approximately a 3/10 in intensity. She states that she has not had any further emesis since her arrival, and she denies any fevers, chills, nausea, hematemesis, melena or hematochezia. She does state this is her first bout of pancreatitis following the removal of her gallbladder in September 2016. She has no further complaints. PAST MEDICAL HISTORY: Includes pancreatitis, anemia, depression, ulcerative colitis, hypokalemia, and intrauterine of 21 weeks. PAST SURGICAL HISTORY: Includes lithotripsy, a history of renal stent and status post laparoscopic cholecystectomy. SOCIAL HISTORY: She is , lives with her spouse. She denies any tobacco, alcohol or illicit drug use. FAMILY HISTORY: Negative for GI malignancy or inflammatory bowel disease. ALLERGIES: KEFLEX, MORPHINE AND NICKEL. MEDICATIONS AT PRESENT: Include Celexa 20 mg p.o. at bedtime, vitamin 1 tab p.o. at bedtime, iron sulfate 325 mg p.o. at bedtime, Mag-Ox 400 mg p.o. q.a.m., Protonix 40 mg IV daily, metoprolol 5 mg IV q. 4 p.r.n. tachycardia, Tylenol 650 mg p.o. q. 4 hours p.r.n. pain or fever, Zofran 4 mg IV q. 6 p.r.n. nausea. REVIEW OF SYSTEMS: Negative x12 system review other than pertinent positives as in the HPI. PHYSICAL EXAMINATION: VITAL SIGNS: Include a temp of 37.2, pulse 120, respirations 21, blood pressure was 81/33 at last check, and pulse ox 97% on room air. GENERAL: She is awake, cooperative, in no acute distress. HEAD: Normocephalic, atraumatic. EYES: Pupils equal, round. Extraocular muscles are intact. ENT: External evaluation of ears and nose are normal. Oropharynx is clear. NECK: Soft and supple. There is no JVD or lymphadenopathy. CHEST: Clear to auscultation bilaterally. CARDIOVASCULAR SYSTEM: Regular rate and rhythm. ABDOMEN: Soft, tender in the midepigastric area. Nondistended. There is positive bowel sounds. There is no appreciable hepatosplenomegaly. Gravid uterus. EXTREMITIES: No clubbing, cyanosis, or edema. Compression stockings are in place in the bilateral lower extremities. RADIOGRAPHIC AND LABORATORY STUDIES: Reviewed in HPI. IMPRESSION: A 27-year-old female, 22 weeks with onset of nausea, recurrent vomiting and abdominal pain, elevated lipase, and electrolyte abnormalities. PLAN: At the present time, my recommendation will be supportive care. I would keep her n.p.o. I will control her pain with Tylenol as needed. I would aggressively rehydrate her with IV fluids, currently she has a rate of 200 mL per hour which is appropriate. This will ensure adequate perfusion pressures to the pancreas to decrease the risk of ischemic injury. I would hold off at present on an MRCP, though it is safe during . Her symptoms have improved and she has no elevation of her liver panel and therefore I would recommend checking a liver panel tomorrow. I told her we could reevaluate her tomorrow. She agreed with this plan and would like to avoid unnecessary testing due to her current status. Will defer electrolyte abnormalities to her primary team. I will follow her clinical course and make further recommendations as needed. Once again, thanks for allowing me to participate in the care of this patient. If you have any further questions, please do not hesitate in contacting me. CYNTHIA
[2017-06-07 19:49] LABS: BLOOD UREA NITROGEN 5 mg/dl (7-18); CALCIUM 5.7 mg/dl (8.5-10.1); CARBON DIOXIDE 21 mmol/L (21-32); CREATININE 0.45 mg/dl (0.60-1.20); GLUCOSE 81 mg/dl (70-99); POTASSIUM 2.7 mmol/L (3.5-5.1); SODIUM 137 mmol/L (136-145)
[2017-06-07] MEDS ORDERED: POTASSIUM CHLORIDE 20 MEQ TABCR PO STA (20:02)
--- NOTE | 2017-06-07 20:21 | Procedure Note ---
Procedure Note Date of Service Jun 07, 2017. Procedure Note Critical Care Medicine Point of Care Bedside Ultrasound Procedure: Limited transabdominal obstetrical ultrasound Procedure Date: June 07, 2017 Indication: 22 weeks gestation, dehydration, pancreatitis Attending: Danny Colvin DO Resident/Physician Aircraft Loadmaster Superintendent: Derrick Mcarthur Organs Examined: Uterus B mode imaging revealed a heart rate of 167 Positive movement was noted Impression: Positive movement, reassuring heart rate Images obtained are saved for permanent record
[2017-06-07] MEDS: CITALOPRAM 20 MG TAB PO SCH (20:25)
[2017-06-07] MEDS: FERROUS SULFATE 325 MG TAB PO SCH (20:25)
[2017-06-07] MEDS: PRENATAL VITAMIN TAB PO SCH (20:25)
[2017-06-07] MEDS ORDERED: MAGNESIUM SULFATE 1GM / D5W 1 GM in PREMIXED IN D5W 100 ML IV ONE (20:30)
--- NOTE | 2017-06-07 20:33 | GYNECOLOGICAL CONSULTATION ---
DATE OF CONSULTATION: 06/07/2017 CHIEF COMPLAINT: A 22-week with acute pancreatitis. HISTORY OF PRESENT ILLNESS: A 27-year-old 2, para 1-0-0-1 at 22+ weeks gestational age with an EDC of 10/09/2017 by LMP who presented earlier today with persistent nausea and vomiting. She was evaluated in the Emergency Department and then admitted with a diagnosis of acute pancreatitis. I was asked to see her on consult by Dr. Mojica. She is currently in her ICU room. She denies any vaginal bleeding or leaking. She reports movement. She has heard the heart tones today. She denies any uterine contractions or any lower abdominal pain. She states that she was in her usual state of health up until the last evening when she had an episode of vomiting, that was around 4pm. Then after 11:00 p.m. onward into today, she had persistent nausea and vomiting. She presented to the Emergency Room and her subsequent evaluation including her lab work revealed likely diagnosis of acute pancreatitis. She does state that she has had that in the past but was years ago. They do think it is viral related as her spouse was sick as well last week. Secondary to her multiple pancreatitis episodes in the past, she underwent a cholecystectomy in order to see that improved. This is her first episodes since that surgery. She currently is having a headache that is on her bilateral temples. It is new, not what she presented to the ER for. The tylenol that she is getting is not helping her headache. She does not have a history of migraines. She does usually drink caffeine daily and states that the headache could be related to caffeine withdrawal. OBSTETRICAL HISTORY: A 38 week, in 2016. GYNECOLOGIC HISTORY: Normal Paps, no STD. PAST MEDICAL HISTORY: History of kidney stones, depression, bile duct issues and history of pancreatitis, history of ulcerative colitis. PAST SURGICAL HISTORY: [place] teeth extraction, lithotripsy and laparoscopic cholecystectomy. ALLERGIES: CEPHALEXIN, MORPHINE AND NICKEL. MEDICATIONS: Ondansetron as needed, Celexa, vitamins, iron tablets, folic acid and acetaminophen. SOCIAL HISTORY: No tobacco, alcohol or street drug use. 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 REVIEW OF SYSTEMS: As noted above. She does have a history of bulimia in the past that is not a current issue for her. Her pain is much better now than on admission. PHYSICAL EXAMINATION: VITAL SIGNS: Temperature 37.3, pulse 107, blood pressure 83/38, pulse ox 99% on room air. GENERAL: She is a pleasant female sitting upright in her bed and talking to her grandma, smiling, in no acute distress. ABDOMEN: Soft, gravid. Fundal height consistent with 22 weeks, possible umbilical hernia noted. The remainder of the exam is deferred. ASSESSMENT: A 22+ week intrauterine with acute pancreatitis, no obvious obstetrical issues. PLAN: I discussed with the patient heart tones q. shifts to reassure her. She has been feeling movement; however, that can be sporadic at this gestational age. She has only been given Tylenol for headache and would like to try something stronger. She is okay to have codeine or percocet or even Fioricet, if needed, as she may be having caffeine withdrawal headache. She is unsure of her length of stay and it will be determined by her response to bowel rest and her results/trends of her labs. We will continue to follow along during her course of hospitalization. She verbalized understanding and denied any questions. CYNTHIA
[2017-06-07] MEDS ORDERED: CALCIUM GLUCONATE 10% 1,000 MG in SODIUM CHLORIDE 0.9% 50ML 50 ML IV ONE (20:45)
[2017-06-07] MEDS: BUTALBITAL/ACETAMIN/CAFFEINE TAB PO PRN (20:58)
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
[2017-06-08] VITALS (12 sets, daily range): BP systolic 83–106; BP diastolic 29–63; PULSE 102–120; TEMP 36.6–36.9; O2SAT 94–99
[2017-06-08] MEDS: POTASSIUM CHLR 10 MEQ / WTR 10 MEQ in PREMIXED WATER 100 ML IV SCH ×3 (00:32→03:12)
[2017-06-08] MEDS: NSS + 20MEQ KCL 1000ML 1,000 ML IV SCH ×2 (02:01→09:30)
[2017-06-08] MEDS: BUTALBITAL/ACETAMIN/CAFFEINE TAB PO PRN ×3 (03:14→21:25)
[2017-06-08] MEDS ORDERED: NURSING VERBAL MED ORDER ONE ×2 (04:45→11:30)
[2017-06-08 05:50] LABS: HEMATOCRIT 26.5 % (37-47); HEMOGLOBIN 8.8 g/dL (12.0-16.0); MEAN CELL VOLUME 91.7 fL (80-100); MEAN CORPUSCULAR HEMOGLOBIN 30.4 pg (25-34); MEAN CORPUSCULAR HGB CONC 33.2 g/dl (32-36); MEAN PLATELET VOLUME 9.1 fL (7.4-10.4); PLATELET COUNT 157 K/uL (130-400); RED CELL DISTRIBUTION WIDTH CV 14.3 % (11.5-14.5); RED CELL DISTRIBUTION WIDTH SD 47.4 fL (36.4-46.3); WHITE BLOOD COUNT 4.04 K/uL (4.8-10.8)
[2017-06-08 06:02] LABS: BASO % 0.5 %; BASO ABS # 0.02 K/uL (0-0.2); EOS % 0.7 %; EOS ABS # 0.03 K/uL (0-0.5); IG# 0.16 K/uL (0.00-0.02); LYMPH % 19.8 %; MONO % 5.7 %; MONO ABS # 0.23 K/uL (0.11-0.59); NEUT % 69.3 %
[2017-06-08 06:05] LABS: BLOOD UREA NITROGEN 4 mg/dl (7-18); CALCIUM 5.9 mg/dl (8.5-10.1); CARBON DIOXIDE 18 mmol/L (21-32); CREATININE 0.39 mg/dl (0.60-1.20); GLUCOSE 77 mg/dl (70-99); LIPASE 98 U/L (73-393); POTASSIUM 3.7 mmol/L (3.5-5.1); SODIUM 139 mmol/L (136-145)
[2017-06-08] MEDS: ACETAMINOPHEN 325 MG TAB PO PRN (06:46)
[2017-06-08] MEDS ORDERED: CALCIUM GLUCONATE 10% 1,000 MG in SODIUM CHLORIDE 0.9% 50ML 50 ML IV STA (07:51)
--- NOTE | 2017-06-08 07:53 | Critical Care Progress Note ---
Critical Care Progress Note Date of Service Jun 08, 2017. Attending Dr. Colvin Subjective Pt complained overnight of feeling "puffy" and "chest tightness". Pt was ultrasounded and B lines were present bilaterally. Pts fluids were turned back from 200 to 50. Pts Ca is slightly improved from yesterday and ionized Ca is pending. Potassium is greatly improved at 3.7. PT denies fever, chills, shortness of breath, chest pain. She continues with tenderness in the epigastric area but no over abd pain, nausea, or vomiting. Pt mobile around room to restroom. No change in bowel or bladder habits. Objective Vital Signs - as noted Laboratory Data - as noted Physical Exam: General - NAD, resting in bed ENT - Mucosa moist, no lesions or candidiasis Neck - Supple, trachea midline, no masses or lymphadenopathy, no JVD or bruits Lungs - No paradoxical chest wall movement, clear to auscultation bilaterally, no wheezes, rales, or rhonchi Heart - Sinus tach, No murmur, rubs, clicks, or gallops appreciated Abdomen - normoactive BS present, no bruits noted, tympanic to percussion, soft , mild tenderness in the epigastric region, abd Extremities - edema noted, pedal pulses intact Neuro - A&OX3 Strength extremities equal and appropriate bilaterally CN:PERRL, EOMI, no facial asymmetry, uvula/tongue midline Assessment & Plan (1) Recurrent pancreatitis (2) Depression (3) Intrauterine (4) Hypokalemia (5) Nausea and vomiting Reason Critically Ill: Patient is an 27-year-old female who is transferred to the ICU for acute pancreatitis in the setting of with electrolyte disturbances. PLAN: GI/Nutrition: * Acute Pancreatitis * GI Consulted; Appreciate input * Continue supportive care at this time * Fluids reduced to 50mL/Hr * MRCP if symptoms worsen * Sips and Chips if tolerated * Repeat LFTs and Lipase today * Prior Lipase 907 LIBRARY ATTENDANT: * 22wks gestation * Continue Vitamin * Dr. Jama LIBRARY ATTENDANT on board, defer care to her team Fluids/Renal: * Electrolyte Abnormalities * Potassium 3.7; trend and replete per protocol * Unetiology of hypokalemia * Calcium slightly increased, Repeat ionized 0.97 * Additional dose of 1g Ca Gluconate * U/A reflexed to culture: pending * Pt voidin.1L + Neuro: * Tylenol for pain as needed * Continue home Celexa Resp: * On room air with adequate saturations * Monitor fluid status CV: * Tachycardia and hypotensive * Pt states pressures are normal for her * Lactic Acid neg at 0.7 * PRN Lopressor for HR > 120 * Tachycardia improving now 103 ID: * No current indication for Abx, likelu viral etiology as with sx prior to pt * UA esterase positive, with hematuria and proteinuria; Culture pending * Blood Cultures pending * Afebrile * Will Cancel MRSA Screen per pt request, Refusal to consent based on possible employment implications if positive. Heme: * SCDs in place * H&H: drop to 8.8/26.5 * BUN decreasing as well. Likely dilutional from aggressive repletion * Repeat H&H at 1100 Endocrine: * Accu-Checks per protocol, started insulin infusion for 2 blood sugars greater than 180 * No hx of DM CCT: 0 Minutes; Level 3 inpatient billing. This time is exclusive of all separately billable procedures. Thank you for involving us in the care of this patient. Please refer to Dr. Shalom Colvin's addendum for further recommendations. I have personally evaluated and examined this patient. I agree with assessment and plan of Bernice Mendez PA-C. I have discussed the case with the hospitalist physician. The patient is mildly tachycardic which would not be profoundly abnormal in the setting of , the patient reports her blood pressure is normally "low normal". Her profound hypokalemia has resolved with aggressive supplementation. Patient is stable for downgrade to medical surgical floor. 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: [facility]: Case Data Medications: Current Inpatient Medications Medications (Trade) Dose Ordered Sig/Tereso Route Start Time Stop Time Status Last Admin Dose Admin Potassium Chloride/Sodium Chloride 1,000 ml @ 50 mls/hr Q20H IV 06/07/17 13:00 07/07/17 12:59 06/08/17 02:01 200 MLS/HR Acetaminophen (Tylenol Tab) 650 mg Q4H PRN PO 06/07/17 10:15 07/07/17 10:14 06/08/17 06:46 650 MG Al Hydrox/Mg Hydrox/Simethicone (Maalox Max Susp) 15 ml Q4H PRN PO 06/07/17 10:15 07/07/17 10:14 Ondansetron HCl (Zofran Inj) 4 mg Q6H PRN IV 06/07/17 10:15 07/07/17 10:14 Citalopram Hydrobromide (celeXA TAB) 20 mg HS PO 06/07/17 21:00 07/07/17 20:59 06/07/17 20:25 20 MG Prenat Multivit/ [place]/Iron/Folic Ac ( Vitamin Tab) 1 tab HS PO 06/07/17 21:00 07/07/17 20:59 06/07/17 20:25 1 TAB Ferrous Sulfate (Feosol Tab) 325 mg HS PO 06/07/17 21:00 07/07/17 20:59 06/07/17 20:25 325 MG Miscellaneous Information (Icu Protocol For Hyperglycemia) 1 ea PRN PRN N/A 06/07/17 11:30 06/09/17 11:29 Metoprolol Tartrate (Lopressor Iv) 5 mg Q4H PRN IV 06/07/17 12:00 07/07/17 11:59 Pantoprazole Sodium 40 mg/ Syringe 10 ml @ 5 mls/min DAILY@11 IV 06/07/17 13:00 06/10/17 11:01 06/07/17 13:24 5 MLS/MIN Magnesium Oxide (Mag-Ox Tab) 400 mg QAM PO 06/07/17 14:30 07/07/17 14:29 06/07/17 15:21 400 MG Acetaminophen/ Butalbital/ Caffeine (Fioricet Tab) 1 tab Q6 PRN PO 06/07/17 20:15 07/07/17 20:14 06/08/17 03:14 1 TAB Calcium Gluconate 1000 mg/Sodium Chloride 60 ml @ 240 mls/hr NOW STAT IV 06/08/17 07:36 06/08/17 07:50 UNV Vital Signs: Date Time Temp Pulse Resp B/P (MAP) Pulse Ox O2 Delivery O2 Flow Rate FiO2 06/08/17 04:01 36.7 112 25 91/31 (51) 95 Room Air 06/08/17 04:00 Room Air 06/08/17 03:01 116 24 93/29 (50) 94 Room Air 06/08/17 02:01 116 23 93/40 (57) 97 Room Air 06/08/17 01:01 112 19 91/50 (64) 99 Room Air 06/08/17 01:00 111 20 99 Room Air 06/08/17 00:01 36.6 105 21 83/39 (54) 98 Room Air 06/08/17 00:00 Room Air 06/07/17 22:31 106 18 101/40 (60) 96 06/07/17 22:01 107 18 98/42 (60) 97 06/07/17 21:31 106 18 79/41 (54) 97 06/07/17 21:01 115 19 95/41 (59) 100 Room Air 06/07/17 20:53 113 19 89/36 (53) Room Air 06/07/17 20:06 116 17 85/33 (50) 100 Room Air 06/07/17 20:04 37.3 113 18 76/34 (48) 100 Room Air 06/07/17 20:00 97 Room Air 06/07/17 19:31 120 19 80/32 (48) 100 Room Air 06/07/17 18:31 115 15 78/35 (49) 100 Room Air 06/07/17 18:01 114 26 81/43 (56) 100 Room Air 06/07/17 17:01 107 19 83/38 (53) 99 Room Air 06/07/17 16:01 37.3 111 15 83/31 (48) 98 Room Air 06/07/17 16:00 97 Room Air 06/07/17 15:31 121 19 85/37 (53) 97 Room Air 06/07/17 15:01 117 17 83/37 (52) 97 Room Air 06/07/17 14:50 120 21 97 06/07/17 14:46 121 19 81/33 (49) 97 06/07/17 14:35 120 22 97 06/07/17 14:31 120 23 87/34 (51) 97 06/07/17 14:20 120 20 97 06/07/17 14:16 122 15 85/43 (57) 98 06/07/17 14:05 125 18 97 06/07/17 14:01 127 17 89/47 (61) 98 06/07/17 13:50 128 20 97 06/07/17 13:37 97 Room Air 06/07/17 13:37 37.8 121 25 95/40 (58) 97 Room Air 06/07/17 12:28 38.0 120 16 90/42 (58) 98 Room Air 06/07/17 11:53 119 17 99/52 06/07/17 10:40 98 Room Air 06/07/17 09:38 123 18 97/43 98 06/07/17 09:32 97/43 06/07/17 09:20 129 15 96 06/07/17 08:50 138 13 98 06/07/17 08:20 134 12 96 06/07/17 07:50 125 16 97 06/07/17 07:45 127 18 97 Room Air Laboratory Results: Last 24 Hours Test 06/07/17 13:07 06/07/17 13:58 06/07/17 19:05 06/07/17 19:09 Sodium Level 135 mmol/L 137 mmol/L Potassium Level 2.4 mmol/L 2.7 mmol/L Chloride Level 103 mmol/L 107 mmol/L Carbon Dioxide Level 23 mmol/L 21 mmol/L Anion Gap 8.0 mmol/L 9.0 mmol/L Blood Urea Nitrogen 7 mg/dl 5 mg/dl Creatinine 0.44 mg/dl 0.45 mg/dl Est Creatinine Clear Calc Drug Dose 142.2 ml/min 139.1 ml/min Estimated GFR () > 150.0 > 150.0 Estimated GFR (Non- 136.4 135.4 BUN/Creatinine Ratio 15.4 11.6 Random Glucose 87 mg/dl 81 mg/dl Lactic Acid Level 0.7 mmol/L Calcium Level 6.4 mg/dl 5.7 mg/dl Magnesium Level 2.1 mg/dl 1.9 mg/dl Ionized Calcium 0.89 mmol/l Phosphorus Level 1.8 mg/dl Triglycerides Level 205 mg/dl Bedside Glucose 78 mg/dl Test 06/07/17 23:26 06/08/17 04:53 06/08/17 06:28 06/08/17 07:30 Bedside Glucose 86 mg/dl White Blood Count 4.04 K/uL Red Blood Count 2.89 M/uL Hemoglobin 8.8 g/dL Hematocrit 26.5 % Mean Corpuscular Volume 91.7 fL Mean Corpuscular Hemoglobin 30.4 pg Mean Corpuscular Hemoglobin Concent 33.2 g/dl Platelet Count 157 K/uL Mean Platelet Volume 9.1 fL Neutrophils (%) (Auto) 69.3 % Lymphocytes (%) (Auto) 19.8 % Monocytes (%) (Auto) 5.7 % Eosinophils (%) (Auto) 0.7 % Basophils (%) (Auto) 0.5 % Neutrophils # (Auto) 2.80 K/uL Lymphocytes # (Auto) 0.80 K/uL Monocytes # (Auto) 0.23 K/uL Eosinophils # (Auto) 0.03 K/uL Basophils # (Auto) 0.02 K/uL RDW Standard Deviation 47.4 fL RDW Coefficient of Variation 14.3 % Immature Granulocyte % (Auto) 4.0 % Immature Granulocyte # (Auto) 0.16 K/uL Red Blood Cell Morphology Unremarkable Sodium Level 139 mmol/L Potassium Level 3.7 mmol/L Chloride Level 114 mmol/L Carbon Dioxide Level 18 mmol/L Anion Gap 7.0 mmol/L Blood Urea Nitrogen 4 mg/dl Creatinine 0.39 mg/dl Est Creatinine Clear Calc Drug Dose 160.5 ml/min Estimated GFR () > 150.0 Estimated GFR (Non- 141.9 BUN/Creatinine Ratio 9.4 Random Glucose 77 mg/dl Calcium Level 5.9 mg/dl Magnesium Level 1.9 mg/dl Lipase 98 U/L Ionized Calcium 0.92 mmol/l Test 06/08/17 07:31
[2017-06-08] MEDS ORDERED: CALCIUM GLUCONATE 10% 1,000 MG in SODIUM CHLORIDE 0.9% 50ML 50 ML IV ONE ×2 (08:00→11:00)
--- NOTE | 2017-06-08 08:19 | Progress Note ---
Progress Note Date of Service Jun 08, 2017. Progress Note s/ pt was sleeping when i came to see her this morning. states no ob issues. no bleeding, rom or pain and feeling fm. she says no n/v and that she is eveline liquids. ICU attending indicated pt was being moved out of ICU due to improved labs. o/ af tachy, bp more normal for her abd soft gravid nt. a/ hd#2 pancreatitis, under medicine service. at 22+wks p/ cont dop tones for pt reassurance. discussed bullemia history with ICU attending, which pt has reported to be in the past. she says she has a 2 wk office appt already made. will follow along.
[2017-06-08 08:27] LABS: RETIC COUNT % 2.9 % (0.5-2.0)
--- NOTE | 2017-06-08 08:30 | Hospitalist Progress Note ---
Hospitalist Progress Note Date of Service Jun 08, 2017. (Pebbles Munoz PA-C) Subjective Pt evaluation today including: conversation w/ patient, conversation w/ family (), physical exam, chart review, lab review, review of studies Pain: Minimal epigastric pain with palpation PO Intake: Improving Voiding: no voiding problems The patient was seen and examined this morning. Pt reports feeling much better today. She notes that her abdominal pain is significantly improved. She is requesting to advance her diet this morning, as she has tolerated clears without any difficulty. Patient denies any fevers, chills, sweats overnight. She does note that she feels slightly puffy in her fingers and her toes. She also felt she was short of breath with minimal activity today. Her fluids were turned off in the ICU. Patient's is at bedside. Discussion was held with patient and her regarding moving from ICU into MedSurg unit today. All their questions and concerns were addressed. ROS: Constitutional: No fever, sweats or chills Eyes: No diplopia, no worsening or blurred vision ENT: normal hearing, no trouble swallowing Respiratory: No cough, sputum, + slight dyspnea on exertion, none at rest Cardiovascular: No chest pain, tightness or palpitations Abdomen: Minimal epigastric abdominal pain, no nausea, vomiting, diarrhea or constipation Musculoskeletal: No joint pain, calf pain, + swelling in her bilateral feet, hands Neurologic: No weakness, numbness/tingling, or balance problems (Pebbles Munoz PA-C) Objective Vital Signs Date Time Temp Pulse Resp B/P (MAP) Pulse Ox O2 Delivery O2 Flow Rate FiO2 06/08/17 04:01 36.7 112 25 91/31 (51) 95 Room Air 06/08/17 04:00 Room Air 06/08/17 03:01 116 24 93/29 (50) 94 Room Air 06/08/17 02:01 116 23 93/40 (57) 97 Room Air 06/08/17 01:01 112 19 91/50 (64) 99 Room Air 06/08/17 01:00 111 20 99 Room Air 06/08/17 00:01 36.6 105 21 83/39 (54) 98 Room Air 06/08/17 00:00 Room Air 06/07/17 22:31 106 18 101/40 (60) 96 06/07/17 22:01 107 18 98/42 (60) 97 06/07/17 21:31 106 18 79/41 (54) 97 06/07/17 21:01 115 19 95/41 (59) 100 Room Air 06/07/17 20:53 113 19 89/36 (53) Room Air 06/07/17 20:06 116 17 85/33 (50) 100 Room Air 06/07/17 20:04 37.3 113 18 76/34 (48) 100 Room Air 06/07/17 20:00 97 Room Air 06/07/17 19:31 120 19 80/32 (48) 100 Room Air 06/07/17 18:31 115 15 78/35 (49) 100 Room Air 06/07/17 18:01 114 26 81/43 (56) 100 Room Air 06/07/17 17:01 107 19 83/38 (53) 99 Room Air 06/07/17 16:01 37.3 111 15 83/31 (48) 98 Room Air 06/07/17 16:00 97 Room Air 06/07/17 15:31 121 19 85/37 (53) 97 Room Air 06/07/17 15:01 117 17 83/37 (52) 97 Room Air 06/07/17 14:50 120 21 97 06/07/17 14:46 121 19 81/33 (49) 97 06/07/17 14:35 120 22 97 06/07/17 14:31 120 23 87/34 (51) 97 06/07/17 14:20 120 20 97 06/07/17 14:16 122 15 85/43 (57) 98 06/07/17 14:05 125 18 97 06/07/17 14:01 127 17 89/47 (61) 98 06/07/17 13:50 128 20 97 06/07/17 13:37 97 Room Air 06/07/17 13:37 37.8 121 25 95/40 (58) 97 Room Air 06/07/17 12:28 38.0 120 16 90/42 (58) 98 Room Air 06/07/17 11:53 119 17 99/52 06/07/17 10:40 98 Room Air 06/07/17 09:38 123 18 97/43 98 06/07/17 09:32 97/43 06/07/17 09:20 129 15 96 06/07/17 08:50 138 13 98 (Pebbles Munoz PA-C) Physical Exam Notes: General Appearance: WD/WN, no apparent distress, + thin Head: normocephalic, atraumatic Eyes: PERRL, EOMI ENT: hearing grossly normal, pharynx normal Neck: supple, no JVD Respiratory/Chest: lungs clear, no respiratory distress, no accessory muscle use Cardiovascular: NSR HR in low 100s, + systolic murmur (mild soft) Abdomen/GI: normal bowel sounds, soft, no organomegaly, + pertinent finding (+ mild tenderness in the epigastric region, + fundal height at 1 cm above umbilicus, ) Back: normal inspection, no CVA tenderness Extremities/Musculoskeletal: Mild edema in hands and feet bilaterally nonpitting , no calf tenderness Neurologic/Psych: alert, normal mood/affect, oriented x 3 Skin: normal color, warm/dry (Pebbles Munoz PA-C) Laboratory Results Last 24 Hours Test 06/07/17 13:07 06/07/17 13:58 06/07/17 19:05 06/07/17 19:09 Sodium Level 135 mmol/L 137 mmol/L Potassium Level 2.4 mmol/L 2.7 mmol/L Chloride Level 103 mmol/L 107 mmol/L Carbon Dioxide Level 23 mmol/L 21 mmol/L Anion Gap 8.0 mmol/L 9.0 mmol/L Blood Urea Nitrogen 7 mg/dl 5 mg/dl Creatinine 0.44 mg/dl 0.45 mg/dl Est Creatinine Clear Calc Drug Dose 142.2 ml/min 139.1 ml/min Estimated GFR () > 150.0 > 150.0 Estimated GFR (Non- 136.4 135.4 BUN/Creatinine Ratio 15.4 11.6 Random Glucose 87 mg/dl 81 mg/dl Lactic Acid Level 0.7 mmol/L Calcium Level 6.4 mg/dl 5.7 mg/dl Magnesium Level 2.1 mg/dl 1.9 mg/dl Ionized Calcium 0.89 mmol/l Phosphorus Level 1.8 mg/dl Triglycerides Level 205 mg/dl Bedside Glucose 78 mg/dl Test 06/07/17 23:26 06/08/17 04:53 06/08/17 06:28 06/08/17 08:19 Bedside Glucose 86 mg/dl White Blood Count 4.04 K/uL Red Blood Count 2.89 M/uL Hemoglobin 8.8 g/dL Hematocrit 26.5 % Mean Corpuscular Volume 91.7 fL Mean Corpuscular Hemoglobin 30.4 pg Mean Corpuscular Hemoglobin Concent 33.2 g/dl Platelet Count 157 K/uL Mean Platelet Volume 9.1 fL Neutrophils (%) (Auto) 69.3 % Lymphocytes (%) (Auto) 19.8 % Monocytes (%) (Auto) 5.7 % Eosinophils (%) (Auto) 0.7 % Basophils (%) (Auto) 0.5 % Neutrophils # (Auto) 2.80 K/uL Lymphocytes # (Auto) 0.80 K/uL Monocytes # (Auto) 0.23 K/uL Eosinophils # (Auto) 0.03 K/uL Basophils # (Auto) 0.02 K/uL RDW Standard Deviation 47.4 fL RDW Coefficient of Variation 14.3 % Immature Granulocyte % (Auto) 4.0 % Immature Granulocyte # (Auto) 0.16 K/uL Red Blood Cell Morphology Unremarkable Sodium Level 139 mmol/L Potassium Level 3.7 mmol/L Chloride Level 114 mmol/L Carbon Dioxide Level 18 mmol/L Anion Gap 7.0 mmol/L Blood Urea Nitrogen 4 mg/dl Creatinine 0.39 mg/dl Est Creatinine Clear Calc Drug Dose 160.5 ml/min Estimated GFR () > 150.0 Estimated GFR (Non- 141.9 BUN/Creatinine Ratio 9.4 Random Glucose 77 mg/dl Calcium Level 5.9 mg/dl Magnesium Level 1.9 mg/dl Lipase 98 U/L Ionized Calcium 0.92 mmol/l (Pebbles Munoz, LOREE) Assessment and Plan Tachycardia likely secondary to acute viral illness - Admit to ICU for monitoring - IVFs given aggressively overnight and pt with good urine outs -now but stopped due to increased swelling in her hands and feet, along with sensation of shortness of breath with minimal exertion. Ultrasound was done at bedside by nursing showing curly B lines per patient report. - BPs slightly low upon admission however improved with fluids and likely systolic around 100s at baseline. - Lopressor not required as tachycardiac improved.-Currently running in the low 100s. Possible that anxiety is also playing a component. - lactic acid was 2.0 at time of admission, resolved - No echo at this time - Follow Blood cultures x 2 Acute Recurrent Pancreatitis - NPO except meds, chips of ice allowed - Lipase has trended downward from >900 to 98 this morning. - Appreciate GI recs, no plans for intervention at this time. - Pt is annie daniel September 2018 - possible that pancreatitis is due to acute viral illness as her had similar illness 1 week ago. - Electrolytes have been replaced and are improving Hx nephrolithiasis - US RUQ reviewed - showing nephrolithiasis in the R side as well - pt denies CVA tenderness upon exam. - UA appears clear, with mild esterase. No urinary sx. Monitor Hypokalemia - 3.7 today, Replaced via IV and PO Hypomagnesemia - 1.9 - Replaced via IV Hypocalcemia - Ca+ 5.9, ionized at 0.92 -Replaced via IV Intrauterine - Currently 22 wks. - Will consult AREA COUNSELOR - Pt feeling active movement, possible that ob may want to check doppler routinely throughout admission - Pt has had no complications during this . Ulcerative Colitis - Continue anascol, holding previous mesalamine - no recent flares GERD - Can use protonix IV at this time, consider rantidine 75 mg BID if worsening sx throughout . Hx Bulimia - Currently in remission, pt denies sx Depression/anxiety - Continue lexapro 20 mg daily DVT ppx: ambulatory, teds, scds, no chemical ppx CODE STATUS: FULL Disposition: From home, no CM needs anticipated. Move the patient out of ICU to med surg this morning. Likely discharge within 24 hours. (Pebbles Munoz, LOREE) Supervising Note Dr. Mojica I performed a history and physical examination on the patient. I reviewed above note and agree with it. I discussed plan with APC and patient. During my face to face encounter with the patient, I answered all of the patient's questions. Patient appears to be frustrated that she is still in hospital. Patient states that she does not know whats going on. I explained to her her condition and answered all of her questions. I also reinterated that I had discussed her condition yesterday and she has had multiple consultants see her during her stay including seeing the APC. I spent over 30 minutes discussing her case in addition to the time that was spent by Fani. In total, I spent in the management of her care, review of labs and discussing her condition over 65 minutes. will continue to replace her electrolytes. will hold additional IV fluid. (Hammad Mojica M.D.)
[2017-06-08] MEDS: MAGNESIUM OXIDE 400 MG TAB PO SCH (08:39)
[2017-06-08 09:12] LABS: ALBUMIN 1.6 gm/dl (3.4-5.0); ALKALINE PHOSPHATASE 35 U/L (45-117); ALT/SGPT 15 U/L (12-78); AST/SGOT 18 U/L (15-37); LIPASE 79 U/L (73-393); TOTAL PROTEIN 3.9 gm/dl (6.4-8.2)
[2017-06-08] MEDS: PYRIDOXINE HCL 50 MG TAB PO SCH ×2 (09:30→21:25)
[2017-06-08] MEDS: THIAMINE HCL INJ 100 MG in SYRINGE 9 ML IV SCH (09:30)
--- NOTE | 2017-06-08 10:15 | Gastroenterology Progress Note ---
Progress Note Date of Service: Jun 08, 2017 Subjective Pt evaluation today including: conversation w/ patient, physical exam, chart review, lab review, review of inpatient medication list Patient reports improved symptoms. Denies any further vomiting. No nausea. Minimal epigastric pain which she rates as 1/10 in intensity at present without radiation. Liver panel is normal and lipase has now normalized to 98. She has been tolerating ice chips. Seen by ASSOCIATE PROFESSOR OF COMMUNICATION this morning. No acute issues related to her . Electrolytes are being repleted. Remains slightly hypotensive and tachycardic. Review of Systems Constitutional: No fever, No chills Respiratory: + shortness of breath Cardiac: No chest pain, No palpitations Abdomen: + see HPI Psych: No problem reported Medications Current Inpatient Medications Medications (Trade) Dose Ordered Sig/Tereso Route Start Time Stop Time Status Last Admin Dose Admin Potassium Chloride/Sodium Chloride 1,000 ml @ 50 mls/hr Q20H IV 06/07/17 13:00 07/07/17 12:59 06/08/17 09:30 50 MLS/HR Acetaminophen (Tylenol Tab) 650 mg Q4H PRN PO 06/07/17 10:15 07/07/17 10:14 06/08/17 06:46 650 MG Al Hydrox/Mg Hydrox/Simethicone (Maalox Max Susp) 15 ml Q4H PRN PO 06/07/17 10:15 07/07/17 10:14 Citalopram Hydrobromide (celeXA TAB) 20 mg HS PO 06/07/17 21:00 07/07/17 20:59 06/07/17 20:25 20 MG Prenat Multivit/ Order Processing Specialist/Iron/Folic Ac ( Vitamin Tab) 1 tab HS PO 06/07/17 21:00 07/07/17 20:59 06/07/17 20:25 1 TAB Ferrous Sulfate (Feosol Tab) 325 mg HS PO 06/07/17 21:00 07/07/17 20:59 06/07/17 20:25 325 MG Miscellaneous Information (Icu Protocol For Hyperglycemia) 1 ea PRN PRN N/A 06/07/17 11:30 06/09/17 11:29 Metoprolol Tartrate (Lopressor Iv) 5 mg Q4H PRN IV 06/07/17 12:00 07/07/17 11:59 Magnesium Oxide (Mag-Ox Tab) 400 mg QAM PO 06/07/17 14:30 07/07/17 14:29 06/08/17 08:39 400 MG Acetaminophen/ Butalbital/ Caffeine (Fioricet Tab) 1 tab Q6 PRN PO 06/07/17 20:15 07/07/17 20:14 06/08/17 03:14 1 TAB Pyridoxine HCl (Vitamin B-6 Tab) 50 mg BID PO 06/08/17 09:00 07/08/17 08:59 06/08/17 09:30 50 MG Thiamine HCl 100 mg/Syringe 10 ml @ 2 mls/min QAM IV 06/08/17 09:00 06/10/17 09:04 06/08/17 09:30 2 MLS/MIN Diphenhydramine HCl (Benadryl Cap) 25 mg Q6H PRN PO 06/08/17 09:15 07/08/17 09:14 Objective Vital Signs Date Time Temp Pulse Resp B/P (MAP) Pulse Ox O2 Delivery O2 Flow Rate FiO2 06/08/17 09:38 36.9 107 25 94 06/08/17 08:01 107 25 89/39 (56) 94 Room Air 06/08/17 08:00 Room Air 06/08/17 07:31 36.9 113 23 89/39 (56) 95 Room Air 06/08/17 07:01 102 22 96/37 (56) 95 Room Air 06/08/17 04:01 36.7 112 25 91/31 (51) 95 Room Air 06/08/17 04:00 Room Air 06/08/17 03:01 116 24 93/29 (50) 94 Room Air 06/08/17 02:01 116 23 93/40 (57) 97 Room Air 06/08/17 01:01 112 19 91/50 (64) 99 Room Air 06/08/17 01:00 111 20 99 Room Air 06/08/17 00:01 36.6 105 21 83/39 (54) 98 Room Air 06/08/17 00:00 Room Air 06/07/17 22:31 106 18 101/40 (60) 96 06/07/17 22:01 107 18 98/42 (60) 97 06/07/17 21:31 106 18 79/41 (54) 97 06/07/17 21:01 115 19 95/41 (59) 100 Room Air 06/07/17 20:53 113 19 89/36 (53) Room Air 06/07/17 20:06 116 17 85/33 (50) 100 Room Air 06/07/17 20:04 37.3 113 18 76/34 (48) 100 Room Air 06/07/17 20:00 97 Room Air 06/07/17 19:31 120 19 80/32 (48) 100 Room Air 06/07/17 18:31 115 15 78/35 (49) 100 Room Air 06/07/17 18:01 114 26 81/43 (56) 100 Room Air 06/07/17 17:01 107 19 83/38 (53) 99 Room Air 06/07/17 16:01 37.3 111 15 83/31 (48) 98 Room Air 06/07/17 16:00 97 Room Air 06/07/17 15:31 121 19 85/37 (53) 97 Room Air 06/07/17 15:01 117 17 83/37 (52) 97 Room Air 06/07/17 14:50 120 21 97 06/07/17 14:46 121 19 81/33 (49) 97 06/07/17 14:35 120 22 97 06/07/17 14:31 120 23 87/34 (51) 97 06/07/17 14:20 120 20 97 06/07/17 14:16 122 15 85/43 (57) 98 06/07/17 14:05 125 18 97 06/07/17 14:01 127 17 89/47 (61) 98 06/07/17 13:50 128 20 97 06/07/17 13:37 97 Room Air 06/07/17 13:37 37.8 121 25 95/40 (58) 97 Room Air 06/07/17 12:28 38.0 120 16 90/42 (58) 98 Room Air 06/07/17 11:53 119 17 99/52 06/07/17 10:40 98 Room Air Physical Exam General Appearance: WD/WN, no apparent distress Eyes: EOMI ENT: hearing grossly normal Neck: supple Respiratory/Chest: lungs clear, normal breath sounds, no respiratory distress Cardiovascular: regular rate, rhythm Abdomen: normal bowel sounds, non tender, soft Neurologic/Psych: alert, normal mood/affect, oriented x 3 Skin: warm/dry Laboratory Results Last 24 Hours Test 06/07/17 13:07 06/07/17 13:58 06/07/17 19:05 06/07/17 19:09 Sodium Level 135 mmol/L 137 mmol/L Potassium Level 2.4 mmol/L 2.7 mmol/L Chloride Level 103 mmol/L 107 mmol/L Carbon Dioxide Level 23 mmol/L 21 mmol/L Anion Gap 8.0 mmol/L 9.0 mmol/L Blood Urea Nitrogen 7 mg/dl 5 mg/dl Creatinine 0.44 mg/dl 0.45 mg/dl Est Creatinine Clear Calc Drug Dose 142.2 ml/min 139.1 ml/min Estimated GFR () > 150.0 > 150.0 Estimated GFR (Non- 136.4 135.4 BUN/Creatinine Ratio 15.4 11.6 Random Glucose 87 mg/dl 81 mg/dl Lactic Acid Level 0.7 mmol/L Calcium Level 6.4 mg/dl 5.7 mg/dl Magnesium Level 2.1 mg/dl 1.9 mg/dl Ionized Calcium 0.89 mmol/l Phosphorus Level 1.8 mg/dl Triglycerides Level 205 mg/dl Bedside Glucose 78 mg/dl Test 06/07/17 23:26 06/08/17 04:53 06/08/17 06:28 06/08/17 08:19 Bedside Glucose 86 mg/dl White Blood Count 4.04 K/uL Red Blood Count 2.89 M/uL Hemoglobin 8.8 g/dL Hematocrit 26.5 % Mean Corpuscular Volume 91.7 fL Mean Corpuscular Hemoglobin 30.4 pg Mean Corpuscular Hemoglobin Concent 33.2 g/dl Platelet Count 157 K/uL Mean Platelet Volume 9.1 fL Neutrophils (%) (Auto) 69.3 % Lymphocytes (%) (Auto) 19.8 % Monocytes (%) (Auto) 5.7 % Eosinophils (%) (Auto) 0.7 % Basophils (%) (Auto) 0.5 % Neutrophils # (Auto) 2.80 K/uL Lymphocytes # (Auto) 0.80 K/uL Monocytes # (Auto) 0.23 K/uL Eosinophils # (Auto) 0.03 K/uL Basophils # (Auto) 0.02 K/uL RDW Standard Deviation 47.4 fL RDW Coefficient of Variation 14.3 % Immature Granulocyte % (Auto) 4.0 % Immature Granulocyte # (Auto) 0.16 K/uL Red Blood Cell Morphology Unremarkable Sodium Level 139 mmol/L Potassium Level 3.7 mmol/L Chloride Level 114 mmol/L Carbon Dioxide Level 18 mmol/L Anion Gap 7.0 mmol/L Blood Urea Nitrogen 4 mg/dl Creatinine 0.39 mg/dl Est Creatinine Clear Calc Drug Dose 160.5 ml/min Estimated GFR () > 150.0 Estimated GFR (Non- 141.9 BUN/Creatinine Ratio 9.4 Random Glucose 77 mg/dl Calcium Level 5.9 mg/dl Magnesium Level 1.9 mg/dl Lipase 98 U/L 79 U/L Ionized Calcium 0.92 mmol/l Absolute Reticulocyte Count 0.08 10^6/uL Percent Reticulocyte Count 2.9 % Phosphorus Level 1.1 mg/dl Total Bilirubin 0.2 mg/dl Direct Bilirubin < 0.1 mg/dl Aspartate Amino Transf (AST/SGOT) 18 U/L Alanine Aminotransferase (ALT/SGPT) 15 U/L Alkaline Phosphatase 35 U/L Total Protein 3.9 gm/dl Albumin 1.6 gm/dl Thyroid Stimulating Hormone (TSH) 1.120 uIu/ml Free Thyroxine 1.08 ng/dl Assessment and Plan IMPRESSION: A 27-year-old female, 22 weeks with onset of nausea, recurrent vomiting and abdominal pain, elevated lipase, and electrolyte abnormalities, now with improved symptoms. 1. Clear liquids with dietary advancement as tolerated. 2. Supportive medical management. 3. No plan for any further imaging as lipase has normalized and liver panel is normal. Agree with MARCO A Silva as above Abd: Soft, NT, ND, +BS Continue current therapy Advance diet as tolerated
[2017-06-08] MEDS ORDERED: POTASSIUM PHOS 3 MMOL/1 ML INFUSION IV STA ×2 (10:32→22:33)
[2017-06-08] MEDS ORDERED: POTASSIUM PHOSPHATE INJ 24 MMOL in SODIUM CHLORIDE 0.9% 500ML 500 ML IV ONE (11:00)
[2017-06-08 11:09] LABS: HEMATOCRIT 26.7 % (37-47); HEMOGLOBIN 8.8 g/dL (12.0-16.0)
[2017-06-08 17:48] LABS: ALBUMIN 1.7 gm/dl (3.4-5.0); ALT/SGPT 17 U/L (12-78); BLOOD UREA NITROGEN 6 mg/dl (7-18); CALCIUM 6.7 mg/dl (8.5-10.1); CARBON DIOXIDE 20 mmol/L (21-32); GLUCOSE 83 mg/dl (70-99); POTASSIUM 4.2 mmol/L (3.5-5.1); SODIUM 140 mmol/L (136-145)
[2017-06-08 17:51] LABS: ALKALINE PHOSPHATASE 37 U/L (45-117); AST/SGOT 21 U/L (15-37); TOTAL PROTEIN 4.2 gm/dl (6.4-8.2)
[2017-06-08] MEDS: FERROUS SULFATE 325 MG TAB PO SCH (21:25)
[2017-06-08] MEDS: CITALOPRAM 20 MG TAB PO SCH (21:25)
[2017-06-08] MEDS: PRENATAL VITAMIN TAB PO SCH (21:25)
[2017-06-08 22:01] LABS: CALCIUM 6.8 mg/dl (8.5-10.1); CREATININE 0.57 mg/dl (0.60-1.20); POTASSIUM 3.8 mmol/L (3.5-5.1)
[2017-06-08 22:14] LABS: PHOSPHORUS 1.5 mg/dl (2.5-4.9)
[2017-06-08] MEDS ORDERED: POTASSIUM PHOSPHATE INJ 21 MMOL in SODIUM CHLORIDE 0.9% 500ML 500 ML IV ONE (23:30)
[2017-06-08 23:52] LABS: HEMATOCRIT 26.4 % (37-47); MEAN PLATELET VOLUME 9.2 fL (7.4-10.4); PLATELET COUNT 176 K/uL (130-400); RED CELL DISTRIBUTION WIDTH CV 14.6 % (11.5-14.5); RED CELL DISTRIBUTION WIDTH SD 48.2 fL (36.4-46.3); WHITE BLOOD COUNT 5.41 K/uL (4.8-10.8)
[2017-06-08 23:54] LABS: MEAN CORPUSCULAR HGB CONC 34.1 g/dl (32-36)
[2017-06-09] VITALS (7 sets, daily range): BP systolic 88–102; BP diastolic 43–82; PULSE 108–119; TEMP 36.8; O2SAT 90–98
[2017-06-09] MEDS: NSS + 20MEQ KCL 1000ML 1,000 ML IV SCH (00:01)
[2017-06-09 00:13] LABS: CALCIUM 6.4 mg/dl (8.5-10.1); CREATININE 0.52 mg/dl (0.60-1.20); POTASSIUM 3.6 mmol/L (3.5-5.1)
[2017-06-09 06:07] LABS: BASO % 0.2 %; BASO ABS # 0.01 K/uL (0-0.2); EOS % 2.1 %; EOS ABS # 0.12 K/uL (0-0.5); HEMATOCRIT 28.2 % (37-47); HEMOGLOBIN 9.6 g/dL (12.0-16.0); IG# 0.09 K/uL (0.00-0.02); LYMPH % 29.6 %; LYMPH ABS # 1.68 K/uL (1.2-3.4); MEAN CELL VOLUME 92.2 fL (80-100); MEAN CORPUSCULAR HEMOGLOBIN 31.4 pg (25-34); MEAN PLATELET VOLUME 9.1 fL (7.4-10.4); MONO % 4.8 %; MONO ABS # 0.27 K/uL (0.11-0.59); NEUT % 61.7 %; PLATELET COUNT 176 K/uL (130-400); RED CELL DISTRIBUTION WIDTH CV 14.8 % (11.5-14.5); RED CELL DISTRIBUTION WIDTH SD 49.7 fL (36.4-46.3); WHITE BLOOD COUNT 5.67 K/uL (4.8-10.8)
[2017-06-09 06:35] LABS: BLOOD UREA NITROGEN 5 mg/dl (7-18); CALCIUM 6.7 mg/dl (8.5-10.1); CARBON DIOXIDE 19 mmol/L (21-32); CREATININE 0.43 mg/dl (0.60-1.20); GLUCOSE 74 mg/dl (70-99); LIPASE 185 U/L (73-393); PHOSPHORUS 2.3 mg/dl (2.5-4.9); POTASSIUM 3.9 mmol/L (3.5-5.1); SODIUM 141 mmol/L (136-145)
--- NOTE | 2017-06-09 06:49 | DIAGNOSTIC IMAGING REPORT ---
CHEST ONE VIEW PORTABLE CLINICAL HISTORY: chest pain dyspnea COMPARISON STUDY: 12/26/2016 FINDINGS: Interval development of bibasilar parenchymal infiltrates. Slightly more prominent on the right. Mid and upper lungs are clear. IMPRESSION: Bibasilar parenchymal infiltrates. The above report was generated using voice recognition software. It may contain grammatical, syntax or spelling errors. Electronically signed by: Abdirashid Hernandez M.D. 06/09/2017 6:48 AM Dictated Date/Time: 06/09/2017 6:48 AM
[2017-06-09] MEDS ORDERED: POTASSIUM PHOS 3 MMOL/1 ML INFUSION IV STA ×2 (08:23→15:50)
--- NOTE | 2017-06-09 08:33 | Hospitalist Progress Note ---
Hospitalist Progress Note Date of Service Jun 09, 2017. Subjective Pt evaluation today including: conversation w/ patient, physical exam, chart review, lab review Pain: None PO Intake: Good, improving Voiding: no voiding problems The patient was seen and examined this morning. Pt reports feeling tired and somewhat anxious this morning. She notes last evening her family was present and she was not happy with her interaction with my attending physician. She reports to me that visit occurred after 7 pm, and had questions regarding possibility of discharge in the late afternoon although did not receive a formal answer. She unfortunately feels the visit was defensive more than informative. I discussed with her that her electrolytes continued to be low and due to shortness of breath, fluid in lungs on US and now CXR, she stayed one more night, which she is in understanding of now. Her main concern was that in the morning she was in the ICU and then once move to medical floor, she did not have the same level of care. 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 I apologized to her for this and she seems much happier at present. Pt notes her abdominal pain is much improved. Has been eating a regular diet. This morning consisted of toast, strawberries, tea and that she is still hungry. She denies any epigastric pain, nausea, vomiting. BMs are regular, and urinating without difficulty or concerns. Discussion regarding bulemia hx was revisited as no other family members were present: She notes hx starting at age 16 when she went to college, and continued until age 23. Since age 23 her sx has resolved with the help of counseling/social support, medicating for depression with Celexa. Denies recent recurrence, purging or food restricting. Pt is very understanding of the needs for good nutrition during . In regards to her first , she denies having any symptoms or recurrence. She also notes after having her first baby ( currently 16mo old) she did not have recurrence of symptoms. Pt was encouraged that after having this child she should talk with her and coworkers if she has worsening "baby blues", as these people are her main support system. She does not see a counselor at present and does not feel she would benefit from one. She notes celexa is working well for her anxiety/depression symptoms. We discussed that in the event that her depressive sx worsen after this , her medication dose could be adjusted up for a shorter period of time if needed, and then titrate back down as her symptoms resolved. Constitutional: + fatigue, No fever, No chills, No sweats, No weakness Eyes: No redness, No diplopia ENT: No nasal symptoms, No sore throat, No trouble swallowing Respiratory: + shortness of breath (with taking deep breaths), No cough, No sputum, No dyspnea on exertion Cardiovascular: No chest pain, No edema, No palpitations Abdomen: No pain, No nausea, No vomiting, No diarrhea, No constipation, No GI bleeding Musculoskeletal: No joint pain, No swelling Female : No dysuria Neurologic: No weakness, No numbness/tingling Psychiatric: No depression symptoms, No anxiety Endo: No fatigue Skin: No rash, No itch Objective Vital Signs Date Time Temp Pulse Resp B/P (MAP) Pulse Ox O2 Delivery O2 Flow Rate FiO2 06/09/17 07:50 36.8 119 14 102/82 (89) 90 Room Air 06/08/17 23:13 Room Air 06/08/17 22:46 36.9 120 16 87/47 (60) 96 Room Air 06/08/17 17:49 112 06/08/17 16:20 Room Air 06/08/17 15:39 36.6 119 18 106/63 (77) 97 Room Air 06/08/17 11:13 Room Air 06/08/17 09:38 36.9 107 25 94 Physical Exam Notes: General Appearance: WD/WN, no apparent distress, + thin Head: normocephalic, atraumatic Eyes: PERRL, EOMI ENT: hearing grossly normal, pharynx normal Neck: supple, no JVD Respiratory/Chest: On room air, diminished breath sounds at bases bilaterall, no respiratory distress, no accessory muscle use no wheeze, rales or rhonchi Cardiovascular: NSR HR = 112 at bedside, + systolic murmur (mild soft) Abdomen/GI: normal bowel sounds, soft, no organomegaly, + pertinent finding ( no tenderness in epigastric region, + fundal height at 1 cm above umbilicus, ) Back: normal inspection, no CVA tenderness Extremities/Musculoskeletal: No edema in hands or feet, no calf tenderness Neurologic/Psych: alert, normal mood/affect, oriented x 3 Skin: normal color, warm/dry Laboratory Results Last 24 Hours Test 06/08/17 10:53 06/08/17 12:43 06/08/17 17:05 06/08/17 21:12 Hemoglobin 8.8 g/dL Hematocrit 26.7 % Bedside Glucose 70 mg/dl Sodium Level 140 mmol/L 141 mmol/L Potassium Level 4.2 mmol/L 3.8 mmol/L Chloride Level 115 mmol/L 114 mmol/L Carbon Dioxide Level 20 mmol/L 21 mmol/L Anion Gap 5.0 mmol/L 6.0 mmol/L Blood Urea Nitrogen 6 mg/dl 6 mg/dl Creatinine 0.40 mg/dl 0.57 mg/dl Est Creatinine Clear Calc Drug Dose 156.5 ml/min 109.8 ml/min Estimated GFR () > 150.0 145.2 Estimated GFR (Non- 140.8 125.3 BUN/Creatinine Ratio 14.1 10.2 Random Glucose 83 mg/dl 79 mg/dl Calcium Level 6.7 mg/dl 6.8 mg/dl Total Bilirubin 0.1 mg/dl Aspartate Amino Transf (AST/SGOT) 21 U/L Alanine Aminotransferase (ALT/SGPT) 17 U/L Alkaline Phosphatase 37 U/L Total Protein 4.2 gm/dl Albumin 1.7 gm/dl Globulin 2.5 gm/dl Albumin/Globulin Ratio 0.7 Phosphorus Level 1.5 mg/dl Test 06/08/17 23:24 06/09/17 05:37 White Blood Count 5.41 K/uL 5.67 K/uL Red Blood Count 2.90 M/uL 3.06 M/uL Hemoglobin 9.0 g/dL 9.6 g/dL Hematocrit 26.4 % 28.2 % Mean Corpuscular Volume 91.0 fL 92.2 fL Mean Corpuscular Hemoglobin 31.0 pg 31.4 pg Mean Corpuscular Hemoglobin Concent 34.1 g/dl 34.0 g/dl RDW Standard Deviation 48.2 fL 49.7 fL RDW Coefficient of Variation 14.6 % 14.8 % Platelet Count 176 K/uL 176 K/uL Mean Platelet Volume 9.2 fL 9.1 fL Sodium Level 140 mmol/L 141 mmol/L Potassium Level 3.6 mmol/L 3.9 mmol/L Chloride Level 114 mmol/L 115 mmol/L Carbon Dioxide Level 19 mmol/L 19 mmol/L Anion Gap 7.0 mmol/L 7.0 mmol/L Blood Urea Nitrogen 6 mg/dl 5 mg/dl Creatinine 0.52 mg/dl 0.43 mg/dl Est Creatinine Clear Calc Drug Dose 120.4 ml/min 145.6 ml/min Estimated GFR () 149.6 > 150.0 Estimated GFR (Non- 129.1 137.4 BUN/Creatinine Ratio 12.2 12.5 Random Glucose 83 mg/dl 74 mg/dl Calcium Level 6.4 mg/dl 6.7 mg/dl Neutrophils (%) (Auto) 61.7 % Lymphocytes (%) (Auto) 29.6 % Monocytes (%) (Auto) 4.8 % Eosinophils (%) (Auto) 2.1 % Basophils (%) (Auto) 0.2 % Neutrophils # (Auto) 3.50 K/uL Lymphocytes # (Auto) 1.68 K/uL Monocytes # (Auto) 0.27 K/uL Eosinophils # (Auto) 0.12 K/uL Basophils # (Auto) 0.01 K/uL Immature Granulocyte % (Auto) 1.6 % Immature Granulocyte # (Auto) 0.09 K/uL Phosphorus Level 2.3 mg/dl Magnesium Level 1.6 mg/dl Lipase 185 U/L Assessment and Plan Tachycardia likely secondary to acute viral illness - Admit to ICU for monitoring - now in med surg - IVFs given aggressively overnight and pt with good urine outs -now but stopped on 06/07 overnight d/t edema and sob with minimal exertion. Ultrasound was done at bedside by nursing showing curly B lines per patient report. - CXR reviewed from last night with recurrence of SOB - shows bibasilar infiltrate suggestive of fluid. No wbc, afebrile, no cough. Encourage incentive spirometry along with ambulation today. She is not short of breath with walking, and has already walked several laps about the garcia. I would hesitate to use diuretics in this patient due to unless symptoms are progressively worsened. - BPs slightly low upon admission however improved with fluids and likely systolic around 100s at baseline. - Lopressor not required - HR remains around 110. Likely that anxiety is also playing a component. - lactic acid was 2.0 at time of admission, resolved - No echo at this time - Blood cultures x 2 NGTD Acute Recurrent Pancreatitis - Resolved- Lipase has trended downward from >900 to 98 - Diet advanced to regular diet - Appreciate GI recs, no plans for intervention at this time. - Pt is annie daniel September 2018 - possible that pancreatitis is due to acute viral illness as her had similar illness 1 week ago. - Electrolytes have been replaced - Recheck prp, mag and phos this afternoon. Hx nephrolithiasis - US RUQ reviewed - showing nephrolithiasis in the R side as well - pt denies CVA tenderness upon exam. - UA appears clear, with mild esterase. No urinary sx. Monitor Hypophosphatemia - Replace via IV today again low Hypokalemia - 3.9 today-resolved Hypomagnesemia - 1.6 - Replaced via IV w 1 gram today again Hypocalcemia - Ca+ 6.7, ionized at 0.92 (on 06/08) -Replaced via IV on 06/08 Intrauterine - Currently 22 wks. 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 Ulcerative Colitis - Continue anascol, holding previous mesalamine - no recent flares GERD - Can use protonix IV at this time, consider ranitidine 75 mg BID if worsening sx throughout . Hx Bulimia - Currently in remission, pt denies sx - See HPI. Depression/anxiety - Continue lexapro 20 mg daily DVT ppx: ambulatory, teds, scds, no chemical ppx CODE STATUS: FULL Disposition: From home, no CM needs anticipated. Move the patient out of ICU to med surg Time spent during this visit including face to face counseling, chart review, reviewing studies and laboratories, included total of 55 minutes.
[2017-06-09] MEDS ORDERED: MAGNESIUM SULFATE 1GM / D5W 1 GM in PREMIXED IN D5W 100 ML IV ONE (09:00)
[2017-06-09] MEDS: THIAMINE HCL INJ 100 MG in SYRINGE 9 ML IV SCH (09:14)
[2017-06-09] MEDS: MAGNESIUM OXIDE 400 MG TAB PO SCH (09:14)
[2017-06-09] MEDS: PYRIDOXINE HCL 50 MG TAB PO SCH (09:14)
[2017-06-09] MEDS ORDERED: POTASSIUM PHOSPHATE INJ 21 MMOL in SODIUM CHLORIDE 0.9% 500ML 500 ML IV ONE (09:15)
[2017-06-09] MEDS ORDERED: ONDANSETRON 4 MG TAB PO ONE (12:50)
[2017-06-09] MEDS ORDERED: ONDANSETRON 4 MG TAB PO PRN (13:00)
[2017-06-09 15:04] LABS: BLOOD UREA NITROGEN 3 mg/dl (7-18); CALCIUM 6.6 mg/dl (8.5-10.1); CARBON DIOXIDE 19 mmol/L (21-32); CREATININE 0.46 mg/dl (0.60-1.20); GLUCOSE 92 mg/dl (70-99); PHOSPHORUS 2.2 mg/dl (2.5-4.9); SODIUM 141 mmol/L (136-145)
[2017-06-09 15:05] LABS: POTASSIUM 3.2 mmol/L (3.5-5.1)
[2017-06-09] MEDS: BUTALBITAL/ACETAMIN/CAFFEINE TAB PO PRN (15:26)
[2017-06-09] MEDS ORDERED: MCRK20 PO (16:14)
[2017-06-09] MEDS ORDERED: CALC667C4 PO (16:14)
[2017-06-09] MEDS ORDERED: MGNO400 PO (16:14)
--- NOTE | 2017-06-09 16:26 | Discharge Summary ---
Discharge Summary Date of Service Jun 09, 2017. Discharge Summary Admission Date: Jun 07, 2017 at 11:27 Discharge Date: Jun 09, 2017 Discharge Disposition: Home Principal Diagnosis: Acute pancreatitis Problems/Secondary Diagnoses: Medical Problems: (1) Anemia Nos (2) Depression (3) Elevated LFTs (4) Esophageal Reflux (5) Gastroenteritis (6) Hydronephrosis (7) Hypokalemia (8) Kidney stones (9) Recurrent pancreatitis (10) Ulcerative colitis Hypokalemia Hypomagesemia Hypophosphatemia Surgical Problems: (1) History of lithotripsy (2) History of renal stent (3) Hydronephrosis (4) S/P laparoscopic cholecystectomy Immunizations: Have You Had Influenza Vaccine: Yes History of Tetanus Vaccine?: Yes History of Pneumococcal: Unknown History of Hepatitis B Vaccine: Yes Procedures: ABDOMEN LIMITED (US) 06/07/17 IMPRESSION: 1. Prior cholecystectomy. No biliary ductal dilation identified. 2. Pancreas obscured by bowel gas. 3. Right-sided nephrolithiasis. CXR 1 view portable 06/08/17 IMPRESSION: Bibasilar parenchymal infiltrates. Consultations: Gastroenterology ICU Medication Reconciliation New Medications: Magnesium Oxide (Magnesium-Oxide) 400 Mg Tab 400 MG PO QAM for 7 Days, #7 TAB Pot Phosphate Monobasic W/ Sod (Phospha 250 Neutral) 1 Tab Tab 1 TAB PO QID for 4 Days, #16 TAB Potassium Chloride (Klor-Con M20) 20 Meq Tabcr 40 MEQ PO TODAY@1630 for 7 Days, #14 TAB Continued Medications: Acetaminophen Tab (Tylenol) 325 Mg Tab 650 MG PO UD PRN for Pain, TAB Citalopram Hydrobromide (Citalopram Hydrobromide) 20 Mg Tab 20 MG PO HS for 90 Days Ferrous Sulfate (Ferrous Sulfate) 325 Mg Tab 325 MG PO HS Multivit/Min/Iron/Fol Ac/Pren ( Vitamin) Tab 1 TAB PO HS, TAB Discharge Exam Subjective Pt evaluation today including: conversation w/ patient, physical exam, chart review, lab review Pain: None PO Intake: Good, improving Voiding: no voiding problems The patient was seen and examined this morning. Pt reports feeling tired and somewhat anxious this morning. She notes last evening her family was present and she was not happy with her interaction with my attending physician. She reports to me that visit occurred after 7 pm, and had questions regarding possibility of discharge in the late afternoon although did not receive a formal answer. She unfortunately feels the visit was defensive more than informative. I discussed with her that her electrolytes continued to be low and due to shortness of breath, fluid in lungs on US and now CXR, she stayed one more night, which she is in understanding of now. Her main concern was that in the morning she was in the ICU and then once move to medical floor, she did not have the same level of care. 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 I apologized to her for this and she seems much happier at present. Pt notes her abdominal pain is much improved. Has been eating a regular diet. This morning consisted of toast, strawberries, tea and that she is still hungry. She denies any epigastric pain, nausea, vomiting. BMs are regular, and urinating without difficulty or concerns. Discussion regarding bulemia hx was revisited as no other family members were present: She notes hx starting at age 16 when she went to college, and continued until age 23. Since age 23 her sx has resolved with the help of counseling/social support, medicating for depression with Celexa. Denies recent recurrence, purging or food restricting. Pt is very understanding of the needs for good nutrition during . In regards to her first , she denies having any symptoms or recurrence. She also notes after having her first baby ( currently 16mo old) she did not have recurrence of symptoms. Pt was encouraged that after having this child she should talk with her and coworkers if she has worsening "baby blues", as these people are her main support system. She does not see a counselor at present and does not feel she would benefit from one. She notes celexa is working well for her anxiety/depression symptoms. We discussed that in the event that her depressive sx worsen after this , her medication dose could be adjusted up for a shorter period of time if needed, and then titrate back down as her symptoms resolved. Constitutional: + fatigue, No fever, No chills, No sweats, No weakness Eyes: No redness, No diplopia ENT: No nasal symptoms, No sore throat, No trouble swallowing Respiratory: + shortness of breath (with taking deep breaths), No cough, No sputum, No dyspnea on exertion Cardiovascular: No chest pain, No edema, No palpitations Abdomen: No pain, No nausea, No vomiting, No diarrhea, No constipation, No GI bleeding Musculoskeletal: No joint pain, No swelling Female : No dysuria Neurologic: No weakness, No numbness/tingling Psychiatric: No depression symptoms, No anxiety Endo: No fatigue Skin: No rash, No itch Physical Exam Notes: General Appearance: WD/WN, no apparent distress, + thin Head: normocephalic, atraumatic Eyes: PERRL, EOMI ENT: hearing grossly normal, pharynx normal Neck: supple, no JVD Respiratory/Chest: On room air, diminished breath sounds at bases bilaterall, no respiratory distress, no accessory muscle use no wheeze, rales or rhonchi Cardiovascular: NSR HR = 103 on recheck in afternoon at bedside, + systolic murmur (mild soft) Abdomen/GI: normal bowel sounds, soft, no organomegaly, + pertinent finding ( no tenderness in epigastric region, + fundal height at 1 cm above umbilicus, ) Back: normal inspection, no CVA tenderness Extremities/Musculoskeletal: No edema in hands or feet, no calf tenderness Neurologic/Psych: alert, normal mood/affect, oriented x 3 Skin: normal color, warm/dry Hospital Course Tachycardia likely secondary to acute viral illness - improved - Admit to ICU for monitoring - now in med surg - IVFs given aggressively overnight and pt with good urine outs -now but stopped on 06/07 overnight d/t edema and sob with minimal exertion. Ultrasound was done at bedside by nursing showing curly B lines per patient report. - CXR reviewed from last night with recurrence of SOB - shows bibasilar infiltrate suggestive of fluid. No wbc, afebrile, no cough. Encourage incentive spirometry along with ambulation today. She is not short of breath with walking, and has already walked several laps about the garcia. - BPs slightly low upon admission however improved with fluids and likely systolic around 100s at baseline. - Lopressor not required - HR improved to 100-103 upon recheck Likely that anxiety is also playing a component. - lactic acid was 2.0 at time of admission, resolved - No echo at this time - Blood cultures x 2 NGTD Acute Recurrent Pancreatitis - Resolved- Lipase has trended downward from >900 to 98 - Diet advanced to regular diet - Appreciate GI recs, no plans for intervention at this time. - Pt is sp joão fredy September 2018 - possible that pancreatitis is due to acute viral illness as her had similar illness 1 week ago. - Electrolytes have been replaced - Recheck prp, mag and phos this afternoon. Hx nephrolithiasis - US RUQ reviewed - showing nephrolithiasis in the R side as well - pt denies CVA tenderness upon exam. - UA appears clear, with mild esterase. No urinary sx. Monitor Hypophosphatemia - Replace via IV today. given rx for continued supplementation Hypokalemia - 3.9 today-resolved - given rx for continued supplementation Hypomagnesemia - 1.6 - Replaced via IV w 1 gram today again - given rx for continued supplementation Hypocalcemia - Ca+ 6.7, ionized at 0.92 (on 06/08) -Replaced via IV on 06/08 Intrauterine - Currently 22 wks. - Will consult EMBLEM DRAWER IN - Pt feeling active movement, continue doppler routinely QS per ob/ ob gyn - Pt has had no complications during this . Ulcerative Colitis - Continue anascol, holding previous mesalamine - no recent flares GERD - Can use protonix IV at this time, consider ranitidine 75 mg BID if worsening sx throughout . Hx Bulimia - Currently in remission, pt denies sx - See HPI. Depression/anxiety - Continue lexapro 20 mg daily DVT ppx: ambulatory, teds, scds, no chemical ppx CODE STATUS: FULL Disposition: From home, discharge today. Provided Rx for PRP, mag and phos recheck on 06/11. Fax results to pcp. Follow up with PCP within 5 days. Total Time Spent: Greater than 30 minutes This includes examination of the patient, discharge planning, medication reconciliation, and communication with other providers. Discharge Instructions Please refer to the electronic Patient Visit Report (Discharge Instructions) for additional information. Follow-Up Follow up with PCP within 1 week, an appointment has been requested for you. Additional Copies To Twila Hargrove M.D.
--- NOTE | 2017-06-09 16:26 | Discharge Instructions ---
Discharge Instructions Date of Service Jun 09, 2017. Admission Reason for Admission: Pancreatitis Discharge Discharge Diagnosis / Problem: Acute Pancreatitis, electrolyte abnormalities Discharge Goals Goal(s): Decrease discomfort, Improve function, Increase independence, Improve disease control Activity Recommendations Activity Limitations: per Instructions/Follow-up section Lifting Limitations: gradually increase as tolerated Exercise/Sports Limitations: rest today, gradually increase as tolerated May Resume Sexual Activity: when tolerated Shower/Bathe: no limitations Driving or Machine Use: no limitations . Instructions / Follow-Up Instructions / Follow-Up You were admitted to [facility] with intractable nausea and vomiting and diagnosed with Acute pancreatitis, electrolyte abnormalities and viral gastroenteritis. During your stay here you were treated with intravenous fluids, pain control, and had replacement of phosphate, potassium, and magnesium. Imaging studies which were completed include abdominal ultrasound, and were normal considering your history of cholecystectomy (gallbladder removal). Your pain resolved and electrolytes were replaced. You were evaluated by CLOTHES DESIGNER and monitoring occurred throughout admission. -Your baby's heart rate remained within range and there were no obstetrical complications during this admission. Lab work: Have a PRP, magnesium, and phosphate levels drawn on Monday06/11/17, a script has been given to you. The results should be faxed to your PCP. Medications: Continue taking your medications as prescribed. You have been given prescriptions for oral medications for further electrolyte replacement including: Magnesium oxide 400 mg daily Potassium 40 meq once daily Appointments: Follow up with PCP within 1 week, an appointment has been requested for you. Current Hospital Diet Patient's current hospital diet: Regular Diet, Low Fat Diet Discharge Diet Recommended Diet: Regular Diet Pending Studies Studies pending at discharge: no Laboratory Results Lipid Panel Test 06/07/17 13:58 Range/Units Triglycerides Level 205 H 0-150 mg/dl Work Instructions Return To Work: 2 days Medical Emergencies . Who to Call and When: Medical Emergencies: If at any time you feel your situation is an emergency, please call 911 immediately. . Non-Emergent Contact Non-Emergency issues call your: Primary Care Provider Call Non-Emergent contact if: you have a fever, temperature is above 100.5 other concerns with your health. Call 911 or go directly to the Emergency Department if you experience any of the following: Chest pain, chest tightness, shortness of breath, abdominal pain , lightheadedness, dizziness, gastrointestinal bleeding, or have any other concerns regarding your health. . Past History Medical & Surgical History: (1) Recurrent pancreatitis (2) Esophageal Reflux (3) Ulcerative colitis (4) Intrauterine (5) Depression . "Provider Documentation" section prepared by Fani Munoz. .
[2017-06-09] MEDS: MAGNESIUM SULFATE 1GM / D5W 1 GM in PREMIXED IN D5W 100 ML IV SCH ×2 (16:29→17:33)
[2017-06-09] MEDS ORDERED: POTASSIUM CHLORIDE 20 MEQ TABCR PO ONE (16:30)
[2017-06-09] MEDS ORDERED: POTASSIUM PHOSPHATE INJ 24 MMOL in SODIUM CHLORIDE 0.9% 500ML 500 ML IV ONE (16:30)
[2017-06-09] MEDS: ACETAMINOPHEN 325 MG TAB PO PRN (18:35)
[2017-06-09] MEDS ORDERED: POTTAB2 PO (19:43)
[2017-06-09] MEDS ORDERED: POT PHOSPHATE MONOBASIC W/ SOD TAB PO SCH (21:00)
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
== END 2017-06-09 21:10 | disposition home or self-care (01) | DRG 439 ==
LOC: C.EDB 04:46 → ENRESERV 11:22 → C.2T 11:27 → ENRESERV 13:36 → C.MSICU 13:39 → ENRESERV 06-08 09:05 → C.MSN 06-08 09:41
PROVIDERS: ADMIT Internal Medicine Sports Medicine; ATTEND Internal Medicine Sports Medicine
DX: K85.90 Acute pancreatitis without necrosis or infection, unspecified (principal); K51.90 Ulcerative colitis, unspecified, without complications; Z33.1 Pregnant state, incidental; B34.9 Viral infection, unspecified; K86.1 Other chronic pancreatitis; Z3A.22 22 weeks gestation of pregnancy; E87.6 Hypokalemia; K21.9 Gastro-esophageal reflux disease without esophagitis; Z88.5 Allergy status to narcotic agent; Z88.1 Allergy status to other antibiotic agents; E83.42 Hypomagnesemia; F32.9 Major depressive disorder, single episode, unspecified; E83.39 Other disorders of phosphorus metabolism; R00.0 Tachycardia, unspecified; E83.51 Hypocalcemia; Z87.442 Personal history of urinary calculi

== ENCOUNTER → 2017-06-20 | Outpatient (CLI) | payer OTHER ==
[~2017-06-20] MED LIST changes: +MCRK20 PO; +MGNO400 PO; -OXYC-57 PO; +POTTAB2 PO
[2017-06-20 17:04] LABS: BLOOD UREA NITROGEN 14 mg/dl (7-18); CALCIUM 8.3 mg/dl (8.5-10.1); CARBON DIOXIDE 28 mmol/L (21-32); CREATININE 0.59 mg/dl (0.60-1.20); GLUCOSE 80 mg/dl (70-99); POTASSIUM 3.2 mmol/L (3.5-5.1); SODIUM 135 mmol/L (136-145)
[2017-06-20 17:05] LABS: PHOSPHORUS 3.6 mg/dl (2.5-4.9)
== END | disposition home or self-care (01) ==
LOC: C.LAB 15:46
PROVIDERS: ATTEND Physician Assistant
DX: E87.6 Hypokalemia (principal); E83.42 Hypomagnesemia; E83.39 Other disorders of phosphorus metabolism

== ENCOUNTER → 2017-07-20 | Outpatient (CLI) | payer OTHER ==
[~2017-07-20] MED LIST changes: +CALC500C3 PO; +METO-157 PO; +POTA-74 PO; +RANI150T3 PO; +ZOFRAN ODT 4MG PO
[2017-07-20 17:19] LABS: BASO % 0.1 %; BASO ABS # 0.01 K/uL (0-0.2); EOS % 1.6 %; EOS ABS # 0.13 K/uL (0-0.5); HEMATOCRIT 33.7 % (37-47); HEMOGLOBIN 11.1 g/dL (12.0-16.0); IG# 0.13 K/uL (0.00-0.02); LYMPH % 24.5 %; LYMPH ABS # 2.02 K/uL (1.2-3.4); MEAN CELL VOLUME 91.3 fL (80-100); MEAN CORPUSCULAR HEMOGLOBIN 30.1 pg (25-34); MEAN CORPUSCULAR HGB CONC 32.9 g/dl (32-36); MEAN PLATELET VOLUME 9.3 fL (7.4-10.4); MONO % 6.9 %; MONO ABS # 0.57 K/uL (0.11-0.59); NEUT % 65.3 %; NEUT ABS # 5.39 K/uL (1.4-6.5); PLATELET COUNT 257 K/uL (130-400); RED CELL DISTRIBUTION WIDTH CV 13.3 % (11.5-14.5); RED CELL DISTRIBUTION WIDTH SD 44.5 fL (36.4-46.3); WHITE BLOOD COUNT 8.25 K/uL (4.8-10.8)
[2017-07-20 18:11] LABS: ALBUMIN 2.4 gm/dl (3.4-5.0); ALKALINE PHOSPHATASE 65 U/L (45-117); ALT/SGPT 18 U/L (12-78); AST/SGOT 14 U/L (15-37); BLOOD UREA NITROGEN 10 mg/dl (7-18); CALCIUM 8.3 mg/dl (8.5-10.1); CARBON DIOXIDE 32 mmol/L (21-32); CREATININE 0.89 mg/dl (0.60-1.20); GLUCOSE 135 mg/dl (70-99); LIPASE 160 U/L (73-393); POTASSIUM 2.5 mmol/L (3.5-5.1); SODIUM 135 mmol/L (136-145); TOTAL PROTEIN 5.6 gm/dl (6.4-8.2)
== END | disposition home or self-care (01) ==
LOC: C.LAB1850 16:00
PROVIDERS: ATTEND Obstetrics & Gynecology
DX: Z34.83 Encounter for supervision of other normal pregnancy, third trimester (principal); Z3A.00 Weeks of gestation of pregnancy not specified; E87.6 Hypokalemia; K85.90 Acute pancreatitis without necrosis or infection, unspecified; R10.9 Unspecified abdominal pain; R19.7 Diarrhea, unspecified

== ENCOUNTER 2017-07-21 08:33 | Emergency (ER) | payer OTHER ==
[~2017-07-21] VITALS: Ht 154.9 cm; Wt 53.6 kg
[~2017-07-21 08:33] MED LIST changes: -CALC500C3 PO; -METO-157 PO; -POTA-74 PO; -RANI150T3 PO; -ZOFRAN ODT 4MG PO
[2017-07-21 08:34] VITALS: TEMP 36.7; Ht 154.9 cm; Wt 53.6 kg
[2017-07-21] MEDS ORDERED: ONDANSETRON INJ 2 MG/ML 2 ML VIAL IV STA (08:53)
[2017-07-21] MEDS ORDERED: SODIUM CHLORIDE 0.9% 1000ML 1,000 ML IV STA (08:53)
[2017-07-21 09:20] LABS: BASO % 0.2 %; BASO ABS # 0.02 K/uL (0-0.2); EOS % 1.7 %; EOS ABS # 0.16 K/uL (0-0.5); HEMATOCRIT 32.9 % (37-47); HEMOGLOBIN 11.3 g/dL (12.0-16.0); IG# 0.15 K/uL (0.00-0.02); LYMPH % 21.1 %; LYMPH ABS # 2.03 K/uL (1.2-3.4); MEAN CELL VOLUME 90.4 fL (80-100); MEAN CORPUSCULAR HGB CONC 34.3 g/dl (32-36); MONO % 5.3 %; MONO ABS # 0.51 K/uL (0.11-0.59); NEUT % 70.1 %; NEUT ABS # 6.77 K/uL (1.4-6.5); PLATELET COUNT 226 K/uL (130-400); RED CELL DISTRIBUTION WIDTH CV 13.5 % (11.5-14.5); RED CELL DISTRIBUTION WIDTH SD 44.1 fL (36.4-46.3); WHITE BLOOD COUNT 9.64 K/uL (4.8-10.8)
[2017-07-21] MEDS ORDERED: CALC500C3 PO (09:27)
[2017-07-21] MEDS ORDERED: RANI150T3 PO (09:27)
[2017-07-21] MEDS ORDERED: ZOFRAN ODT 4MG PO (09:27)
[2017-07-21 09:38] LABS: ALBUMIN 2.5 gm/dl (3.4-5.0); ALT/SGPT 18 U/L (12-78); BLOOD UREA NITROGEN 8 mg/dl (7-18); CALCIUM 7.7 mg/dl (8.5-10.1); CARBON DIOXIDE 27 mmol/L (21-32); CREATININE 0.82 mg/dl (0.60-1.20); GLUCOSE 157 mg/dl (70-99); LIPASE 243 U/L (73-393); POTASSIUM 2.7 mmol/L (3.5-5.1); SODIUM 135 mmol/L (136-145)
[2017-07-21 09:42] LABS: ALKALINE PHOSPHATASE 63 U/L (45-117); AST/SGOT 16 U/L (15-37); TOTAL PROTEIN 5.8 gm/dl (6.4-8.2)
[2017-07-21] MEDS ORDERED: POTASSIUM CHLORIDE 20 MEQ/15 ML UDC PO STA ×2 (09:42→10:19)
[2017-07-21] MEDS ORDERED: POTASSIUM CHLORIDE 10 MEQ / 100ML WTR IV STA (09:42)
[2017-07-21 09:50] LABS: ISTAT CREATININE 0.6 mg/dl (0.6-1.3); ISTAT IONIZED CALCIUM 1.04 mmol/l (1.12-1.32); ISTAT POTASSIUM 2.7 mEq/L (3.3-5.0)
[2017-07-21] MEDS ORDERED: METOCLOPRAMIDE HCL INJ 5 MG/ML 2 ML VIAL IV STA (10:42)
[2017-07-21] MEDS ORDERED: DiphenhydrAMINE HCL 50 MG/ML VIAL IV STA (10:42)
[2017-07-21] MEDS ORDERED: POTASSIUM CHLORIDE 10 MEQ TABCR PO STA (11:07)
[2017-07-21] MEDS ORDERED: METO-157 PO (12:14)
[2017-07-21] MEDS ORDERED: POTA-74 PO (12:14)
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
[2017-07-21 12:24] VITALS: BP 97/58; PULSE 96; O2SAT 99
== END 2017-07-21 12:30 | disposition home or self-care (01) ==
LOC: C.EDB 08:34
DX: E87.6 Hypokalemia (principal); O99.283 Endocrine, nutritional and metabolic diseases complicating pregnancy, third trimester; Z3A.28 28 weeks gestation of pregnancy; Z88.5 Allergy status to narcotic agent; Z88.1 Allergy status to other antibiotic agents; Z91.048 Other nonmedicinal substance allergy status

== ENCOUNTER → 2017-08-05 | Outpatient (CLI) | payer OTHER ==
[~2017-08-05] MED LIST changes: +CALC500C3 PO; -MCRK20 PO; +METO-157 PO; -MGNO400 PO; +POTA-74 PO; -POTTAB2 PO; +RANI150T3 PO; +ZOFRAN ODT 4MG PO
[2017-08-05 10:44] LABS: HEMATOCRIT 33.2 % (37-47); HEMOGLOBIN 11.1 g/dL (12.0-16.0)
== END | disposition home or self-care (01) ==
LOC: C.LAB1850 08:25
PROVIDERS: ATTEND Obstetrics & Gynecology
DX: Z34.83 Encounter for supervision of other normal pregnancy, third trimester (principal)

== ENCOUNTER 2017-08-21 15:22 | Emergency (ER) | payer OTHER ==
[~2017-08-21] VITALS: Ht 154.9 cm; Wt 54.6 kg
[~2017-08-21 15:22] MED LIST changes: -DOXY25TA8 PO; -FOLI1TAB8 PO; -ONDA4TAB10 SL; -POTA20TA13 PO
[2017-08-21 15:26] VITALS: TEMP 36.5; Ht 154.9 cm; Wt 54.6 kg
[2017-08-21] MEDS ORDERED: SODIUM CHLORIDE 0.9% 1000ML 2,000 ML IV STA (15:43)
[2017-08-21] MEDS ORDERED: POTASSIUM CHLR 20 MEQ / WTR 20 MEQ IV STA (15:43)
[2017-08-21] MEDS ORDERED: ONDA4TAB10 SL (15:52)
[2017-08-21] MEDS ORDERED: FOLI1TAB8 PO (15:52)
[2017-08-21] MEDS ORDERED: DOXY25TA8 PO (15:52)
[2017-08-21] MEDS: POTASSIUM CHLORIDE 10 MEQ / 100ML WTR IV SCH ×2 (16:10→17:19)
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
[2017-08-21 19:30] LABS: CREATININE 0.58 mg/dl (0.60-1.20); POTASSIUM 2.9 mmol/L (3.5-5.1)
[2017-08-21] MEDS ORDERED: POTA20TA13 PO (19:44)
[2017-08-21 19:52] VITALS: BP 108/51; PULSE 110; O2SAT 100
== END 2017-08-21 19:53 | disposition home or self-care (01) ==
LOC: C.EDB 15:24
DX: O99.283 Endocrine, nutritional and metabolic diseases complicating pregnancy, third trimester (principal); O99.013 Anemia complicating pregnancy, third trimester; O99.613 Diseases of the digestive system complicating pregnancy, third trimester; O99.343 Other mental disorders complicating pregnancy, third trimester; Z3A.32 32 weeks gestation of pregnancy; E87.6 Hypokalemia; D64.9 Anemia, unspecified; K21.9 Gastro-esophageal reflux disease without esophagitis; F32.9 Major depressive disorder, single episode, unspecified

== ENCOUNTER → 2017-08-21 | Outpatient (CLI) | payer OTHER ==
[~2017-08-21] MED LIST changes: +DOXY25TA8 PO; +FOLI1TAB8 PO; +ONDA4TAB10 SL; +POTA20TA13 PO
[2017-08-21 14:10] LABS: ALBUMIN 2.5 gm/dl (3.4-5.0); ALKALINE PHOSPHATASE 89 U/L (45-117); ALT/SGPT 28 U/L (12-78); AST/SGOT 21 U/L (15-37); BLOOD UREA NITROGEN 8 mg/dl (7-18); CALCIUM 8.3 mg/dl (8.5-10.1); CARBON DIOXIDE 31 mmol/L (21-32); CREATININE 0.93 mg/dl (0.60-1.20); GLUCOSE 80 mg/dl (70-99); POTASSIUM 2.5 mmol/L (3.5-5.1); SODIUM 135 mmol/L (136-145); TOTAL PROTEIN 6.1 gm/dl (6.4-8.2)
== END | disposition home or self-care (01) ==
LOC: C.LAB 11:16
PROVIDERS: ATTEND Obstetrics & Gynecology
DX: O12.13 Gestational proteinuria, third trimester (principal); O99.283 Endocrine, nutritional and metabolic diseases complicating pregnancy, third trimester; E87.6 Hypokalemia

== ENCOUNTER → 2017-11-16 | Outpatient (CLI) | payer OTHER ==
[~2017-11-16] MED LIST changes: -ACET-1693 PO; +CLR10 PO; +FOLI1TAB8 PO; +MESA1.2T3 PO; -METO-157 PO; +METO10TA3 PO; +ONDA4TAB10 SL; -POTA-74 PO; +POTA20TA13 PO; -ZOFRAN ODT 4MG PO
== END | disposition home or self-care (01) ==
LOC: C.PAPS 16:33
PROVIDERS: ATTEND Obstetrics & Gynecology
DX: Z12.4 Encounter for screening for malignant neoplasm of cervix (principal)

== ENCOUNTER 2017-12-03 10:49 | Inpatient (IN) | payer OTHER ==
[~2017-12-03] VITALS: Ht 154.9 cm; Wt 48.2 kg
[2017-12-03 11:30] LABS: BASO % 0.5 %; BASO ABS # 0.04 K/uL (0-0.2); EOS ABS # 0.35 K/uL (0-0.5); HEMATOCRIT 45.6 % (37-47); HEMOGLOBIN 15.2 g/dL (12.0-16.0); IG# 0.05 K/uL (0.00-0.02); LYMPH % 30.7 %; LYMPH ABS # 2.68 K/uL (1.2-3.4); MEAN CELL VOLUME 89.8 fL (80-100); MEAN CORPUSCULAR HEMOGLOBIN 29.9 pg (25-34); MEAN CORPUSCULAR HGB CONC 33.3 g/dl (32-36); MEAN PLATELET VOLUME 9.8 fL (7.4-10.4); MONO % 5.5 %; MONO ABS # 0.48 K/uL (0.11-0.59); NEUT % 58.7 %; NEUT ABS # 5.14 K/uL (1.4-6.5); PLATELET COUNT 275 K/uL (130-400); RED CELL DISTRIBUTION WIDTH CV 13.7 % (11.5-14.5); RED CELL DISTRIBUTION WIDTH SD 45.6 fL (36.4-46.3); WHITE BLOOD COUNT 8.74 K/uL (4.8-10.8)
[2017-12-03] MEDS ORDERED: ONDANSETRON INJ 2 MG/ML 2 ML VIAL IV STA ×2 (11:38→15:19)
[2017-12-03] MEDS ORDERED: HYDROmorphone INJ 0.5 MG/0.5 ML SYR IV STA ×3 (11:38→15:19)
[2017-12-03 11:42] LABS: ALBUMIN 3.8 gm/dl (3.4-5.0); CALCIUM 8.4 mg/dl (8.5-10.1); CREATININE 1.05 mg/dl (0.60-1.20); POTASSIUM 3.8 mmol/L (3.5-5.1); TOTAL PROTEIN 7.6 gm/dl (6.4-8.2)
[2017-12-03] MEDS ORDERED: BCPILLS PO (11:56)
[2017-12-03] MEDS ORDERED: IBUP-103 PO (11:56)
--- NOTE | 2017-12-03 14:02 | DIAGNOSTIC IMAGING REPORT ---
ABD/PELVIS WITHOUT FOR STONE HISTORY: 27 years-old Female R flank pain acute right flank pain with nausea and vomiting COMPARISON: Abdominal ultrasound 09/25/2017, CT abdomen and pelvis 03/17/2015 TECHNIQUE: Multiple axial CT images of the abdomen and pelvis were obtained without the use of IV contrast. A dose lowering technique was used consistent with the principals of BROOKE. FINDINGS: Mid lung bases are clear. No pneumatosis or pneumoperitoneum identified. Imaged inferior cardiac chambers are unremarkable. Prior cholecystectomy. The liver, spleen, pancreas and adrenal glands are unremarkable. Multiple nonobstructing bilateral renal calculi including an 8 mm calculus of the inferior pole right kidney and an 8 x 9 mm calculus of the inferior pole right kidney. There is moderate right-sided hydroureteronephrosis secondary to an obstructing 8 x 6 x 10 mm calculus of the mid to distal right ureter at the level of the L5-S1 disc space. Reactive perinephric and periureteral inflammatory stranding. Partially decompressed bladder. The left ureter, uterus and adnexa are unremarkable. Aorta and IVC are within normal limits. No pathologically enlarged lymph nodes identified. There is no bowel obstruction or focal bowel wall thickening identified. Fluid-filled nondilated loops of small bowel are likely physiologic. Air-fluid levels are also noted throughout the colon. The appendix is fluid-filled measuring up to 6 mm in diameter however appears to be noninflamed. No ascites or mesenteric inflammatory changes. The soft tissues and imaged breast parenchyma appear unremarkable. Bones appear to be intact. IMPRESSION: 1. Moderate right-sided hydroureteronephrosis secondary to an 8 x 6 x 10 mm calculus of the mid to distal right ureter at the level of L5-S1. Multiple additional nonobstructing calculi about the bilateral kidneys are seen measuring up to 9 mm as above. 2. Nonobstructive bowel gas pattern with fluid-filled large and small bowel suggesting ileus. Enteritis with diarrheal illness is an additional differential consideration. 3. Appendix is fluid-filled and measures within the upper limits of normal at 6 mm, likely reactive associated to the aforementioned large and small bowel changes. No inflammatory changes to suggest acute appendicitis. 4. Prior cholecystectomy. The above report was generated using voice recognition software. It may contain grammatical, syntax or spelling errors. Electronically signed by: Aldo Carlos M.D. 12/03/2017 2:00 PM Dictated Date/Time: 12/03/2017 1:51 PM
[2017-12-03 14:38] VITALS: BP 108/71; TEMP 36.6; Ht 154.9 cm; Wt 48.2 kg
[2017-12-03 15:30] VITALS: O2SAT 98
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
[2017-12-03] MEDS ORDERED: ONDANSETRON INJ 2 MG/ML 2 ML VIAL IV PRN (15:45)
[2017-12-03] MEDS: SODIUM CHLORIDE 0.9% 1000ML 1,000 ML IV SCH ×2 (16:13→23:21)
[2017-12-03 16:18] VITALS: BP 108/71; PULSE 74; TEMP 36.6; O2SAT 99
[2017-12-03] MEDS: KETOROLAC TROMETHAMINE 15 MG/ML VIAL IV. PRN ×2 (16:54→22:49)
[2017-12-03] MEDS: HYDROmorphone INJ 0.5 MG/0.5 ML SYR IV PRN (20:42)
[2017-12-03] MEDS ORDERED: FERROUS SULFATE 325 MG TAB PO SCH (21:00)
[2017-12-03] MEDS ORDERED: CALCIUM CARBONATE 500 MG CHEWABLE PO SCH (21:00)
[2017-12-03] MEDS ORDERED: PRENATAL VITAMIN TAB PO SCH (21:00)
[2017-12-03] MEDS ORDERED: CITALOPRAM 20 MG TAB PO SCH (21:00)
[2017-12-03 23:13] VITALS: BP 106/66; PULSE 61; TEMP 36.6; O2SAT 99
[2017-12-04] MEDS: HYDROmorphone INJ 0.5 MG/0.5 ML SYR IV PRN ×4 (00:19→12:04)
[2017-12-04] MEDS: SODIUM CHLORIDE 0.9% 1000ML 1,000 ML IV SCH ×2 (05:54→13:08)
[2017-12-04] MEDS: KETOROLAC TROMETHAMINE 15 MG/ML VIAL IV. PRN ×2 (06:31→14:08)
[2017-12-04 06:55] VITALS: BP 100/70; PULSE 72; TEMP 36.5; O2SAT 98
[2017-12-04 07:00] LABS: HEMATOCRIT 39.9 % (37-47); HEMOGLOBIN 13.1 g/dL (12.0-16.0); MEAN CELL VOLUME 89.9 fL (80-100); MEAN CORPUSCULAR HEMOGLOBIN 29.5 pg (25-34); MEAN CORPUSCULAR HGB CONC 32.8 g/dl (32-36); MEAN PLATELET VOLUME 9.4 fL (7.4-10.4); PLATELET COUNT 195 K/uL (130-400); RED CELL DISTRIBUTION WIDTH CV 13.8 % (11.5-14.5); RED CELL DISTRIBUTION WIDTH SD 45.4 fL (36.4-46.3); WHITE BLOOD COUNT 8.27 K/uL (4.8-10.8)
[2017-12-04 07:37] LABS: CALCIUM 7.9 mg/dl (8.5-10.1); CREATININE 1.59 mg/dl (0.60-1.20)
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
[2017-12-04] MEDS ORDERED: MIDAZOLAM HCL 1 MG/ML 2ML VIAL ONE (14:49)
[2017-12-04] MEDS ORDERED: FENTANYL CITRATE INJ 50 MCG/1 ML 2 ML VIAL ONE ×2 (14:49→16:11)
[2017-12-04] MEDS ORDERED: ONDANSETRON INJ 2 MG/ML 2 ML VIAL ONE (15:09)
[2017-12-04] MEDS ORDERED: DEXAMETHASONE SOD INJ 4 MG/ML VIAL ONE (15:09)
[2017-12-04] MEDS ORDERED: PROPOFOL IV EMULSION 10 MG/ML 20 ML VIAL ONE (15:09)
[2017-12-04] MEDS ORDERED: Cysto-Conray II 17.2% 250ML BOTTLE ONE (15:16)
[2017-12-04] MEDS ORDERED: CIPROFLOXACIN 400MG / 200ML D5W ONE (15:24)
[2017-12-04] MEDS ORDERED: NURSING VERBAL MED ORDER ONE (15:30)
[2017-12-04] MEDS ORDERED: CIPROFLOXACIN / D5W 400 MG IV SCH (15:30)
--- NOTE | 2017-12-04 16:26 | [facility] Operative Report ---
Operative Report Operative Date Dec 04, 2017. Pre-Operative Diagnosis Nephrolithiasis Post-Operative Diagnosis same Procedure(s) Performed cystoscopy, right ureteroscopy, laser lithotripsy, ureteral stent placement (6Fx 24cm) Surgeon Dr. Zeferino Driscoll Electrical Unit Rebuilder Surgeon(s) none Estimated Blood Loss 0 Specimens Stones for chemical analysis Drains 6 Japanese by 24cm stent Anesthesia Type General Complication(s) none Disposition yes Recovery Room / PACU Description of Procedure Patient was identified in the preoperative holding area, appropriate informed consents reviewed and completed and the patient was transported to the operating suite. Upon arrival she received appropriate preoperative antibiotics in the form of Cipro. Adequate general anesthesia was achieved, she was placed in dorsal lithotomy position she was sterilely prepped and draped in standard fashion. To begin the case the past 22 Japanese cystoscope and 30 lens. Inspection of the bladder revealed no abnormalities. Right ureteral orifice was cannulated with a sensor wire 10 Japanese double-lumen catheter. I was able to advance the wire to the mid ureter which point it met resistance, under fluoroscopic guidance there are clearly 2 opacities in the ureter at this location. I was unable to manipulate a wire around these opacities my first effort. With gentle manipulation of the catheter and probing with the wire, I was able to navigate a wire into the kidney. I then left this wire in place with through the 10 Japanese double-lumen catheter and reentered the bladder with a semirigid ureteroscope. I was able to guide this into the distal right ureter and ultimately reached to obstructing stones. There were both impacted in the distal ureter. I was able to freed up from the site of impaction and fragment both of these entirely. Irrigated all pieces out of the ureter. I advanced the scope up to the level of the UPJ was able to briefly look in the kidney, however it did not exchange for a flexible ureteroscope or try to perform renal stone treatment. Confirmed a clear ureter with a careful exit ureteroscopy before placing a 6 Japanese 4 cm double-J ureteral stent. A good curl was seen in the kidney as well as the bladder, a string was left attached to the distal aspect of the stent. The bladder was decompressed and the case concluded. She was extubated and taken to the PACU in stable condition. I attest to the content of the Intraoperative Record and any orders documented therein. Any exceptions are noted below.
[2017-12-04] MEDS ORDERED: KETOROLAC TROMETHAMINE 15 MG/ML VIAL IV PRN (16:30)
--- NOTE | 2017-12-04 16:34 | DIAGNOSTIC IMAGING REPORT ---
RETROGRADE INCLUDES KUB CLINICAL HISTORY: RT LASER/STENT COMPARISON STUDY: CT of the abdomen and pelvis December 03, 2017. Fluoroscopy time: 21 seconds. FINDINGS: 3 fluoroscopic images from right retrograde exam were submitted for interpretation. These images demonstrate cannulation of the right ureter with placement of a right ureteral stent. A right renal calculus is noted as well as possible proximal right ureteral calculi. IMPRESSION: Fluoroscopic images from right retrograde exam with ureteral stent insertion. Electronically signed by: Alexis Ulrich M.D. 12/04/2017 4:32 PM Dictated Date/Time: 12/04/2017 4:31 PM
[2017-12-04] MEDS ORDERED: ATROPINE SULFATE 0.1 MG/ML 5ML SYR IV PRN (16:45)
[2017-12-04] MEDS ORDERED: EpHEDrine SULFATE INJ 50 MG/ML AMP IV PRN (16:45)
[2017-12-04] MEDS ORDERED: FENTANYL CITRATE INJ 50 MCG/1 ML 2 ML VIAL IV PRN (16:45)
[2017-12-04] MEDS ORDERED: PROMETHAZINE HCL INJ 12.5 MG in SODIUM CHLORIDE 0.9% 50ML 50 ML IV PRN (16:45)
[2017-12-04] MEDS ORDERED: HYDROmorphone INJ 1 MG/ML SYR IV PRN (16:45)
[2017-12-04] MEDS ORDERED: ONDANSETRON INJ 2 MG/ML 2 ML VIAL IV PRN (16:45)
--- NOTE | 2017-12-04 17:32 | Anesthesiology Progress Note ---
Anesthesia Post Op Note Date & Time Dec 04, 2017 at 17:31 Vital Signs Pain Intensity: 0 Vital Signs Past 12 Hours Date Time Temp Pulse Resp B/P (MAP) Pulse Ox O2 Delivery O2 Flow Rate FiO2 12/04/17 17:20 36.2 74 14 120/78 99 Nasal Cannula 2 12/04/17 17:10 62 12 121/78 100 Nasal Cannula 2 12/04/17 17:00 64 14 130/84 100 Nasal Cannula 2 12/04/17 16:50 66 16 123/74 100 Oxymask 10 12/04/17 16:40 74 14 117/71 100 Oxymask 10 12/04/17 16:34 36.6 93 18 104/67 100 Oxymask 10 12/04/17 14:17 36.6 73 20 96/62 (73) 99 Room Air 12/04/17 07:32 Room Air 12/04/17 06:55 36.5 72 18 100/70 (80) 98 Room Air Notes Mental Status: alert / awake / arousable, participated in evaluation Pt Amnestic to Procedure: Yes Nausea / Vomiting: adequately controlled Pain: adequately controlled Airway Patency, RR, SpO2: stable & adequate BP & HR: stable & adequate Hydration State: stable & adequate Anesthetic Complications: no major complications apparent
[2017-12-04 18:09] VITALS: BP 114/69; PULSE 79; TEMP 37; O2SAT 95
[2017-12-04] MEDS ORDERED: IBUP-103 PO (18:31)
[2017-12-04] MEDS ORDERED: CPR500 PO (18:31)
--- NOTE | 2017-12-04 18:35 | Discharge Instructions ---
Discharge Instructions Date of Service Dec 04, 2017. Admission Reason for Admission: Renal Calculus Discharge Discharge Diagnosis / Problem: Ureterolithiasis Discharge Goals Goal(s): Improve disease control, Diagnostic testing, Therapeutic intervention Activity Recommendations Activity Limitations: resume your previous activity Shower/Bathe: no limitations . Instructions / Follow-Up Instructions / Follow-Up You were admitted with a large kidney stone in your right ureter. You had a stent placed by urology and stones removed. Please follow-up with urology within 1 week-they should contact you with an appointment time and date. Please finish out 3 days of Cipro 500 mg by mouth twice daily-this is thought to be generally safe with [id number] monitor your for signs of diarrhea or diaper rash and call your dosimetrist if this occurs. Your kidney function was slightly decreased from normal due to the stone. Please have your blood work checked in 1-2 days with the prescription provided- the results will be sent to your primary care physician. Please also follow-up with your primary care physician within 1-2 weeks. Current Hospital Diet Patient's current hospital diet: Regular Diet Discharge Diet Recommended Diet: Regular Diet Procedures Procedures Performed: cystoscopy, right ureteroscopy, laser lithotripsy, ureteral stent placement (6Fx 24cm) CT abdomen/pelvis Pending Studies Studies pending at discharge: no Laboratory Results Last 24 Hours Test 12/04/17 00:00 12/04/17 06:43 White Blood Count 8.27 K/uL Red Blood Count 4.44 M/uL Hemoglobin 13.1 g/dL Hematocrit 39.9 % Mean Corpuscular Volume 89.9 fL Mean Corpuscular Hemoglobin 29.5 pg Mean Corpuscular Hemoglobin Concent 32.8 g/dl RDW Standard Deviation 45.4 fL RDW Coefficient of Variation 13.8 % Platelet Count 195 K/uL Mean Platelet Volume 9.4 fL Sodium Level 142 mmol/L Potassium Level 4.0 mmol/L Chloride Level 111 mmol/L Carbon Dioxide Level 22 mmol/L Anion Gap 9.0 mmol/L Blood Urea Nitrogen 21 mg/dl Creatinine 1.59 mg/dl Est Creatinine Clear Calc Drug Dose 39.4 ml/min Estimated GFR () 50.3 Estimated GFR (Non- 43.4 BUN/Creatinine Ratio 13.1 Random Glucose 78 mg/dl Calcium Level 7.9 mg/dl Magnesium Level 1.8 mg/dl Medical Emergencies . Who to Call and When: Medical Emergencies: If at any time you feel your situation is an emergency, please call 911 immediately. . Non-Emergent Contact Non-Emergency issues call your: Primary Care Provider Call Non-Emergent contact if: you have a fever, temperature is above 101, your pain is not controlled, your pain is worsening, your pain is unusual for you, your pain is concerning you, you have any medication questions . . "Provider Documentation" section prepared by Irene Coon. .
--- NOTE | 2017-12-04 18:46 | Discharge Summary ---
Discharge Summary Date of Service Dec 04, 2017. Discharge Summary Admission Date: Dec 03, 2017 at 15:27 Discharge Date: Dec 04, 2017 Discharge Disposition: Home Principal Diagnosis: Right ureterolithiasis Problems/Secondary Diagnoses: Ulcerative Colitis Autoimmune pancreatitis History of bulimia DUSTIN History of GERD History of gestational diabetes mellitus Anxiety/depression Immunizations: Have You Had Influenza Vaccine: Yes History of Tetanus Vaccine?: Yes History of Pneumococcal: Unknown History of Hepatitis B Vaccine: Yes Procedures: cystoscopy, right ureteroscopy, laser lithotripsy, ureteral stent placement ( 6Fx 24cm) CT abdomen/pelvis Consultations: Urology Medication Reconciliation New Medications: Ciprofloxacin (Ciprofloxacin HCl) 500 Mg Tab 500 MG PO BID for 3 Days, #6 TAB Changed Medications: Ibuprofen Tab (Advil) 200 Mg Tab 600 MG PO TID PRN for Pain for 7 Days (Changed from: 200 MG) Continued Medications: Control Pills ( Control Pills) Tab 1 TAB PO DAILY, TAB Calcium Carbonate (Tums) 500 Mg Chew 1000 MG PO HS Citalopram Hydrobromide (Citalopram Hydrobromide) 20 Mg Tab 20 MG PO HS Ferrous Sulfate (Ferrous Sulfate) 325 Mg Tab 325 MG PO HS Folic Acid (Folvite) 1 Mg Tab 1 MG PO HS, TAB Mesalamine (Mesalamine Dr) 1.2 Gm Tab 2.4 GM PO BID Multivit/Min/Iron/Fol Ac/Pren ( Vitamin) Tab 1 TAB PO HS Ondasetron Odt (Zofran Odt) 4 Mg Tab 4 MG SL Q6H PRN for Nausea Discharge Exam Patient returned from right ureteral stent placement with removal of stones. Her pain is improved and she is ready to go home. She is tolerating a regular diet. Denies any other problems. Review of Systems: Constitutional: No fever, No chills, No sweats Eyes: No problem reported ENT: No problem reported Respiratory: No problem reported Cardiovascular: No problem reported Abdomen: No problem reported Musculoskeletal: No problem reported Genitourinary - Female: No problem reported Neurologic: No problem reported Psychiatric: No problem reported Endocrine: No problem reported Hematologic / Lymphatic: No problem reported Integumentary: No problem reported Physical Exam: General Appearance: WD/WN, no apparent distress Eyes: normal inspection, sclerae normal ENT: hearing grossly normal Neck: trachea midline Respiratory/Chest: lungs clear, normal breath sounds, no respiratory distress, no accessory muscle use Cardiovascular: regular rate, rhythm, no edema, no gallop, no murmur Abdomen / GI: normal bowel sounds, non tender, soft, no organomegaly Extremities: no calf tenderness, normal capillary refill, no pedal edema, normal range of motion Neurologic/Psychiatric: alert, normal mood/affect, oriented x 3 Skin: normal color, warm/dry, no rash Hospital Course This patient is a 27-year-old female with a history of nephrolithiasis, UC, autoimmune pancreatitis, history of bulimia, GERD, gestational diabetes mellitus , and anxiety and depression, who presents with intractable right flank pain and was found to have a 10 mm obstructing ureteral stone on the right. She did not have any evidence of UTI or sepsis. She was admitted and hydrated overnight , given IV pain medicine. She did require straight catheterization of her bladder 1 time after receiving IV Dilaudid which was likely due to urinary retention from opioids. The following day, she was taken to the operating room by urology and had a ureteral stent placed with removal of 2 stones actually in the right ureter. She did well postoperatively and was discharged home in stable condition. Her usual home medications will be continued. She will take a 3 day course of Cipro which is relatively safe with breast-feeding as I discussed with the patient. Of note, her creatinine did increase to 1.59 on the day of discharge but this was drawn prior to stent placement. Now that her obstruction is relieved and she has been copiously hydrated with IV fluids, expect her creatinine will trend downward. She was instructed to get blood work done in the next 1-2 days and the results will be sent to her primary care physician for review. Total Time Spent: Greater than 30 minutes This includes examination of the patient, discharge planning, medication reconciliation, and communication with other providers. Discharge Instructions Please refer to the electronic Patient Visit Report (Discharge Instructions) for additional information. Follow-Up With PCP within 1 week as scheduled With urology within 1 week for stent removal and further definitive treatment of multiple other nonobstructing kidney stones Additional Copies To Verito Price CRNP; Zeferino Driscoll M.D.
[2017-12-04 18:52] VITALS: BP 116/73; PULSE 72; TEMP 36.8; O2SAT 98
[2017-12-04 18:59] VITALS: BP 116/73; PULSE 72; TEMP 36.8; O2SAT 98
[2017-12-04] MEDS ORDERED: CIPROFLOXACIN 500 MG TAB PO SCH (21:00)
[2017-12-06] MEDS ORDERED: OXYC-737 PO (12:08)
--- NOTE | 2017-12-06 18:03 | EMERGENCY ROOM VISIT NOTE ---
ED Visit Note First contact with patient: 11:11 CHIEF COMPLAINT: Right flank and abdominal pain today HISTORY OF PRESENT ILLNESS: This 27-year-old white female patient had sudden onset of pain in the right flank and right lower quadrant of the abdomen 2 nights ago. She states it has been getting worse and today it is intolerable. There is nausea but no vomiting. She has been dry heaving. The patient has not noticed any blood in urine or had any increased frequency or pain with urination recently. There is a positive history of kidney stones. The pain is steady and severe. No abdominal trauma. She denies any burning or urgency. She has seen [facility] urology in the past. She also has a history of ulcerative colitis, autoimmune pancreatitis, bulimia with laxative abuse, cholecystectomy, GERD, and gestational diabetes. She is 2 months and is . She has not eaten anything today. REVIEW OF SYSTEM: HEENT: No dizziness, visual problems, hearing loss, or tinnitus. There is no difficulty swallowing and no oral lesions are present. LYMPH: No adenopathy. PULMONARY: No cough, shortness of breath, sputum production or hemoptysis. CARDIOVASCULAR: No chest pain, palpitations, shortness of breath or peripheral edema. GASTROINTESTINAL: No diarrhea or constipation. Positive nausea, vomiting, and abdominal pain. GENITOURINARY: No dysuria, frequency, urgency or nocturia. NEUROLOGIC: No weakness, muscle tenderness, epilepsy or history of neurological problems. MUSCULOSKELETAL: No history of joint tenderness/swelling. No history of arthritis or arthralgias. SKIN: No rashes or lesions. PSYCHIATRIC: Positive history of depression and bulimia. ENDOCRINE: No history of thyroid disorders, or abnormal hair growth. PMH: Supplemental sheet was reviewed. Previous surgeries: Lithotripsy, cholecystectomy, wisdom tooth extraction, ESWL Medical history: Significant for history of gestational diabetes, pancreatitis, GERD, ulcerative colitis, bulimia, cholecystitis, depression, and kidney stones. Current medications: Viewed and filed in patient's chart Allergies: Keflex, morphine, nickel Family history: Significant for heart disease, hypertension, cancer, gallbladder disease SOCIAL HISTORY: Patient lives at home with her and child. Non-smoker, no alcohol use. 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 PHYSICAL EXAM: Vital Signs: Afebrile. Reviewed and filed in patient's chart. general: Well-developed, well-nourished, thin young female, in obvious discomfort. She is sitting on the bed. Alert and oriented. The patient is restless. Skin: Warm and dry with good turgor. No rashes or lesions. No ecchymosis or erythema. The patient is not diaphoretic. No abrasions. HEART: Regular rate and rhythm without murmurs, ectopy, gallops, or rubs. Peripheral pulses are 2+. LUNGS: Clear to auscultation and breath sounds equal. No wheezes , rales, or rhonchi. Good air movement. ABDOMEN: Soft, right lower quadrant tenderness to palpation, no hepato-splenomegaly, or masses. There is right- sided CVA tenderness. NEUROLOGIC: Sensory and motor functions grossly intact. EYES: PERRL, EOMI, no discharge or injection. EMERGENCY DEPARTMENT COURSE: Urinalysis shows hematuria. No bacteria. Urine is negative. CT scan of the abdomen and pelvis without contrast shows a large obstructing stone with hydroureteronephrosis. Stone measures 10 mm x 8 mm x 6 mm. Multiple calculi within the kidneys. Bowel gas pattern suggests ileus. Appendix is upper limits of normal but there are no inflammatory changes to suggest acute appendicitis. Prior cholecystectomy. DIAGNOSIS: Right obstructing ureterolithiasis DISCHARGE INSTRUCTIONS AND TREATMENT: The patient was educated regarding today' s findings. Conservative care measures were discussed. IV was established. Labs were obtained. She was given Dilaudid 0.5 mg IV 3 and Zofran 4 mg IV 2. She is not likely to pass the stone. I did speak with Dr. Dacosta from urology. He recommended medical admission with urology consultation. I did speak with the hospitalist service. They will admit the patient. Please see that dictation for final management. She remained stable while in the ED. Problem List Medical Problems: (1) Anemia Nos Status: Chronic (2) Depression Status: Chronic (3) Esophageal Reflux Status: Chronic (4) Gastroenteritis Status: Resolved (5) Hydronephrosis Status: Resolved (6) Kidney stones Status: Resolved (7) Pancreatitis Status: Resolved (8) Pancreatitis Status: Chronic Surgical Problems: (1) History of lithotripsy Status: Resolved (2) History of renal stent Status: Resolved (3) Hydronephrosis Status: Resolved Current/Historical Medications Scheduled Control Pills ( Control Pills), 1 TAB PO DAILY Calcium Carbonate (Tums), 1,000 MG PO HS Ciprofloxacin (Ciprofloxacin HCl), 500 MG PO BID Citalopram Hydrobromide (Citalopram Hydrobromide), 20 MG PO HS Ferrous Sulfate (Ferrous Sulfate), 325 MG PO HS Folic Acid (Folvite), 1 MG PO HS Mesalamine (Mesalamine Dr), 2.4 GM PO BID Multivit/Min/Iron/Fol Ac/Pren ( Vitamin), 1 TAB PO HS Scheduled PRN Ibuprofen Tab (Advil), 600 MG PO TID PRN for Pain Ondasetron Odt (Zofran Odt), 4 MG SL Q6H PRN for Nausea Oxycodone Immediate Rel Tab (Roxicodone Ir), 1 TAB PO Q6 PRN for Severe Pain Allergies Coded Allergies: Cephalexin (Verified Allergy, Mild, ITCHINESS, 12/06/17) Nickel (Verified Allergy, Unknown, ITCHY RED WITH EARRINGS, 12/06/17) Morphine (Verified Adverse Reaction, Unknown, SHORTNESS OF BREATH, 12/06/17 ) Vital Signs Date Time Temp Pulse Resp B/P (MAP) Pulse Ox O2 Delivery O2 Flow Rate FiO2 12/03/17 14:38 36.6 18 108/71 Room Air 12/03/17 13:55 66 18 108/71 98 12/03/17 11:55 86 16 117/71 100 Room Air 12/03/17 10:53 36.6 87 16 105/69 99 Room Air Laboratory Results Test 12/03/17 11:05 12/03/17 11:15 12/03/17 12:44 Total Bilirubin 0.2 mg/dl (0.2-1) Aspartate Amino Transf (AST/SGOT) 14 U/L (15-37) Alanine Aminotransferase (ALT/SGPT) 30 U/L (12-78) Alkaline Phosphatase 83 U/L (45-117) Total Protein 7.6 gm/dl (6.4-8.2) Albumin 3.8 gm/dl (3.4-5.0) Globulin 3.8 gm/dl (2.5-4.0) Albumin/Globulin Ratio 1.0 (0.9-2) Amylase Level 95 U/L (25-115) Lipase 213 U/L (73-393) Immature Granulocyte % (Auto) 0.6 % White Blood Count 8.74 K/uL (4.8-10.8) Red Blood Count 5.08 M/uL (4.2-5.4) Hemoglobin 15.2 g/dL (12.0-16.0) Hematocrit 45.6 % (37-47) Mean Corpuscular Volume 89.8 fL (80-100) Mean Corpuscular Hemoglobin 29.9 pg (25-34) Mean Corpuscular Hemoglobin Concent 33.3 g/dl (32-36) Platelet Count 275 K/uL (130-400) Mean Platelet Volume 9.8 fL (7.4-10.4) Neutrophils (%) (Auto) 58.7 % Lymphocytes (%) (Auto) 30.7 % Monocytes (%) (Auto) 5.5 % Eosinophils (%) (Auto) 4.0 % Basophils (%) (Auto) 0.5 % Neutrophils # (Auto) 5.14 K/uL (1.4-6.5) Lymphocytes # (Auto) 2.68 K/uL (1.2-3.4) Monocytes # (Auto) 0.48 K/uL (0.11-0.59) Eosinophils # (Auto) 0.35 K/uL (0-0.5) Basophils # (Auto) 0.04 K/uL (0-0.2) Immature Granulocyte # (Auto) 0.05 K/uL (0.00-0.02) Urine Color DK YELLOW Urine Appearance CLEAR (CLEAR) Urine pH 5.0 (4.5-7.5) Urine Specific [place] 1.028 (1.000-1.030) Urine Protein 1+ (NEG) Urine Glucose (UA) NEG (NEG) Urine Ketones NEG (NEG) Urine Occult Blood 1+ (NEG) Urine Nitrite NEG (NEG) Urine Bilirubin NEG (NEG) Urine Urobilinogen NEG (NEG) Urine Leukocyte Esterase TRACE (NEG) Urine WBC (Auto) 10-30 /hpf (0-5) Urine RBC (Auto) 10-30 /hpf (0-4) Urine Hyaline Casts (Auto) 5-10 /lpf (0-5) Urine Epithelial Cells (Auto) 20-30 /lpf (0-5) Urine Bacteria (Auto) NEG (NEG) Urine Test NEG (NEG) Medications Administered Medications (Trade) Dose Ordered Sig/Tereso Route Start Time Stop Time Status Last Admin Dose Admin Ondansetron HCl (Zofran Inj) 4 mg NOW STAT IV 12/03/17 11:38 12/03/17 11:40 DC 12/03/17 11:51 4 MG Hydromorphone HCl (Dilaudid Inj) 0.5 mg NOW STAT IV 12/03/17 11:38 12/03/17 11:40 DC 12/03/17 11:51 0.5 MG Hydromorphone HCl (Dilaudid Inj) 0.5 mg NOW STAT IV 12/03/17 13:27 12/03/17 13:28 DC 12/03/17 13:56 0.5 MG Hydromorphone HCl (Dilaudid Inj) 0.5 mg NOW STAT IV 12/03/17 15:19 12/03/17 15:21 DC 12/03/17 15:31 0.5 MG Ondansetron HCl (Zofran Inj) 4 mg NOW STAT IV 12/03/17 15:19 12/03/17 15:21 DC 12/03/17 15:31 4 MG Ketorolac Tromethamine (Toradol Inj) 15 mg Q6H PRN IV. 12/03/17 15:15 12/04/17 16:44 DC 12/04/17 14:08 15 MG Hydromorphone HCl (Dilaudid Inj) 0.5 mg Q4H PRN IV 12/03/17 15:15 12/04/17 19:42 DC 12/04/17 12:04 0.5 MG Departure Information Dispostion Admitted as an inpatient Condition FAIR Prescriptions Ciprofloxacin (Ciprofloxacin HCl) 500 Mg Tab 500 MG PO BID for 3 Days, #6 TAB Prov: Irene Coon MD 12/04/17 Ibuprofen Tab (ADVIL) 200 Mg Tab 600 MG PO TID Y for Pain for 7 Days Prov: Irene Coon MD 12/04/17 Referrals Verito Price CRNP (PCP) Forms HOME CARE DOCUMENTATION FORM, IMPORTANT VISIT INFORMATION Patient Instructions [facility]
== END 2017-12-04 19:25 | disposition home or self-care (01) | DRG 669 ==
LOC: C.EDB 10:50 → C.3E 15:27 → ENRESERV 15:37
PROVIDERS: ADMIT Internal Medicine; ATTEND Family Medicine
PROC: 0T768DZ Dilation of Right Ureter with Intraluminal Device, Via Natural or Artificial Opening Endoscopic (ICD-10-PCS; principal; 2017-12-04 10:30)
PROC: 0TC68ZZ Extirpation of Matter from Right Ureter, Via Natural or Artificial Opening Endoscopic (ICD-10-PCS; principal; 2017-12-04 10:30)
DX: N13.2 Hydronephrosis with renal and ureteral calculous obstruction (principal); K51.90 Ulcerative colitis, unspecified, without complications; N17.9 Acute kidney failure, unspecified; R33.0 Drug induced retention of urine; T40.2X5A Adverse effect of other opioids, initial encounter; Y92.230 Patient room in hospital as the place of occurrence of the external cause; K21.9 Gastro-esophageal reflux disease without esophagitis; F41.9 Anxiety disorder, unspecified; F32.9 Major depressive disorder, single episode, unspecified; Z86.39 Personal history of other endocrine, nutritional and metabolic disease; Z86.32 Personal history of gestational diabetes; Z79.3 Long term (current) use of hormonal contraceptives; Z79.899 Other long term (current) drug therapy; Z88.1 Allergy status to other antibiotic agents; Z88.5 Allergy status to narcotic agent; Z91.048 Other nonmedicinal substance allergy status

== ENCOUNTER 2018-11-16 17:19 | Inpatient (IN) ==
[2018-11-16] MEDS ORDERED: SODIUM CHLORIDE 0.9% 1000ML 1,000 ML IV ONE (18:10)
[2018-11-16] MEDS ORDERED: ONDANSETRON INJ 2 MG/ML 2 ML VIAL IV STA (18:10)
[2018-11-16] MEDS ORDERED: KETOROLAC TROMETHAMINE 15 MG/ML VIAL IV ONE (18:10)
--- NOTE | 2018-11-16 18:31 | XRay Report ---
KUB CLINICAL HISTORY: Right flank pain. FINDINGS: An AP supine abdominal radiograph is compared to study dated 05/03/2018 and correlated with abdominal CT dated 12/03/2017. Cholecystectomy clips are seen in the right upper quadrant. There is no bowel obstruction. A 9 mm calcification projects over the distal right ureter overlying the sacrum. Additional punctate nonobstructing right renal calculi are noted. An 8 mm calcification projects over the left kidney. A phlebolith in the left hemipelvis is unchanged. The bony structures appear intact . IMPRESSION: 1. A 9 mm calcification projects over the distal right ureter overlying the sacrum. This is new from previous and given the of nephrolithiasis and right flank pain likely represents an obstructing urete ral stone. 2. Additional bilateral nonobstructing renal calculi as above. Electronically signed by: Zander Borrego M.D. 11/16/2018 6:29 PM
--- NOTE | 2018-11-16 18:43 | Emergency Department Note ---
Entered by Yair Dolan acting as a scribe for Shalom Quinn MD History of Present Illness General Chief complaint: Flank Pain Stated complaint: KIDNEY STONE PAIN(R), N/V FEVER/CHILLS Time Seen by Provider: 11/16/18 18:08 Source: patient History of Present Illness Onset (ago): hour(s) (24) Location: right (flank) Severity: moderate Pain Consistency: + constant Maximum Pain Intensity: 7 Relieved By: + medication (Tylenol) Associated symptoms: + denies other symptoms (blood in her urine), + fever/chills and + nausea/vomiting The patient is a 28 y/o female who presents to the ED w/ CC of constant moderate right sided flank pain beginning 24 hours ago. The patient states she has a history of around 10 kidney stones, and her symptoms feel very similar to her other kidney stones. She reports her last diagnosis was at the beginning of 2017 during her second . The patient notes she is not currently , and she is on her menstrual cycle. She states her symptoms radiate from her right flank, and she has had chills with a low grade fever of 99.8 degrees F. The patient reports she took Tylenol, and it seemed to help. She notes she is also having an increase in her urine frequency without blood in her urine. The patient states she has been nauseous since this morning and vomited. She reports she called her PCP and was told to come into the ED. She reports she normally has Toradol and/or Dilaudid, and it helps her symptoms. The patient notes she drove herself, but her is picking her up. She states she is currently on her menstrual cycle, and she denies the chance of . The patient reports she still has her appendix and denies having pain when pressing on her abdomen. Home Medications Home Medications Medication Instructions Recorded Confirmed Type buspirone 5 mg tablet 5 mg PO BID #60 tab 11/14/18 11/16/18 Rx citalopram 20 mg tablet 30 mg PO HS #45 tab 11/14/18 11/16/18 Rx ibuprofen 400 mg PO Q6H PRN 11/16/18 11/16/18 History norethindrone (contraceptive) 0.35 mg PO DAILY 11/16/18 11/16/18 History [Yaritza] omeprazole magnesium [Prilosec OTC] 20 mg PO QAM 11/16/18 11/16/18 History ondansetron HCl [Zofran] 4 mg PO TID PRN 11/16/18 11/16/18 History Allergies Allergy/AdvReac Type Severity Reaction Status Date / Time cephalexin Allergy Mild ITCHINESS Verified 11/16/18 18:51 nickel Allergy Unknown ITCHY RED Verified 11/16/18 18:51 WITH EARRINGS morphine AdvReac Unknown SHORTNESS Verified 11/16/18 18:51 OF BREATH Past Med/Surg History Medical History Gastritis Clostridium difficile diarrhea PSC (primary sclerosing cholangitis) (Chronic) Anemia Anxiety Depression GERD (gastroesophageal reflux disease) Gestational diabetes Hiatal hernia History of anesthesia reaction SLOW TO WAKE UP Irritable bowel disease Kidney stones Nausea and vomiting after administration of anesthetic agent Os odontoideum Sinus tachycardia Syncope SINUS TACHYCARDIA (STRESS AND ELECOTROLYTE IMBALANCE) OVER 1.5 YEARS DURING Thyroiditis Surgical History History of breast biopsy History of cholecystectomy History of colonoscopy History of cystoscopy MULTIPLE X'S WITH STENTS AND STONE REMOVAL History of lithotripsy MULTIPLE History of tooth extraction Status post laser lithotripsy of ureteral calculus 12/04/17 LMA #3 Family History Mother Breast cancer Grandmother (Maternal) Breast cancer Grandfather (Paternal) Myocardial infarction Other Cancer Heart disease Hypertension Social History Preferred Language: Barbadian Communication Ability: Effective Force Dispatcher Required: No Beliefs That Will Affect Care: None Current Living Situation: Spouse and Family Other Information That Helps Us Care for You: No Feels Safe at Home: Yes Safety Concerns: Feels Safe At This Time Smoking Status: Never smoker Second Hand Exposure: No ; Hx Alcohol Use: No Hx Substance Use: No Review of Systems See HPI for pertinent positives & negatives. and A total of 10 systems reviewed and were otherwise negative Physical Exam Vital Signs Vital Signs - 24 hr 11/16/18 17:22 11/16/18 18:25 11/16/18 18:37 Temperature 36.5 C Temperature Source Oral Sepsis Recent Fever Within 48 Hours No Sepsis New/Unexplained Change in Mental Status No Sepsis Action Taken by Nursing No Action Required Pulse Rate 92 H Pulse Rate [Finger] 70 Pulse Rate from SpO2 Sensor Pulse Rhythm [Finger] Regular Pulse Strength [Finger] Normal Respiratory Rate 16 16 Respiratory Effort / Characteristics Non-Labored Non-Labored Respiratory Depth Normal Normal Respiratory Pattern Blood Pressure 121/78 Blood Pressure [Left Arm] 116/73 Blood Pressure Mean 92 Blood Pressure Mean [Left Arm] 87 Blood Pressure Position Sitting Blood Pressure Position [Left Arm] Pulse Oximetry 99 98 100 Oxygen Delivery Method Room Air Room Air Oxygen Flow Rate 11/16/18 19:38 11/16/18 20:24 11/16/18 20:31 Temperature Temperature Source Sepsis Recent Fever Within 48 Hours Sepsis New/Unexplained Change in Mental Status Sepsis Action Taken by Nursing Pulse Rate 88 101 H Pulse Rate [Finger] 88 Pulse Rate from SpO2 Sensor 89 100 H Pulse Rhythm [Finger] Pulse Strength [Finger] Respiratory Rate 16 24 15 Respiratory Effort / Characteristics Non-Labored Respiratory Depth Normal Respiratory Pattern Regular Blood Pressure 142/93 H Blood Pressure [Left Arm] 114/77 Blood Pressure Mean 109 Blood Pressure Mean [Left Arm] 89 Blood Pressure Position Blood Pressure Position [Left Arm] Lying Pulse Oximetry 98 100 100 Oxygen Delivery Method Room Air Nasal Cannula Nasal Cannula Oxygen Flow Rate 2 2 11/16/18 21:00 11/16/18 21:10 11/16/18 22:00 Temperature Temperature Source Sepsis Recent Fever Within 48 Hours Sepsis New/Unexplained Change in Mental Status Sepsis Action Taken by Nursing Pulse Rate 97 H 92 H 86 Pulse Rate [Finger] Pulse Rate from SpO2 Sensor 99 H 93 H 87 Pulse Rhythm [Finger] Pulse Strength [Finger] Respiratory Rate 16 18 13 Respiratory Effort / Characteristics Respiratory Depth Respiratory Pattern Blood Pressure 117/68 105/68 Blood Pressure [Left Arm] Blood Pressure Mean 84 80 Blood Pressure Mean [Left Arm] Blood Pressure Position Blood Pressure Position [Left Arm] Pulse Oximetry 100 99 99 Oxygen Delivery Method Nasal Cannula Nasal Cannula Nasal Cannula Oxygen Flow Rate 2 2 2 General: Non-ill appearing young female complaining of right flank pain. HEENT: Normal cephalic atraumatic. Pupils are equal round and reactive to light. Extraocular movements are intact. Oropharynx is pink with moist mucous membranes. No swelling of the mouth lips or tongue. Neck: Supple with a midline trachea. No meningeal signs or stiffness, no JVD or bruits. No Stridor. Chest: Clear to auscultation bilaterally. No wheezes or rhonchi. No increased work of breathing. Heart: regular rate and rhythm. Abdomen: Soft nontender, nondistended without rebound guarding or rigidity. Extremities: No cyanosis clubbing or edema. No calf tenderness or asymmetry Spine/Back. Non tender to palpation. No CVA tenderness Skin: Good turgor without rashes. Neurologic exam: Cranial nerves two through 12 are intact. Motor and sensation are intact and symmetrical throughout. Course 1808: Past medical records reviewed. The patient was evaluated in room B10. A complete history and physical exam was performed. 1928: I attempted to reevaluate the patient. She is in ultrasound. 1943: I reevaluated the patient. She does not appear to be uncomfortable but she states her pain is a 7/10 in severity. She was given IV Dilaudid and I paged Dr. De nAda whom she talked to earlier. 2002: I updated the patient of her current test results. 2012: I discussed the patient's case with Dr. De Anda, Urology. He states he added the patient to the surgical schedule for tomorrow. 2014: I updated the patient about my consult with Dr. De Anda. She is in agreement. 2019: I discussed the patient's case with Dr. Nunez, [facility] Hospitalist. The patient will be evaluated for further management and care. 2026: The patient suddenly felt short of breath. I evaluated her, and she will be given epinephrine. 2034: The patient feels significantly better prior to receiving medication. 2049: The patient feels better. She was given the Benadryl and steroid because the nurse noticed a rash on the patient's abdomen. Administered Medications Fentanyl Citrate (Fentanyl Citrate) 12.5 mcg IV Q4H PRN PRN Reason: Pain Stop: 12/01/18 00:55 Last Admin: 11/17/18 01:47 Dose: 12.5 mcg Documented by: [id number] Ciprofloxacin (Cipro) 400 mg in 200 mls @ 100 mls/hr IV Q12H [facility]; Protocol Stop: 11/27/18 00:59 Last Admin: 11/17/18 01:44 Dose: 100 mls/hr Documented by: [id number] Lactated Ringer's (Lr) 1,000 mls @ 125 mls/hr IV .Q8H SHANON Stop: 12/17/18 00:33 Last Admin: 11/17/18 01:44 Dose: 125 mls/hr Documented by: [id number] Discontinued Medications Acetaminophen (Ofirmev) Confirm Administered Dose 1,000 mg IV .STK-MED ONE Stop: 11/16/18 23:41 Last Admin: 11/16/18 23:42 Dose: 1,000 mg Documented by: [id number] Diphenhydramine HCl (Benadryl) 1.5 mg IV NOW STA Stop: 11/16/18 20:28 Last Admin: 11/16/18 20:41 Dose: 25 mg Documented by: [id number] Epinephrine HCl (Epinephrine) 0.3 mg IM NOW STA Stop: 11/16/18 20:28 Last Admin: 11/16/18 23:37 Dose: Not Given Documented by: [id number] Hydromorphone HCl (Dilaudid) 0.5 mg IV NOW STA Stop: 11/16/18 19:45 Last Admin: 11/16/18 19:59 Dose: 0.5 mg Documented by: [id number] Sodium Chloride (Nss 1000ml) 1,000 mls @ 999 mls/hr IV .Q1H1M ONE Stop: 11/16/18 19:10 Last Infusion: 11/16/18 21:16 Dose: 0 mls/hr Documented by: [id number] Admin: 11/16/18 18:32 Dose: 999 mls/hr Documented by: [id number] Ranitidine HCl 50 mg/ Dextrose 102 mls @ 200 mls/hr IV NOW STA Stop: 11/16/18 20:57 Last Admin: 11/16/18 23:37 Dose: Not Given Documented by: [id number] Ketorolac Tromethamine (Toradol) 15 mg IV NOW ONE Stop: 11/16/18 18:11 Last Admin: 11/16/18 18:31 Dose: 15 mg Documented by: [id number] Methylprednisolone (Solumedrol) 125 mg IV NOW STA Stop: 11/16/18 20:28 Last Admin: 11/16/18 20:41 Dose: 125 mg Documented by: [id number] Ondansetron HCl (Zofran) 4 mg IV NOW STA Stop: 11/16/18 18:11 Last Admin: 11/16/18 18:31 Dose: 4 mg Documented by: [id number] Medical Decision Making Differential Diagnosis Differential diagnosis includes: kidney stone, , appendicitis, electrolyte or metabolic abnormality, and infection. Medical Records Attestation: I reviewed the patient's medical records. Home Medications Current Medication List: was personally reviewed by me Laboratory Data Attestation: I reviewed the patient's lab results. Result diagrams: 11/16/18 18:30 11/16/18 18:30 Lab Results 11/16/18 11/16/18 11/16/18 Range/Units 18:30 18:30 18:30 WBC 7.60 (4.8-10.8) K/uL RBC 4.45 (4.2-5.4) M/uL Hgb 12.7 (12.0-16.0) g/dL Hct 37.8 (37-47) % MCV 84.9 (80-100) fL MCH 28.5 (25-34) pg MCHC 33.6 (32-36) g/dL RDW Std Deviation 40.0 (36.4-46.3) fL RDW Coeff of Jabari 13.0 (11.5-14.5) % Plt Count 283 (130-400) K/uL MPV 9.8 (7.4-10.4) fL Immature Gran % (Auto) 0.1 % Neut % (Auto) 56.3 % Lymph % (Auto) 32.8 % [place] % (Auto) 7.6 % Eos % (Auto) 2.8 % Baso % (Auto) 0.4 % Immature Gran # (Auto) 0.01 (0.00-0.02) K/uL Neut # (Auto) 4.28 (1.4-6.5) K/uL Lymph # (Auto) 2.49 (1.2-3.4) K/uL [place] # (Auto) 0.58 (0.11-0.59) K/uL Eos # (Auto) 0.21 (0-0.5) K/uL Baso # (Auto) 0.03 (0-0.2) K/uL Sodium 141 (136-145) mmol/L Potassium 3.6 (3.5-5.1) mmol/L Chloride 109 H (98-107) mmol/L Carbon Dioxide 26 (21-32) mmol/L Anion Gap 6.0 (3-11) BUN 15 (7-18) mg/dl Creatinine 1.02 (0.6-1.2) mg/dl Est Cr Clr Drug Dosing 60.9 ml/min Est GFR ( Amer) 85.5 Est GFR (Non-Af Amer) 73.8 BUN/Creatinine Ratio 14.9 (10-20) Glucose 85 (70-99) mg/dl Calcium 8.7 (8.5-10.1) mg/dl Total Bilirubin 0.2 (0.2-1) mg/dl AST 10 L (15-37) U/L ALT 21 (12-78) U/L Alkaline Phosphatase 59 (45-117) U/L Total Protein 6.7 (6.4-8.2) gm/dl Albumin 3.7 (3.4-5.0) gm/dl Globulin 3.0 (2.5-4.0) gm/dl Albumin/Globulin Ratio 1.2 (0.9-2) Lipase 190 (73-393) U/L HCG, Qual Negative (Negative) Urine Color Urine Appearance (Clear) Urine pH (4.5-7.5) Ur Specific [place] (1.000-1.030) Urine Protein (Negative) Urine Glucose (UA) (Negative) Urine Ketones (Negative) Urine Blood (Negative) Urine Nitrite (Negative) Urine Bilirubin (Negative) Urine Urobilinogen (Negative) Ur Leukocyte Esterase (Negative) Urine WBC (Auto) (0-5) /hpf Urine RBC (Auto) (0-4) /hpf U Hyaline Cast (Auto) (0-5) /lpf U Epithel Cells (Auto) (0-5) /lpf Urine Bacteria (Auto) (Negative) 11/16/18 Range/Units 18:30 WBC (4.8-10.8) K/uL RBC (4.2-5.4) M/uL Hgb (12.0-16.0) g/dL Hct (37-47) % MCV (80-100) fL MCH (25-34) pg MCHC (32-36) g/dL RDW Std Deviation (36.4-46.3) fL RDW Coeff of Jabari (11.5-14.5) % Plt Count (130-400) K/uL MPV (7.4-10.4) fL Immature Gran % (Auto) % Neut % (Auto) % Lymph % (Auto) % [place] % (Auto) % Eos % (Auto) % Baso % (Auto) % Immature Gran # (Auto) (0.00-0.02) K/uL Neut # (Auto) (1.4-6.5) K/uL Lymph # (Auto) (1.2-3.4) K/uL [place] # (Auto) (0.11-0.59) K/uL Eos # (Auto) (0-0.5) K/uL Baso # (Auto) (0-0.2) K/uL Sodium (136-145) mmol/L Potassium (3.5-5.1) mmol/L Chloride (98-107) mmol/L Carbon Dioxide (21-32) mmol/L Anion Gap (3-11) BUN (7-18) mg/dl Creatinine (0.6-1.2) mg/dl Est Cr Clr Drug Dosing ml/min Est GFR ( Amer) Est GFR (Non-Af Amer) BUN/Creatinine Ratio (10-20) Glucose (70-99) mg/dl Calcium (8.5-10.1) mg/dl Total Bilirubin (0.2-1) mg/dl AST (15-37) U/L ALT (12-78) U/L Alkaline Phosphatase (45-117) U/L Total Protein (6.4-8.2) gm/dl Albumin (3.4-5.0) gm/dl Globulin (2.5-4.0) gm/dl Albumin/Globulin Ratio (0.9-2) Lipase (73-393) U/L HCG, Qual (Negative) Urine Color Dark Yellow Urine Appearance Cloudy A (Clear) Urine pH 6.0 (4.5-7.5) Ur Specific [place] 1.024 (1.000-1.030) Urine Protein 1+ H (Negative) Urine Glucose (UA) Negative (Negative) Urine Ketones Trace H (Negative) Urine Blood 3+ H (Negative) Urine Nitrite Negative (Negative) Urine Bilirubin Negative (Negative) Urine Urobilinogen Negative (Negative) Ur Leukocyte Esterase 1+ H (Negative) Urine WBC (Auto) 5-10 H (0-5) /hpf Urine RBC (Auto) >30 H (0-4) /hpf U Hyaline Cast (Auto) 1-5 (0-5) /lpf U Epithel Cells (Auto) >30 H (0-5) /lpf Urine Bacteria (Auto) Negative (Negative) Imaging Data Radiologist's Impression: Radiology results as stated below per my review and the radiologist's interpretation: US renal/blad retro comp CLINICAL HISTORY: 28 years-old Female presenting with eval for stone, rt flank pain. TECHNIQUE: Real-time grayscale and limited color Doppler ultrasound imaging of t he kidneys and bladder was performed. COMPARISON: CT from 12/03/2017. FINDINGS: Right kidney: Mildly increased echogenicity of the renal parenchyma diffusely. Right kidney measures 10.0 cm. Moderate hydronephrosis. Multiple nonobstructing renal calculi evident in the calyces. Dilatation of the right ureter to the level of a 1.3 cm obstructing calculus in the mid right ureter. Left kidney: Normal echogenicity with preserved corticomedullary differentiation. Normal cortical thickness. Left kidney measures 9.8 cm. No hydronephrosis. 1 cm hyperechogenic shadowing calculus at the lower pole. Bladder: Underdistended limiting evaluation but grossly normal. Bilateral ureteral jets not visualized. Other: None. IMPRESSION: 1. Obstructing 1.3 cm calculus in the mid right ureter with resultant moderate right hydronephrosis. 2. Bilateral nephrolithiasis. Electronically signed by: Jovan Parsons M.D. 11/16/2018 7:37 PM KUB CLINICAL HISTORY: Right flank pain. FINDINGS: An AP supine abdominal radiograph is compared to study dated 05/03/2018 and correlated with abdominal CT dated 12/03/2017. Cholecystectomy clips are seen in the right upper quadrant. There is no bowel obstruction. A 9 mm calcification projects over the distal right ureter overlying the sacrum. Additional punctate nonobstructing right renal calculi are noted. An 8 mm calcification projects over the left kidney. A phlebolith in the left hemipelvis is unchanged. The bony structures appear intact. IMPRESSION: 1. A 9 mm calcification projects over the distal right ureter overlying the sacrum. This is new from previous and given the of nephrolithiasis and right flank pain likely represents an obstructing ureteral stone. 2. Additional bilateral nonobstructing renal calculi as above. Electronically signed by: Zander Borrego M.D. 11/16/2018 6:29 PM XR chest 1V portable CLINICAL HISTORY: 28 years-old Female presenting with sob. TECHNIQUE: Portable upright AP view of the chest was obtained. COMPARISON: 05/03/2018. FINDINGS: Cardiomediastinal silhouette normal. No focal opacity. No large effusion or pneumothorax. Osseous structures normal. Cholecystectomy clips noted. IMPRESSION: 1. No acute cardiopulmonary disease. Electronically signed by: Jovan Parsons M.D. 11/16/2018 8:54 PM ECG Data Attestation: I personally reviewed and interpreted this ECG as follows: Indication: SOB/dyspnea Rate (beats per minute): 86 Rhythm: normal sinus Findings: no PAC, no PVC, no ST depression, no ST elevation, no acute ischemic change and no ectopy Comparison ECG Date: no prior available (02/01/18) Change: no significant change Blood Pressure Blood Pressure Findings: Normal blood pressure Blood Pressure Disposition: did not require urgent referral MDM Narrative This patient comes in as described above. She was placed in room B 10. She is here for treatment evaluation of right flank pain. she has a long history of kidney stones and says this feels the same. She is currently on her menstrual period. She has no significant tenderness on palpation. IV access established was hydrated with 1 L IV normal saline bolus. She was given IV Toradol as well as IV Zofran. I did order a KUB x-ray as well as an ultrasound and blood work. She was reassessed frequently. She was found to have a 1.3 cm stone on the right in the mid ureter with hydronephrosis. This was also seen on the KUB. She has nothing to suggest infection. She did require additional pain medicat ion and I gave her Dilaudid 0.5 mg IV she tells me she has had this before without any difficulty. Shortly after this she felt like she was a little bit heavy in her chest. I did an EKG and there is no ischemic changes and we monitored her she had no evidence to suggest allergic reaction. Shortly after that she was complaining that it was hard to breathe and the nurse called me to her room and we put her on oxygen. she had no wheezing. she had no hives. I did order allergic medications but she got better almost immediately after being put on the oxygen. It was noted she had a faint rash on her abdomen only she was given the IV Solu-Medrol, IV Benadryl, but not the epinephrine at that point. She remained stable otherwise. She may have had allergic reaction to the Dilaudid but it is difficult to say for sure. I did speak to her urologist and he does want her admitted to the medical team here. Dr. Malone saw her and is going to admit her and they are going to do cystoscopy and stenting in the morning. Impression & Plan Renal colic, Kidney stone on right side, Abdominal pain, Allergic reaction Discharge Plan Visit Data *Final* Discharge Date/Time: 11/16/18 23:51 Chief Complaint: Flank Pain Stated Complaint: KIDNEY STONE PAIN(R), N/V FEVER/CHILLS ED Provider: Shalom Quinn Discharge Problem: Renal colic, Kidney stone on right side, Abdominal pain, Allergic reaction Patient Disposition: Admitted As Inpatient Discharge Instructions Interventions: ED Discharge Assessment Last Done: 11/16/18 23:51 The scribe's documentation has been prepared under my direction and personally reviewed by me in its entirety. I confirm that the note above accurately reflects all work, treatment, procedures, and medical decision making performed by me.
[2018-11-16 18:45] LABS: Basophils # (auto) 0.03 K/uL (0-0.2); Basophils % (auto) 0.4 %; Eosinophils # (auto) 0.21 K/uL (0-0.5); Eosinophils % (auto) 2.8 %; Hematocrit (blood only) 37.8 % (37-47); Hemoglobin 12.7 g/dL (12.0-16.0); Immature Granulocytes # (auto) 0.01 K/uL (0.00-0.02); Immature Granulocytes % (auto) 0.1 %; Lymphocytes # (auto) 2.49 K/uL (1.2-3.4); Lymphocytes % (auto) 32.8 %; Mean Corpuscular Hgb Conc 33.6 g/dL (32-36); Mean Corpuscular Volume 84.9 fL (80-100); Mean Platelet Volume 9.8 fL (7.4-10.4); Monocytes # (auto) 0.58 K/uL (0.11-0.59); Monocytes % (auto) 7.6 %; Neutrophils # (auto) 4.28 K/uL (1.4-6.5); Neutrophils % (auto) 56.3 %; Platelet Count 283 K/uL (130-400); Red Blood Count 4.45 M/uL (4.2-5.4)
[2018-11-16 18:54] LABS: Appearance Urine Cloudy (Clear); Bacteria Urine Automated Negative (Negative); Bilirubin Urine Negative (Negative); Blood Urine 3+ (Negative); Color Urine Dark Yellow; Epithelial Cell Urine Auto >30 /lpf (0-5); Glucose Urine UA Negative (Negative); Ketones Urine Trace (Negative); Leukocyte Esterase Urine 1+ (Negative); Nitrite Urine Negative (Negative); Protein Urine 1+ (Negative); RBC Urine Automated >30 /hpf (0-4); Specific Gravity Urine 1.024 (1.000-1.030); Urobilinogen Urine Negative (Negative)
[2018-11-16 19:02] LABS: Albumin Level 3.7 gm/dl (3.4-5.0); BUN Creatinine Ratio 14.9 (10-20); Calcium 8.7 mg/dl (8.5-10.1); Creatinine Clr Calc Pharmacy 60.9 ml/min; Est GFR (African American) 85.5; Est GFR (Non-African American) 73.8; Potassium 3.6 mmol/L (3.5-5.1)
[2018-11-16 19:03] LABS: Albumin Globulin Ratio 1.2 (0.9-2); Bilirubin,Total 0.2 mg/dl (0.2-1); Total Protein 6.7 gm/dl (6.4-8.2)
[2018-11-16 19:20] LABS: Pregnancy Test, Serum Negative (Negative)
--- NOTE | 2018-11-16 19:38 | Ultrasound Report ---
US renal/blad retro comp CLINICAL HISTORY: 28 years-old Female presenting with eval for stone, rt flank pain. TECHNIQUE: Real-time grayscale and limited color Doppler ultrasound imaging of the kidneys and bladde r was performed. COMPARISON: CT from 12/03/2017. FINDINGS: Right kidney: Mildly increased echogenicity of the renal parenchyma diffusely. Right kidney measures 10.0 cm. Moderate hydronephrosis. Multiple nonobstructing renal calculi evident in the calyces. Dilat ation of the right ureter to the level of a 1.3 cm obstructing calculus in the mid right ureter. Left kidney: Normal echogenicity with preserved corticomedullary differentiation. Normal cortical thi ckness. Left kidney measures 9.8 cm. No hydronephrosis. 1 cm hyperechogenic shadowing calculus at the lower pole. Bladder: Underdistended limiting evaluation but grossly normal. Bilateral ureteral jets not visualize d. Other: None. IMPRESSION: 1. Obstructing 1.3 cm calculus in the mid right ureter with resultant moderate right hydronephrosis. 2. Bilateral nephrolithiasis. Electronically signed by: Jovan Parsons M.D. 11/16/2018 7:37 PM
[2018-11-16] MEDS ORDERED: HYDROmorphone INJ 0.5 MG/0.5 ML SYR IV STA (19:44)
[2018-11-16] MEDS ORDERED: DiphenhydrAMINE HCL 50 MG/ML VIAL IV STA (20:27)
[2018-11-16] MEDS ORDERED: EPINEPHrine INJ 1 MG/ML AMP IM STA (20:27)
[2018-11-16] MEDS ORDERED: methylPREDNISolone 125 MG/2 ML VIAL IV STA (20:27)
--- NOTE | 2018-11-16 20:56 | XRay Report ---
XR chest 1V portable CLINICAL HISTORY: 28 years-old Female presenting with sob. TECHNIQUE: Portable upright AP view of the chest was obtained. COMPARISON: 05/03/2018. FINDINGS: Cardiomediastinal silhouette normal. No focal opacity. No large effusion or pneumothorax. Osseous str uctures normal. Cholecystectomy clips noted. IMPRESSION: 1. No acute cardiopulmonary disease. Electronically signed by: Jovan Parsons M.D. 11/16/2018 8:54 PM
--- NOTE | 2018-11-16 23:28 | History & Physical Report ---
Date of Service November 16, 2018 Assessment & Plan (1) Gastritis: (2) Depression: (3) Anxiety: (4) Ulcerative colitis: (5) Hydronephrosis with renal and ureteral calculous obstruction: 28-year-old female with history of ulcerative colitis, gastritis, depression and anxiety presents with R flank pain and abdominal pain x 2 days. A/w urinary frequency, chills, low grade fever of 99.8 at home, nausea, vomiting x 1 this AM. R mid ureter obstructing stone with moderate hydronephrosis No WBC elevation, afebrile, vitals stable US renal: R mid ureter obstructing stone 1.3cm with moderate hydronephrosis and bilateral nephrolithiasis KUB: stone as above Received Toradol, Dilaudid (with acute reaction and hx of reaction to morphine as well), zofran, IVF 1L Started on IV tylenol given rxn to morphine and dilaudid avoid those medications Consider Fentanyl 12.5mcg if requiring additional pain medication Avoid Toradol given bleeding risk and need for procedure On Cipro Iv 400MG Q12H On compazine for nausea/vomiting Urology Dr. Bryon De Anda consulted Hx of Ulcerative Colitis Pt used to be on mesalamine per last hospitalization Pt reports not being on any medications at this time Gastritis Continue home omeprazole when able to take PO Anxiety/Depression Continue home Citalopram and buspirone when able to take PO post procedure FEN/GI: NPO after midnight for procedure tomorrow by urology, LR 125cc/hr DVT: SCD, encourage ambulation Code: Full Dispo: PCU/telemetry History of Present Illness Chief Complaint: R flank pain Primary Care Provider: MARCO A Menendez 28-year-old female with history of ulcerative colitis, gastritis, depression and anxiety presents with R flank pain and abdominal pain x 2 days. A/w urinary frequency, chills, low grade fever of 99.8 at home, nausea, vomiting x 1 this AM. Denies any dysuria, urgency, hematuria, dizziness, NUR, sob, cp, constipation, diarrhea. On menstrual cycle at this time. ED: afebrile, no WBC elevation, UA + but appears dirty, Renal US concerning for 1.3cm mid right ureter obstructing stone and moderate hydronephrosis, bilateral nephrolithiasis. Patient had acute reaction after receiving Dilaudid 0.5 in the ED-had some shortness of breath and chest tightness requiring some nasal cannula oxygen, heart rate also increased to 90s and low 100s and rash. Received IV fluids 1 L normal saline, IV Zofran, Toradol, Dilaudid 0.5. Allergies Allergy/AdvReac Type Severity Reaction Status Date / Time cephalexin Allergy Mild ITCHINESS Verified 11/16/18 18:51 nickel Allergy Unknown ITCHY RED Verified 11/16/18 18:51 WITH EARRINGS hydromorphone [From Dilaudid] AdvReac Unknown Tachycardia Verified 11/17/18 07:19 morphine AdvReac Unknown SHORTNESS Verified 11/16/18 18:51 OF BREATH Home Medications Home Medications Medication Instructions Recorded Confirmed Type buspirone 5 mg tablet 5 mg PO BID #60 tab 11/14/18 11/16/18 Rx citalopram 20 mg tablet 30 mg PO HS #45 tab 11/14/18 11/16/18 Rx Prilosec OTC 20 mg PO QAM 11/16/18 11/16/18 History ibuprofen 400 mg PO Q6H PRN 11/16/18 11/16/18 History norethindrone (contraceptive) 0.35 mg PO DAILY 11/16/18 11/16/18 History [Yaritza] ondansetron HCl [Zofran] 4 mg PO TID PRN 11/16/18 11/16/18 History ciprofloxacin HCl [Cipro] 250 mg PO BID #12 tab 11/17/18 Rx oxycodone 5 mg PO Q4H PRN #10 cap 11/17/18 Rx Past Med/Surg History Medical History Gastritis Clostridium difficile diarrhea PSC (primary sclerosing cholangitis) (Chronic) Anemia Anxiety Depression GERD (gastroesophageal reflux disease) Gestational diabetes Hiatal hernia History of anesthesia reaction SLOW TO WAKE UP Irritable bowel disease Kidney stones Nausea and vomiting after administration of anesthetic agent Os odontoideum Sinus tachycardia Syncope SINUS TACHYCARDIA (STRESS AND ELECOTROLYTE IMBALANCE) OVER 1.5 YEARS DURING Thyroiditis Surgical History History of breast biopsy History of cholecystectomy History of colonoscopy History of cystoscopy MULTIPLE X'S WITH STENTS AND STONE REMOVAL History of lithotripsy MULTIPLE History of tooth extraction Status post laser lithotripsy of ureteral calculus 12/04/17 LMA #3 Family History Mother Breast cancer Grandmother (Maternal) Breast cancer Grandfather (Paternal) Myocardial infarction Other Cancer Heart disease Hypertension Social History Preferred Language: Cuban Communication Ability: 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 Beliefs That Will Affect Care: None Current Living Situation: Spouse and Family Feels Safe at Home: Yes Smoking Status: Never smoker Second Hand Exposure: No ; Hx Alcohol Use: No Hx Substance Use: No Review of Systems Review of Systems: As per HPI Physical Exam 2 Physical Exam: General: In NAD Neuro: A&O x 4 Pulm: CTAB equal breath sounds bilaterally CV: RRR, no m/r/g Abdomen:+BS, TTP over RLQ and suprapubic regions, non-distended Back: + CVA tenderness R side LE: no LE edema, no calf TTP Results & Data Vital Signs (Past 12 Hours) Vital Signs Temp Pulse Pulse Resp BP BP Pulse Ox 11/16/18 22:00 86 13 105/68 99 11/16/18 21:10 92 H 18 117/68 99 11/16/18 21:00 97 H 16 100 11/16/18 20:31 101 H 15 100 11/16/18 20:24 88 24 142/93 H 100 11/16/18 19:38 88 16 114/77 98 11/16/18 18:37 70 16 116/73 100 11/16/18 18:25 98 11/16/18 17:22 36.5 C 92 H 16 121/78 99 Laboratory Results Abnormal lab results 11/16/18 11/16/18 Range/Units 18:30 18:30 Chloride 109 H (98-107) mmol/L AST 10 L (15-37) U/L Urine Appearance Cloudy A (Clear) Urine Protein 1+ H (Negative) Urine Ketones Trace H (Negative) Urine Blood 3+ H (Negative) Ur Leukocyte Esterase 1+ H (Negative) Urine WBC (Auto) 5-10 H (0-5) /hpf Urine RBC (Auto) >30 H (0-4) /hpf U Epithel Cells (Auto) >30 H (0-5) /lpf Diagnostic Findings XR chest 1V portable CLINICAL HISTORY: 28 years-old Female presenting with sob. TECHNIQUE: Portable upright AP view of the chest was obtained. COMPARISON: 05/03/2018. FINDINGS: Cardiomediastinal silhouette normal. No focal opacity. No large effusion or pneumothorax. Osseous structures normal. Cholecystectomy clips noted. IMPRESSION: 1. No acute cardiopulmonary disease. US renal/blad retro comp CLINICAL HISTORY: 28 years-old Female presenting with eval for stone, rt flank pain. TECHNIQUE: Real-time grayscale and limited color Doppler ultrasound imaging of the kidneys and bladder was performed. COMPARISON: CT from 12/03/2017. FINDINGS: Right kidney: Mildly increased echogenicity of the renal parenchyma diffusely. Right kidney measures 10.0 cm. Moderate hydronephrosis. Multiple nonobstructing renal calculi evident in the calyces. Dilatation of the right ureter to the level of a 1.3 cm obstructing calculus in the mid right ureter. Left kidney: Normal echogenicity with preserved corticomedullary differentiation. Normal cortical thickness. Left kidney measures 9.8 cm. No hydronephrosis. 1 cm hyperechogenic shadowing calculus at the lower pole. Bladder: Underdistended limiting evaluation but grossly normal. Bilateral ureteral jets not visualized. Other: None. IMPRESSION: 1. Obstructing 1.3 cm calculus in the mid right ureter with resultant moderate right hydronephrosis. 2. Bilateral nephrolithiasis. KUB CLINICAL HISTORY: Right flank pain. FINDINGS: An AP supine abdominal radiograph is compared to study dated 05/03/2018 and correlated with abdominal CT dated 12/03/2017. Cholecystectomy clips are seen in the right upper quadrant. There is no bowel obstruction. A 9 mm calcification projects over the distal right ureter overlying the sacrum. Additional punctate nonobstructing right renal calculi are noted. An 8 mm calcification projects over the left kidney. A phlebolith in the left hemipelvis is unchanged. The bony structures appear intact. IMPRESSION: 1. A 9 mm calcification projects over the distal right ureter overlying the sacrum. This is new from previous and given the of nephrolithiasis and right flank pain likely represents an obstructing ureteral stone. 2. Additional bilateral nonobstructing renal calculi as above. Code Status & VTE Plan Code Status Full per discussion with patient VTE Prophylaxis Plan VTE Prophylaxis will be ordered: Yes Supervising Physician Co-Signing Physician Notes Attending addendum: I have physically seen this patient, have supervised the medical residents activities, and agree with the H&P unless as otherwise noted. Assessment and Plan: 1.3 cm mid right ureteral obstructing stone/moderate right hydronephrosis- N.p.o. Cipro 400 mg IV every 12 hours. Follow urine culture and sensitivity IV fluids. Acetaminophen 1 g IV every 8 hours as needed pain or temperature. Hold any further Toradol. Patient noted to have acute shortness of breath after taking Dilaudid. Fentanyl 12.5 mcg IV every 3 hours as needed if breakthrough pain occurs. Urology Dr. De Anda consulted. Remainder of orders and notations as noted. PG Care Time/CCT Total # of Minutes Spent Total Time Spent with Patient: Total time spent is greater than 50% in coordination of care (as documented) at patient's floor/unit and/or counseling patient: Resident Activity Tracking Resident Involvement: Resident Care Provided Care Provided: Adult Hospital Medicine (1) Depression Depression Type: unspecified Qualified Code(s): F32.9 - Major depressive disorder, single episode, unspecified (2) Gastritis Chronicity: acute Gastritis bleeding: with bleeding Gastritis type: unspecified gastritis Qualified Code(s): K29.01 - Acute gastritis with bleeding
[2018-11-16] MEDS ORDERED: ACETAMINOPHEN 1000 MG/100 ML IV IV ONE (23:40)
[2018-11-17] MEDS ORDERED: ACETAMINOPHEN 1,000 MG/100 ML VIAL IV PRN (00:34)
[2018-11-17] MEDS ORDERED: PROCHLORPERAZINE 10 MG in SYRINGE 8 ML IV PRN (00:34)
[2018-11-17] MEDS ORDERED: CIPROFLOXACIN 400 MG/200 ML BAG IV SCH (01:00)
[2018-11-17] MEDS: LACTATED RINGER'S 1,000 ML IV SCH ×2 (01:44→09:30)
[2018-11-17] MEDS: fentaNYL citrate 100 MCG/2 ML VIAL IV PRN ×5 (01:47→08:44)
--- NOTE | 2018-11-17 07:09 | Urology Consultation ---
Date of Consultation November 17, 2018 Assessment & Plan (1) Hydronephrosis with renal and ureteral calculous obstruction: Patient with large stone in ureter with hydronephrosis and pain and discomfort in waves. Long history of stones. No severe fevers or chills. No major changes. Considered options. Will plan for cystoscopy with right ureteroscopy and stent placement. Risks and benefits discussed at length. History of Present Illness Attending Physician: Hector Nunez MD History of Present Illness Well known patient with long history of stones. had sudden onset of worsening pain in flank in waves with discomfort to groin and major episodes of colic. Severe at times. Comes and goes. Came to ER and found to have large stone in ureter. Admitted with pain control Allergies Allergy/AdvReac Type Severity Reaction Status Date / Time cephalexin Allergy Mild ITCHINESS Verified 11/16/18 18:51 nickel Allergy Unknown ITCHY RED Verified 11/16/18 18:51 WITH EARRINGS morphine AdvReac Unknown SHORTNESS Verified 11/16/18 18:51 OF BREATH Home Medications Home Medications Medication Instructions Recorded Confirmed Type buspirone 5 mg tablet 5 mg PO BID #60 tab 11/14/18 11/16/18 Rx citalopram 20 mg tablet 30 mg PO HS #45 tab 11/14/18 11/16/18 Rx ibuprofen 400 mg PO Q6H PRN 11/16/18 11/16/18 History norethindrone (contraceptive) 0.35 mg PO DAILY 11/16/18 11/16/18 History [Yaritza] omeprazole magnesium [Prilosec OTC] 20 mg PO QAM 11/16/18 11/16/18 History ondansetron HCl [Zofran] 4 mg PO TID PRN 11/16/18 11/16/18 History Patient History Medical History Gastritis Clostridium difficile diarrhea PSC (primary sclerosing cholangitis) (Chronic) Anemia Anxiety Depression GERD (gastroesophageal reflux disease) Gestational diabetes Hiatal hernia History of anesthesia reaction SLOW TO WAKE UP Irritable bowel disease Kidney stones Nausea and vomiting after administration of anesthetic agent Os odontoideum Sinus tachycardia Syncope SINUS TACHYCARDIA (STRESS AND ELECOTROLYTE IMBALANCE) OVER 1.5 YEARS DURING Thyroiditis Surgical History History of breast biopsy History of cholecystectomy History of colonoscopy History of cystoscopy MULTIPLE X'S WITH STENTS AND STONE REMOVAL History of lithotripsy MULTIPLE History of tooth extraction Status post laser lithotripsy of ureteral calculus 12/04/17 LMA #3 Family History Mother Breast cancer Grandmother (Maternal) Breast cancer Grandfather (Paternal) Myocardial infarction Other Cancer Heart disease Hypertension Social History Preferred Language: [place] Communication Ability: Effective 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 Beliefs That Will Affect Care: None Current Living Situation: Spouse and Family Other Information That Helps Us Care for You: No Feels Safe at Home: Yes Safety Concerns: Feels Safe At This Time Smoking Status: Never smoker Second Hand Exposure: No ; Hx Alcohol Use: No Hx Substance Use: No Review of Systems Review of Systems: All systems reviewed & are unremarkable except as noted in HPI & below As per HPI Physical Exam Constitutional: well developed and well nourished; no acute distress and not ill appearing Eyes: eyes not dysmorphic and no conjunctival abnormality ENMT: Ears: no hearing impairment Nose: no external nose abnormality Neck: trachea midline; no tracheal deviation Respiratory: normal respiratory effort; no respiratory distress and no labored breathing Cardiovascular: Rate/Rhythm: not tachycardic Gastrointestinal (Abdomen): Inspection/Auscultation: abdomen normal to inspection; no abdominal edema Percussion/Palpation: abdomen nontender Musculoskeletal: Head/Neck/Chest: normocephalic and head atraumatic; head normal to inspection and full ROM of neck Skin: no rashes, no lesions and no ulcers Neurologic: CN's II-XI intact bilaterally Psychiatric: Orientation: alert and oriented x 3; not guarded Affect: euthymic affect and + flat affect Genitourinary: + CVA tenderness Lymphatic: no lymphadenopathy Results & Data Vital Signs (Past 12 Hours) Vital Signs Temp Pulse Pulse Resp BP BP BP 11/17/18 04:00 36.5 C 98 H 16 94/61 L 11/17/18 00:05 36.7 C 82 18 102/65 11/16/18 23:45 85 13 142/78 H 11/16/18 23:00 88 14 107/67 11/16/18 22:00 86 13 105/68 11/16/18 21:10 92 H 18 117/68 11/16/18 21:00 97 H 16 11/16/18 20:31 101 H 15 11/16/18 20:24 88 24 142/93 H 11/16/18 19:38 88 16 114/77 Pulse Ox 11/17/18 04:00 100 11/17/18 00:05 99 11/16/18 23:45 98 11/16/18 23:00 99 11/16/18 22:00 99 11/16/18 21:10 99 11/16/18 21:00 100 11/16/18 20:31 100 11/16/18 20:24 100 11/16/18 19:38 98 PG Care Time/CCT Total # of Minutes Spent Total Time Spent with Patient: Total time spent is greater than 50% in coordination of care (as documented) at patient's floor/unit and/or counseling patient:
--- NOTE | 2018-11-17 07:14 | Anesthesiology Consultation ---
Date of Service November 17, 2018 Assessment & Plan (1) Encounter for pre-operative examination: Chart Review Chart Review: Acceptable Risk for Surgery History Surgery Operation Date: 11/17/18 07:15 Proposed Procedures p Laser Lithotripsy Brijesh De Anda II, DO Height/Weight Height: 5 ft 1 in Weight: 52.4 kg Allergies Allergy/AdvReac Type Severity Reaction Status Date / Time cephalexin Allergy Mild ITCHINESS Verified 11/16/18 18:51 nickel Allergy Unknown ITCHY RED Verified 11/16/18 18:51 WITH EARRINGS morphine AdvReac Unknown SHORTNESS Verified 11/16/18 18:51 OF BREATH Medications Home Medications Medication Instructions Recorded Confirmed Last Taken buspirone 5 mg tablet 5 mg PO BID #60 tab 11/14/18 11/16/18 Unknown citalopram 20 mg tablet 30 mg PO HS #45 tab 11/14/18 11/16/18 Unknown ibuprofen 400 mg PO Q6H PRN 11/16/18 11/16/18 Unknown norethindrone (contraceptive) 0.35 mg PO DAILY 11/16/18 11/16/18 Unknown [Yaritza] omeprazole magnesium [Prilosec OTC] 20 mg PO QAM 11/16/18 11/16/18 Unknown ondansetron HCl [Zofran] 4 mg PO TID PRN 11/16/18 11/16/18 Unknown Active Medications Generic Name Dose Route Start Last Admin Trade Name Freq PRN Reason Stop Dose Admin Buspirone HCl 5 mg 11/17/18 09:00 11/17/18 07:06 Buspar PO 12/17/18 08:59 Not Given BID SHANON Fentanyl Citrate 12.5 mcg 11/17/18 00:56 11/17/18 06:19 Fentanyl Citrate IV 12/01/18 00:55 12.5 mcg Q4H PRN Administration Pain Ciprofloxacin 400 mg in 200 mls @ 100 mls/hr 11/17/18 01:00 11/17/18 04:03 Cipro IV 11/27/18 00:59 Infused Q12H SHANON Infusion Protocol Lactated Ringer's 1,000 mls @ 125 mls/hr 11/17/18 00:34 11/17/18 01:44 Lr IV 12/17/18 00:33 125 mls/hr .Q8H SHANON Administration Miscellaneous 1 ea 11/17/18 08:00 11/17/18 07:06 Order Awaiting Action N/A 12/17/18 07:59 Not Given QS SHANON Pantoprazole Sodium 40 mg 11/17/18 09:00 11/17/18 07:06 Protonix PO 12/17/18 08:59 Not Given QAM SHANON NPO Date Last Intake of Fluids: 11/17/18 Time Last Intake of Fluids: 00:00 Date Last Intake of Solids: 11/17/18 Time Last Intake of Solids: 00:00 Past Medical History Medical History Gastritis Clostridium difficile diarrhea PSC (primary sclerosing cholangitis) (Chronic) Anemia Anxiety Depression GERD (gastroesophageal reflux disease) Gestational diabetes Hiatal hernia History of anesthesia reaction SLOW TO WAKE UP Irritable bowel disease Kidney stones Nausea and vomiting after administration of anesthetic agent Os odontoideum Sinus tachycardia Syncope SINUS TACHYCARDIA (STRESS AND ELECOTROLYTE IMBALANCE) OVER 1.5 YEARS DURING Thyroiditis Past Family History Family History Mother Breast cancer Grandmother (Maternal) Breast cancer Grandfather (Paternal) Myocardial infarction Other Cancer Heart disease Hypertension Past Surgical History Surgical History History of breast biopsy History of cholecystectomy History of colonoscopy History of cystoscopy MULTIPLE X'S WITH STENTS AND STONE REMOVAL History of lithotripsy MULTIPLE History of tooth extraction Status post laser lithotripsy of ureteral calculus 12/04/17 LMA #3 Social History Smoking Status: Never smoker Hx Alcohol Use: No Hx Substance Use: No substance use type: does not use Physical Exam Vital Signs Last Vital Signs Temp 36.5 C 11/17/18 04:00 Pulse 98 H 11/17/18 04:00 Resp 16 11/17/18 04:00 BP 94/61 L 11/17/18 04:00 Pulse Ox 100 11/17/18 04:00 Testing Laboratory Results 11/16/18 18:30 11/16/18 18:30 Urine Color Dark Yellow 11/16/18 18:30 Urine Appearance Cloudy (Clear) A 11/16/18 18:30 Urine pH 6.0 (4.5-7.5) 11/16/18 18:30 Ur Specific [place] 1.024 (1.000-1.030) 11/16/18 18:30 Urine Protein 1+ (Negative) H 11/16/18 18:30 Urine Glucose (UA) Negative (Negative) 11/16/18 18:30 Urine Ketones Trace (Negative) H 11/16/18 18:30 Urine Nitrite Negative (Negative) 11/16/18 18:30 Ur Leukocyte Esterase 1+ (Negative) H 11/16/18 18:30 Urine WBC (Auto) 5-10 /hpf (0-5) H 11/16/18 18:30 Urine RBC (Auto) >30 /hpf (0-4) H 11/16/18 18:30 U Hyaline Cast (Auto) 1-5 /lpf (0-5) 11/16/18 18:30 U Epithel Cells (Auto) >30 /lpf (0-5) H 11/16/18 18:30 Urine Bacteria (Auto) Negative (Negative) 11/16/18 18:30
[2018-11-17 07:15] LABS: INR 1.1 (0.9-1.1); Partial Thromboplastin Time 27.5 Seconds (21.0-31.0); Prothrombin Time 10.8 Seconds (9.0-12.0)
[2018-11-17] MEDS ORDERED: fentaNYL citrate 100 MCG/2 ML VIAL ONE ×2 (07:26→08:32)
[2018-11-17] MEDS ORDERED: MIDAZOLAM HCL 1 MG/ML 2ML VIAL ONE (07:26)
[2018-11-17] MEDS ORDERED: IOTHALAMATE MEGLUMINE II 17.2% 250 ML VIAL ONE (07:28)
[2018-11-17] MEDS ORDERED: ATROPINE SULFATE 0.1 MG/ML 10ML SYR IV PRN (07:54)
[2018-11-17] MEDS ORDERED: ONDANSETRON INJ 2 MG/ML 2 ML VIAL IV PRN (07:54)
[2018-11-17] MEDS ORDERED: PROMETHAZINE HCL 6.25 MG in SODIUM CHLORIDE 0.9% 50 ML IV PRN (07:54)
--- NOTE | 2018-11-17 08:18 | Operative Report ---
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 Specimens None Drains 6 Fr Multilength Right Anesthesia Type General Complications none Disposition Disposition: Recovery Room Indications Obstructing stone with severe colic. Risks and benefits discussed. Description of Procedure Patient was consented and brought back to the operating room. Patient was placed under anesthesia in the supine position and moved to the dorsal lithotomy position. Patient was prepped and draped in the regular sterile fashion. A time out was completed. A 30degree Cystoscope was placed into the bladder and the entire bladder was examined. The UO's were identified. The UO was cannulized with a catheter and a retrograde pyelogram was completed. A wire was then placed. The Rigid ureteroscope was taken into the ureter. The stone was identified. A laser fiber was selected and the stones were pulverized to dust and small fragments. Larger fragments were grasped and removed and sent for analysis. The entire area was once again examined. No residual large fragments or areas of concern were noted. The scope was slowly removed with the wire left in place. Contrast was placed through the scope for a pyelogram to assist in stent placement. The entire ureter was examined as the scope was slowly removed. No obstructions or other areas of concern were noted. With the wire in place, a 6 Fr Double J stent was placed. It was confirmed with fluoroscopy. With the stent in place, the bladder was emptied. The scope was removed. The patient was cleaned, aroused from anesthesia, and transferred to the pacu in stable condition having tolerated the procedure well with no complications. I was present and participated in all aspects of the procedure. The patient will be monitored in the PACU until transferred. I attest to the content of the Intraoperative Record and any orders documented therein. Any exceptions are noted below.
[2018-11-17] MEDS ORDERED: PROPOFOL IV EMULSION 10 MG/ML 20 ML VIAL IV ONE (08:22)
[2018-11-17] MEDS ORDERED: LIDOCAINE HCL 2% 2 ML VIAL/AMP(20MG/ML) INFIL ONE (08:22)
[2018-11-17] MEDS ORDERED: ONDANSETRON INJ 2 MG/ML 2 ML VIAL ONE (08:22)
[2018-11-17] MEDS ORDERED: METOCLOPRAMIDE HCL INJ 5 MG/ML 2 ML VIAL ONE (08:22)
--- NOTE | 2018-11-17 08:34 | Fluoroscopy Report ---
INTRAOPERATIVE RADIOGRAPHS CLINICAL HISTORY: Retrograde ureterogram. Fluoroscopy time: 31 seconds. FINDINGS: 2 spot fluoroscopic images from a right-sided retrograde ureterogram are correlated with re nal ultrasound dated 11/16/2018. Cholecystectomy clips are seen in the right upper quadrant. Contrast i n the right renal collecting system shows moderate hydronephrosis. The images show the proximal and d istal ends of a right ureteral stent in place. This appears to be in appropriate position. No calcifi cations are seen along the course of the stent. IMPRESSION: Intraoperative images from a retrograde ureterogram and right ureteral stent placement pr ocedure as above. Electronically signed by: Zander Borrego M.D. 11/17/2018 8:33 AM
--- NOTE | 2018-11-17 08:54 | Anesthesiology Progress Note ---
Date of Service November 17, 2018 Anesthesia Post Procedure Vital Signs Vital Signs: Temp Pulse Pulse Pulse Resp BP BP 11/17/18 08:45 77 16 11/17/18 08:35 84 20 11/17/18 08:26 36.9 C 87 16 11/17/18 04:00 36.5 C 98 H 16 11/17/18 00:05 36.7 C 82 18 102/65 11/16/18 23:45 85 13 142/78 H 11/16/18 23:00 88 14 107/67 11/16/18 22:00 86 13 105/68 11/16/18 21:10 92 H 18 117/68 11/16/18 21:00 97 H 16 11/16/18 20:31 101 H 15 11/16/18 20:24 88 24 142/93 H 11/16/18 19:38 88 16 114/77 11/16/18 18:37 70 16 116/73 11/16/18 18:25 11/16/18 17:22 36.5 C 92 H 16 121/78 BP Pulse Ox 11/17/18 08:45 101/62 96 11/17/18 08:35 111/70 99 11/17/18 08:26 99/66 L 100 11/17/18 04:00 94/61 L 100 11/17/18 00:05 99 11/16/18 23:45 98 11/16/18 23:00 99 11/16/18 22:00 99 11/16/18 21:10 99 11/16/18 21:00 100 11/16/18 20:31 100 11/16/18 20:24 100 11/16/18 19:38 98 11/16/18 18:37 100 11/16/18 18:25 98 11/16/18 17:22 99 Pain Intensity Right Abdomen: Pain Intensity: 6 Right Flank: Pain Intensity: 4 Transfer of Care Handoff Completed per policy Notes Mental Status: alert / awake / arousable Patient Amnestic to Procedure: Yes Nausea / Vomiting: adequately controlled Pain: adequately controlled Airway Patency, RR, SpO2: stable & adequate BP & HR: stable & adequate Hydration State: stable & adequate Anesthetic Complications: no major complications apparent
[2018-11-17] MEDS ORDERED: PANTOprazole 40 MG TAB PO SCH (09:00)
[2018-11-17] MEDS ORDERED: NORETHINDRONE 0.35 MG PO SCH (09:00)
--- NOTE | 2018-11-17 14:42 | Discharge Summary ---
Date of Service November 17, 2018 Admission HPI Per Admitting Provider 28-year-old female with history of ulcerative colitis, gastritis, depression and anxiety presents with R flank pain and abdominal pain x 2 days. A/w urinary frequency, chills, low grade fever of 99.8 at home, nausea, vomiting x 1 this AM. Denies any dysuria, urgency, hematuria, dizziness, NUR, sob, cp, constipation, diarrhea. On menstrual cycle at this time. ED: afebrile, no WBC elevation, UA + but appears dirty, Renal US concerning for 1.3cm mid right ureter obstructing stone and moderate hydronephrosis, bilateral nephrolithiasis. Patient had acute reaction after receiving Dilaudid 0.5 in the ED-had some shortness of breath and chest tightness requiring some nasal cannula oxygen, heart rate also increased to 90s and low 100s and rash. Received IV fluids 1 L normal saline, IV Zofran, Toradol, Dilaudid 0.5. Principal Diagnosis Ureterolithiasis, renal colic and nausea related to stone Discharge Exam In general she is awake and alert pleasant no distress. HEENT normal cephalic atraumatic mucous members moist. Breathing unlabored no accessory muscle use good effort. Skin shows no rashes no pallor or icterus. Discharge Data Allergies Allergy/AdvReac Type Severity Reaction Status Date / Time cephalexin Allergy Mild ITCHINESS Verified 11/16/18 18:51 nickel Allergy Unknown ITCHY RED Verified 11/16/18 18:51 WITH EARRINGS hydromorphone [From Dilaudid] AdvReac Unknown Tachycardia Verified 11/17/18 07:19 morphine AdvReac Unknown SHORTNESS Verified 11/16/18 18:51 OF BREATH Consultations 11/16/18 20:03 ED Decision to Admit Stat 11/17/18 00:34 Consult Urology Routine Procedures Performed Operation Date: 11/17/18 07:15 Actual Procedures p Cystoscopy, Laser Lithotripsy, Right Ureteroscopy, Retrograde Pylogram, Basket Stone Extraction, and Right Ureteral Stent Placement(Right) - Bryon De Anda II, DO Ordered Studies 11/16/18 18:10 US renal/blad retro comp Stat 11/17/18 07:00 FL retrograde includes kub Routine See chart for full reports of operative notes and imaging/laboratory studies Hospital Course (1) Hydronephrosis with renal and ureteral calculous obstruction: Presented with symptoms related to stone and hydronephrosis. Taken promptly to the OR with laser lithotripsy and stenting. Symptoms improved to where she is feeling good able to eat pain is controlled and she would like to go home. Discussed with urology she is stable for home. Discharged home with close PCP and urology follow-up (2) Urinary tract infection: Urine appears somewhat consistent with infection. Initiated on Cipro on admission, will continue to complete a 7-day course for a presumed complicated UTI. Total Time Total Time Spent Total Time Spent (In Minutes): Less than 30 Discharge Plan Discharge Items Patient Disposition: Home - Self-Care Reason For Visit: PYELONEPHRITIS Discharge Diagnosis: kidney stone Discharge Goals: Decrease discomfort, Diagnostic testing and Therapeutic intervention Activity: Resume your previous activity Non-emergency contact: Primary Care Provider and Urologist Call non-emergency contact if: you have any medication questions and you have a fever Follow-up/Referrals: Yara Llanos CRNP [Primary Care Provider] - Diet: Regular Addtl Provider Instructions: kidney stone -fortunately Dr De Anda was able to break up the stone well, and get the ureter (tube between kidney and bladder) opened up with a stent -his office will get you set up for follow up and stent removal - expect to be seen either sometime this coming week or the following --> if you don't hear from them by around Monday as far as getting scheduled, please call to check on your status -use the oxycodone up to every 4 hours as needed for pain (obviously use with caution - it can make you drowsy/groggy, and can cause constipation) -there did appear to be a bit of urine infection along with the stone - we'll finish out a course of cipro to treat this - take it twice a day for 12 more doses (6 more days) next dose tonight (11/17/18) Prescriptions: New ciprofloxacin HCl [Cipro] 250 mg tablet 250 mg PO BID Qty: 12 RF: 0 oxycodone 5 mg capsule 5 mg PO Q4H PRN (Reason: pain) Qty: 10 RF: 0 Continued buspirone 5 mg tablet 5 mg PO BID Qty: 60 RF: 5 citalopram 20 mg tablet 30 mg PO HS Qty: 45 RF: 5 ibuprofen 200 mg Tablet 400 mg PO Q6H PRN (Reason: Pain) RF: 0 norethindrone (contraceptive) [Yaritza] 0.35 mg tablet 0.35 mg PO DAILY RF: 0 ondansetron HCl [Zofran] 4 mg tablet 4 mg PO TID PRN (Reason: Nausea And Vomiting) RF: 0 Prilosec OTC 20 mg tablet,delayed release (DR/EC) 20 mg PO QAM RF: 0 Stand-Alone Forms: [facility] Discharge Orders: Discharge Order (Routine); Ordered 11/17/18 Ordered By: Rip Woodward Admission Data Admit Date/Time: 11/16/18 22:37 Attending Provider: Rip Woodward Admit Provider: Hector Nunez Primary Care Provider: Yara Llanos Other Providers: Hector Nunez ; Bryon De Anda II Service: Telemetry Other Interventions: Discharge Summary Assessment (RN) Last Done: 11/17/18 09:52 DC Date/Time DO NOT enter until pt leaves facility: 11/17/18 12:05
[2018-11-17] MEDS ORDERED: CITALOPRAM 20 MG TAB PO SCH (21:00)
== END 2018-11-17 12:05 | disposition home or self-care (01) | DRG 661 ==
LOC: ED 17:19 → SUATTDRO 22:37 → 2S 22:37

== ENCOUNTER 2020-05-18 22:05 | Observation (INO) ==
[2020-05-18] MEDS ORDERED: METOCLOPRAMIDE HCL INJ 5 MG/ML 2 ML VIAL IV ONE (22:22)
[2020-05-18] MEDS ORDERED: FAMOTIDINE 20MG/5ML IV PUSH IV STA (22:23)
[2020-05-18] MEDS ORDERED: SODIUM CHLORIDE 0.9% 1000ML 1,000 ML IV SCH (22:30)
--- NOTE | 2020-05-18 22:30 | Emergency Department Note ---
History of Present Illness General Chief complaint: Vomiting Stated complaint: CONTRACTIONS, VOMITING Time Seen by Provider: 05/18/20 22:17 History of Present Illness Maximum Pain Intensity: 5 This 30-year-old who is 36 weeks and already cleared by OB tonight presents to the ER complaining of nausea vomiting and dehydration Location: Generalized Quality: Nauseated Severity: Moderate Duration: Today Timing: Today Context: Patient was evaluated by OB and sent to the ER for hydration Modifying factors: better with Reglan; worse with drinking Patient states OB monitor her and did a pelvic exam and states she is not in active labor. She was sent to the ER for blood work and fluids. Patient denies chest pain, dyspnea, fevers, flulike illness. She states Reglan and Pepcid worked well in the past. Home Medications Medication Instructions Recorded Confirmed Type buspirone 5 mg PO HS 05/18/20 05/18/20 History cetirizine 10 mg PO DAILY PRN 05/18/20 05/18/20 History citalopram 30 mg PO HS 05/18/20 05/18/20 History ferrous sulfate [Iron (ferrous 325 mg PO QAM 05/18/20 05/18/20 History sulfate)] melatonin 5 mg PO HS PRN 05/18/20 05/18/20 History metoclopramide HCl [Reglan] 10 mg PO Q6H PRN 05/18/20 05/18/20 History ondansetron HCl [Zofran] 4 mg PO Q6H PRN 05/18/20 05/18/20 History potassium 99 mg PO QAM 05/18/20 05/18/20 History vit [id number] 1 tab PO DAILY 05/18/20 05/18/20 History [ Vitamin] Allergies Allergy/AdvReac Type Severity Reaction Status Date / Time cephalexin Allergy Mild ITCHINESS Verified 05/18/20 22:40 nickel Allergy Mild ITCHY RED Verified 05/18/20 22:40 WITH EARRINGS hydromorphone [From Dilaudid] AdvReac Intermediate Tachycardia,shortness Verified 05/18/20 22:41 of breath and rash morphine AdvReac Intermediate SHORTNESS Verified 05/18/20 22:40 OF BREATH diphenhydramine AdvReac Mild hyeractivit Verified 05/18/20 22:41 [From Benadryl] y Past Med/Surg History Medical History Autoimmune pancreatitis Bulimia nervosa Encounter for anatomic survey Encounter for pre-operative examination GDM (gestational diabetes mellitus) Hiatal hernia Hx of varicella Labial cyst Neoplasm of uncertain behavior of skin Normal vaginal delivery Os odontoideum CERVICAL SPINE - FULL ROM Sinus tachycardia ONCE IN A WHILE FEELS THIS- DOES NOT SEE CARDIOLOGY Syncope HX- FROM SINUS TACHYCARDIA (STRESS AND ELECOTROLYTE IMBALANCE) OVER 1.5 YEARS AGO DURING Third trimester Ulcerative colitis Ulcerative pancolitis Surgical History History of anesthesia reaction SLOW TO WAKE UP History of breast biopsy right--benign History of cholecystectomy History of colonoscopy History of cystoscopy MULTIPLE X'S WITH STENTS AND STONE REMOVAL/ NO STENTS CURRENTLY History of ERCP History of lithotripsy MULTIPLE History of tooth extraction WISDOM TEETH Nausea and vomiting after administration of anesthetic agent Status post laser lithotripsy of ureteral calculus 12/04/17 LMA #3 Family History Mother Breast cancer Grandmother (Maternal) Breast cancer Grandfather (Paternal) Myocardial infarction Other Cancer Heart disease Hypertension Denies family history of Ovarian cancer Prostate cancer Colorectal cancer Stroke Social History Smoking Status: Never smoker Second Hand Exposure: No; Hx Alcohol Use: No Hx Substance Use: No Preferred Language: Italian Communication Ability: Effective Visual Impairment: No Limitations Ripening Room Attendant Required: No Beliefs That Will Affect Care: None marital status: marital status details: Russ Galvez (34) [phone] Current Living Situation: Spouse Current Living Situation Comment: Lives with and 2 kids current occupational status: employed current occupation: [employer]- [employer] Feels Safe at Home: Yes Assistive Devices: Glasses Review of Systems A total of 10 systems reviewed and were otherwise negative Physical Exam Vital Signs Vital Signs - 24 hr 05/18/20 22:07 05/18/20 22:49 05/18/20 23:46 Temperature 36.5 C Temperature Source Temporal Artery Scan Pulse Rate 108 H Pulse Rate [Right Finger] 94 H Respiratory Rate 18 16 Respiratory Effort / Characteristics Non-Labored Respiratory Depth Normal Blood Pressure 111/66 Blood Pressure [Right Arm] 104/63 Blood Pressure Mean 81 Blood Pressure Mean [Right Arm] 76 Blood Pressure Position [Right Arm] Lying Pulse Oximetry 94 98 98 Oxygen Delivery Method Room Air Room Air Room Air Sepsis Recent Fever Within 48 Hours No Sepsis New/Unexplained Change in Mental Status No Sepsis Action Taken by Nursing No Action Required VITALS: Vitals are noted on the nurse's note and reviewed by myself. Vital signs stable. GENERAL: Pleasant female, in no acute distress, nondiaphoretic, well-developed well-nourished. SKIN: Capillary reflex less than 2 seconds. HEENT: Normocephalic. PERRLA. EOMI. Nares patent. Mucous membranes mildly dry. Neck is supple without nuchal rigidity. HEART: Regular rate and rhythm without murmurs gallops or rubs. LUNGS: Clear to auscultation bilaterally without wheezes, rales or rhonchi. No retractions or accessory muscle use. ABDOMEN: Positive bowel sounds x 4. Normal tympanic percussion. Soft, 36 weeks , nontender, without masses or organomegaly. Marina sign negative. No guarding or rebound tenderness. No CVA tenderness MUSCULOSKELETAL: No gross musculoskeletal defects. NEURO: Patient was alert and oriented to person place and time. No focal neurological deficits. Course Administered Medications Potassium Chloride (K Gabriel / Wtr) 10 meq in 100 mls @ 100 mls/hr IV Q1H SHANON Stop: 05/19/20 01:29 Last Admin: 05/18/20 23:45 Dose: 100 mls/hr Documented by: [id number] Discontinued Medications Famotidine (Famotidine 20mg/5ml Iv Push) 20 mg IV ONE STA Stop: 05/18/20 22:24 Last Admin: 05/18/20 22:45 Dose: 20 mg Documented by: [id number] Sodium Chloride (Nss 1000ml) 1,000 mls @ 999 mls/hr IV .Q1H1M SHANON Stop: 05/18/20 23:30 Last Admin: 05/18/20 22:45 Dose: 999 mls/hr Documented by: [id number] Metoclopramide HCl (Metoclopramide Hcl Inj 5 Mg/Ml 2 Ml Vial) 5 mg IV ONE ONE Stop: 05/18/20 22:23 Last Admin: 05/18/20 22:45 Dose: 5 mg Documented by: [id number] Potassium Chloride (Potassium Chloride 20 Meq/15 Ml Udc) 40 meq PO NOW STA Stop: 05/18/20 23:21 Last Admin: 05/18/20 23:45 Dose: 40 meq Documented by: [id number] Medical Decision Making Medical Records Attestation: I reviewed the patient's medical records. Home Medications Current Medication List: was personally reviewed by me Laboratory Data Attestation: I reviewed the patient's lab results. Result diagrams: 05/18/20 22:35 05/18/20 22:35 Lab Results 05/18/20 05/18/20 Range/Units 22:35 22:35 WBC 8.64 (4.8-10.8) K/uL RBC 4.01 L (4.2-5.4) M/uL Hgb 11.8 L (12.0-16.0) g/dL Hct 35.4 L (37-47) % MCV 88.3 (80-100) fL MCH 29.4 (25-34) pg MCHC 33.3 (32-36) g/dL RDW Std Deviation 52.7 H (36.4-46.3) fL RDW Coeff of Jabari 16.9 H (11.5-14.5) % Plt Count 301 (130-400) K/uL MPV 10.3 (7.4-10.4) fL Immature Gran % (Auto) 1.0 % Neut % (Auto) 63.4 % Lymph % (Auto) 25.0 % [place] % (Auto) 9.5 % Eos % (Auto) 0.9 % Baso % (Auto) 0.2 % Neut # (Auto) 5.47 (1.4-6.5) K/uL Lymph # (Auto) 2.16 (1.2-3.4) K/uL [place] # (Auto) 0.82 H (0.11-0.59) K/uL Eos # (Auto) 0.08 (0-0.5) K/uL Baso # (Auto) 0.02 (0-0.2) K/uL Immature Gran # (Auto) 0.09 H (0.00-0.02) K/uL Sodium 136 (136-145) mmol/L Potassium 2.2 L* (3.5-5.1) mmol/L Chloride 95 L (98-107) mmol/L Carbon Dioxide 32 (21-32) mmol/L Anion Gap 9.0 (3-11) BUN 8 (7-18) mg/dl Creatinine 0.75 (0.6-1.2) mg/dl Est Cr Clr Drug Dosing 90.6 ml/min Est GFR ( Amer) 122.2 Est GFR (Non-Af Amer) 105.5 BUN/Creatinine Ratio 10.4 (10-20) Glucose 87 (70-99) mg/dl Calcium 8.7 (8.5-10.1) mg/dl Magnesium 2.0 (1.8-2.4) mg/dl Total Bilirubin 0.4 (0.2-1) mg/dl AST 37 (15-37) U/L ALT 70 (12-78) U/L Alkaline Phosphatase 120 H (45-117) U/L Total Protein 6.3 L (6.4-8.2) gm/dl Albumin 2.6 L (3.4-5.0) gm/dl Globulin 3.7 (2.5-4.0) gm/dl Albumin/Globulin Ratio 0.7 L (0.9-2) MDM Narrative Prior records/ancillary studies reviewed. Triage Nursing notes reviewed. The patient's history was concerning for nausea, vomiting, who is 36 weeks Differential diagnosis: Etiologies such as contractions, dehydration, gastroenteritis, food borne ill ness, infections, appendicitis, diverticulitis, inflammatory bowel disease, obstruction, GI bleed, biliary pathology, as well as others were entertained. Physical examination findings: As above. Abdominal examination revealed no tenderness. Vital signs reviewed and revealed stable. ER treatment provided: IV hydration 1 L NSS. Reglan, Pepcid, potassium On reassessment the patient felt better. Patient was tolerating p.o. intake. Diagnostics interpretation by me: EKG ordered for low potassium EKG: Normal sinus, normal intervals, ST-T wave changes, impression normal sinus rhythm with ST-T wave changes related to the low potassium interpreted by myself The labs revealed hypokalemia and patient was given potassium through the IV and orally Stable magnesium Consultation: A consultation was placed with OB, Dr Aggarwal. She states she will admit the patient but request the hospitalist, Dr. Llanos, be consulted for the low potassium. The case was discussed and diagnostics were reviewed. The patient was evaluated in the ER for further treatment. This appears to be consistent with hypokalemia who is 36 weeks . Patient was given potassium as above. She is admitted to OB service. Medicine was consulted. Patient is agreeable. Magnesium was stable. By the evaluation outlined above emergent etiologies such as appendicitis, diverticulitis, obstruction, cardiac sources, mesenteric ischemia, aortic pathology, inflammatory bowel disease, renal colic, PUD, biliary pathology, UTI, as well as others were deemed relatively unlikely. The pt informed about the findings as listed above. All questions were answered and pleased with the treatment. The chart was completed utilizing [employer] Speech voice recognition software. Grammatical errors, random word insertions, pronoun errors, and incomplete sentences are an occassional consequence of this system due to software limitations, ambient noise, and hardware issues. Any formal questions or concerns about the content, text, or information contained within the body of this dictation should be directly addressed to the physician commercial lines assistant for clarification. Impression & Plan Hypokalemia, Vomiting Discharge Plan Visit Data Chief Complaint: Vomiting Stated Complaint: CONTRACTIONS, VOMITING ED Provider: Roberth Peterson ED Midlevel Provider: Diana Borges Discharge Problem: Hypokalemia, Vomiting Patient Disposition: Admitted As Inpatient Condition: Good Forms Stand Alone Forms: [facility] [place] [employer] Prescriptions Prescriptions: No Action buspirone 5 mg Tablet 5 mg PO HS RF: 0 cetirizine 10 mg Tablet 10 mg PO DAILY PRN (Reason: Allergy Symptoms) RF: 0 ondansetron HCl [Zofran] 4 mg Tablet 4 mg PO Q6H PRN (Reason: Nausea And Vomiting) RF: 0 citalopram 20 mg Tablet 30 mg PO HS RF: 0 ferrous sulfate [Iron (ferrous sulfate)] 325 mg (65 mg iron) Tablet 325 mg PO QAM RF: 0 metoclopramide HCl [Reglan] 10 mg Tablet 10 mg PO Q6H PRN (Reason: Nausea And Vomiting) RF: 0 melatonin 5 mg Tablet 5 mg PO HS PRN (Reason: Sleep) RF: 0 Vitamin 27 mg iron- 800 mcg Tablet 1 tab PO DAILY RF: 0 potassium 99 mg Tablet 99 mg PO QAM RF: 0 Referrals Referrals: Yara Llanos CRNP [Primary Care Provider] -
[2020-05-18 22:45] LABS: Basophils # (auto) 0.02 K/uL (0-0.2); Basophils % (auto) 0.2 %; Eosinophils # (auto) 0.08 K/uL (0-0.5); Eosinophils % (auto) 0.9 %; Hematocrit (blood only) 35.4 % (37-47); Hemoglobin 11.8 g/dL (12.0-16.0); Immature Granulocytes # (auto) 0.09 K/uL (0.00-0.02); Lymphocytes # (auto) 2.16 K/uL (1.2-3.4); Mean Corpuscular Hemoglobin 29.4 pg (25-34); Mean Corpuscular Hgb Conc 33.3 g/dL (32-36); Mean Corpuscular Volume 88.3 fL (80-100); Mean Platelet Volume 10.3 fL (7.4-10.4); Monocytes # (auto) 0.82 K/uL (0.11-0.59); Monocytes % (auto) 9.5 %; Neutrophils # (auto) 5.47 K/uL (1.4-6.5); Neutrophils % (auto) 63.4 %; Platelet Count 301 K/uL (130-400); RDW Coefficient of Variation 16.9 % (11.5-14.5); RDW Standard Deviation 52.7 fL (36.4-46.3); Red Blood Count 4.01 M/uL (4.2-5.4); White Blood Count 8.64 K/uL (4.8-10.8)
[2020-05-18 23:11] LABS: Albumin Globulin Ratio 0.7 (0.9-2); Albumin Level 2.6 gm/dl (3.4-5.0); BUN Creatinine Ratio 10.4 (10-20); Bilirubin,Total 0.4 mg/dl (0.2-1); Calcium 8.7 mg/dl (8.5-10.1); Creatinine Clr Calc Pharmacy 90.6 ml/min; Est GFR (African American) 122.2; Est GFR (Non-African American) 105.5; Globulin 3.7 gm/dl (2.5-4.0); Potassium 2.2 mmol/L (3.5-5.1); Total Protein 6.3 gm/dl (6.4-8.2)
[2020-05-18] MEDS ORDERED: POTASSIUM CHLORIDE 20 MEQ/15 ML UDC PO STA (23:20)
[2020-05-18] MEDS: POTASSIUM CHLORIDE / WTR 10 MEQ/100 ML PLCT IV SCH (23:45)
[2020-05-19] MEDS ORDERED: POTASSIUM CHLORIDE / WTR 10 MEQ/100 ML PLCT IV STA (00:38)
[2020-05-19] MEDS ORDERED: ONDANSETRON 4 MG OD TAB PO PRN (00:41)
[2020-05-19] MEDS ORDERED: POTASSIUM CHLORIDE 20 MEQ in SODIUM CHLORIDE 0.9% 1000ML 1,000 ML IV SCH (00:45)
[2020-05-19] MEDS ORDERED: CETIRIZINE HCL 10 MG TABLET PO PRN (00:45)
[2020-05-19] MEDS ORDERED: NON-FORMULARY MEDICATION (Melatonin 5 mg Tablet) PO PRN (00:45)
--- NOTE | 2020-05-19 00:48 | Hospitalist Consultation ---
Date of Consultation May 19, 2020 Assessment & Plan (1) Hypokalemia due to excessive gastrointestinal loss of potassium: 30 yo F @ 36 4/7 weeks, complicated by GDM diet controlled in prior , iron deficiency anemia, severe hypokalemia 2/2 hyperemesis, also with a medical history significant for ulcerative colitis, anxiety, depresion, and GERD admitted for severe hypokalemia due to secondary losses during . Hypokalemia: On arrival with K 2.2, has been low K the last several ER visits. Patient is hypochloremic and hypokalemic which is suggestive of secondary loss from diarrhea/vomiting. Received a total of 80meq KCl (40 IV, 40 PO) while still in the ER. BMP with morning labs. Likely more repletion (orally if can tolerate) in the AM. Suspect symptoms of body tingling, hand cramping are secondary to her low K and will improve with repletion. Would recommend K value of 3.5-4.0 before discharge, with daily potassium supplement until delivery. Nausea/vomiting in : With emesis every day, several times a day, likely contributing greatly to her hypokalemia. Experienced severe nausea and vomiting in a previous and required hospitalization at one time for electrolyte repletion. Zofran and Reglan prn nausea. PO diet as tolerated. Encourage PO hydration specifically. Dehydration: Suspect dehydration given [place]-Roman contractions, symptoms suggestive of orthostatic hypotension. Will start NSS w/ KCl 20meq added at rate of 100cc/hr. Iron deficiency anemia: History of, continue iron supplementation daily. Ulcerative colitis: No abdominal pain, WBCs normal, non-bloody stools. No intervention at this time. Anxiety/Depression: Continue home buspirone/citalopram. No SI/HI, has future planning, no concerns from this perspective. Diet-controlled GDM history: Regular OB diet okay. BSG normal in ER. Code Status: FULL CODE FEN/GI: OB diet, BSG monitoring given GDM; start NSS w/ 20meq KCl @ 100cc/hr DVT ppx: ad trent on demand Dispo: Observation to OB floor for daily NST, electrolyte management by hospitalist service (2) Nausea and vomiting during : (3) Iron (Fe) deficiency anemia: (4) Ulcerative colitis: (5) Anxiety and depression: (6) Diet controlled gestational diabetes mellitus (GDM), antepartum: (7) GERD (gastroesophageal reflux disease): Supervising Physician Co-Signing Physician Notes Patient seen and examined, chart reviewed, case discussed with Dr. Grijalva and I agree with her assessment and plan as documented above. Briefly, patient is a 30yo female at 36 4/7 weeks presenting with hypokalemia. Patient with hyperemesis - admits to 3-4 episodes of emesis per day. Also with intermittent diarrhea with histoyr of UC. Poor po tolerance K=2.[address] on arrival[address] EKG with ST-T wave abnormallities diffusely On exam she is afebrile, HD stable, anxious in appearance but NAD Skin - no rash HEENT - NC/AT, PERRL, MMM, Neck supple Heart - +S1/S2, regular, no m/r/g Lungs - CTA Abd - Gravid uterus, NT/ND, +BS Ext - No edema Labs and images reviewed. Assessment/Plan - suspect hypokalemia secondary to GI loses - vomiting, occasional diarrhea as well as poor po intake -aggressive electrolyte supplementation as above -repeat labs -Remainder of plan as above History of Present Illness Reason for Consultation: severe hypokalemia Requesting Physician: Dr. Sara Aggarwal Attending Physician: Dr. Bonnie Llanos History of Present Illness 30 yo F @ 36 4/7 weeks, complicated by diet-controlled GDM in prior , iron deficiency anemia, hypokalemia 2/2 hyperemesis, also with a medical history significant for ulcerative colitis, anxiety, depression, and GERD presented to ER for evaluation of reports of contractions and pre-syncopal sensation. In the ER was found to have potassium of 2.2, mild tachycardia intermittent to low 100s, hypochloremia, normal LFTs, normal platelets. EKG showed normal sinus rhythm with T wave inversions in leads III, V1 without ST elevations. Patient was ordered 40meq PO KCl Elixir and 20meq K Riders IV, as well as NSS 1L bolus. Also given Reglan 5mg IV x1. On my interview patient reports that she has a history of symptomatic hypokalemia, in the past requiring ICU admission for electrolyte replacement. She is concerned that her low potassium will continue to drop and that she will endanger herself and her baby's health. She states that she has always had nausea and intermittent vomiting during her , however over the last 1.5 months her nausea has gotten worse such that she will vomit up to 3 times daily. Due to this, her appetite has been fairly poor and she reports that she is forcing herself to eat even though she is nauseated for the baby's sake. Has a history of UC and will have intermittent bouts of diarrhea, no blood recently in stools. 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 Does not endorse chest pain, will sometimes have a breathless sensation with activities that very quickly passes. No abdominal pain, dizziness or headache. No recent fevers or chills and no sick contacts. Allergies Allergy/AdvReac Type Severity Reaction Status Date / Time cephalexin Allergy Mild ITCHINESS Verified 05/18/20 22:40 nickel Allergy Mild ITCHY RED Verified 05/18/20 22:40 WITH EARRINGS hydromorphone [From Dilaudid] AdvReac Intermediate Tachycardia,shortness Verified 05/18/20 22:41 of breath and rash morphine AdvReac Intermediate SHORTNESS Verified 05/18/20 22:40 OF BREATH diphenhydramine AdvReac Mild hyeractivit Verified 05/18/20 22:41 [From Benadryl] y Home Medications Medication Instructions Recorded Confirmed Type buspirone 5 mg PO HS 05/18/20 05/18/20 History cetirizine 10 mg PO DAILY PRN 05/18/20 05/18/20 History citalopram 30 mg PO HS 05/18/20 05/18/20 History ferrous sulfate [Iron (ferrous 325 mg PO QAM 05/18/20 05/18/20 History sulfate)] melatonin 5 mg PO HS PRN 05/18/20 05/18/20 History metoclopramide HCl [Reglan] 10 mg PO Q6H PRN 05/18/20 05/18/20 History ondansetron HCl [Zofran] 4 mg PO Q6H PRN 05/18/20 05/18/20 History potassium 99 mg PO QAM 05/18/20 05/18/20 History vit no.[id number] 1 tab PO DAILY 05/18/20 05/18/20 History [ Vitamin] Patient History Medical History Autoimmune pancreatitis Bulimia nervosa Encounter for anatomic survey Encounter for pre-operative examination GDM (gestational diabetes mellitus) Hiatal hernia Hx of varicella Labial cyst Neoplasm of uncertain behavior of skin Normal vaginal delivery Os odontoideum CERVICAL SPINE - FULL ROM Sinus tachycardia ONCE IN A WHILE FEELS THIS- DOES NOT SEE CARDIOLOGY Syncope HX- FROM SINUS TACHYCARDIA (STRESS AND ELECOTROLYTE IMBALANCE) OVER 1.5 YEARS AGO DURING Third trimester Ulcerative colitis Ulcerative pancolitis Surgical History History of anesthesia reaction SLOW TO WAKE UP History of breast biopsy right--benign History of cholecystectomy History of colonoscopy History of cystoscopy MULTIPLE X'S WITH STENTS AND STONE REMOVAL/ NO STENTS CURRENTLY History of ERCP History of lithotripsy MULTIPLE History of tooth extraction WISDOM TEETH Nausea and vomiting after administration of anesthetic agent Status post laser lithotripsy of ureteral calculus 12/04/17 LMA #3 Family History Mother Breast cancer Grandmother (Maternal) Breast cancer Grandfather (Paternal) Myocardial infarction Other Cancer Heart disease Hypertension Denies family history of Ovarian cancer Prostate cancer Colorectal cancer Stroke Social History Smoking Status: Never smoker Second Hand Exposure: No; Hx Alcohol Use: No Hx Substance Use: No Preferred Language: Korean Communication Ability: Effective Visual Impairment: No Limitations 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 Industrial 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 Required: No Beliefs That Will Affect Care: None marital status: marital status details: Russ Galvez (34) [phone] Current Living Situation: Spouse Current Living Situation Comment: Lives with and 2 kids current occupational status: employed 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 Safe at Home: Yes Safety Concerns: Feels Safe At This Time Assistive Devices: Glasses Review of Systems Review of Systems: All systems reviewed & are unremarkable except as noted in HPI & below Constitutional: no fever, no chills and no malaise Respiratory: no cough and no dyspnea Cardiovascular: no chest pain, no palpitations and no edema Gastrointestinal: + diarrhea/loose stools (intermittent); no abdominal pain and no constipation Genitourinary: no dysuria and no hematuria Physical Exam Physical Exam: General: patient is alert and oriented, in NAD Cardiac: +S1/S2, no murmurs rubs or gallops Respiratory: lungs CTA b/l, anteriorly and posteriorly, no wheezes rales or rhonchi, no increased work of breathing, symmetric chest rise, no respiratory d istress Abdomen: fundal height appropriate for GA. Uterine fundus firm. Lower Extremities: minimal LE edema or swelling, no deep calf pain, Suly's sign negative b/l Eyes: PERRL, conjunctivae normal, anicteric sclerae ENMT: external ear and nose normal, oropharynx normal Neck: normal visual inspection Gastrointestinal (Abdomen): Inspection/Auscultation: normal bowel sounds Percussion/Palpation: abdomen soft; abdomen nontender Musculoskeletal: no cyanosis or clubbing, extremities motor strength 5/5 Skin: no rashes, warm and dry Neurologic: PERRL, EOMI, accommodation nl, no face palsy, no dysarthria Psychiatric: A+Ox3, euthymic affect Genitourinary: Manual OB Exam: + cervical dilation, + cervical effacement and + station OB Exam Monitor Tracing: + external FHT monitor used, + external uterine monitor used, + category I and + normal FHT variability Results & Data Results & Data ([facility]) Vital Signs (Past 12 Hours) Vital Signs Temp Pulse Pulse Resp BP BP Pulse Ox 05/18/20 23:46 94 H 16 104/63 98 05/18/20 22:49 98 05/18/20 22:07 36.5 C 108 H 18 111/66 94 Resident Activity Tracking Resident Involvement: Resident Care Provided Care Provided: Adult Hospital Medicine (1) GERD (gastroesophageal reflux disease) Esophagitis presence: esophagitis presence not specified Qualified Code(s): K21.9 - Gastro-esophageal reflux disease without esophagitis
[2020-05-19] MEDS: POTASSIUM CHLORIDE / WTR 10 MEQ/100 ML PLCT IV SCH ×9 (00:50→17:23)
[2020-05-19] MEDS ORDERED: ONDANSETRON INJ 2 MG/ML 2 ML VIAL IV STA (00:52)
[2020-05-19] MEDS ORDERED: busPIRone 5 MG TAB PO STA (01:03)
[2020-05-19] MEDS ORDERED: CITALOPRAM 20 MG TAB PO STA (01:04)
--- NOTE | 2020-05-19 01:23 | History & Physical Report ---
Date of Service May 19, 2020 Assessment & Plan (1) Nausea and vomiting during : Admit to observation status per recommendation from ER for electrolyte repletion. Hospitalist consultation on board to help with this medical management. Labor ruled out by cervix exam on admission, suspect contractions are caused by dehydration. Discussed s/s labor - if pt has worsening contractions, rupture of membranes, vaginal bleeding, decreased movement, she is to notify OB team immediately. Plan for NST daily during hospitalization. Anticipate discharge home upon improvement of symptoms and labs. History of Present Illness Chief Complaint: electrolyte imbalance, dehydration Primary Care Provider: MARCO A Menendez 30yo @ 36 07/15, presented to [facility] from work with complaints of tingling all over, feeling like her joints are locking up, feeling like she will pass out, and concerns that she may have electrolyte imbalances that could kill her. She is jaqui every few minutes, feels like these are [place] Roman contractions. 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 She has had multiple ER visits over the past few weeks for similar complaints, and has had nausea/vomiting during the entire . Has been vomiting multiple times per day, and last vomited today at 5pm. 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 In review of her weights during the , initial weight was 119lbs, is now 134lbs. She has history of multiple medical problems, including ulcerative colitis, pancreatitis, bulimia. Allergies Allergy/AdvReac Type Severity Reaction Status Date / Time cephalexin Allergy Mild ITCHINESS Verified 05/18/20 22:40 nickel Allergy Mild ITCHY RED Verified 05/18/20 22:40 WITH EARRINGS hydromorphone [From Dilaudid] AdvReac Intermediate Tachycardia,shortness Verified 05/18/20 22:41 of breath and rash morphine AdvReac Intermediate SHORTNESS Verified 05/18/20 22:40 OF BREATH diphenhydramine AdvReac Mild hyeractivit Verified 05/18/20 22:41 [From Benadryl] y Home Medications Medication Instructions Recorded Confirmed Type buspirone 5 mg PO HS 05/18/20 05/18/20 History cetirizine 10 mg PO DAILY PRN 05/18/20 05/18/20 History citalopram 30 mg PO HS 05/18/20 05/18/20 History ferrous sulfate [Iron (ferrous 325 mg PO QAM 05/18/20 05/18/20 History sulfate)] melatonin 5 mg PO HS PRN 05/18/20 05/18/20 History metoclopramide HCl [Reglan] 10 mg PO Q6H PRN 05/18/20 05/18/20 History ondansetron HCl [Zofran] 4 mg PO Q6H PRN 05/18/20 05/18/20 History potassium 99 mg PO QAM 05/18/20 05/18/20 History vit no.[id number] 1 tab PO DAILY 05/18/20 05/18/20 History [ Vitamin] Patient History Medical History Autoimmune pancreatitis Bulimia nervosa Encounter for anatomic survey Encounter for pre-operative examination GDM (gestational diabetes mellitus) Hiatal hernia Hx of varicella Labial cyst Neoplasm of uncertain behavior of skin Normal vaginal delivery Os odontoideum CERVICAL SPINE - FULL ROM Sinus tachycardia ONCE IN A WHILE FEELS THIS- DOES NOT SEE CARDIOLOGY Syncope HX- FROM SINUS TACHYCARDIA (STRESS AND ELECOTROLYTE IMBALANCE) OVER 1.5 YEARS AGO DURING Third trimester Ulcerative colitis Ulcerative pancolitis Surgical History History of anesthesia reaction SLOW TO WAKE UP History of breast biopsy right--benign History of cholecystectomy History of colonoscopy History of cystoscopy MULTIPLE X'S WITH STENTS AND STONE REMOVAL/ NO STENTS CURRENTLY History of ERCP History of lithotripsy MULTIPLE History of tooth extraction WISDOM TEETH Nausea and vomiting after administration of anesthetic agent Status post laser lithotripsy of ureteral calculus 12/04/17 LMA #3 Family History Mother Breast cancer Grandmother (Maternal) Breast cancer Grandfather (Paternal) Myocardial infarction Other Cancer Heart disease Hypertension Denies family history of Ovarian cancer Prostate cancer Colorectal cancer Stroke Social History Smoking Status: Never smoker Second Hand Exposure: No; Hx Alcohol Use: No Hx Substance Use: No Preferred Language: Cambodian Communication Ability: Effective Visual Impairment: No Limitations Junior Buyer Required: No Beliefs That Will Affect Care: None marital status: marital status details: Russ Galvez (34) [phone] Current Living Situation: Spouse Current Living Situation Comment: Lives with and 2 kids current occupational status: employed 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 No s/s chorio or abruption. Skin: no rashes, warm and dry Psychiatric: A+Ox3, euthymic affect Results & Data ([facility]) Vital Signs (Past 12 Hours) Vital Signs Temp Pulse Pulse Resp BP BP Pulse Ox 05/18/20 23:46 94 H 16 104/63 98 05/18/20 22:49 98 05/18/20 22:07 36.5 C 108 H 18 111/66 94 Monitoring External Monitor Category 1 NST Tocodynamometer Ctx Q 4 min Coding Level of Care Code 84444 Office/OBS Consult Lvl 2 Diagnoses Nausea and vomiting during O21.9
[2020-05-19 01:34] LABS: Appearance Urine Clear (Clear); Bacteria Urine Automated Negative (Negative); Bilirubin Urine Negative (Negative); Blood Urine 2+ (Negative); Color Urine Dark Yellow; Epithelial Cell Urine Auto >30 /lpf (0-5); Glucose Urine UA Negative (Negative); Ketones Urine 2+ (Negative); Leukocyte Esterase Urine 1+ (Negative); Nitrite Urine Negative (Negative); Protein Urine 1+ (Negative); RBC Urine Automated >30 /hpf (0-4); Specific Gravity Urine 1.017 (1.000-1.030); Urobilinogen Urine Negative (Negative)
[2020-05-19] MEDS ORDERED: MELATONIN 3 MG TAB PO PRN (02:49)
[2020-05-19] MEDS ORDERED: NSS + 20MEQ KCL 20 MEQ/1,000 ML BAG IV SCH (04:15)
[2020-05-19 06:08] LABS: Hematocrit (blood only) 31.4 % (37-47); Hemoglobin 10.3 g/dL (12.0-16.0); Mean Corpuscular Hemoglobin 29.4 pg (25-34); Mean Corpuscular Hgb Conc 32.8 g/dL (32-36); Mean Corpuscular Volume 89.7 fL (80-100); Mean Platelet Volume 10.1 fL (7.4-10.4); Platelet Count 239 K/uL (130-400); RDW Coefficient of Variation 17.2 % (11.5-14.5); RDW Standard Deviation 54.6 fL (36.4-46.3); White Blood Count 6.47 K/uL (4.8-10.8)
[2020-05-19 06:39] LABS: BUN Creatinine Ratio 9.2 (10-20); Calcium 7.1 mg/dl (8.5-10.1); Creatinine Clr Calc Pharmacy 110.4 ml/min; Potassium 2.7 mmol/L (3.5-5.1)
[2020-05-19] MEDS: FERROUS SULFATE 325 MG TAB PO SCH (07:51)
[2020-05-19] MEDS: PRENATAL VITAMIN 1 TAB PO SCH (07:52)
[2020-05-19] MEDS ORDERED: POTASSIUM PHOS 3 MMOL/1 ML INFUSION IV STA (07:54)
[2020-05-19] MEDS: POTASSIUM CHLORIDE 20 MEQ/15 ML UDC PO SCH ×2 (08:01→10:28)
[2020-05-19] MEDS: METOCLOPRAMIDE HCL INJ 5 MG/ML 2 ML VIAL IV PRN ×2 (08:08→18:14)
[2020-05-19] MEDS ORDERED: POTASSIUM PHOSPHATE 21 MMOL in SODIUM CHLORIDE 0.9% 500 ML IV ONE (08:30)
[2020-05-19] MEDS ORDERED: NON-FORMULARY MEDICATION (Prenatal Vit No.130-Iron-Folic [Prenatal Vitamin] 27 mg iron- 80 PO SCH (09:00)
[2020-05-19] MEDS ORDERED: NON-FORMULARY MEDICATION (Ferrous Sulfate [Iron (Ferrous Sulfate)] 325 mg (65 mg iron) Tab PO SCH (09:00)
--- NOTE | 2020-05-19 10:06 | Electrocardiogram Report ---
Test Reason : Blood Pressure : / mmHG Vent. Rate : 095 BPM Atrial Rate : 095 BPM P-R Int : 152 ms QRS Dur : 094 ms QT Int : 380 ms P-R-T Axes : 045 088 006 degrees QTc Int : 477 ms Normal sinus rhythm Diffuse Nonspecific ST and T wave abnormality Abnormal ECG When compared with ECG of 16-NOV-2018 20:41, Diffuse Nonspecific ST and T wave abnormality now present Confirmed by Jose C Ace ([id number]) on 05/19/2020 10:06:35 AM Referred By: Sara Aggarwal Confirmed By:Jose C Aec
--- NOTE | 2020-05-19 10:07 | Electrocardiogram Report ---
Test Reason : Blood Pressure : / mmHG Vent. Rate : 097 BPM Atrial Rate : 097 BPM P-R Int : 150 ms QRS Dur : 086 ms QT Int : 388 ms P-R-T Axes : 045 089 005 degrees QTc Int : 492 ms Normal sinus rhythm Diffuse Nonspecific ST and T wave abnormality Abnormal ECG When compared with ECG of 18-MAY-2020 23:40, No significant change was found Confirmed by Jose C Ace ([id number]) on 05/19/2020 10:06:48 AM Referred By: Sara Aggarwal Confirmed By:Jose C Ace
[2020-05-19] MEDS: ONDANSETRON INJ 2 MG/ML 2 ML VIAL IV PRN (13:21)
[2020-05-19] MEDS ORDERED: ACETAMINOPHEN 500 MG TAB PO PRN (13:35)
[2020-05-19 13:58] LABS: BUN Creatinine Ratio 8.8 (10-20); Calcium 7.6 mg/dl (8.5-10.1); Creatinine Clr Calc Pharmacy 94.9 ml/min; Est GFR (African American) 130.6; Est GFR (Non-African American) 112.7; Potassium 3.4 mmol/L (3.5-5.1)
[2020-05-19] MEDS ORDERED: POTASSIUM CHLORIDE CRTAB 20 MEQ TABCR PO STA (14:29)
[2020-05-19] MEDS ORDERED: IRON SUCROSE 200 MG in 0.9 % SODIUM CHLORIDE 100 ML IV ONE (14:45)
[2020-05-19] MEDS ORDERED: Nursing to Pharmacy Communication SCH (15:45)
[2020-05-19] MEDS ORDERED: FAMOTIDINE 20 MG TAB PO ONE (16:30)
--- NOTE | 2020-05-19 17:48 | Hospitalist Progress Note ---
Date of Service May 19, 2020 Assessment & Plan (1) Hypokalemia due to excessive gastrointestinal loss of potassium: 30 yo F @ 36 4/7 weeks, complicated by GDM diet controlled in prior , iron deficiency anemia, severe hypokalemia 2/2 hyperemesis, also with a medical history significant for ulcerative colitis, anxiety, depression, and GERD admitted for severe hypokalemia due to secondary losses during . Severe Hypokalemia: -On arrival with K 2.2 with multiple hx of several ER visits -secondary to diarrhea and hx of hyperemesis (2-4 times emesis daily) -Received 80meq KCl (40 IV, 40 PO) in ED -AM labs with K 2.7, repleted with KPhos (30meq K) and PO K elixer (20 meq x3 q2h). -Repeat K at 3.4, given another 20meq KCl IV and 40 KCl PO -Repeat BMP in AM, suspect improvement and ability to discharge patient home with oral K supplementation -Also discussed with patient about incorporating electrolyte containing beverages such as Pedialyte or Gatorade at home Hypophosphatemia -Low at Phos 2 this AM -Repleted with 20meq KPhos -Repeat in AM Nausea/vomiting in : -Contributing to above electrolyte disturbances -Continue Zofran and Reglan -Encourage PO intake as tolerated. Dehydration: -Secondary to N/V -IVF this AM, now discontinued -Continue to encourage PO intake Iron deficiency anemia: -Given a dose of Venofer today Ulcerative colitis: No abdominal pain, WBCs normal, non-bloody stools. No intervention at this time. Anxiety/Depression: Continue home buspirone/citalopram. No SI/HI, has future planning, no concerns from this perspective. Diet-controlled GDM history: Regular OB diet okay. BSG normal in ER. Thank you for allowing us to participate in the care of this patient. Code Status: FULL CODE FEN/GI: OB diet, BSG monitoring given GDM; DVT ppx: Ambulation Dispo: Observation to OB floor for daily NST, electrolyte management by hospitalist service (2) Nausea and vomiting during : (3) Iron (Fe) deficiency anemia: (4) Ulcerative colitis: (5) Anxiety and depression: (6) Diet controlled gestational diabetes mellitus (GDM), antepartum: (7) GERD (gastroesophageal reflux disease): Admission and Anticipated Discharge Date Admission Date: May 19, 2020 Supervising Physician Co-Signing Physician Notes Resident Physician Supervision Note: I independently interviewed and examined the patient and verified the alberto history and physical, reviewed labs and image studies, discussed the case with the resident Dr. Saldana and agree with the findings and care plan. Subjective Patient examined this AM while resting in bed. Patient noted that overnight her nausea with slightly better control, though was still feeling nauseous while eating or drinking. States that she typically vomits 2-4 times daily, even with anti-emetics and understands the importance of keeping her electrolytes in balance while inpatient. Hopeful for discharge later this afternoon, though understanding if required to stay pending afternoon labs. No other complaints/concerns at this time otherwise. Denies any fever, chills, SOB, chest pain, calf pain, headache. Review of Systems Review of Systems: All systems reviewed & are unremarkable except as noted in Subjective Physical Exam Constitutional: WD/WN, vitals as above Eyes: PERRL, conjunctivae normal, anicteric sclerae Respiratory: normal respiratory effort, lungs clear to auscultation Cardiovascular: RRR, no murmur, no edema Gastrointestinal (Abdomen): Inspection/Auscultation: + abdomen distended (Gravid ) Percussion/Palpation: abdomen soft; abdomen nontender Results & Data Results & Data ([facility]) Vital Signs (Past 12 Hours) Vital Signs Temp Pulse Pulse Resp BP BP Pulse Ox 05/19/20 15:11 36.5 C 95 H 20 96/56 L 97 05/19/20 11:16 36.5 C 108 H 18 98/59 L 96 05/19/20 07:41 36.5 C 97 H 18 100/59 L 96 05/19/20 07:28 87 Resident Activity Tracking Resident Involvement: Resident Care Provided Care Provided: Adult Hospital Medicine (1) GERD (gastroesophageal reflux disease) Esophagitis presence: esophagitis presence not specified Qualified Code(s): K21.9 - Gastro-esophageal reflux disease without esophagitis
[2020-05-19] MEDS ORDERED: CITALOPRAM 20 MG TAB PO SCH (21:00)
[2020-05-19] MEDS ORDERED: busPIRone 5 MG TAB PO SCH (21:00)
--- NOTE | 2020-05-19 22:00 | Billing Data ---
Date of Service May 19, 2020 Coding Level of Care Code 44736 Inpt Consult Level 3
[2020-05-20 06:28] LABS: BUN Creatinine Ratio 12.5 (10-20); Calcium 7.6 mg/dl (8.5-10.1); Creatinine Clr Calc Pharmacy 106.9 ml/min; Est GFR (African American) 137.6; Est GFR (Non-African American) 118.7; Potassium 2.9 mmol/L (3.5-5.1)
[2020-05-20] MEDS ORDERED: POTASSIUM CHLORIDE 20 MEQ/15 ML UDC PO ONE (07:30)
[2020-05-20] MEDS: POTASSIUM CHLORIDE / WTR 10 MEQ/100 ML PLCT IV SCH ×2 (07:53→08:50)
[2020-05-20] MEDS: FERROUS SULFATE 325 MG TAB PO SCH (07:54)
[2020-05-20] MEDS: PRENATAL VITAMIN 1 TAB PO SCH (07:54)
[2020-05-20] MEDS: ONDANSETRON INJ 2 MG/ML 2 ML VIAL IV PRN (08:50)
--- NOTE | 2020-05-20 09:40 | Obstetrical Progress Note ---
Date of Service May 20, 2020 Assessment & Plan (1) Vomiting: (2) Hypokalemia: Doing well obstetrically. Continue repletion per Medicine team. Likely discharge today pending Medicine recs (3) Supervision of normal intrauterine in multigravida: (4) Diet controlled gestational diabetes mellitus (GDM), antepartum: Admission and Anticipated Discharge Date Admission Date: May 19, 2020 Subjective Doing well. Denies contraction, VB, LF. Good FM Results & Data ([place]) Vital Signs (Past 12 Hours) Vital Signs Temp Pulse Pulse Resp BP Pulse Ox 05/20/20 08:00 100 H 05/20/20 07:35 37.1 C 101 H 18 103/62 94 05/20/20 04:21 89 05/20/20 04:00 36.8 C 91 H 18 99/60 L 96 05/19/20 23:00 36.8 C 95 H 18 99/63 L 97 PG Care Time/CCT Total # of Minutes Spent Total Time Spent with Patient: Total time spent is greater than 50% in coordination of care (as documented) at patient's floor/unit and/or counseling patient: Coding Level of Care Code 93577 Subseq Hosp Care Lvl 2 Diagnoses Vomiting R11.10 Hypokalemia E87.6 Supervision of normal intrauterine in multigravida Z34.80 Diet controlled gestational diabetes mellitus (GDM), antepartum O24.410
[2020-05-20] MEDS ORDERED: POTASSIUM CHLORIDE CRTAB 20 MEQ TABCR PO ONE ×2 (10:00)
[2020-05-20] MEDS ORDERED: POTASSIUM CHLORIDE 20 MEQ/15 ML UDC PO SCH (10:00)
--- NOTE | 2020-05-20 10:17 | Hospitalist Progress Note ---
Date of Service May 20, 2020 Assessment & Plan Admission and Anticipated Discharge Date Admission Date: May 19, 2020 Montana Spencer is a 30 y/o at 36/5 wks, with a med hx significant for IBS and GERD, who presented to the ER on 05/18 with reports of contractions + presyncopal sensation + tingling sensation all over her body. Her current has been complicated by diet controlled gestational diabetes, iron deficiency anemia and hypokalemia 2/2 hyperemesis. Severe Hypokalemia: likely secondary to diarrhea and hx of hyperemesis (2-4 times emesis daily in this ) -K 2.2 on initial ER arrival -Received 80meq KCl (40 IV, 40 PO) in ER -Repleted with KPhos (30meq K) and PO K elixer (20 meq x3 q2h) on 05/19/20 -AM labs show K at 2.9, down from 3.4 yesterday. Given another 20meq KCl IV and 40 KCl PO x2 this AM -Urine chlorine 19, more indicative of vomiting than gitelman's or Barters syndrome. -Repeat BMP at noon. Discharge patient home with oral K supplementation if labs show improvement Hypophosphatemia -Low at Phos 2 yesterday AM. Repleted with 20meq KPhos -Phos up to 3 this AM Nausea/vomiting in : -Contributing to above electrolyte disturbances -Pt vomits 2-4 times daily since . Still nauseous but has not vomited in past 2 days. -Continue Zofran and Reglan -Encourage PO intake as tolerated. Dehydration: -Secondary to N/V. Received IVF. Now discontinued -Continue to encourage PO intake Iron deficiency anemia: -Given a dose of Venofer yesterday IBS: No abdominal pain, WBCs normal, non-bloody stools. Multiple episodes of loose stools, likely 2/2 to K infusion No intervention at this time. Continue to monitor Anxiety/Depression: Continue home buspirone/citalopram. No SI/HI, has future planning, no concerns from this perspective. Diet-controlled GDM history: Regular OB diet okay. BSG normal in ER. Thank you for allowing us to participate in the care of this patient. Code Status: FULL CODE FEN/GI: OB diet, BSG monitoring given GDM; DVT ppx: Ambulation Dispo: Observation to OB floor for daily NST, electrolyte management by hospitalist service Supervising Physician Co-Signing Physician Notes Medical Student Supervision Note: I was personally present during medical student patient encounter and independently interviewed and examined the patient and verified the alberto history and physical, reviewed labs and image studies, discussed the case with Mackenzie Zhu and agree with the findings and care plan. Recheck K level today in the afternoon is 3.6. Ok to discharge home from medicine standpoint recommendation to take KCL 20meq bid on days she has emesis in addition to pedialyte/gatorade. Check BMP in 2-3 days and titrate KCL replacement accordingly. Will continue to need frequent K level monitoring there after. Zachary Spencer is a 30 y/o at 36/5, with a med hx significant for IBS and GERD. She presented to the ER on 05/18 with reports of contractions + presyncopal sensation + tingling sensation all over her body. Her current has been complicated by diet controlled gestational diabetes, iron deficiency anemia and hypokalemia 2/2 hyperemesis. Today, she seems to be doing better. She reports feeling less dehydrated. She is still nauseous but did not have any emesis yesterday and has had none today. She reported 2 episodes of loose stools overnight, and 2 more this AM. She is able to ambulate and does not feel pre-syncopal with movement anymore. Review of Systems Respiratory: no chest congestion and no dyspnea Cardiovascular: no chest pain with activity, no dyspnea at rest and no syncope Gastrointestinal: + nausea no vomiting since yesterday Psychiatric: no problem reported Physical Exam Constitutional: cooperative no acute distress Respiratory: normal respiratory effort, lungs clear to auscultation Cardiovascular: Rate/Rhythm: regular rate and regular rhythm no m/r/g appreciated Gastrointestinal (Abdomen): distended, gravid Psychiatric: A+Ox3, euthymic affect Eye Contact: good eye contact Insight: good insight Results & Data Results & Data ([facility]) Vital Signs (Past 12 Hours) Vital Signs Temp Pulse Pulse Resp BP Pulse Ox 05/20/20 08:00 100 H 05/20/20 07:35 37.1 C 101 H 18 103/62 94 05/20/20 04:21 89 05/20/20 04:00 36.8 C 91 H 18 99/60 L 96 05/19/20 23:00 36.8 C 95 H 18 99/63 L 97
[2020-05-20] MEDS ORDERED: FAMOTIDINE 20 MG TAB PO PRN (10:33)
[2020-05-20 12:56] LABS: BUN Creatinine Ratio 11.6 (10-20); Calcium 8.6 mg/dl (8.5-10.1); Creatinine Clr Calc Pharmacy 103.4 ml/min; Est GFR (African American) 136.2; Est GFR (Non-African American) 117.5; Potassium 3.6 mmol/L (3.5-5.1)
[2020-05-20] MEDS: METOCLOPRAMIDE HCL INJ 5 MG/ML 2 ML VIAL IV PRN (16:49)
--- NOTE | 2020-05-20 17:48 | Discharge Summary ---
Date of Service May 20, 2020 Admission HPI Per Admitting Provider 30yo @ 36 07/15, presented to [facility] from work with complaints of tingling all over, feeling like her joints are locking up, feeling like she will pass out, and concerns that she may have electrolyte imbalances that could kill her. She is jaqui every few minutes, feels like these are Mccurtain Roman contractions. 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 She has had multiple ER visits over the past few weeks for similar complaints, and has had nausea/vomiting during the entire . Has been vomiting multiple times per day, and last vomited today at 5pm. 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 In review of her weights during the , initial weight was 119lbs, is now 134lbs. She has history of multiple medical problems, including ulcerative colitis, pancreatitis, bulimia. Admission Exam Per Admitting Provider Physical Exam: Cervix: fingertip/50%/-3 Constitutional: WD/WN, vitals as above Respiratory: normal respiratory effort, lungs clear to auscultation no respiratory distress Cardiovascular: Rate/Rhythm: regular rate and regular rhythm Gastrointestinal (Abdomen): Inspection/Auscultation: abdomen normal to inspection Percussion/Palpation: abdomen soft; abdomen nontender Gravid. No s/s chorio or abruption. Skin: no rashes, warm and dry Psychiatric: A+Ox3, euthymic affect Principal Diagnosis Hypokalemia Discharge Exam Constitutional WD/WN, vitals as above Eyes PERRL, conjunctivae normal, anicteric sclerae ENMT external ear and nose normal, oropharynx normal Neck trachea midline, no thyromegaly Respiratory normal respiratory effort, lungs clear to auscultation Cardiovascular RRR, no murmur, no edema Gastrointestinal (Abdomen) Inspection/Auscultation: abdomen normal to inspection and + abdomen distended (gravid ) Percussion/Palpation: abdomen soft; abdomen nontender, no guarding and abdomen not rigid Discharge Data Allergies Allergy/AdvReac Type Severity Reaction Status Date / Time cephalexin Allergy Mild ITCHINESS Verified 05/18/20 22:40 nickel Allergy Mild ITCHY RED Verified 05/18/20 22:40 WITH EARRINGS hydromorphone [From Dilaudid] AdvReac Intermediate Tachycardia,shortness Verified 05/18/20 22:41 of breath and rash morphine AdvReac Intermediate SHORTNESS Verified 05/18/20 22:40 OF BREATH diphenhydramine AdvReac Mild hyeractivit Verified 05/18/20 22:41 [From Benadryl] y Consultations 05/18/20 23:32 ED Decision to Admit Stat 05/19/20 06:09 Consult Hospitalist Routine Hospital Course (1) Hypokalemia: Montana Spencer is a 30 y/o at 36/5 wks, with a med hx significant for IBS and GERD, who presented to the ER on 05/18 with reports of contractions + presyncopal sensation + tingling sensation all over her body. Her current has been complicated by diet controlled gestational diabetes, iron deficiency anemia and hypokalemia 2/2 hyperemesis. Severe Hypokalemia: likely secondary to diarrhea and hx of hyperemesis (2-4 times emesis daily in this ) -K 2.2 on initial ER arrival -Received 80meq KCl (40 IV, 40 PO) in ER -Repleted with KPhos (30meq K) and PO K elixer (20 meq x3 q2h) on 05/19/20 -AM labs show K at 2.9, down from 3.4 yesterday. Given another 20meq KCl IV and 40 KCl PO x2 on day of discharge, repeat K 3.6 -Urine chlorine 19, more indicative of vomiting than gitelman's or Bartters syndrome. -Patient discharged with KCl 20meq BID PRN days where patient has emesis -Encouraged PO intake of electrolyte containing solutions such as Pedialyte, Gatorade, etc. -Recommend Repeat BMP in the next 2-3 days and adjustment of potassium supplementation as needed. Hypophosphatemia -Low at Phos 2 on 05/19/20. Repleted with 20meq KPhos -Phos 3 on day of discharge. Nausea/vomiting in : -Contributing factor to above electrolyte disturbances -Pt vomits 2-4 times daily since . Still nauseous but has not vomited in past 2 days including day of discharge. -Continued Zofran and Reglan PRN -Encouraged PO intake as tolerated. Dehydration: -Secondary to N/V. Received IVF. Now discontinued -Continued to encourage PO intake Iron deficiency anemia: -Given a dose of Venofer 05/19/20 IBS: No abdominal pain, WBCs normal, non-bloody stools. Anxiety/Depression: Continued home buspirone/citalopram. No SI/HI, has future planning, no concerns from this perspective. Diet-controlled GDM history: Continued Regular OB diet okay. BSG normal in ER. Total Time Total Time Spent Total Time Spent (In Minutes): see attending attestation Discharge Plan Discharge Items Patient Disposition: Home - Self-Care Reason For Visit: ELECTROLYTE IMBALANCE, DEHYDRATION Discharge Diagnosis: Hypokalemia Condition on Discharge: Good Activity: Resume your previous activity Non-emergency contact: Primary Care Provider and Manager Content Call non-emergency contact if: you have any medication questions Follow-up/Referrals: Yara Llanos CRNP [Primary Care Provider] - 05/22/20 11:30 am Diet: Regular Addtl Attending Provider Instructions: Johanna, It was our pleasure caring for you at [facility] from 05/19 - 05/20/20 in regards to your hypokalemia. During your stay you were found to initially be profoundly hypokalemic (low potassium) which we believe was due to your chronic nausea and vomiting and occasional diarrhea. You were given IV potassium and your levels were improved prior to your discharge. We want you to continue taking potassium supplements as we discussed, mainly on days in which you are experiencing vomiting. Please see below for future instructions. -Please schedule for a follow up appointment with your PCP or OBGYN in the next 2-3 days for a repeat Basic Metabolic Panel (BMP) to check you electrolytes -You are being prescribed Potassium Chloride 20meq twice a day by mouth on days in which you are experiencing vomiting. -Please also try to incorporate electrolyte containing beverages such as Pedialyte or Sugar-Free Gatorade/Powerade/Etc into your diet -Please continue your remaining medications as prescribed. -If you have any questions or if your symptoms worsen, please call your PCP, OBGYN, or return to the ED for evaluation. Pending Studies at Discharge: No Stand-Alone Forms: My [facility], Smoking Cessation Medications and DC Order Prescriptions: New potassium chloride 20 mEq tablet extended release 20 meq PO BID PRN (Reason: vomiting) 30 Days Qty: 60 RF: 2 Continued buspirone 5 mg Tablet 5 mg PO HS RF: 0 cetirizine 10 mg Tablet 10 mg PO DAILY PRN (Reason: Allergy Symptoms) RF: 0 ondansetron HCl [Zofran] 4 mg Tablet 4 mg PO Q6H PRN (Reason: Nausea And Vomiting) RF: 0 citalopram 20 mg Tablet 30 mg PO HS RF: 0 ferrous sulfate [Iron (ferrous sulfate)] 325 mg (65 mg iron) Tablet 325 mg PO QAM RF: 0 metoclopramide HCl [Reglan] 10 mg Tablet 10 mg PO Q6H PRN (Reason: Nausea And Vomiting) RF: 0 melatonin 5 mg Tablet 5 mg PO HS PRN (Reason: Sleep) RF: 0 Vitamin 27 mg iron- 800 mcg Tablet 1 tab PO DAILY RF: 0 Discontinued potassium 99 mg Tablet 99 mg PO QAM RF: 0 Discharge Orders: Discharge Order (Routine); Ordered 05/20/20 Ordered By: Nathaniel Saldana Admission Data Admit Date/Time: 05/19/20 02:36 Attending Provider: Sara Aggarwal Admit Provider: Sara Aggarwal Primary Care Provider: Yara Llanos Other Providers: Sara Aggarwal ; Lakisha Lizarraga Other Interventions: Discharge Summary Assessment (RN) Last Done: 05/20/20 17:33 Supervising Physician Co-Signing Physician Notes Resident Physician Supervision Note: I independently interviewed and examined the patient and verified the alberto history and physical, reviewed labs and image studies, discussed the case with the resident Dr. Saldana and agree with the findings and care plan. Resident Activity Tracking Resident Involvement: Resident Care Provided Care Provided: Adult Hospital Medicine
== END 2020-05-20 18:00 | disposition home or self-care (01) ==
LOC: ED 22:05 → 2N 22:05
DX: O99.013 Anemia complicating pregnancy, third trimester; O21.9 Vomiting of pregnancy, unspecified; O24.410 Gestational diabetes mellitus in pregnancy, diet controlled; D50.9 Iron deficiency anemia, unspecified; O99.280 Endocrine, nutritional and metabolic diseases complicating pregnancy, unspecified trimester; Z79.899 Other long term (current) drug therapy; E83.39 Other disorders of phosphorus metabolism; Z88.1 Allergy status to other antibiotic agents; E86.0 Dehydration; Z88.5 Allergy status to narcotic agent; Z3A.36 36 weeks gestation of pregnancy; Z88.8 Allergy status to other drugs, medicaments and biological substances; E87.6 Hypokalemia

== ENCOUNTER 2021-04-10 19:16 | Inpatient (IN) ==
[2021-04-10] MEDS ORDERED: ACETAMINOPHEN 1,000 MG/100 ML VIAL IV STA (19:42)
[2021-04-10] MEDS ORDERED: SODIUM CHLORIDE 0.9% 1000ML 2,000 ML IV ONE (19:42)
[2021-04-10] MEDS ORDERED: ONDANSETRON INJ 2 MG/ML 2 ML VIAL IV STA (19:43)
[2021-04-10] MEDS ORDERED: KETOROLAC TROMETHAMINE 15 MG/ML VIAL IV STA (19:43)
[2021-04-10] MEDS ORDERED: methylPREDNISolone 125 MG/2 ML VIAL IV STA (19:47)
[2021-04-10] MEDS ORDERED: diphenhydrAMINE 50 MG/ML VIAL IV STA (19:47)
--- NOTE | 2021-04-10 19:54 | Emergency Department Note ---
Impression & Plan Hydronephrosis due to obstruction of ureter, Ureterolithiasis, Mild renal insufficiency, Urticaria ED Provider Note NAME: EDDA LANDON AGE: 31 SEX: F ARRIVES VIA: Walk-In INFORMANT: Patient. ED PROVIDER(S): Roberth Peterson MD CHIEF COMPLAINT: Left flank pain PLAN: Disposition: Admit MEDICAL DECISION MAKING: The patient is a pleasant 31-year-old woman with a past medical history of kidney stones with history of lithotripsy, ulcerative colitis, GERD who presents emergency department for evaluation of left-sided flank pain that has been ongoing for the past week with associated nausea related to the intermittent pain, which became severe last night. She reports she has noticed blood clots in her urine. She has any burning with urination any fevers, chills, diarrhea. She reports she did have some mild congestion last week but this is resolved. As an aside the patient reports she has had a generalized rash over the past week or so after starting biotin for hair loss. She has since stopped this but reports the rash continues. She is taken 1/2 tablet of Benadryl at night for this but has not taken more than this as she has a history of being sensitive to the medication where she will become hyperactive. Denies any trouble swallowing or breathing. Denies any changes in soaps or detergents. On arrival patient is well-appearing in no acute distress, afebrile stable vital signs. She has no CVA tenderness. Her abdomen is benign. She has generalized patches of raised erythema that is blanchable. WBC, H/H and platelets within normal limits. Chemistry without metabolic acidosis. Creatinine 1.28 consistent with the patient's clinically dry appearance. Electrolytes LFTs unremarkable. Lipase not elevated. hCG is negative. UA demonstrates WBCs and 1+ bacteria however with >30 epithelial cells. COVID-19, RNA, NAAT test was negative. CT of the abdomen pelvis was performed and demonstrates moderate left-sided hydroureteronephrosis related to obstructing calculi of the left ureter measuring 7 and 9 mm respectively. Upon reevaluation the patient denies any significant improvement following IV fluid hydration, APAP and Toradol. Decadron and benadryl given for patient's urticaria that is unrelated to her flank pain. We did provide oral oxycodone with which she reported marginal improvement to 7/10. She does have listed allergies to Dilaudid and morphine and so we did agree to trial IV fentanyl. Given the per sistence of her pain and size of her obstructing stones she was in agreement with plan for admission for pain control and likely urology consultation. She was given dose of ceftriaxone out of caution though her urine appears consistent with contamination and the patient has no leukocytosis and has been afebrile. Case was discussed with ARIELLE Velez urology on-call. Agrees with admission to medicine service. Will likely take for procedure in AM. Case was discussed with Dr. Nunez [facility] hospitalist, who will evaluate the patient for admission. Triage Nursing notes reviewed and agree them. Prior medical records reviewed Vital Signs: reviewed and remarkable for no significant abnormalities Differential diagnosis: Renal colic, UTI, appendicitis, diverticulitis, mesenteric ischemia, aortic pathology, infections, inflammatory bowel disease, PUD, biliary pathology, as well as other pathologies. ER treatment provided: See below. Diagnostics interpreted by me: Cardiac Monitoring: An order for continuous cardiac monitoring was placed and demonstrated NSR, 83 bpm, no ectopy. Laboratory studies: See below Imaging studies: See below Consultation(s): ARIELLE Velez urology on-call. Case was discussed with ADAM Leon hospitalist, who will evaluate the patient for admission. HPI: The patient is a pleasant 31-year-old woman with a past medical history of kidney stones with history of lithotripsy, ulcerative colitis, GERD who presents emergency department for evaluation of left-sided flank pain that has been o ngoing for the past week with associated nausea related to the intermittent pain, which became severe last night. She reports she has noticed blood clots in her urine. She has any burning with urination any fevers, chills, diarrhea. She reports she did have some mild congestion last week but this is resolved. As an aside the patient reports she has had a generalized rash over the past week or so after starting biotin for hair loss. She has since stopped this but reports the rash continues. She is taken 1/2 tablet of Benadryl at night for this but has not taken more than this as she has a history of being sensitive to the medication where she will become hyperactive. Denies any trouble swallowing or breathing. Denies any changes in soaps or detergents. ROS: See above HPI for pertinent positives & negatives. A total of 10 systems reviewed and were otherwise negative. PAST MEDICAL HISTORY:See Below PAST SURGICAL HISTORY:See Below FAMILY HISTORY:See Below SOCIAL HISTORY:See Below HOME MEDICATIONS:See Below ALLERGIES:See Below VITALS:See Below PHYSICAL EXAMINATION: GENERAL: Awake, alert, well-appearing, in no distress HENT: Normocephalic, atraumatic. Oropharynx with dry mucous membranes and otherwise unremarkable. EYES: Normal conjunctiva. Sclera non-icteric. NECK: Supple. No nuchal rigidity. FROM. No JVD. RESPIRATORY: Clear to auscultation. CARDIAC: Regular rate, normal rhythm. Extremities warm and well perfused. Pulses equal. ABDOMEN: Soft, non-distended. No tenderness to palpation. No rebound or guarding. No masses. RECTAL: Deferred. MUSCULOSKELETAL: Chest examination reveals no tenderness. The back is symmetrical on inspection without obvious abnormality. There is no CVA tenderness to palpation. No joint edema. LOWER EXTREMITIES: Calves are equal size bilaterally and non-tender. No edema. No discoloration. NEURO: Normal sensorium. No sensory or motor deficits noted. SKIN: Generalized patches of raised erythema that is blanchable. No jaundice noted. Roberth Peterson MD Past Med/Surg History Medical History Depression with anxiety Dysphagia GERD (gastroesophageal reflux disease) Hiatal hernia History of gastritis Hx gestational diabetes Hx of pancreatitis Mother currently breast-feeding Os odontoideum CERVICAL SPINE - FULL ROM Syncope HX- FROM SINUS TACHYCARDIA (STRESS AND ELECOTROLYTE IMBALANCE) Ulcerative colitis Surgical History History of anesthesia reaction SLOW TO WAKE UP History of breast biopsy right--benign History of cholecystectomy History of colonoscopy History of cystoscopy MULTIPLE X'S WITH STENTS AND STONE REMOVAL History of ERCP History of lithotripsy MULTIPLE Nausea and vomiting after administration of anesthetic agent [place] teeth removed Family History Mother Breast cancer Grandmother (Maternal) Breast cancer Grandfather (Paternal) Myocardial infarction Other Cancer Heart disease Hypertension No family history of adverse response to anesthesia Denies family history of Ovarian cancer Prostate cancer Colorectal cancer Stroke Social History Smoking Status: Never smoker Second Hand Exposure: No; Hx Alcohol Use: No Hx Substance Use: No Preferred Language: Malaysian Communication Ability: Effective Visual Impairment: No Limitations Welder Repair Required: No Beliefs That Will Affect Care: None marital status: marital status details: Russ Galvez (34) [phone] Current Living Situation: Family Current Living Situation Comment: house - and 2 daughters current occupational status: employed current occupation: [employer]- [place] Feels Safe at Home: Yes Assistive Devices: Glasses Allergies Allergies Allergy/AdvReac Type Severity Reaction Status Date / Time hydromorphone [From Dilaudid] Allergy Severe Tachycardia,shortness Verified 04/10/21 20:30 of breath and rash morphine Allergy Intermediate SHORTNESS Verified 04/10/21 20:30 OF BREATH cephalexin Allergy Mild ITCHINESS Verified 04/10/21 20:30 nickel Allergy Mild ITCHY RED Verified 04/10/21 20:30 WITH [place] diphenhydramine AdvReac Mild hyeractivit Verified 04/10/21 20:30 [From Benadryl] y Home Meds Home Medications Medication Instructions Recorded Confirmed melatonin 5 mg tablet 5 mg PO HS 05/18/20 04/10/21 vits no.130-ferrous fum 1 tab PO HS 05/18/20 04/10/21 27 mg iron-folic acid 800 mcg tablet ( Vitamin) lactobacillus combination no.4 3 3,000 mmu cells PO HS 06/08/20 04/10/21 billion cell capsule (Probiotic) ibuprofen 200 mg tablet 400 mg PO TID PRN 04/10/21 04/10/21 Previous Rx's Medication Instructions Recorded pantoprazole 40 mg tablet,delayed 40 mg PO BID #60 tab 12/09/20 release citalopram 20 mg tablet (Celexa) 30 mg PO HS #45 tab 01/07/21 mesalamine 1.2 gram tablet,delayed 4.8 g PO DAILY 30 Days #120 tab 01/19/21 release buspirone 5 mg tablet 5 mg PO HS #90 tab 03/23/21 norethindrone (contraceptive) 0.35 0.35 mg PO HS #84 tab 04/08/21 mg tablet (Ortho [facility]) Results & Data (ED) Vital Signs Vital Signs - 24 hr 04/10/21 19:24 04/10/21 22:25 Temperature 36.6 C Temperature Source Temporal Artery Scan Pulse Rate 93 H Pulse Rate [Finger] 72 Respiratory Rate 18 20 Respiratory Effort / Characteristics Non-Labored Spontaneous Non-Labored Spontaneous Respiratory Depth Normal Normal Blood Pressure 115/82 Blood Pressure [Right Arm] 110/72 Blood Pressure Mean 93 Blood Pressure Mean [Right Arm] 84 Blood Pressure Position Sitting Pulse Oximetry 99 100 Oxygen Delivery Method Room Air Room Air Sepsis Recent Fever Within 48 Hours No Sepsis New/Unexplained Change in Mental Status N/A Sepsis Action Taken by Nursing No Action Required Laboratory Data Attestation: I reviewed the patient's lab results. Result diagrams: 04/10/21 20:15 04/10/21 20:15 Lab Results 04/10/21 04/10/21 04/10/21 Range/Units 20:15 20:15 20:15 WBC 7.78 (4.8-10.8) K/uL RBC 4.77 (4.2-5.4) M/uL Hgb 14.0 (12.0-16.0) g/dL Hct 42.2 (37-47) % MCV 88.5 (80-100) fL MCH 29.4 (25-34) pg MCHC 33.2 (32-36) g/dL RDW Std Deviation 43.0 (36.4-46.3) fL RDW Coeff of Jabari 13.2 (11.5-14.5) % Plt Count 286 (130-400) K/uL MPV 9.9 (7.4-10.4) fL Immature Gran % (Auto) 0.3 % Neut % (Auto) 56.5 % Lymph % (Auto) 32.5 % [place] % (Auto) 8.0 % Eos % (Auto) 2.4 % Baso % (Auto) 0.3 % Neut # (Auto) 4.40 (1.4-6.5) K/uL Lymph # (Auto) 2.53 (1.2-3.4) K/uL [place] # (Auto) 0.62 H (0.11-0.59) K/uL Eos # (Auto) 0.19 (0-0.5) K/uL Baso # (Auto) 0.02 (0-0.2) K/uL Immature Gran # (Auto) 0.02 (0.00-0.02) K/uL Sodium 138 (136-145) mmol/L Potassium 3.7 (3.5-5.1) mmol/L Chloride 107 (98-107) mmol/L Carbon Dioxide 26 (21-32) mmol/L Anion Gap 5.0 (3-11) BUN 17 (7-18) mg/dl Creatinine 1.28 H (0.6-1.2) mg/dl Est Cr Clr Drug Dosing 47.2 ml/min Est GFR ( Amer) 63.6 ml/min Est GFR (Non-Af Amer) 54.9 ml/min BUN/Creatinine Ratio 13.2 (10-20) Glucose 86 (70-99) mg/dl Calcium 9.5 (8.5-10.1) mg/dl Total Bilirubin 0.2 (0.2-1) mg/dl AST 15 (15-37) U/L ALT 24 (12-78) Alkaline Phosphatase 66 (45-117) U/L Total Protein 7.1 (6.4-8.2) gm/dl Albumin 3.8 (3.4-5.0) gm/dl Globulin 3.3 (2.5-4.0) gm/dl Albumin/Globulin Ratio 1.2 (0.9-2) Lipase 125 (73-393) U/L HCG, Qual Negative (Negative) Urine Color Urine Appearance (Clear) Urine pH (4.5-7.5) Ur Specific [place] (1.000-1.030) Urine Protein (Negative) Urine Glucose (UA) (Negative) Urine Ketones (Negative) Urine Blood (Negative) Urine Nitrite (Negative) Urine Bilirubin (Negative) Urine Urobilinogen (Negative) Ur Leukocyte Esterase (Negative) Urine WBC (Auto) (0-5) /hpf Urine RBC (Auto) (0-4) /hpf U Hyaline Cast (Auto) (0-5) /lpf U Epithel Cells (Auto) (0-5) /lpf Urine Bacteria (Auto) (Negative) Urine Crystals Amorphous Sediment (None Prsent) SARS-CoV-2, RNA, NAAT (NEGATIVE) 04/10/21 04/10/21 Range/Units 20:15 20:30 WBC (4.8-10.8) K/uL RBC (4.2-5.4) M/uL Hgb (12.0-16.0) g/dL Hct (37-47) % MCV (80-100) fL MCH (25-34) pg MCHC (32-36) g/dL RDW Std Deviation (36.4-46.3) fL RDW Coeff of [place]ab[place] (11.5-14.5) % Plt Count (130-400) K/uL MPV (7.4-10.4) fL Immature Gran % (Auto) % Neut % (Auto) % Lymph % (Auto) % [place] % (Auto) % Eos % (Auto) % Baso % (Auto) % Neut # (Auto) (1.4-6.5) K/uL Lymph # (Auto) (1.2-3.4) K/uL [place] # (Auto) (0.11-0.59) K/uL Eos # (Auto) (0-0.5) K/uL Baso # (Auto) (0-0.2) K/uL Immature Gran # (Auto) (0.00-0.02) K/uL Sodium (136-145) mmol/L Potassium (3.5-5.1) mmol/L Chloride (98-107) mmol/L Carbon Dioxide (21-32) mmol/L Anion Gap (3-11) BUN (7-18) mg/dl Creatinine (0.6-1.2) mg/dl Est Cr Clr Drug Dosing ml/min Est GFR ( Amer) ml/min Est GFR (Non-Af Amer) ml/min BUN/Creatinine Ratio (10-20) Glucose (70-99) mg/dl Calcium (8.5-10.1) mg/dl Total Bilirubin (0.2-1) mg/dl AST (15-37) U/L ALT (12-78) Alkaline Phosphatase (45-117) U/L Total Protein (6.4-8.2) gm/dl Albumin (3.4-5.0) gm/dl Globulin (2.5-4.0) gm/dl Albumin/Globulin Ratio (0.9-2) Lipase (73-393) U/L HCG, Qual (Negative) Urine Color Dark Yellow Urine Appearance Turbid A (Clear) Urine pH 5.5 (4.5-7.5) Ur Specific [place] 1.034 H (1.000-1.030) Urine Protein 2+ H (Negative) Urine Glucose (UA) Negative (Negative) Urine Ketones Trace H (Negative) Urine Blood 3+ H (Negative) Urine Nitrite Negative (Negative) Urine Bilirubin Negative (Negative) Urine Urobilinogen Negative (Negative) Ur Leukocyte Esterase 1+ H (Negative) Urine WBC (Auto) >30 H (0-5) /hpf Urine RBC (Auto) >30 H (0-4) /hpf U Hyaline Cast (Auto) 0 (0-5) /lpf U Epithel Cells (Auto) >30 H (0-5) /lpf Urine Bacteria (Auto) 1+ H (Negative) Urine Crystals Not Reportable Amorphous Sediment Present A (None Prsent) SARS-CoV-2, RNA, NAAT NEGATIVE (NEGATIVE) Administered Medications Fentanyl Citrate (Fentanyl Citrate 100 Mcg/2 Ml Vial) 50 mcg IV Q3H PRN PRN Reason: Breakthrough Pain Stop: 04/25/21 02:28 Last Admin: 04/11/21 02:33 Dose: 50 mcg Documented by: [id number] Sodium Chloride (Nss 1000ml) 1,000 mls @ 80 mls/hr IV .[id number] SHANON Stop: 05/11/21 02:28 Last Admin: 04/11/21 02:34 Dose: 80 mls/hr Documented by: [id number] Discontinued Medications Diphenhydramine HCl (Diphenhydramine 50 Mg/Ml Vial) 12.5 mg IV NOW STA Stop: 04/10/21 19:48 Last Admin: 04/10/21 20:24 Dose: 12.5 mg Documented by: [id number] Fentanyl Citrate (Fentanyl Citrate 100 Mcg/2 Ml Vial) 50 mcg IV NOW STA Stop: 04/10/21 22:59 Last Admin: 04/10/21 23:40 Dose: 50 mcg Documented by: [id number] Sodium Chloride (Nss 1000ml) 2,000 mls @ 999 mls/hr IV .[id number] ONE Stop: 04/10/21 21:42 Last Infusion: 04/10/21 22:27 Dose: 0 mls/hr Documented by: [id number] Admin: 04/10/21 20:18 Dose: 999 mls/hr Documented by: [id number] Acetaminophen (Ofirmev) 1,000 mg in 100 mls @ 400 mls/hr IV NOW STA Stop: 04/10/21 19:56 Last Infusion: 04/10/21 21:22 Dose: 0 mls/hr Documented by: [id number] Admin: 04/10/21 20:26 Dose: 400 mls/hr Documented by: [id number] Ceftriaxone Sodium (Rocephin) 1,000 mg in 50 mls @ 100 mls/hr IV NOW STA Stop: 04/10/21 22:41 Last Infusion: 04/11/21 00:21 Dose: 0 mls/hr Documented by: [id number] Admin: 04/10/21 22:22 Dose: 100 mls/hr Documented by: [id number] Famotidine (Pepcid 20mg Iv Push) 20 mg in 5 mls @ 5 mls/min IV ONE STA Stop: 04/11/21 01:19 Last Admin: 04/11/21 01:56 Dose: 5 mls/min Documented by: [id number] Ioversol (Optiray 320 100ml) 91 ml IV ONCE ONE Stop: 04/10/21 21:35 Last Admin: 04/10/21 21:34 Dose: 91 ml Documented by: [id number] Ketorolac Tromethamine (Ketorolac Tromethamine 15 Mg/Ml Vial) 15 mg IV NOW STA Stop: 04/10/21 19:44 Last Admin: 04/10/21 20:21 Dose: 15 mg Documented by: [id number] Methylprednisolone (Methylprednisolone 125 Mg/2 Ml Vial) 60 mg IV NOW STA Stop: 04/10/21 19:48 Last Admin: 04/10/21 20:25 Dose: 60 mg Documented by: [id number] Ondansetron HCl (Ondansetron Inj 2 Mg/Ml 2 Ml Vial) 4 mg IV NOW STA Stop: 04/10/21 19:44 Last Admin: 04/10/21 20:18 Dose: 4 mg Documented by: [id number] Oxycodone HCl (Oxycodone Hcl Ir 5 Mg Tab (Immediate Release)) 5 mg PO NOW STA Stop: 04/10/21 22:12 Last Admin: 04/10/21 22:22 Dose: 5 mg Documented by: [id number] Tamsulosin HCl (Tamsulosin Hcl 0.4 Mg Cap) 0.4 mg PO NOW ONE Stop: 04/10/21 22:07 Last Admin: 04/10/21 22:22 Dose: 0.4 mg Documented by: [id number] Imaging Data Radiologist's Impression: Abdomen/Pelvis CT 04/10/21 19:[address] WITH IV CONTRAST CT DOSE: 287.57 mGy.cm HISTORY: Acute left-sided flank pain left flank pain TECHNIQUE: Multiaxial CT images of the abdomen and pelvis were performed following the IV administration of 91 cc of Optiray, A dose lowering technique was utilized adhering to the principles of ALARA. COMPARISON STUDY: CT abdomen and pelvis 07/01/2020 FINDINGS: Clear lung bases. No pneumatosis or pneumoperitoneum. The imaged inferior cardiac chambers are unremarkable. The spleen, pancreas, adrenal glands and liver appear unremarkable. Cholecystectomy. Patent portal vein. There are approximately 5 nonobstructing calculi of the right kidney measuring up to 5 mm. There are 2 nonobstructing calculi of the inferior pole left kidney measuring up to 4 mm. Moderate left-sided hydroureteronephrosis secondary to 2 adjacent calculi of the left ureter at the level of L5-S1. The more proximal linear calculus measures up to 7 mm in length. The larger calculus measures 5 x 7 x 9 mm on image 260. Delayed left-sided nephrogram with perinephric and periureteral stranding. Mild urothelial thickening with increased enhancement. Partial distention of the urinary bladder. Unremarkable uterus with follicular changes of the ovaries. Aorta and IVC are unremarkable. There is no adenopathy. Tiny hiatal hernia with mild distal esophageal wall thickening. Scattered fluid- filled loops of nondilated small bowel. There is diffuse wall thickening of the colon, most pronounced in the rectum and sigmoid with scattered colonic air- fluid levels. Normal appendix. Mild diastases recti. Unremarkable soft tissues. No acute fracture. IMPRESSION: 1. Moderate left-sided hydroureteronephrosis with delayed nephrogram secondary to two adjacent obstructing calculi of the left ureter at the level of L5-S1 measuring 7 and 9 mm respectively. 2. Bilateral nephrolithiasis. 3. Wall thickening of the rectum and colon is likely secondary to partial distention. A nonspecific proctocolitis is considered less likely. 4. Cholecystectomy. ACT 112: Negative or not required by law. The above report was generated using voice recognition software. It may contain grammatical, syntax or spelling errors. Electronically signed by: Ramin Carlos M.D. 04/10/2021 9:51 PM Discharge Plan Visit Data Chief Complaint: Abdominal Pain Stated Complaint: kidney stone ED Provider: Roberth Peterson Discharge Problem: Hydronephrosis due to obstruction of ureter, Ureterolithiasis, Mild renal insufficiency, Urticaria
[2021-04-10 20:40] LABS: Hematocrit (blood only) 42.2 % (37-47); Mean Corpuscular Hemoglobin 29.4 pg (25-34); Mean Corpuscular Hgb Conc 33.2 g/dL (32-36); Mean Corpuscular Volume 88.5 fL (80-100); Mean Platelet Volume 9.9 fL (7.4-10.4); Platelet Count 286 K/uL (130-400); RDW Coefficient of Variation 13.2 % (11.5-14.5); Red Blood Count 4.77 M/uL (4.2-5.4); White Blood Count 7.78 K/uL (4.8-10.8)
[2021-04-10 21:02] LABS: Appearance Urine Turbid (Clear); Bacteria Urine Automated 1+ (Negative); Bilirubin Urine Negative (Negative); Blood Urine 3+ (Negative); Color Urine Dark Yellow; Epithelial Cell Urine Auto >30 /lpf (0-5); Glucose Urine UA Negative (Negative); Ketones Urine Trace (Negative); Leukocyte Esterase Urine 1+ (Negative); Nitrite Urine Negative (Negative); Protein Urine 2+ (Negative); Specific Gravity Urine 1.034 (1.000-1.030); Urobilinogen Urine Negative (Negative); WBC Urine Automated >30 /hpf (0-5); pH Urine 5.5 (4.5-7.5)
[2021-04-10 21:04] LABS: Pregnancy Test, Serum Negative (Negative)
[2021-04-10 21:05] LABS: Basophils # (auto) 0.02 K/uL (0-0.2); Basophils % (auto) 0.3 %; Eosinophils # (auto) 0.19 K/uL (0-0.5); Eosinophils % (auto) 2.4 %; Immature Granulocytes # (auto) 0.02 K/uL (0.00-0.02); Immature Granulocytes % (auto) 0.3 %; Lymphocytes # (auto) 2.53 K/uL (1.2-3.4); Lymphocytes % (auto) 32.5 %; Monocytes # (auto) 0.62 K/uL (0.11-0.59); Neutrophils % (auto) 56.5 %
[2021-04-10 21:10] LABS: Albumin Level 3.8 gm/dl (3.4-5.0); BUN Creatinine Ratio 13.2 (10-20); Calcium 9.5 mg/dl (8.5-10.1); Creatinine Clr Calc Pharmacy 47.2 ml/min; Est GFR (African American) 63.6 ml/min; Est GFR (Non-African American) 54.9 ml/min; Potassium 3.7 mmol/L (3.5-5.1)
[2021-04-10 21:12] LABS: Albumin Globulin Ratio 1.2 (0.9-2); Bilirubin,Total 0.2 mg/dl (0.2-1); Globulin 3.3 gm/dl (2.5-4.0); Total Protein 7.1 gm/dl (6.4-8.2)
[2021-04-10 21:14] LABS: Cast Urine Automated 0 /lpf (0-5); RBC Urine Automated >30 /hpf (0-4)
[2021-04-10 21:15] LABS: Amorphous Sediment Urine Present (None Prsent)
[2021-04-10] MEDS ORDERED: OPTIRAY 320 100ml IV ONE (21:34)
--- NOTE | 2021-04-10 21:53 | CT Scan Report ---
ABDOMEN AND PELVIS CT WITH IV CONTRAST CT DOSE: 287.57 mGy.cm HISTORY: Acute left-sided flank pain left flank pain TECHNIQUE: Multiaxial CT images of the abdomen and pelvis were performed following the IV administrat ion of 91 cc of Optiray, A dose lowering technique was utilized adhering to the principles of ALARA. COMPARISON STUDY: CT abdomen and pelvis 07/01/2020 FINDINGS: Clear lung bases. No pneumatosis or pneumoperitoneum. The imaged inferior cardiac chambers are unremarkable. The spleen, pancreas, adrenal glands and liver appear unremarkable. Cholecystectomy . Patent portal vein. There are approximately 5 nonobstructing calculi of the right kidney measuring up to 5 mm. There are 2 nonobstructing calculi of the inferior pole left kidney measuring up to 4 mm. Moderate left-sided h ydroureteronephrosis secondary to 2 adjacent calculi of the left ureter at the level of L5-S1. The mo re proximal linear calculus measures up to 7 mm in length. The larger calculus measures 5 x 7 x 9 mm on image 260. Delayed left-sided nephrogram with perinephric and periureteral stranding. Mild urothel ial thickening with increased enhancement. Partial distention of the urinary bladder. Unremarkable ut erus with follicular changes of the ovaries. Aorta and IVC are unremarkable. There is no adenopathy. Tiny hiatal hernia with mild distal esophageal wall thickening. Scattered fluid-filled loops of nondi lated small bowel. There is diffuse wall thickening of the colon, most pronounced in the rectum and s igmoid with scattered colonic air-fluid levels. Normal appendix. Mild diastases recti. Unremarkable s oft tissues. No acute fracture. IMPRESSION: 1. Moderate left-sided hydroureteronephrosis with delayed nephrogram secondary to two adjacent obstru cting calculi of the left ureter at the level of L5-S1 measuring 7 and 9 mm respectively. 2. Bilateral nephrolithiasis. 3. Wall thickening of the rectum and colon is likely secondary to partial distention. A nonspecific p roctocolitis is considered less likely. 4. Cholecystectomy. ACT 112: Negative or not required by law. The above report was generated using voice recognition software. It may contain grammatical, syntax o r spelling errors. Electronically signed by: Ramin Carlos M.D. 04/10/2021 9:51 PM
[2021-04-10] MEDS ORDERED: TAMSULOSIN HCL 0.4 MG CAP PO ONE (22:06)
[2021-04-10] MEDS ORDERED: oxyCODONE HCL IR 5 MG TAB (IMMEDIATE RELEASE) PO STA (22:11)
[2021-04-10] MEDS ORDERED: cefTRIAXone SODIUM 1,000 MG/50 ML BAG IV STA (22:12)
[2021-04-10] MEDS ORDERED: fentaNYL citrate 100 MCG/2 ML VIAL IV STA (22:58)
--- NOTE | 2021-04-11 00:13 | History & Physical Report ---
Date of Service April 11, 2021 Assessment & Plan (1) Left ureteral calculus: Plan: Left ureteral calculi, 7 and 9 mm/left hydroureteronephrosis- NPO History of previous calculi requiring stent and lithotripsy Likely secondary to ulcerative colitis and malabsorption Follow urine culture and sensitivity Placed on Cipro 400mg IV every 12 hours, does have noted reaction to cephalosporins, however, did get ceftriaxone IV from the ED Intolerant of morphine and Dilaudid IV Continue fentanyl 50 mcg IV every 3 hours as needed breakthrough pain Acetaminophen 600 mg p.o. every 6 hours as needed mild pain or fever Urology consulted by ED and aware (2) Hydronephrosis, left: Plan: See above (3) Anxiety and depression: Plan: Continue buspirone, citalopram and melatonin (4) Ulcerative colitis: Plan: Continue mesalamine (5) GERD (gastroesophageal reflux disease): Plan: GERD/gastric ulcer/gastritis- Change pantoprazole 40 mg p.o. twice daily to famotidine 20 mg IV every 12 hours (6) Rash: Plan: She had recently started and stopped and then restarted biotin without any change in rash Benadryl works, but tends to make her hyperactive Has had intermittent issues with rashes in the past May benefit from seeing shoe treer History of Present Illness Chief Complaint: The patient presents to the emergency department with complaint of intermittent left-sided flank pain and nausea for 1 week, worsening over the past 24 hours Primary Care Provider: MARCO A Menendez The patient is a 31-year-old female with a past medical history including ulcerative colitis, GERD, gastric ulcer, depression with anxiety, bilateral ureteral calculi status post stent placement and lithotripsy, and hydronephrosis. She presents with left-sided flank pain and nausea, consistent with previous episodes of kidney stones. She also reports a rash on her abdomen and back, that began about 3 weeks ago, with no specific trigger noted Allergies Allergy/AdvReac Type Severity Reaction Status Date / Time hydromorphone [From Dilaudid] Allergy Severe Tachycardia,shortness Verified 04/10/21 20:30 of breath and rash morphine Allergy Intermediate SHORTNESS Verified 04/10/21 20:30 OF BREATH cephalexin Allergy Mild ITCHINESS Verified 04/10/21 20:30 nickel Allergy Mild ITCHY RED Verified 04/10/21 20:30 WITH [place] diphenhydramine AdvReac Mild hyeractivit Verified 04/10/21 20:30 [From Benadryl] y Home Medications Medication Instructions Recorded Confirmed Type melatonin 5 mg tablet 5 mg PO HS 05/18/20 04/10/21 History vits no.130-ferrous fum 1 tab PO HS 05/18/20 04/10/21 History 27 mg iron-folic acid 800 mcg tablet ( Vitamin) lactobacillus combination no.4 3 3,000 mmu cells PO HS 06/08/20 04/10/21 History billion cell capsule (Probiotic) pantoprazole 40 mg tablet,delayed 40 mg PO BID #60 tab 12/09/20 04/10/21 Rx release citalopram 20 mg tablet (Celexa) 30 mg PO HS #45 tab 01/07/21 04/10/21 Rx mesalamine 1.2 gram tablet,delayed 4.8 g PO DAILY 30 Days #120 tab 01/19/21 04/10/21 Rx release buspirone 5 mg tablet 5 mg PO HS #90 tab 03/23/21 04/10/21 Rx norethindrone (contraceptive) 0.35 0.35 mg PO HS #84 tab 04/08/21 04/10/21 Rx mg tablet (Ortho Micronor) ibuprofen 200 mg tablet 400 mg PO TID PRN 04/10/21 04/10/21 History Past Med/Surg History Medical History Depression with anxiety Dysphagia GERD (gastroesophageal reflux disease) Hiatal hernia History of gastritis Hx gestational diabetes Hx of pancreatitis Mother currently breast-feeding Os odontoideum CERVICAL SPINE - FULL ROM Syncope HX- FROM SINUS TACHYCARDIA (STRESS AND ELECOTROLYTE IMBALANCE) Ulcerative colitis Surgical History History of anesthesia reaction SLOW TO WAKE UP History of breast biopsy right--benign History of cholecystectomy History of colonoscopy History of cystoscopy MULTIPLE X'S WITH STENTS AND STONE REMOVAL History of ERCP History of lithotripsy MULTIPLE Nausea and vomiting after administration of anesthetic agent [place] teeth removed Family History Mother Breast cancer Grandmother (Maternal) Breast cancer Grandfather (Paternal) Myocardial infarction Other Cancer Heart disease Hypertension No family history of adverse response to anesthesia Denies family history of Ovarian cancer Prostate cancer Colorectal cancer Stroke Social History Smoking Status: Never smoker Second Hand Exposure: No; Hx Alcohol Use: No Hx Substance Use: No Preferred Language: Syriac Communication Ability: Effective Visual Impairment: No Limitations Flat Drier Required: No Beliefs That Will Affect Care: None marital status: marital status details: Russ Galvez (34) [phone] Current Living Situation: Family Current Living Situation Comment: house - and 2 daughters current occupational status: employed current occupation: [employer] Feels Safe at Home: Yes Assistive Devices: Glasses Review of Systems Review of Systems: The patient denies chest pain, palpitations, shortness of breath, dyspnea on exertion, cough, lower extremity swelling, sore throat, fevers, chills, sweats, vomiting, diarrhea , constipation, blood in stool, lightheadedness, dizziness, headache, memory loss, loss of consciousness, abnormal bruising or bleeding, imbalance, focal or generalized weakness, numbness or tingling in arms or legs, generalized arthralgias or myalgias, back or neck pain, or night sweats. The review of systems is otherwise negative other than for that already noted above, and at least 10 systems have been reviewed. Physical Exam Physical Exam: The patient is awake, alert and oriented 3, well developed and well nourished, normocephalic and atraumatic, lying in bed and in no acute distress after ministration of fentanyl IV HEENT--PERRL, EOMI, mucous membranes and oropharynx normal. Neck--supple. No JVD. No bruits. Thyroid normal, trachea midline, no adenopathy. Heart--normal S1 and S2. No murmurs, rubs or gallops. Lungs--clear bilaterally, no respiratory distress, no accessory muscle use. Abdomen--normal bowel sounds and soft. Nontender. Nondistended, no hernias or masses, no organomegaly. Extremities--no cyanosis or clubbing. No edema. Dermatologic--normal skin turgor, normal color, no abnormal lymph nodes, no rash. Neurologic--cranial nerves II through XII grossly intact. Rheumatologic--normal range of motion. Psychiatric--normal affect. Results & Data Results & Data ([facility]) Vital Signs (Past 12 Hours) Vital Signs Temp Pulse Pulse Resp BP BP Pulse Ox 04/10/21 22:25 72 20 110/72 100 04/10/21 19:24 36.6 C 93 H 18 115/82 99 Laboratory Results Laboratory Results WBC 7.78 K/uL (4.8-10.8) 04/10/21 20:15 RBC 4.77 M/uL (4.2-5.4) 04/10/21 20:15 Hgb 14.0 g/dL (12.0-16.0) 04/10/21 20:15 Hct 42.2 % (37-47) 04/10/21 20:15 MCV 88.5 fL (80-100) 04/10/21 20:15 MCH 29.4 pg (25-34) 04/10/21 20:15 MCHC 33.2 g/dL (32-36) 04/10/21 20:15 RDW Std Deviation 43.0 fL (36.4-46.3) 04/10/21 20:15 RDW Coeff of Jabari 13.2 % (11.5-14.5) 04/10/21 20:15 Plt Count 286 K/uL (130-400) 04/10/21 20:15 MPV 9.9 fL (7.4-10.4) 04/10/21 20:15 Immature Gran % (Auto) 0.3 % 04/10/21 20:15 Neut % (Auto) 56.5 % 04/10/21 20:15 Lymph % (Auto) 32.5 % 04/10/21 20:15 [place] % (Auto) 8.0 % 04/10/21 20:15 Eos % (Auto) 2.4 % 04/10/21 20:15 Baso % (Auto) 0.3 % 04/10/21 20:15 Neut # (Auto) 4.40 K/uL (1.4-6.5) 04/10/21 20:15 Lymph # (Auto) 2.53 K/uL (1.2-3.4) 04/10/21 20:15 [place] # (Auto) 0.62 K/uL (0.11-0.59) H 04/10/21 20:15 Eos # (Auto) 0.19 K/uL (0-0.5) 04/10/21 20:15 Baso # (Auto) 0.02 K/uL (0-0.2) 04/10/21 20:15 Immature Gran # (Auto) 0.02 K/uL (0.00-0.02) 04/10/21 20:15 Sodium 138 mmol/L (136-145) 04/10/21 20:15 Potassium 3.7 mmol/L (3.5-5.1) 04/10/21 20:15 Chloride 107 mmol/L (98-107) 04/10/21 20:15 Carbon Dioxide 26 mmol/L (21-32) 04/10/21 20:15 Anion Gap 5.0 (3-11) 04/10/21 20:15 BUN 17 mg/dl (7-18) 04/10/21 20:15 Creatinine 1.28 mg/dl (0.6-1.2) H 04/10/21 20:15 Est Cr Clr Drug Dosing 47.2 ml/min 04/10/21 20:15 Est GFR ( Amer) 63.6 ml/min 04/10/21 20:15 Est GFR (Non-Af Amer) 54.9 ml/min 04/10/21 20:15 BUN/Creatinine Ratio 13.2 (10-20) 04/10/21 20:15 Glucose 86 mg/dl (70-99) 04/10/21 20:15 Calcium 9.5 mg/dl (8.5-10.1) 04/10/21 20:15 Total Bilirubin 0.2 mg/dl (0.2-1) 04/10/21 20:15 AST 15 U/L (15-37) 04/10/21 20:15 ALT 24 (12-78) 04/10/21 20:15 Alkaline Phosphatase 66 U/L (45-117) 04/10/21 20:15 Total Protein 7.1 gm/dl (6.4-8.2) 04/10/21 20:15 Albumin 3.8 gm/dl (3.4-5.0) 04/10/21 20:15 Globulin 3.3 gm/dl (2.5-4.0) 04/10/21 20:15 Albumin/Globulin Ratio 1.2 (0.9-2) 04/10/21 20:15 Lipase 125 U/L (73-393) 04/10/21 20:15 HCG, Qual Negative (Negative) 04/10/21 20:15 Urine Color Dark Yellow 04/10/21 20:15 Urine Appearance Turbid (Clear) A 04/10/21 20:15 Urine pH 5.5 (4.5-7.5) 04/10/21 20:15 Ur Specific [place] 1.034 (1.000-1.030) H 04/10/21 20:15 Urine Protein 2+ (Negative) H 04/10/21 20:15 Urine Glucose (UA) Negative (Negative) 04/10/21 20:15 Urine Ketones Trace (Negative) H 04/10/21 20:15 Urine Blood 3+ (Negative) H 04/10/21 20:15 Urine Nitrite Negative (Negative) 04/10/21 20:15 Urine Bilirubin Negative (Negative) 04/10/21 20:15 Urine Urobilinogen Negative (Negative) 04/10/21 20:15 Ur Leukocyte Esterase 1+ (Negative) H 04/10/21 20:15 Urine WBC (Auto) >30 /hpf (0-5) H 04/10/21 20:15 Urine RBC (Auto) >30 /hpf (0-4) H 04/10/21 20:15 U Hyaline Cast (Auto) 0 /lpf (0-5) 04/10/21 20:15 U Epithel Cells (Auto) >30 /lpf (0-5) H 04/10/21 20:15 Urine Bacteria (Auto) 1+ (Negative) H 04/10/21 20:15 Urine Crystals Not Reportable 04/10/21 20:15 Amorphous Sediment Present (None Prsent) A 04/10/21 20:15 SARS-CoV-2, RNA, NAAT NEGATIVE (NEGATIVE) 04/10/21 20:30 Impressions Abdomen/Pelvis CT 04/10/21 19:[address] WITH IV CONTRAST CT DOSE: 287.57 mGy.cm HISTORY: Acute left-sided flank pain left flank pain TECHNIQUE: Multiaxial CT images of the abdomen and pelvis were performed following the IV administration of 91 cc of Optiray, A dose lowering technique was utilized adhering to the principles of ALARA. COMPARISON STUDY: CT abdomen and pelvis 07/01/2020 FINDINGS: Clear lung bases. No pneumatosis or pneumoperitoneum. The imaged inferior cardiac chambers are unremarkable. The spleen, pancreas, adrenal glands and liver appear unremarkable. Cholecystectomy. Patent portal vein. There are approximately 5 nonobstructing calculi of the right kidney measuring up to 5 mm. There are 2 nonobstructing calculi of the inferior pole left kidney measuring up to 4 mm. Moderate left-sided hydroureteronephrosis secondary to 2 adjacent calculi of the left ureter at the level of L5-S1. The more proximal linear calculus measures up to 7 mm in length. The larger calculus measures 5 x 7 x 9 mm on image 260. Delayed left-sided nephrogram with perinephric and periureteral stranding. Mild urothelial thickening with increased enhancement. Partial distention of the urinary bladder. Unremarkable uterus with follicular changes of the ovaries. Aorta and IVC are unremarkable. There is no adenopathy. Tiny hiatal hernia with mild distal esophageal wall thickening. Scattered fluid- filled loops of nondilated small bowel. There is diffuse wall thickening of the colon, most pronounced in the rectum and sigmoid with scattered colonic air- fluid levels. Normal appendix. Mild diastases recti. Unremarkable soft tissues. No acute fracture. IMPRESSION: 1. Moderate left-sided hydroureteronephrosis with delayed nephrogram secondary to two adjacent obstructing calculi of the left ureter at the level of L5-S1 measuring 7 and 9 mm respectively. 2. Bilateral nephrolithiasis. 3. Wall thickening of the rectum and colon is likely secondary to partial distention. A nonspecific proctocolitis is considered less likely. 4. Cholecystectomy. ACT 112: Negative or not required by law. The above report was generated using voice recognition software. It may contain grammatical, syntax or spelling errors. Electronically signed by: Ramin Carlos M.D. 04/10/2021 9:51 PM Code Status & VTE Plan Code Status Full code VTE Prophylaxis Plan VTE Prophylaxis will be ordered: Yes PG Care Time/CCT Total # of Minutes Spent Total Time Spent with Patient: Total time spent is greater than 50% in coordination of care (as documented) at patient's floor/unit and/or counseling patient: Coding Level of Care Code 80477 Initial Inpt Care Lvl 3 Diagnoses Left ureteral calculus N20.1 Hydronephrosis, left N13.30 Anxiety and depression F41.9; F32.9 Ulcerative colitis K51.90 GERD (gastroesophageal reflux disease) K21.9 Esophagitis presence: esophagitis presence not specified Rash R21 (1) GERD (gastroesophageal reflux disease) Esophagitis presence: esophagitis presence not specified Qualified Code(s): K21.9 - Gastro-esophageal reflux disease without esophagitis
[2021-04-11] MEDS ORDERED: FAMOTIDINE 20MG IV PUSH 20 MG/5 ML SYR IV STA (01:18)
[2021-04-11] MEDS ORDERED: ACETAMINOPHEN 325 MG TAB PO PRN (02:29)
[2021-04-11] MEDS ORDERED: ONDANSETRON INJ 2 MG/ML 2 ML VIAL IV PRN ×2 (02:29→11:59)
[2021-04-11] MEDS: fentaNYL citrate 100 MCG/2 ML VIAL IV PRN ×3 (02:33→07:53)
[2021-04-11] MEDS: SODIUM CHLORIDE 0.9% 1000ML 1,000 ML IV SCH ×2 (02:34→13:34)
[2021-04-11] MEDS ORDERED: MELATONIN 3 MG TAB PO PRN (02:41)
[2021-04-11] MEDS: CIPROFLOXACIN / D5W 400 MG/200 ML BAG IV SCH ×2 (02:50→17:26)
[2021-04-11] MEDS: ORAL CONTRACEPTIVE~ORDER AWAITING ACTION SCH ×2 (03:56→12:26)
[2021-04-11 05:24] LABS: Basophils # (auto) 0.01 K/uL (0-0.2); Basophils % (auto) 0.1 %; Hematocrit (blood only) 37.2 % (37-47); Hemoglobin 12.3 g/dL (12.0-16.0); Immature Granulocytes # (auto) 0.01 K/uL (0.00-0.02); Immature Granulocytes % (auto) 0.1 %; Lymphocytes # (auto) 1.16 K/uL (1.2-3.4); Mean Corpuscular Hemoglobin 28.9 pg (25-34); Mean Corpuscular Hgb Conc 33.1 g/dL (32-36); Mean Corpuscular Volume 87.3 fL (80-100); Mean Platelet Volume 9.5 fL (7.4-10.4); Monocytes # (auto) 0.14 K/uL (0.11-0.59); Monocytes % (auto) 1.9 %; Neutrophils # (auto) 5.92 K/uL (1.4-6.5); Neutrophils % (auto) 81.9 %; Platelet Count 250 K/uL (130-400); RDW Coefficient of Variation 13.1 % (11.5-14.5); RDW Standard Deviation 42.1 fL (36.4-46.3); Red Blood Count 4.26 M/uL (4.2-5.4); White Blood Count 7.24 K/uL (4.8-10.8)
[2021-04-11 05:45] LABS: Albumin Level 3.1 gm/dl (3.4-5.0); BUN Creatinine Ratio 12.3 (10-20); Calcium 7.7 mg/dl (8.5-10.1); Creatinine Clr Calc Pharmacy 44.1 ml/min; Est GFR (African American) 58.6 ml/min; Est GFR (Non-African American) 50.6 ml/min; Potassium 3.6 mmol/L (3.5-5.1)
[2021-04-11 05:53] LABS: Albumin Globulin Ratio 1.1 (0.9-2); Bilirubin,Total 0.2 mg/dl (0.2-1); Globulin 2.9 gm/dl (2.5-4.0)
[2021-04-11] MEDS ORDERED: FAMOTIDINE 20 MG in SYRINGE 3 ML IV SCH (09:00)
--- NOTE | 2021-04-11 10:24 | Urology Consultation ---
Date of Consultation April 11, 2021 Assessment & Plan (1) Hydronephrosis due to obstruction of ureter: -NPO -IV Fluids -Pain control -Anti-emetics -Pt unlikely to pass the stones on her own given the size and the fact that there are 2 in the ureter -Plan for cysto, uscope, laser litho, stent History of Present Illness Reason for Consultation: Left Ureteral Calculi Attending Physician: Rip Woodward DO History of Present Illness 31-year-old female with a past medical history including ulcerative colitis, GERD, gastric ulcer, depression with anxiety, bilateral ureteral calculi status post stent placement and lithotripsy, and hydronephrosis. She presents with left-sided flank pain and nausea, consistent with previous episodes of kidney stones. She also reports a rash on her abdomen and back, that began about 3 weeks ago, with no specific trigger noted. She has a long hx of stones. In the past she has had a 16mm stone lasered by [facility]. She reports nausea. No vomiting. No fevers. No chills. Min urge and freq. Cr slightly elevated at 1.37. Normal WBC. CT Scan shows: 1. Moderate left-sided hydroureteronephrosis with delayed nephrogram secondary to two adjacent obstructing calculi of the left ureter at the level of L5-S1 measuring 7 and 9 mm respectively. 2. Bilateral nephrolithiasis. 3. Wall thickening of the rectum and colon is likely secondary to partial distention. A nonspecific proctocolitis is considered less likely. 4. Cholecystectomy. Allergies Allergy/AdvReac Type Severity Reaction Status Date / Time hydromorphone [From Dilaudid] Allergy Severe Tachycardia,shortness Verified 04/10/21 20:30 of breath and rash morphine Allergy Intermediate SHORTNESS Verified 04/10/21 20:30 OF BREATH cephalexin Allergy Mild ITCHINESS Verified 04/10/21 20:30 nickel Allergy Mild ITCHY RED Verified 04/10/21 20:30 WITH [place] diphenhydramine AdvReac Mild hyeractivit Verified 04/10/21 20:30 [From Benadryl] y Home Medications Medication Instructions Recorded Confirmed Type melatonin 5 mg tablet 5 mg PO HS 05/18/20 04/10/21 History vits no.130-ferrous fum 1 tab PO HS 05/18/20 04/10/21 History 27 mg iron-folic acid 800 mcg tablet ( Vitamin) lactobacillus combination no.4 3 3,000 mmu cells PO HS 06/08/20 04/10/21 History billion cell capsule (Probiotic) pantoprazole 40 mg tablet,delayed 40 mg PO BID #60 tab 12/09/20 04/10/21 Rx release citalopram 20 mg tablet (Celexa) 30 mg PO HS #45 tab 01/07/21 04/10/21 Rx mesalamine 1.2 gram tablet,delayed 4.8 g PO DAILY 30 Days #120 tab 01/19/21 04/10/21 Rx release buspirone 5 mg tablet 5 mg PO HS #90 tab 03/23/21 04/10/21 Rx norethindrone (contraceptive) 0.35 0.35 mg PO HS #84 tab 04/08/21 04/10/21 Rx mg tablet (Ortho Micronor) ibuprofen 200 mg tablet 400 mg PO TID PRN 04/10/21 04/10/21 History Patient History Medical History Depression with anxiety Dysphagia GERD (gastroesophageal reflux disease) Hiatal hernia History of gastritis Hx gestational diabetes Hx of pancreatitis Mother currently breast-feeding Os odontoideum CERVICAL SPINE - FULL ROM Syncope HX- FROM SINUS TACHYCARDIA (STRESS AND ELECOTROLYTE IMBALANCE) Ulcerative colitis Surgical History History of anesthesia reaction SLOW TO WAKE UP History of breast biopsy right--benign History of cholecystectomy History of colonoscopy History of cystoscopy MULTIPLE X'S WITH STENTS AND STONE REMOVAL History of ERCP History of lithotripsy MULTIPLE Nausea and vomiting after administration of anesthetic agent [place] teeth removed Family History Mother Breast cancer Grandmother (Maternal) Breast cancer Grandfather (Paternal) Myocardial infarction Other Cancer Heart disease Hypertension No family history of adverse response to anesthesia Denies family history of Ovarian cancer Prostate cancer Colorectal cancer Stroke Social History Smoking Status: Never smoker Second Hand Exposure: No; Hx Alcohol Use: No Hx Substance Use: No Preferred Language: Turkmen Communication Ability: Effective Visual Impairment: No Limitations Lime Sludge Mixer Required: No Beliefs That Will Affect Care: None marital status: marital status details: Russ Galvez (34) [phone] Current Living Situation: Spouse Current Living Situation Comment: house - and 2 daughters current occupational status: employed current occupation: [employer] [place] Feels Safe at Home: Yes Assistive Devices: Glasses Review of Systems Constitutional: as per Subjective / HPI Physical Exam Constitutional: WD/WN, vitals as above Eyes: PERRL, conjunctivae normal, anicteric sclerae Cardiovascular: RRR, no murmur, no edema Musculoskeletal: no cyanosis or clubbing, extremities motor strength 5/5 Skin: Mild rash on abd Psychiatric: A+Ox3, euthymic affect Genitourinary: no vaginal lesions, no adnexal mass Left flank tenderness Results & Data ([facility]) Vital Signs (Past 12 Hours) Vital Signs Temp Pulse Pulse Pulse Resp BP BP 04/11/21 09:55 37.1 C 67 20 99/71 L 04/11/21 09:20 36.8 C 76 04/11/21 08:55 36.8 C 04/11/21 08:00 74 16 95/62 L 04/11/21 04:08 73 16 102/57 L 04/11/21 04:07 71 16 102/57 L 04/11/21 04:06 04/11/21 01:59 83 16 112/68 04/10/21 22:25 72 20 110/72 Pulse Ox Pulse Ox 04/11/21 09:55 100 04/11/21 09:20 04/11/21 08:55 04/11/21 08:00 97 04/11/21 04:08 96 04/11/21 04:07 97 04/11/21 04:06 98 04/11/21 01:59 97 04/10/21 22:25 100 PG Care Time/CCT Total # of Minutes Spent Total Time Spent with Patient: Total time spent is greater than 50% in coordination of care (as documented) at patient's floor/unit and/or counseling patient: 60 Coding Level of Care Code 46641 Inpt Consult Level 4 Diagnoses Hydronephrosis due to obstruction of ureter N13.1
[2021-04-11] MEDS ORDERED: HYDROCODONE/ACETAMOPHEN 5/325MG TAB PO PRN ×2 (10:33)
[2021-04-11] MEDS ORDERED: KETOROLAC TROMETHAMINE 15 MG/ML VIAL IV PRN (10:33)
[2021-04-11] MEDS ORDERED: HYDROCODONE/ACETAMOPHEN 5/325MG TAB PO ONE (10:48)
--- NOTE | 2021-04-11 11:12 | History & Physical Bridge Note ---
Date of Service April 11, 2021 History & Physical Bridge Note I have examined the patient, reviewed the History & Physical and in the interval since the performance of the History & Physical I have noted the following changes of clinical significance: no changes noted
--- NOTE | 2021-04-11 11:23 | Anesthesiology Consultation ---
Date of Service April 11, 2021 Assessment & Plan (1) Encounter for pre-operative examination: History Surgery Operation Date: 04/11/21 13:00 Proposed Procedures p Cystoscopy Retrograde(Left) - Nathaniel Jackson MD Height/Weight Height: 5 ft 1 in Weight: 58.5 kg Allergies Allergy/AdvReac Type Severity Reaction Status Date / Time hydromorphone [From Dilaudid] Allergy Severe Tachycardia,shortness Verified 04/10/21 20:30 of breath and rash morphine Allergy Intermediate SHORTNESS Verified 04/10/21 20:30 OF BREATH cephalexin Allergy Mild ITCHINESS Verified 04/10/21 20:30 nickel Allergy Mild ITCHY RED Verified 04/10/21 20:30 WITH EARR[place] diphenhydramine AdvReac Mild hyeractivit Verified 04/10/21 20:30 [From Benadryl] y Medications Home Medications Medication Instructions Recorded Confirmed Last Taken melatonin 5 mg tablet 5 mg PO HS 05/18/20 04/10/21 12/08/20 21:00 vits no.130-ferrous fum 1 tab PO HS 05/18/20 04/10/21 12/08/20 21:00 27 mg iron-folic acid 800 mcg tablet ( Vitamin) lactobacillus combination no.4 3 3,000 mmu cells PO HS 06/08/20 04/10/21 12/08/20 21:00 billion cell capsule (Probiotic) pantoprazole 40 mg tablet,delayed 40 mg PO BID #60 tab 12/09/20 04/10/21 Unknown release citalopram 20 mg tablet (Celexa) 30 mg PO HS #45 tab 01/07/21 04/10/21 Unknown mesalamine 1.2 gram tablet,delayed 4.8 g PO DAILY 30 Days #120 tab 01/19/21 04/10/21 Unknown release buspirone 5 mg tablet 5 mg PO HS #90 tab 03/23/21 04/10/21 Unknown norethindrone (contraceptive) 0.35 0.35 mg PO HS #84 tab 04/08/21 04/10/21 Unknown mg tablet (Ortho Micronor) ibuprofen 200 mg tablet 400 mg PO TID PRN 04/10/21 04/10/21 04/10/21 18:00 Active Medications Generic Name Dose Route Start Last Admin Trade Name Freq PRN Reason Stop Dose Admin Acetaminophen 650 mg 04/11/21 02:29 04/11/21 06:07 Acetaminophen 325 Mg Tab PO 05/11/21 02:28 650 mg Q4H PRN Administration Pain or Fever Sodium Chloride 1,000 mls @ 80 mls/hr 04/11/21 02:29 04/11/21 02:34 Nss 1000ml IV 05/11/21 02:28 80 mls/hr .[id number] SHANON Administration Ciprofloxacin 400 mg in 200 mls @ 200 mls/hr 04/11/21 03:00 04/11/21 04:53 Cipro / D5w IV 04/21/21 02:59 Infused Q12H SHANON Infusion Miscellaneous 1 ea 04/11/21 02:45 04/11/21 03:50 Lialda~Order Awaiting Action N/A 05/11/21 02:44 Not Given QS SHANON Miscellaneous 1 ea 04/11/21 03:00 04/11/21 03:56 Oral Contraceptive~Order Awaiting Action N/A 05/11/21 02:59 Not Given QS SHANON Past Medical History Medical History Depression with anxiety Dysphagia GERD (gastroesophageal reflux disease) Hiatal hernia History of gastritis Hx gestational diabetes Hx of pancreatitis Mother currently breast-feeding Os odontoideum CERVICAL SPINE - FULL ROM Syncope HX- FROM SINUS TACHYCARDIA (STRESS AND ELECOTROLYTE IMBALANCE) Ulcerative colitis Past Family History Family History Mother Breast cancer Grandmother (Maternal) Breast cancer Grandfather (Paternal) Myocardial infarction Other Cancer Heart disease Hypertension No family history of adverse response to anesthesia Denies family history of Ovarian cancer Prostate cancer Colorectal cancer Stroke Past Surgical History Surgical History History of anesthesia reaction SLOW TO WAKE UP History of breast biopsy right--benign History of cholecystectomy History of colonoscopy History of cystoscopy MULTIPLE X'S WITH STENTS AND STONE REMOVAL History of ERCP History of lithotripsy MULTIPLE Nausea and vomiting after administration of anesthetic agent [place] teeth removed Social History Smoking Status: Never smoker Hx Alcohol Use: No Hx Substance Use: No substance use type: does not use Physical Exam Vital Signs Last Vital Signs Temp 36.7 C 04/11/21 10:16 Pulse 77 04/11/21 11:02 Resp 16 04/11/21 10:16 BP 105/65 04/11/21 10:16 Pulse Ox 100 04/11/21 10:16 Testing Laboratory Results 04/11/21 05:00 04/11/21 05:00 Urine Color Dark Yellow 04/10/21 20:15 Urine Appearance Turbid (Clear) A 04/10/21 20:15 Urine pH 5.5 (4.5-7.5) 04/10/21 20:15 Ur Specific [place] 1.034 (1.000-1.030) H 04/10/21 20:15 Urine Protein 2+ (Negative) H 04/10/21 20:15 Urine Glucose (UA) Negative (Negative) 04/10/21 20:15 Urine Ketones Trace (Negative) H 04/10/21 20:15 Urine Nitrite Negative (Negative) 04/10/21 20:15 Ur Leukocyte Esterase 1+ (Negative) H 04/10/21 20:15 Urine WBC (Auto) >30 /hpf (0-5) H 04/10/21 20:15 Urine RBC (Auto) >30 /hpf (0-4) H 04/10/21 20:15 U Hyaline Cast (Auto) 0 /lpf (0-5) 04/10/21 20:15 U Epithel Cells (Auto) >30 /lpf (0-5) H 04/10/21 20:15 Urine Bacteria (Auto) 1+ (Negative) H 04/10/21 20:15 04/10/21 20:15 Urine Culture - Preliminary Urine,Clean Catch Pin-point growth present, reincubating. Electrocardiogram Date: 05/19/20 Normal sinus rhythm Diffuse Nonspecific ST and T wave abnormality Abnormal ECG When compared with ECG of 18-MAY-2020 23:40, No significant change was found Confirmed by Jose C Ace ([id number]) on 05/19/2020 10:06:48 AM Chest X-Ray Date: 11/15/18 IMPRESSION: 1. No acute cardiopulmonary disease.
[2021-04-11] MEDS ORDERED: fentaNYL citrate 100 MCG/2 ML VIAL ONE (11:42)
[2021-04-11] MEDS ORDERED: MIDAZOLAM HCL 1 MG/ML 2ML VIAL ONE (11:42)
[2021-04-11] MEDS ORDERED: fentaNYL citrate 100 MCG/2 ML VIAL IV PRN (11:59)
[2021-04-11] MEDS ORDERED: ATROPINE SULFATE 0.1 MG/ML 10ML SYR IV PRN (11:59)
[2021-04-11] MEDS ORDERED: ePHEDrine sulfate 50 MG/ML AMP IV PRN (11:59)
[2021-04-11] MEDS ORDERED: LIDOCAINE 2% 2 ML VIAL/AMP(20MG/ML) INFIL ONE (12:17)
[2021-04-11] MEDS ORDERED: DEXAMETHASONE SOD INJ 4 MG/ML VIAL ONE (12:17)
[2021-04-11] MEDS ORDERED: PROPOFOL IV EMULSION 10 MG/ML 20 ML VIAL IV ONE (12:17)
[2021-04-11] MEDS ORDERED: ONDANSETRON INJ 2 MG/ML 2 ML VIAL ONE (12:17)
[2021-04-11] MEDS ORDERED: DIATRIZOATE MEGLUMINE 30% 100ML VIAL INSTIL ONE (12:29)
--- NOTE | 2021-04-11 12:31 | Post Operative Brief Note ---
Immediate Post Op Note v1 Date of Surgery April 11, 2021 Pre & Post Diagnosis Operation Date: 04/11/21 13:00 <No data on this case meets the specified criteria> Left Ureteral Calculus I identified the patient and participated in the time-out.: Yes Procedure Operation Date: 04/11/21 13:00 Actual Procedures p Cystoscopy, Left ureteroscopy, laser lithotripsy, left ureteral stent placement(Left) - Nathaniel Jackson MD Surgeon Nathaniel Jackson MD Varnishing Unit Operator None Estimated Blood Loss 0 Findings Consistent with Post-Op Diagnosis 2 left ureteral calculi. both lasered and removed with stent
--- NOTE | 2021-04-11 13:06 | Fluoroscopy Report ---
INTRAOPERATIVE RADIOGRAPHS CLINICAL HISTORY: Left-sided nephrolithiasis and ureteral stent placement. Fluoroscopy time: 12 seconds. FINDINGS: 6 spot fluoroscopic views of the left abdomen are correlated with abdominal CT dated 04/10/19. A catheter is placed in the left ureter. Injected contrast outlines a mid to distal ureteral calc ulus. There is left-sided hydronephrosis. The final images show the proximal and distal ends of a lef t ureteral stent in appropriate position. IMPRESSION: Intraoperative images from a left ureteral stent placement procedure as above. Electronically signed by: Zander Borrego M.D. 04/11/2021 1:05 PM
--- NOTE | 2021-04-11 13:06 | Anesthesiology Progress Note ---
Date of Service April 11, 2021 Anesthesia Post Procedure Vital Signs Vital Signs: Temp Pulse Pulse Pulse Resp BP BP 04/11/21 13:00 70 12 104/67 04/11/21 12:50 70 12 99/69 L 04/11/21 12:40 36.2 C L 73 16 102/62 04/11/21 11:22 36.9 C 73 16 04/11/21 11:02 77 04/11/21 10:16 36.7 C 79 16 04/11/21 09:55 37.1 C 67 20 04/11/21 09:20 36.8 C 76 04/11/21 08:55 36.8 C 04/11/21 08:00 74 16 95/62 L 04/11/21 04:08 73 16 04/11/21 04:07 71 16 04/11/21 04:06 04/11/21 01:59 83 16 04/10/21 22:25 72 20 04/10/21 19:24 36.6 C 93 H 18 115/82 BP Pulse Ox Pulse Ox 04/11/21 13:00 98 04/11/21 12:50 97 04/11/21 12:40 96 04/11/21 11:22 93/62 L 100 04/11/21 11:02 04/11/21 10:16 105/65 100 04/11/21 09:55 99/71 L 100 04/11/21 09:20 04/11/21 08:55 04/11/21 08:00 97 04/11/21 04:08 102/57 L 96 04/11/21 04:07 102/57 L 97 04/11/21 04:06 98 04/11/21 01:59 112/68 97 04/10/21 22:25 110/72 100 04/10/21 19:24 99 Pain Intensity Left Flank: Pain Intensity: 0 Transfer of Care Handoff Completed per policy Notes Mental Status: alert / awake / arousable and participated in evaluation Patient Amnestic to Procedure: Yes Nausea / Vomiting: adequately controlled Pain: adequately controlled Airway Patency, RR, SpO2: stable & adequate BP & HR: stable & adequate Hydration State: stable & adequate Anesthetic Complications: no major complications apparent and Pt Satisfied with anesthetic care
--- NOTE | 2021-04-11 17:46 | Discharge Summary ---
Date of Service April 11, 2021 Admission HPI Per Admitting Provider The patient is a 31-year-old female with a past medical history including ulcerative colitis, GERD, gastric ulcer, depression with anxiety, bilateral ureteral calculi status post stent placement and lithotripsy, and hy dronephrosis. She presents with left-sided flank pain and nausea, consistent with previous episodes of kidney stones. She also reports a rash on her abdomen and back, that began about 3 weeks ago, with no specific trigger noted Principal Diagnosis 1. Obstructing ureteral calculus (obstructing) x2 2. Hydronephrosis 3. S/p lithotripsy and ureteral stent placement Discharge Exam General: Resting comfortably in her hospital bed. She does not appear ill or toxic. NAD. HEENT: Head is AT/NC buccal mucosa is moist and pink Neck: No JVD. Negative hepatojugular reflex Cardiac: RRR without M/G/R Lungs: CTA without W/R/R Abdomen: Normoactive X4. Soft and nontender in all quadrants. No CVA ten derness Extremities: No peripheral clubbing cyanosis or edema Neuro: A&O X4 cranial nerves II through XII are grossly intact no focal neuro deficits Skin: No obvious skin lesions or rashes Psych: Appropriate affect pleasant and cooperative Discharge Data Allergies Allergy/AdvReac Type Severity Reaction Status Date / Time hydromorphone [From Dilaudid] Allergy Severe Tachycardia,shortness Verified 04/10/21 20:30 of breath and rash morphine Allergy Intermediate SHORTNESS Verified 04/10/21 20:30 OF BREATH cephalexin Allergy Mild ITCHINESS Verified 04/10/21 20:30 nickel Allergy Mild ITCHY RED Verified 04/10/21 20:30 WITH EARRINGS diphenhydramine AdvReac Mild hyeractivit Verified 04/10/21 20:30 [From Benadryl] y Consultations 04/10/21 23:25 ED Decision to Admit Stat 04/11/21 09:43 Consult Urology Routine Procedures Performed Operation Date: 04/11/21 13:00 Actual Procedures p Cystoscopy, Left ureteroscopy, laser lithotripsy, left ureteral stent placement(Left) - Nathaniel Jackson MD Ordered Studies 04/10/21 19:42 CT abd pelvis IV con only Stat IMPRESSION: 1. Moderate left-sided hydroureteronephrosis with delayed nephrogram secondary to two adjacent obstructing calculi of the left ureter at the level of L5-S1 measuring 7 and 9 mm respectively. 2. Bilateral nephrolithiasis. 3. Wall thickening of the rectum and colon is likely secondary to partial distention. A nonspecific proctocolitis is considered less likely. 4. Cholecystectomy. 04/11/21 [place] retrograde includes kub Routine Hospital Course (1) Left ureteral calculus: Left ureteral calculi, 7 and 9 mm/left hydroureteronephrosis- * Empirically placed on Cipro * Taken to the OR for cystoscopy where she had lithotripsy and left ureteral stent placed by [facility] * Seen postoperatively and reports that her pain has significantly improved. She has had multiple stones with stent requirements in the past and is quite aware with the pain that can accompany the stent. Reports that she feels well with limited pain. Requested D/C today and there are no contraindications at this time * DC to home with continued empiric antibiotics, [place] as needed for pain, patient encouraged to strain her urine, will continue Flomax to help relax the bladder, patient requesting Pyridium thus will give several days * FU with Urology (patient will call first thing tomorrow to arrange an OP FU appt) (2) Hydronephrosis, left: See above (3) Anxiety and depression: Continue buspirone, citalopram and melatonin (4) Ulcerative colitis: Continue mesalamine * There is reports of questionable proctocolitis on imaging; however, patient denies any abdominal pain, nausea or vomiting or rectal discomfort (5) GERD (gastroesophageal reflux disease): GERD/gastric ulcer/gastritis- D/C with Dr. Woodward Total Time Total Time Spent Total Time Spent (In Minutes): 35 Discharge Plan Discharge Items Patient Disposition: Home - Self-Care Reason For Visit: LEFT URETERAL STONES,LEFT HYDROURETERONEPHROSIS Discharge Diagnosis: 1. Left Obstructing Ureteral Stone s/p stent and lithotripsy Activity: Resume your previous activity Non-emergency contact: Primary Care Provider and Urologist Call non-emergency contact if: you have any medication questions and your symptoms worsen Follow-up/Referrals: Yara Llanos CRNP [Primary Care Provider] - Nathaniel Jackson MD [Surgeon] - Diet: Regular Addtl Attending Provider Instructions: -You had 2 obstructing stones in the left ureter requiring lithotripsy (breaking up of the stones) and stent placement to help with passing of the stones -Strain your urine -Complete empiric antibiotics to reduce risk of infection given recent stent placement and stones in place -use pyridium as needed for pain (will make urine bright orange) -flomax to be taken (which will help to relax the bladder to help you pass these stone) -Take pain medication as needed. Note pain medication can be habit-forming and should not be taken if you have to drive/operate heavy machinery -Call urology first thing tomorrow to schedule a follow-up appointment -Return to the ED for any new or worsening symptoms Pending Studies at Discharge: No Stand-Alone Forms: [facility] [employer], Smoking Cessation Medications and DC Order Prescriptions: New hydrocodone-acetaminophen 5-325 mg Tablet 1 tab PO Q6H PRN (Reason: pain) Qty: 20 RF: 0 phenazopyridine [Pyridium] 100 mg tablet 100 mg PO Q8H PRN (Reason: pain) Qty: 6 RF: 0 ciprofloxacin HCl [Cipro] 500 mg tablet 500 mg PO BID Qty: 10 RF: 0 tamsulosin [Flomax] 0.4 mg capsule 0.4 mg PO DAILY Qty: 10 RF: 0 Continued citalopram [Celexa] 20 mg tablet 30 mg PO HS Qty: 45 RF: 5 buspirone 5 mg tablet 5 mg PO HS Qty: 90 RF: 3 norethindrone (contraceptive) [Ortho Micronor] 0.35 mg tablet 0.35 mg PO HS Qty: 84 RF: 1 mesalamine 1.2 gram tablet,delayed release (DR/EC) 4.8 g PO DAILY 30 Days Qty: 120 RF: 11 melatonin 5 mg Tablet 5 mg PO HS RF: 0 Vitamin 27 mg iron- 800 mcg Tablet 1 tab PO HS RF: 0 Probiotic 3 billion cell Capsule 3,000 mmu cells PO HS RF: 0 pantoprazole 40 mg tablet,delayed release (DR/EC) 40 mg PO BID Qty: 60 RF: 5 ibuprofen 200 mg Tablet 400 mg PO TID PRN (Reason: Pain) RF: 0 Discharge Orders: Discharge Order (Routine); Ordered 04/11/21 Ordered By: Kristina Wilson Admission Data Admit Date/Time: 04/11/21 00:12 Attending Provider: Rip Woodward Admit Provider: Hector Nunez Primary Care Provider: Yara Llanos Other Providers: Hector Nunez ; Nathaniel Jackson Other Interventions: Discharge Summary Assessment (RN) Last Done: 04/11/21 18:00 Supervising Physician Co-Signing Physician Notes chart reviewed and case d/w Kristina Katie PAC - agree with above. Coding Level of Care Code D/C DAY MANAGEMENT >30 MINS Diagnoses Left ureteral calculus N20.1 Hydronephrosis, left N13.30 Anxiety and depression F41.9; F32.9 Ulcerative colitis K51.90 GERD (gastroesophageal reflux disease) K21.9 Esophagitis presence: esophagitis presence not specified
[2021-04-11] MEDS ORDERED: CITALOPRAM 20 MG TAB PO SCH (21:00)
[2021-04-11] MEDS ORDERED: busPIRone 5 MG TAB PO SCH (21:00)
[2021-04-14 14:31] LABS: Component 2 DNR; Source LEFT URETERAL STONE
--- NOTE | 2021-04-17 09:49 | Operative Report (OR) ---
DATE OF OPERATION: 04/11/2021. ATTENDING ON RECORD: Nathaniel Jackson MD. SURGEON: Nathaniel Jackson MD. CLIP WRAPPER: None. PREOPERATIVE DIAGNOSIS: Left ureteral calculi. POSTOPERATIVE DIAGNOSIS: Left ureteral calculi. PROCEDURES: Cystoscopy, left retrograde pyelogram, left ureteroscopy, laser lithotripsy of stone, ba sket extraction of stone, left ureteral stent placement. ANESTHESIA: General endotracheal. COMPLICATIONS: None. SPECIMENS: Ureteral calculus. DRAINS: A 6-[place]ian x 26 cm ureteral stent. ESTIMATED BLOOD LOSS: Minimal. CONDITION: Stable. INDICATIONS: The patient is a 31-year-old female with a long history of kidney stones, recently pres ented with left sided flank pain. CT scan revealed 2 stones in the mid ureter causing obstruction, n ow presents for surgical intervention. DESCRIPTION OF PROCEDURE: The patient was brought to the operative suite and positively identified, placed on the table in supine position. After induction of general anesthesia, she was placed in the dorsal lithotomy position. The genitalia was prepped and draped in a sterile fashion. Preoperative antibiotics were administered and a timeout was performed. A rigid cystoscope was passed via the ur ethra into the bladder. The bladder was inspected. This was unremarkable. I then turned my attention towards the left ureteral orifice. This was intubated with an open-ended catheter and a retrograde pyelogram was performed. This revealed a filling defect in the mid ureter consistent with the stone seen on the previous CT scan. A wire was passed up to the level of the yaw al pelvis and a rigid ureteroscope was passed alongside this wire. The stones were encountered in the mid ureter. Using a 365 micron holmium laser fiber, the stones were fragmented into small pieces, s ome of which were irrigated out with the scope. Others were extracted using an NGage basket. Once all stone fragments had been removed from the ureter, I then inspected the rest of the ureter an d did not see any other abnormalities or residual fragments. Final retrograde pyelogram was confirme d. A 6-Guamanian x 26 cm ureteral stent was then placed with a good curl seen proximally and distally. The strings were left long and taped to the lower abdomen after the bladder was drained. The patien t tolerated the procedure well. Sponge and needle counts were correct taken to PACU in stable condit ion. Job ID: [id number]
== END 2021-04-11 18:50 | disposition home or self-care (01) | DRG 660 ==
LOC: ED 19:16 → EDINP 04-11 00:12 → SUATTDRO 04-11 00:12 → EDINP 04-11 03:02 → 2S 04-11 10:20

== ENCOUNTER 2021-07-12 12:41 | Inpatient (IN) ==
[2021-07-12] MEDS ORDERED: SODIUM CHLORIDE 0.65% NA SOLN 45 ML (OCEAN) PRN (12:50)
[2021-07-12] MEDS ORDERED: MAGNESIUM HYDROXIDE SUSP 30 ML UDC PO PRN (12:50)
[2021-07-12] MEDS ORDERED: ALUMINUM/MAGNESIUM SUSP 30 ML UDC PO PRN (12:50)
[2021-07-12] MEDS ORDERED: hydrOXYzine HCl 25 MG TAB PO PRN (12:50)
[2021-07-12] MEDS ORDERED: ACETAMINOPHEN 325 MG TAB PO PRN (12:50)
[2021-07-12] MEDS ORDERED: BISMUTH SUBSALICYLATE LIQD 236 ML PO PRN (12:50)
[2021-07-12] MEDS ORDERED: IBUPROFEN 200 MG TAB PO PRN (16:37)
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
[2021-07-12] MEDS ORDERED: MELATONIN 3 MG TAB PO PRN (16:40)
[2021-07-12] MEDS ORDERED: NON-FORMULARY MEDICATION (Etonogestrel [Nexplanon] 68 mg Implant) SCH (16:45)
[2021-07-12] MEDS: traZODone HCL 50 MG TAB PO SCH (21:09)
[2021-07-12] MEDS: PANTOprazole 40 MG TAB PO SCH (21:39)
[2021-07-13 08:43] LABS: Potassium 3.6 mmol/L (3.5-5.1)
--- NOTE | 2021-07-13 08:45 | Psychiatric Progress Note ---
Date of Service July 13, 2021 Impression / Recommendations Impression The patient is a 31 year old with a history of depression and anxiety who was admitted for suicide attempt via polypharmacy ingestion in context of ongoing strained dynamic with her mother who provides childcare further complicating their relationship. Diagnostically consistent with persistent depressive disorder vs MDD, LACIE, and PTSD. The patient is deemed unstable and requires psychiatric hospitalization for diagnostic clarification, safety and stabilization, medication management and development of further coping skills. 07/13/21: hypokalemia resolved, tolerating initiation of sertraline and trazodone. Remains depressed and with anxiety. (1) MDD (major depressive disorder), recurrent episode, severe: (2) LACIE (generalized anxiety disorder): (3) Post traumatic stress disorder (PTSD): (4) Suicide attempt: (5) Intentional overdose: (6) Hypokalemia: 07/13/21: Continue current medications and tx plan. 07/12/21: The patient was admitted to the [facility]) on q15 min checks (behavioral with suicide precautions) for safety. The patient will participate in group, recreational, and milieu therapies and will be offered additional individual and family sessions as clinically appropriate. -Start sertraline 25mg qAM -Trazodone 50mg qhs for insomnia -discontinuing prior to admission celexa and buspar given limited effect -per discussion with Dr. Lizarraga will re-check K+ and electrolytes tomorrow to ensure stability/ongoing trend toward improvement Inventory Assets Strengths: supportive , likes her job, enjoys being a mom Needs: additional coping skills, additional outpatient support, medication adjustment Risk Factors Assessment Male: No : Yes Do You Have Access To A Gun?: Yes ( has firearms secured by combination lock, she has no access to this) Health Problems: No Mental Health Diagnoses: Yes Substance Use Disorders: No Previous Attempt: Yes Previous Attempt; Highly Lethal: Yes Family History of Suicide: No Previous Psychiatric Hospitalization: No Hopelessness: Yes Smoker: No Protective Factors Assessment : Yes Responsible for Young Children: Yes Employed: Yes Stable Relationships: Yes Supportive Family: Yes Interval History Identifying Information EDDA LANDON is a 31-year-old woman who currently lives in [place] with her and three children, has a history of depression and anxiety, and was admitted on 07/12/21 13:00 on a 201 voluntary commitment as transfer from the medical floor following suicide attempt via intentional polypharmacy overdose. Chief Complaint "I'm ok". Review of Systems Sleep Information Total Hours of Sleep: 6 Meal Information Percent Meal Consumed - Dinner: 90 Subjective Subjective Patient was seen & assessed and interval progress reviewed with treatment team nursing and social work. Fell asleep well with trazodone but some awakenings which she attributes to being away from usual sleep routines at home, found white noise machine helpful. Found vistaril helpful for anxiety yesterday and no side effects. Reviewed that K+ is normal. No side effects from sertraline nor trazodone. Denies SI. Finding groups helpful. Physical Exam Psychiatric Orientation: alert and oriented x 3 Apperance: appropriately dressed and appropriately groomed Eye Contact: good eye contact Motor Behavior: steady gait and station and no abnormal motor movements Speech: normal rate/rhythm/volume of speech Affect: + depressed affect and + anxious affect Mood: + depressed mood and + anxious mood Thought Process: goal directed thought process Thought Content: reality based without delusions Suicidal Thoughts: denies suicidal thoughts (chronic intermittent, feels safe in hospital since attempt) Homicidal Thoughts: denies homicidal thoughts Hallucinations: no auditory hallucinations and no visual hallucinations Cognition: recent memory grossly intact, remote memory grossly intact, attention grossly intact and language grossly intact Estimated Intelligence: consistent with education level Insight: + fair insight Judgement: + fair judgement Vital Signs (Past 24 Hours) Last Vital Signs Temp 37 C 07/13/21 06:36 Pulse 132 H 07/13/21 06:36 Resp 16 07/13/21 06:36 BP 103/67 07/13/21 06:36 Results & Data ([facility]) Laboratory Results Laboratory Results - last 24 hr 07/13/21 07:27 Sodium Pending Potassium Pending Chloride Pending Carbon Dioxide Pending Anion Gap Pending Current Inpatient Medications Current Inpatient Medications: Current Inpatient Medications Al Hydrox/Mg Hydrox/Simethicone (Aluminum/Magnesium Susp 30 Ml Udc) 30 ml PO Q4H PRN PRN Reason: GI Upset Stop: 08/11/21 12:50 Bismuth Subsalicylate (Bismuth Subsalicylate Liqd 236 Ml) 15 ml PO PRN PRN PRN Reason: Loose Stool Stop: 08/11/21 12:49 Hydroxyzine HCl (Hydroxyzine Hcl 25 Mg Tab) 50 mg PO HSZ PRN PRN Reason: Insomnia Stop: 08/11/21 12:49 Hydroxyzine HCl (Hydroxyzine Hcl 25 Mg Tab) 25 mg PO Q4H PRN PRN Reason: Anxiety Stop: 08/11/21 12:49 Last Admin: 07/12/21 21:08 Dose: 25 mg Documented by: Ibuprofen (Ibuprofen 200 Mg Tab) 200 mg PO Q6H PRN PRN Reason: pain Stop: 08/11/21 16:36 Magnesium Hydroxide (Magnesium Hydroxide Susp 30 Ml Udc) 30 ml PO DAILY PRN PRN Reason: Constipation Stop: 08/11/21 12:49 Melatonin (Melatonin 3 Mg Tab) 9 mg PO HS PRN PRN Reason: Insomnia Stop: 08/11/21 16:39 Last Admin: 07/12/21 21:07 Dose: 9 mg Documented by: Pantoprazole Sodium (Pantoprazole 40 Mg Tab) 40 mg PO BID SHANON Stop: 08/11/21 20:59 Last Admin: 07/12/21 21:39 Dose: 40 mg Documented by: Sertraline HCl (Sertraline Hcl 50 Mg Tablet) 25 mg PO QAM SHANON Stop: 08/12/21 08:59 Sodium Chloride (Sodium Chloride 0.65% Na Soln 45 Ml ([place])) 1 - 2 sprays NA PRN PRN PRN Reason: Nasal Dryness/Congestion Stop: 08/11/21 12:49 Trazodone HCl (Trazodone Hcl 50 Mg Tab) 50 mg PO HS SHANON Stop: 08/11/21 21:59 Last Admin: 07/12/21 21:09 Dose: 50 mg Documented by: Post Discharge Appointments Primary Care Physician Name Of Family Doctor: MARCO A Childers Primary Care Provider Appointment Comment: [address] [facility] Contact Information Discharge Discharge Address: [address] [place] [address]
[2021-07-13] MEDS: SERTRALINE HCL 50 MG TABLET PO SCH (08:49)
[2021-07-13] MEDS: PANTOprazole 40 MG TAB PO SCH ×2 (08:49→21:41)
[2021-07-13] MEDS ORDERED: POLYETHYLENE (MIRALAX) 17 GM PACK PO PRN (12:55)
[2021-07-13] MEDS: hydrOXYzine HCl 25 MG TAB PO PRN (21:41)
[2021-07-13] MEDS: traZODone HCL 50 MG TAB PO SCH (21:42)
--- NOTE | 2021-07-14 08:41 | Psychiatric Progress Note ---
Date of Service July 14, 2021 Impression / Recommendations Impression The patient is a 31 year old with a history of depression and anxiety who was admitted for suicide attempt via polypharmacy ingestion in context of ongoing strained dynamic with her mother who provides childcare further complicating their relationship. Diagnostically consistent with persistent depressive disorder vs MDD, LACIE, and PTSD. The patient is deemed unstable and requires psychiatric hospitalization for diagnostic clarification, safety and stabilization, medication management and development of further coping skills. Acute risk of self-harm is moderate given denial of SI in the hospital but still with depression. 07/14/21: Continues to tolerate sertraline and trazodone. Continues to be depressed. Had family meeting. (1) MDD (major depressive disorder), recurrent episode, severe: (2) LACIE (generalized anxiety disorder): (3) Post traumatic stress disorder (PTSD): (4) Suicide attempt: (5) Intentional overdose: (6) Hypokalemia: 07/14/21: Continue currrent medications and tx plan. Family meeting held. 07/13/21: Continue current medications and tx plan. 07/12/21: The patient was admitted to the [facility] ([facility] unit) on q15 min checks (behavioral with suicide precautions) for safety. The patient will participate in group, recreational, and milieu therapies and will be offered additional individual and family sessions as clinically appropriate. -Start sertraline 25mg qAM -Trazodone 50mg qhs for insomnia -discontinuing prior to admission celexa and buspar given limited effect -per discussion with Dr. Lizarraga will re-check K+ and electrolytes tomorrow to ensure stability/ongoing trend toward improvement Inventory Assets Strengths: supportive , likes her job, enjoys being a mom Needs: additional coping skills, additional outpatient support, medication adjustment Risk Factors Assessment Male: No : Yes Do You Have Access To A Gun?: Yes ( has firearms secured by combination lock, she has no access to this) Health Problems: No Mental Health Diagnoses: Yes Substance Use Disorders: No Previous Attempt: Yes Previous Attempt; Highly Lethal: Yes Family History of Suicide: No Previous Psychiatric Hospitalization: No Hopelessness: Yes Smoker: No Protective Factors Assessment : Yes Responsible for Young Children: Yes Employed: Yes Stable Relationships: Yes Supportive Family: Yes Interval History Identifying Information EDDA LANDON is a 31-year-old woman who currently lives in [place] with her and three children, has a history of depression and anxiety, and was admitted on 07/12/21 13:00 on a 201 voluntary commitment as transfer from the medical floor following suicide attempt via intentional polypharmacy overdose. Chief Complaint "I'm ok". Review of Systems Sleep Information Total Hours of Sleep: 6.75 Meal Information Percent Meal Consumed - Breakfast: 30 Percent Meal Consumed - Lunch: 50 Percent Meal Consumed - Dinner: 85 Subjective Subjective Patient was seen & assessed and interval progress reviewed with treatment team nursing and social work. Attending groups. [place] she had a very helpful individual therapy session with unit counselor and this caused some "relief" and "was very validating". Denies SI. No medication side effects. Family meeting which she feels went well. Physical Exam Psychiatric Orientation: alert and oriented x 3 Apperance: appropriately dressed and appropriately groomed Eye Contact: good eye contact Motor Behavior: steady gait and station and no abnormal motor movements Speech: normal rate/rhythm/volume of speech Affect: + depressed affect Mood: + depressed mood and + anxious mood Thought Process: goal directed thought process Thought Content: reality based without delusions Suicidal Thoughts: denies suicidal thoughts (chronic intermittent, denies in hospital since attempt) Homicidal Thoughts: denies homicidal thoughts Hallucinations: no auditory hallucinations and no visual hallucinations Cognition: recent memory grossly intact, remote memory grossly intact, attention grossly intact and language grossly intact Estimated Intelligence: consistent with education level Insight: + fair insight Judgement: + fair judgement Vital Signs (Past 24 Hours) Last Vital Signs Temp 36.6 C 07/14/21 06:00 Pulse 100 H 07/14/21 06:21 Resp 16 07/14/21 06:00 BP 88/60 L 07/14/21 06:21 Results & Data ([facility]) Laboratory Results Laboratory Results - last 24 hr 07/13/21 07:27 Sodium 141 Potassium 3.6 Chloride 110 H Carbon Dioxide 25 Anion Gap 6 Current Inpatient Medications Current Inpatient Medications: Current Inpatient Medications Al Hydrox/Mg Hydrox/Simethicone (Aluminum/Magnesium Susp 30 Ml Udc) 30 ml PO Q4H PRN PRN Reason: GI Upset Stop: 08/11/21 12:50 Bismuth Subsalicylate (Bismuth Subsalicylate Liqd 236 Ml) 15 ml PO PRN PRN PRN Reason: Loose Stool Stop: 08/11/21 12:49 Hydroxyzine HCl (Hydroxyzine Hcl 25 Mg Tab) 50 mg PO HSZ PRN PRN Reason: Insomnia Stop: 08/11/21 12:49 Last Admin: 07/13/21 21:41 Dose: 50 mg Documented by: Hydroxyzine HCl (Hydroxyzine Hcl 25 Mg Tab) 25 mg PO Q4H PRN PRN Reason: Anxiety Stop: 08/11/21 12:49 Last Admin: 07/12/21 21:08 Dose: 25 mg Documented by: Ibuprofen (Ibuprofen 200 Mg Tab) 200 mg PO Q6H PRN PRN Reason: pain Stop: 08/11/21 16:36 Magnesium Hydroxide (Magnesium Hydroxide Susp 30 Ml Udc) 30 ml PO DAILY PRN PRN Reason: Constipation Stop: 08/11/21 12:49 Melatonin (Melatonin 3 Mg Tab) 9 mg PO HS PRN PRN Reason: Insomnia Stop: 08/11/21 16:39 Last Admin: 07/12/21 21:07 Dose: 9 mg Documented by: Pantoprazole Sodium (Pantoprazole 40 Mg Tab) 40 mg PO BID SHANON Stop: 08/11/21 20:59 Last Admin: 07/13/21 21:41 Dose: 40 mg Documented by: Polyethylene Glycol (Polyethylene (Miralax) 17 Gm Pack) 17 gm PO DAILY PRN PRN Reason: Constipation Stop: 08/12/21 12:54 Last Admin: 07/13/21 14:28 Dose: 17 gm Documented by: Sertraline HCl (Sertraline Hcl 50 Mg Tablet) 25 mg PO QAM SHANON Stop: 08/12/21 08:59 Last Admin: 07/13/21 08:49 Dose: 25 mg Documented by: Sodium Chloride (Sodium Chloride 0.65% Na Soln 45 Ml ([place])) 1 - 2 sprays NA PRN PRN PRN Reason: Nasal Dryness/Congestion Stop: 08/11/21 12:49 Trazodone HCl (Trazodone Hcl 50 Mg Tab) 50 mg PO HS SHANON Stop: 08/11/21 21:59 Last Admin: 07/13/21 21:42 Dose: 50 mg Documented by: Post Discharge Appointments Primary Care Physician Name Of Family Doctor: MARCO A Childers Primary Care Provider Appointment Comment: [address] [facility], [place] Contact Information Discharge Discharge Address: [address] [place] [address], [place], [place]
[2021-07-14] MEDS: PANTOprazole 40 MG TAB PO SCH ×2 (08:53→20:59)
[2021-07-14] MEDS: SERTRALINE HCL 50 MG TABLET PO SCH (08:53)
[2021-07-14] MEDS: traZODone HCL 50 MG TAB PO SCH (20:59)
[2021-07-14] MEDS: hydrOXYzine HCl 25 MG TAB PO PRN (21:00)
[2021-07-15] MEDS: SERTRALINE HCL 50 MG TABLET PO SCH (08:47)
[2021-07-15] MEDS: PANTOprazole 40 MG TAB PO SCH ×2 (08:47→20:54)
--- NOTE | 2021-07-15 08:50 | Psychiatric Progress Note ---
Date of Service July 15, 2021 Impression / Recommendations Impression The patient is a 31 year old with a history of depression and anxiety who was admitted for suicide attempt via polypharmacy ingestion in context of ongoing strained dynamic with her mother who provides childcare further complicating their relationship. Diagnostically consistent with persistent depressive disorder vs MDD, LACIE, and PTSD. The patient is deemed unstable and requires psychiatric hospitalization for diagnostic clarification, safety and stabilization, medication management and development of further coping skills. Acute risk of self-harm is moderate given denial of SI in the hospital but still with depression. 07/15/21: Increase sertraline to effective dose given good tolerance so far. Still with some depression and anxiety but improving. Spent 30 minutes completing [place] paperwork. (1) MDD (major depressive disorder), recurrent episode, severe: (2) LACIE (generalized anxiety disorder): (3) Post traumatic stress disorder (PTSD): (4) Suicide attempt: (5) Intentional overdose: (6) Hypokalemia: 07/15/21: Increase sertraline to 50mg qd. 07/14/21: Continue current medications and tx plan. Family meeting held. 07/13/21: Continue current medications and tx plan. 07/12/21: The patient was admitted to the [facility] ([facility] mental health unit) on q15 min checks (behavioral with suicide precautions) for safety. The patient will participate in group, recreational, and milieu therapies and will be offered additional individual and family sessions as clinically appropriate. -Start sertraline 25mg qAM -Trazodone 50mg qhs for insomnia -discontinuing prior to admission celexa and buspar given limited effect -per discussion with Dr. Lizarraga will re-check K+ and electrolytes tomorrow to ensure stability/ongoing trend toward improvement Inventory Assets Strengths: supportive , likes her job, enjoys being a mom Needs: additional coping skills, additional outpatient support, medication adjustment Risk Factors Assessment Male: No : Yes Do You Have Access To A Gun?: Yes ( has firearms secured by combination lock, she has no access to this) Health Problems: No Mental Health Diagnoses: Yes Substance Use Disorders: No Previous Attempt: Yes Previous Attempt; Highly Lethal: Yes Family History of Suicide: No Previous Psychiatric Hospitalization: No Hopelessness: Yes Smoker: No Protective Factors Assessment : Yes Responsible for Young Children: Yes Employed: Yes Stable Relationships: Yes Supportive Family: Yes Interval History Identifying Information EDDA LANDON is a 31-year-old woman who currently lives in [place] with her and three children, has a history of depression and anxiety, and was admitted on 07/12/21 13:00 on a 201 voluntary commitment as transfer from the medical floor following suicide attempt via intentional polypharmacy overdose. Chief Complaint "I'm really glad I'm here". Review of Systems Sleep Information Total Hours of Sleep: 6.75 Meal Information Percent Meal Consumed - Breakfast: 90 Percent Meal Consumed - Lunch: 100 Percent Meal Consumed - Dinner: 100 Subjective Subjective Patient was seen & assessed and interval progress reviewed with treatment team nursing and social work. Attending groups. Had family meeting yesterday. Continuing to find inpt psych setting very helpful and very appreciative of staff. No side effects from sertraline agrees with dose titration tomorrow. Mood is "ok" feels somewhat restless with being in the hospital but continuing to find groups very helpful. Denies SI. Reviewed that I completed her FMLA due to inpatient hospital admission. Physical Exam Psychiatric Orientation: alert and oriented x 3 Apperance: appropriately dressed and appropriately groomed Eye Contact: good eye contact Motor Behavior: steady gait and station and no abnormal motor movements Speech: normal rate/rhythm/volume of speech Affect: + constricted affect Mood: + depressed mood and + anxious mood Thought Process: goal directed thought process Thought Content: reality based without delusions Suicidal Thoughts: denies suicidal thoughts (chronic intermittent, denies in hospital since attempt) Homicidal Thoughts: denies homicidal thoughts Hallucinations: no auditory hallucinations and no visual hallucinations Cognition: recent memory grossly intact, remote memory grossly intact, attention grossly intact and language grossly intact Estimated Intelligence: consistent with education level Insight: + fair insight Judgement: + fair judgement Vital Signs (Past 24 Hours) Last Vital Signs Temp 36.6 C 07/15/21 06:00 Pulse 120 H 07/15/21 06:22 Resp 16 07/15/21 06:00 BP 92/61 L 07/15/21 06:22 Results & Data ([facility]) Current Inpatient Medications Current Inpatient Medications: Current Inpatient Medications Al Hydrox/Mg Hydrox/Simethicone (Aluminum/Magnesium Susp 30 Ml Udc) 30 ml PO Q4H PRN PRN Reason: GI Upset Stop: 08/11/21 12:50 Bismuth Subsalicylate (Bismuth Subsalicylate Liqd 236 Ml) 15 ml PO PRN PRN PRN Reason: Loose Stool Stop: 08/11/21 12:49 Hydroxyzine HCl (Hydroxyzine Hcl 25 Mg Tab) 50 mg PO HSZ PRN PRN Reason: Insomnia Stop: 08/11/21 12:49 Last Admin: 07/14/21 21:00 Dose: 50 mg Documented by: Hydroxyzine HCl (Hydroxyzine Hcl 25 Mg Tab) 25 mg PO Q4H PRN PRN Reason: Anxiety Stop: 08/11/21 12:49 Last Admin: 07/12/21 21:08 Dose: 25 mg Documented by: Ibuprofen (Ibuprofen 200 Mg Tab) 200 mg PO Q6H PRN PRN Reason: pain Stop: 08/11/21 16:36 Magnesium Hydroxide (Magnesium Hydroxide Susp 30 Ml Udc) 30 ml PO DAILY PRN PRN Reason: Constipation Stop: 08/11/21 12:49 Last Admin: 07/14/21 18:27 Dose: 30 ml Documented by: Melatonin (Melatonin 3 Mg Tab) 9 mg PO HS PRN PRN Reason: Insomnia Stop: 08/11/21 16:39 Last Admin: 07/12/21 21:07 Dose: 9 mg Documented by: Pantoprazole Sodium (Pantoprazole 40 Mg Tab) 40 mg PO BID SHANON Stop: 08/11/21 20:59 Last Admin: 07/14/21 20:59 Dose: 40 mg Documented by: Polyethylene Glycol (Polyethylene (Miralax) 17 Gm Pack) 17 gm PO DAILY PRN PRN Reason: Constipation Stop: 08/12/21 12:54 Last Admin: 07/13/21 14:28 Dose: 17 gm Documented by: Sertraline HCl (Sertraline Hcl 50 Mg Tablet) 25 mg PO QAM SHANON Stop: 08/12/21 08:59 Last Admin: 07/14/21 08:53 Dose: 25 mg Documented by: Sodium Chloride (Sodium Chloride 0.65% Na Soln 45 Ml ([place])) 1 - 2 sprays NA PRN PRN PRN Reason: Nasal Dryness/Congestion Stop: 08/11/21 12:49 Trazodone HCl (Trazodone Hcl 50 Mg Tab) 50 mg PO HS SHANON Stop: 08/11/21 21:59 Last Admin: 07/14/21 20:59 Dose: 50 mg Documented by: Post Discharge Appointments Primary Care Physician Name Of Family Doctor: MARCO A Childers Primary Care Provider Appointment Comment: [address] [facility] Contact Information Discharge Discharge Address: [address] [place] [address]
[2021-07-15] MEDS: traZODone HCL 50 MG TAB PO SCH (20:55)
[2021-07-15] MEDS: hydrOXYzine HCl 25 MG TAB PO PRN (20:57)
[2021-07-16] MEDS: PANTOprazole 40 MG TAB PO SCH (08:46)
[2021-07-16] MEDS ORDERED: SERTRALINE HCL 50 MG TABLET PO SCH (09:00)
--- NOTE | 2021-07-16 13:47 | Discharge Summary ---
Date of Service July 16, 2021 History of Present Illness [place] presents for admission via transfer from medical floor after suicide attempt via polypharmacy overdose on: Benadryl ~12 tabs, Tylenol ~ 10-15 tabs, Buspar ~ 5 tabs and melatonin ~10 tabs. The overdose occurred in the context of worsening mood symptoms and ongoing stress from the challenging relationship with her mother. She notes that "the lowest points in my life are always because of her (mother)". On 07/09/21, she had a good day at work and in the evening went to cook pickled meat her son from her mother's who provides childcare for the children. On arrival [place] states her mother began verbally degrading her "she was telling me my kids behavior is awful, that my was saying mean things about me and that my house is disgusting" and this lead her to develop acute SI. She proceeded to drive her car away from her home, took Benadryl ~12 tabs, Tylenol ~ 10-15 tabs, Buspar ~ 5 tabs and melatonin ~10 tabs over a 30-45 minute time period with the intent of dying. After about 15 minutes she decided to get help and drove home and was then brought for emergency care. She remains grateful to be alive and denies current SI; however she is tearful noting that she feels ashamed, embarrassed and guilty for her attempt especially due to the impact of her extended hospitalization on her in caring for their young children alone. She remains very conflicted about her relationship with her mother noting that she can be very mean and "you never know what you're walking into or what mood you'll get from her or how she'll react" but that she also loves her mother and would never want to lose her relationship with her. She identifies a long history of depression starting in her early 20s with the stress of college which waxes and wanes day to day but tends to consistently present to some level "I'm always somewhat down". She notes depressive symptoms of low mood, difficulty falling asleep alternating with periods of daytime hypersomnolence, hopelessness, worthlessness and periods of intermittent SI. In general she tends to have thoughts of SI about once per month but never before has experienced a suicide attempt. She also experiences anxiety which has worsened in recent months which she attributes to lots of demands in day to day life. Psychiatric ROS notable for history of eating disorder via laxative use in her 20s, no symptoms since that time; hx self-harm via hitting her head with her hand since childhood and occurring once every few months; hx low body-image and low self-esteem since childhood, hx trauma during childhood and endorses PTSD symptoms. ROS negative for no hx or symptoms of uziel nor OCD nor psychosis. Physical Exam Vital Signs (Past 24 Hours) Last Vital Signs Temp 37 C 07/16/21 13:42 Pulse 125 H 07/16/21 13:42 Resp 16 07/16/21 13:42 BP 114/76 07/16/21 13:42 See admission H&P and DOD summary. Principal Diagnosis Major Depressive Disorder Psychiatric Data See daily stay summary. In short, patient was engaged with the social/therapeutic milieu of the unit, safety was maintained and the patient was cooperative with care. Medication changes included discontinuation of buspar and citalopram and initiation of sertraline for MDD and trazodone for insomnia and they tolerated this well. Vistrail was also provided as daily prn for insomnia/anxiety which she found helpful. A family session was held and safety plan was completed prior to discharge. In the days leading up to discharge she consistently denied any SI. She actively and insightfully participated in safety planning and in discussions about ways to seek support and recognizing warning signs and utilizing coping skills. Reviewed mobile apps that could be used for additional ways to have their safety plan and contacts easily available should thoughts of SI re-emerge in the future. Reviewed importance of seeking emergency care should SI intensify, worsen or should they feel unsafe in the future which they agree to do. On the day of discharge she stated her mood was "good, calm, content" and remained future-oriented including spending time with her and children, returning to work and engaging in aftercare appointments for therapy and psychiatry. Day of Discharge Assessment Today the patient voices readiness for discharge. They note improvement in mood and anxiety. They deny thoughts of harm to self or others. Thoughts are organized and they are clinically improved from admission. There is no evidence of psychosis. They improved in the hospital with support and medication adjustments. They agree to take medications as prescribed and keep follow-up appointments. At the time of the discharge they are deemed to be stable and appropriate for outpatient level of care. They are not deemed to be at imminent risk of harm to self or others. They are aware of emergency and crisis services. Knows to call 911 or go to nearest emergency care center if in a crisis which cannot be handled as an outpatient. Transition of Care Transition Of Care Record: was reviewed with the patient Advance Directives Advance Directives Information Provided: Yes Advance Directives: No Mental Health Advance Directive: No Advance Directives on File: No Living Will: No Power of Transfer Station Operator: No Advance Directives Reason:: Declines as Mental Health Visit. Risk Factors Assessment Acute risk is low given improvement in mood and denial of SI, lack of access to lethal means, improvement in sleep, hopefulness, and increased coping skills. Chronic risk is low to moderate given psychiatric co-morbid diagnoses, prior attempt, mood disorder, childhood trauma but also with protective factors. Counseled on ways to reduce acute and chronic risk including engaging with outpatient providers, using safety plan if needed, utilizing supports, taking medication, and using coping skills. Modifiable risk factors of SI and depression were addressed during hospitalization through development of new coping skills, family meeting, safety planning, and medication adjustments. Male: No : Yes Do You Have Access To A Gun?: Yes ( has firearms secured by combination lock, she has no access to this) Health Problems: No Mental Health Diagnoses: Yes Substance Use Disorders: No Previous Attempt: Yes Previous Attempt; Highly Lethal: Yes Family History of Suicide: No Previous Psychiatric Hospitalization: No Hopelessness: No Smoker: No Protective Factors Assessment : Yes Responsible for Young Children: Yes Employed: Yes Stable Relationships: Yes Supportive Family: Yes Discharge Data Lab Results 07/13/21 07:27 Sodium 141 Potassium 3.6 Chloride 110 H Carbon Dioxide 25 Anion Gap 6 Hospital Course (1) MDD (major depressive disorder), recurrent episode, severe: (2) LACIE (generalized anxiety disorder): (3) Post traumatic stress disorder (PTSD): (4) Suicide attempt: (5) Intentional overdose: (6) Hypokalemia: 07/16/21: No side effects from sertraline, completed safety plan. Feels safe and ready for discharge. 07/15/21: Increase sertraline to 50mg qd. 07/14/21: Continue current medications and tx plan. Family meeting held. 07/13/21: Continue current medications and tx plan. 4/4/22: The patient was admitted [facility] on q15 min checks (behavioral with suicide precautions) for safety. The patient will participate in group, recreational, and milieu therapies and will be offered additional individual and family sessions as clinically appropriate. -Start sertraline 25mg qAM -Trazodone 50mg qhs for insomnia -discontinuing prior to admission celexa and buspar given limited effect -per discussion with Dr. Lizarraga will re-check K+ and electrolytes tomorrow to ensure stability/ongoing trend toward improvement Mental Health & Subst Abuse Tx Psychiatrist Name of Psychiatrist: Seema Oquendoiatrjovany - intake Psychiatrist's Date of Appointment with Psychiatrist: 10/05/21 Time of Appointment with Psychiatrist: 1:00 PM Psychiatric Appointment Comment: via telehealth Therapist Name of Therapist: [facility] Therapist's Date of Therapist Appointment: 07/30/21 Time of Therapist Appointment: 4:00 PM Therapy Appointment Comment: Via telehealth - look for paperwork in email. Post Discharge Appointments Primary Care Physician Name Of Family Doctor: [facility] Date of Appointment with PCP: 07/23/21 Time of Appointment with PCP: 2:00 PM Provider Appointment Comment: [address] [facility] Other #1: Name of Aftercare Appointment: [facility] (if you decide [facility] is not a good fit) Phone Number of Aftercare Appointment: [phone] Aftercare Appointment Comment: call to discuss intake Contact Information Discharge Discharge Address: [address] [place] [address] Discharge Plan Discharge Items Patient Disposition: Home - Self-Care Reason For Visit: MDD Discharge Diagnosis: Major Depressive Disorder Activity: Resume your previous activity Non-emergency contact: Primary Care Provider, Psychiatrist and Therapist Call non-emergency contact if: you have any medication questions and your symptoms worsen Follow-up/Referrals: Yara Llanos CRNP [Primary Care Provider] - Diet: Regular Addtl Attending Provider Instructions: Optional mobile apps: -Suicide safety plan -Virtual Hope Box SPECIAL CARE INSTRUCTIONS: 1. Follow through with your scheduled aftercare appointments. If unable to keep an appointment, please call to reschedule. 2. Take your medication only as prescribed. Medication should not be changed or stopped without the approval of your doctor. In the event of worsening symptoms or concerns about side effects, contact your doctor immediately. 3. Utilize new healthy coping skills, anger management skills, and stress management skills learned during your hospitalization. Journal feelings and process them with a support person. Identify stressors or situations that may result in relapse, deterioration or inappropriate behaviors and develop a plan to deal with those issues. 4. If your coping skills are ineffective and you are in crisis, contact your outpatient providers for direction. If unable to reach your providers, please call the [facility] CRISIS LINE AT , go to the [facility] walk-in center at [address] [facility], [address], [place], or go to the closest Emergency Room. 5. Avoid alcohol and un-prescribed drugs. 6. You have been provided with the Mental Health Advance Directives Pamphlet for your review. 7. Your condition is stable for discharge to outpatient level of care, but recovery is an ongoing process. Ifthoughts to harm yourself or others return, follow the safety plan developed during your stay. Planning for a safe return home includes securing weapons. Our treatment team recommends weaponsbe removed from the home until your outpatient provider reassesses your progress. In rare cases where the items themselvescannot be removed, guns and ammunitionshould be secured separatelyand keys stored by a reliable personoutside of the home. If you were admitted on an involuntary commitment, the police or other legal authorities may be involved in this process. AFTERCARE APPOINTMENTS: * Please call your insurance company prior to your scheduled appointment to confirm your aftercare providers are covered. Take your insurance information to your appointments. WHO TO CALL AND WHEN: Medical Emergencies: For questions or emergencies related to your hospital stay, please contact the Inpatient Behavioral Health Unit at [phone]. A panel assembler is on-call 31/10 for the Behavioral Health Unit for emergencies At any time you feel your situation is an emergency, you may also call 911 immediately. Pending Studies at Discharge: No Stand-Alone Forms: My [facility] Medications and DC Order Prescriptions: New sertraline 50 mg Tablet 50 mg PO QAM 30 Days Qty: 30 RF: 0 trazodone 50 mg Tablet 50 mg PO HS 30 Days Qty: 30 RF: 0 hydroxyzine HCl 50 mg tablet 50 mg PO HS PRN (Reason: insomnia/anxiety) 30 Days Qty: 30 RF: 0 Continued pantoprazole 40 mg tablet,delayed release (DR/EC) 40 mg PO BID RF: 0 melatonin 10 mg Tablet 10 mg PO HS RF: 0 Nexplanon 68 mg Implant See Rx Instructions .ROUTE .COMPLEX RF: 0 Discontinued buspirone 5 mg tablet 5 mg PO HS RF: 0 citalopram 20 mg Tablet 30 mg PO HS RF: 0 Discharge Orders: Discharge Order (Routine); Ordered 07/16/21 Ordered By: Sona Mauricio Admission Data Admit Date/Time: 07/12/21 13:00 Attending Provider: Sona Mauricio Admit Provider: Sona Mauricio Primary Care Provider: Yara Llanos Other Interventions: Discharge Summary Assessment (RN) Last Done: 07/16/21 14:32 PSY Interdisciplinary Discharge Planning Last Done: 07/16/21 14:32 Coding Level of Care Code 13595 D/C day mgmt > 30 min Diagnoses MDD (major depressive disorder), recurrent episode, severe F33.2 LACIE (generalized anxiety disorder) F41.1 Post traumatic stress disorder (PTSD) F43.10 Suicide attempt T14.91XA Intentional overdose T50.902A Hypokalemia E87.6 Time Spent (min) 35
== END 2021-07-16 14:25 | disposition home or self-care (01) | DRG 885 ==
LOC: 3S 13:00

== ENCOUNTER 2023-08-03 16:16 | Inpatient (IN) ==
--- NOTE | 2023-08-03 16:32 | ED Triage Note ---
Date of Service August 03, 2023 Provider in Triage Author: Lorrie Forte History of Present Illness This patient was briefly evaluated while in triage. An abbreviated physical exam was performed. This patient is a 33-year-old Female who presents to the ED for evaluation of hematuria. She has been seeing urology for kidney stones. She had a ureteral stent put in last week and then she removed it on Monday. Has been having increased left flank pain since the stent was removed. Also having a bad pain in her urethra and having a lot of blood and clots in her urine. No fevers. Nausea, but no vomiting. Has been taking ibuprofen and Pyridium. Had Flomax last night at 9 pm. Physical Exam GENERAL: Non-toxic and in no acute distress. HEENT: Pupils equal. No obvious scleral icterus. HEART: Regular rate and rhythm. LUNGS: Clear to auscultation. No accessory muscle use. ABDOMEN: Soft, tender to palpation in the LLQ. No CVA tenderness. NEURO: Alert and oriented. No obvious neurological deficits on quick neuro exam. Initial orders for labs and / or imaging were placed and patient was placed in the waiting area until a bed is available. Please see further documentation for the full ED course. MDM / Impression Impression Impression: Hematuria, Hydronephrosis, DUSTIN (acute kidney injury), Acute left flank pain Impression: Hematuria Qualifiers: Hematuria type: gross Qualified Code(s): R31.0 - Gross hematuria Hydronephrosis Qualifiers: Hydronephrosis type: unspecified Qualified Code(s): N13.30 - Unspecified hydronephrosis
[2023-08-03] MEDS: KETOROLAC TROMETHAMINE 15 MG/ML VIAL IV STA (16:43)
[2023-08-03] MEDS: SODIUM CHLORIDE 0.9% 1,000 ML IV STA (16:44)
[2023-08-03] MEDS: ONDANSETRON INJ 2 MG/ML 2 ML VIAL IV STA (16:44)
[2023-08-03 17:06] LABS: Basophils # (auto) 0.07 K/uL (0.00-0.20); Basophils % (auto) 0.7 %; Eosinophils # (auto) 0.45 K/uL (0.00-0.50); Eosinophils % (auto) 4.4 %; Hematocrit (blood only) 32.7 % (37.0-47.0); Hemoglobin 10.5 g/dl (12.0-16.0); Immature Granulocytes # (auto) 0.08 K/uL (0.01-0.20); Immature Granulocytes % (auto) 0.8 %; Lymphocytes # (auto) 3.18 K/uL (1.20-3.40); Lymphocytes % (auto) 30.9 %; Mean Corpuscular Hgb Conc 32.1 g/dL (32.0-36.0); Mean Corpuscular Volume 84.1 fL (80.0-100.0); Mean Platelet Volume 9.8 fL (9.4-12.4); Monocytes # (auto) 0.68 K/uL (0.11-0.59); Monocytes % (auto) 6.6 %; Neutrophils # (auto) 5.83 K/uL (1.40-6.50); Neutrophils % (auto) 56.6 %; Platelet Count 330 K/uL (130-400); RDW Coefficient of Variation 13.3 % (11.5-14.5); RDW Standard Deviation 40.4 fL (36.4-46.3); Red Blood Count 3.89 M/uL (4.20-5.40); White Blood Count 10.29 K/ul (4.8-10.8)
[2023-08-03 17:16] LABS: Pregnancy Test, Serum Negative (Negative)
[2023-08-03 17:19] LABS: Albumin Globulin Ratio 1.6 (0.9-2); Albumin Level 4.2 gm/dl (3.4-5.0); BUN Creatinine Ratio 13.2 (10-20); Bilirubin,Total 0.2 mg/dl (0.2-1.0); Calcium 8.9 mg/dl (8.6-10.3); Creatinine Clr Calc Pharmacy 40.6 ml/min; Est GFR (African American) 48.3 ml/min; Est GFR (Non-African American) 41.6 ml/min; Globulin 2.6 gm/dl (2.5-4.0); Potassium 3.6 mmol/L (3.5-5.1); Total Protein 6.8 gm/dl (6.0-8.3)
[2023-08-03 17:20] LABS: Appearance Urine Turbid (Clear); Bilirubin Urine Negative (Negative); Blood Urine 3+ (Negative); Color Urine Red; Glucose Urine UA Trace (Negative); Ketones Urine Negative (Negative); Leukocyte Esterase Urine Negative (Negative); Nitrite Urine Positive (Negative); Protein Urine 3+ (Negative); Urobilinogen Urine Negative (Negative); pH Urine 8.5 (4.5-7.5)
[2023-08-03 17:34] LABS: Bacteria Urine None Seen (None Seen); RBC Urine >20 /hpf (0-2); WBC Urine 21-50 /hpf (0-5)
--- NOTE | 2023-08-03 17:52 | CT Scan Report ---
CT OF THE ABDOMEN AND PELVIS WITHOUT CONTRAST CLINICAL HISTORY: Left flank pain, recent stent - eval stone, pyelo COMPARISON STUDY: CT of the abdomen and pelvis April 20, 2021. KUB July 12, 2023. TECHNIQUE: Axial images of the abdomen and pelvis were obtained without IV contrast. Images were revi ewed in the axial, sagittal, and coronal planes. Automated exposure control was utilized for the maciel dy. A dose lowering technique was utilized adhering to the principles of ALARA. FINDINGS: Lung bases are unremarkable. No pneumatosis, free air or portal venous gas is present. Mult iple bilateral renal calculi measure up to 7 mm. There are no ureteral calculi. There is no right hyd ronephrosis. Moderate left hydroureteronephrosis is noted. Hyperdense material within the left collec ting system and ureter represents clot. There is a large amount of clot within the bladder. The bladd er is moderately distended. Blood clot fills the bladder and measures approximately 11 x 8.7 cm. Ther e is no evidence for a bowel obstruction. There is no biliary ductal dilatation status post cholecyst ectomy. Unenhanced images of the liver, spleen, adrenal glands and pancreas are unremarkable. There i s no evidence for acute appendicitis. There is no lymphadenopathy. IMPRESSION: 1. Distended bladder which contains a large amount of hemorrhage. Clot within the bladder measures ap proximately 11 x 8.7 cm. Moderate left hydroureteronephrosis with clot within the left collecting sys tem and ureter. 2. Bilateral nephrolithiasis. No ureteral calculi. ACT 112: Negative or not required by law. Electronically signed by: Alexis Ulrich M.D. 08/03/2023 5:50 PM
[2023-08-03] MEDS: SODIUM CHLORIDE 0.9% 500 ML IV ONE (18:27)
[2023-08-03] MEDS: fentaNYL citrate PF 100 MCG/2 ML VIAL IV PRN (18:27)
--- NOTE | 2023-08-03 18:28 | Emergency Department Note ---
Impression & Plan Hematuria, Hydronephrosis, DUSTIN (acute kidney injury), Acute left flank pain ED Provider Note NAME: EDDA LANDON AGE: 33 SEX: F : 1990 ARRIVES VIA: Walk-In INFORMANT: Patient, ED PROVIDER(S): Isma Delvalle DO CHIEF COMPLAINT: Flank pain HPI: The patient is a 33-year-old female who has a history of kidney stones who presented to the emergency department with flank pain. The patient had a stent that was removed by herself this past Monday. Since that time she has been noticing clots hematuria as well as flank pain. She now notices urinary frequency and postvoid residual. She is passing clots through her urethra. She denies having any fever or vomiting. Her pain is moderate. She called her primary urologist and was referred to the emergency department for further evaluation. ROS: See above HPI for pertinent positives & negatives. A total of 10 systems reviewed and were otherwise negative. PAST MEDICAL HISTORY: See Below PAST SURGICAL HISTORY: See Below FAMILY HISTORY: See Below SOCIAL HISTORY: See Below HOME MEDICATIONS: See Below ALLERGIES: See Below VITALS: See Below PHYSICAL EXAMINATION: GENERAL: The patient is awake and alert. The patient is anxious appearing. EYES: The conjunctivae are clear. The pupils are round and reactive. EARS, NOSE, MOUTH AND THROAT: The nose is without any evidence of any deformity. NECK: The neck is nontender and supple. RESPIRATORY: Normal respiratory effort is noted there is no evidence of wheezing rhonchi or rales CARDIOVASCULAR: Regular rate and rhythm noted there no murmurs rubs or gallops normal S1 normal S2. GASTROINTESTINAL: The abdomen is soft and mildly distended. There is bilateral lower abdominal tenderness palpation which is moderate. BACK: No midline tenderness or or step-off noted range of motion in flexion extension as well as rotation no signs of muscle spasm noted MUSCULOSKELETAL/EXTREMITIES: There is no evidence of gross deformity full range of motion is noted in the hips and shoulders. SKIN: There is no obvious evidence of any rash. There are no petechiae, pallor or cyanosis noted. NEUROLOGIC: Patient is awake alert and oriented x3 MEDICAL DECISION MAKING: The patient is a 33-year-old female who presented to the emergency department for an evaluation of flank pain. The patient had a recent stent removal on Monday of this week. Since that time she has noticed ongoing flank pain that started noticing hematuria and passing clots over the course of the last few days. The patient presented to the emergency department after talking to her primary urologist. The patient was treated with IV fluids in the emergency department. She was also treated with IV pain medication. The patient had a Mccauley catheter placed. She was irrigated multiple times but continues to have clots as well as gross hematuria. I discussed her condition with the on-call urology group again as well as the on-call [facility] hospitalist. They have agreed to evaluate the patient in the emergency department for further management and disposition. Triage Nursing notes reviewed. Prior medical records reviewed Vital Signs: reviewed and remarkable for no significant abnormalities Differential diagnosis: Renal colic, UTI, appendicitis, diverticulitis, mesenteric ischemia, aortic pathology, infections, inflammatory bowel disease, PUD, biliary pathology, as well as other pathologies. ER treatment provided: See below Diagnostics interpreted by me: ECG: none Cardiac Monitoring: An order was placed for continuous cardiac monitoring. The monitor shows a rate of 96 bpm with sinus rhythm. Laboratory studies: As stated above and show below. Imaging studies: See below. Radiographic imaging was reviewed by myself Consultation(s): I discussed this case with Dr. Abreu who is on-call for urology. I also discussed the case with Chapin Nicole who is covering for urology this evening. I discussed this case with Dr. Llanos who is on-call for the [facility] hospitalist group. Past Med/Surg History Medical History History of gastric ulcer History of COVID-19 04/2020- no hosp; resolved Anemia has been receiving iron infusions past 2 mos; last one 02/2023 Post traumatic stress disorder (PTSD) LACIE (generalized anxiety disorder) MDD (major depressive disorder), recurrent episode, severe History of gastritis Hx gestational diabetes Hx of pancreatitis Ulcerative colitis GERD (gastroesophageal reflux disease) Os odontoideum CERVICAL SPINE - FULL ROM Hiatal hernia Syncope HX- FROM SINUS TACHYCARDIA (STRESS AND ELECOTROLYTE IMBALANCE); no issues since Surgical History Capay teeth removed History of ERCP History of colonoscopy History of anesthesia reaction SLOW TO WAKE UP Nausea and vomiting after administration of anesthetic agent History of breast biopsy right--benign History of cystoscopy MULTIPLE X'S WITH STENTS AND STONE REMOVAL History of lithotripsy MULTIPLE History of cholecystectomy Family History Mother Breast cancer Grandmother (Maternal) Breast cancer Grandfather (Paternal) Myocardial infarction Brother Cancer testicular Other Heart disease Hypertension No family history of adverse response to anesthesia Denies family history of Ovarian cancer Prostate cancer Colorectal cancer Stroke Social History Smoking Status: Never smoker Second Hand Exposure: Yes (SURGICAL SMOKE X10 YEARS ); Do You Dip or Chew Tobacco: No; Hx Alcohol Use: No Hx Substance Use: No Preferred Language: Chinese Communication Ability: Effective Visual Impairment: Limited Hearing Ability: Normal Credit Collections Analyst Required: No Beliefs That Will Affect Care: None marital status: marital status details: Russ Galvez (34) [phone] Current Living Situation: Spouse and Family Current Living Situation Comment: Lives with and 3 Children current occupational status: employed current occupation: [employer] How many Children do You have: 3 Feels Safe at Home: Yes Childhood Exposure to Second-Hand Smoke: No caffeine: Yes Dental Care, Regularly: Yes Physical Activity Frequency: 3-4 Times per Week Physical Activity Frequency Comment: walks Seatbelt Use: always Sunscreen Use: Yes Assistive Devices: Glasses Allergies Allergies Allergy/AdvReac Type Severity Reaction Status Date / Time hydromorphone [From Dilaudid] Allergy Severe Tachycardia,shortness Verified 08/01/23 15:37 of breath and rash morphine Allergy Intermediate SHORTNESS Verified 08/01/23 15:37 OF BREATH cephalexin Allergy Mild ITCHINESS Verified 08/01/23 15:37 nickel Allergy Mild ITCHY RED Verified 08/01/23 15:37 WITH EARRINGS diphenhydramine AdvReac Mild hyeractivit Verified 08/01/23 15:37 [From Benadryl] y monosodium glutamate AdvReac Fatigued Verified 08/01/23 15:37 Home Meds Home Medications Medication Instructions Recorded Confirmed etonogestrel 68 mg subdermal See Rx Instructions .Route .COMPLEX 07/12/21 08/03/23 implant (Nexplanon) melatonin 10 mg tablet 10 mg PO HS 07/12/21 08/03/23 lactobacillus combination no.4 3 3,000 mmu cells PO DAILY 07/29/21 08/03/23 billion cell capsule (Probiotic) sertraline 50 mg tablet 50 mg PO QPM MDD 09/19/22 08/03/23 trazodone 50 mg tablet 100 mg PO .at bedtime 09/19/22 08/03/23 acetaminophen 325 mg tablet 325 mg PO QID PRN Pain 03/01/23 08/03/23 ibuprofen 400 mg tablet 400 mg PO Q8H PRN Pain 03/01/23 08/03/23 calcium carbonate (Tums) 300 mg PO BID PRN Acid Reflux 07/26/23 08/03/23 pantoprazole 40 mg tablet,delayed 40 mg PO BID 08/03/23 08/03/23 release Previous Rx's Medication Instructions Recorded mesalamine 1.2 gram tablet,delayed 2.4 g (2 x 1.2 gram) PO BID 90 09/30/21 release days #360 tabs hydroxyzine HCl 50 mg tablet 50 mg PO HS PRN insomnia/anxiety 10/05/21 #30 tabs ferrous sulfate 325 mg (65 mg 325 mg PO DAILY #30 tabs 12/19/22 iron) tablet phenazopyridine 200 mg tablet 200 mg PO Q8H PRN pain #10 tabs 07/27/23 (Pyridium) tamsulosin 0.4 mg capsule 0.4 mg PO HS #30 caps 07/27/23 Results & Data (ED) Vital Signs Vital Signs - 24 hr 08/03/23 16:29 08/03/23 18:32 08/03/23 18:37 Temperature 36.9 C Temperature Source Temporal Artery Scan Pulse Rate 142 H 96 H Pulse Rate [Apical] 90 Respiratory Rate 18 15 Respiratory Effort / Characteristics Non-Labored Spontaneous Respiratory Depth Normal Blood Pressure 100/66 Blood Pressure [Left Arm] 100/61 Blood Pressure Mean 77 Blood Pressure Mean [Left Arm] 74 Blood Pressure Position Sitting Blood Pressure Position [Left Arm] Semi-fowlers Pulse Oximetry 98 99 Oxygen Delivery Method Room Air Room Air Sepsis Recent Fever Within 48 Hours No Sepsis New/Unexplained Change in Mental Status N/A Sepsis Action Taken by Nursing No Action Required 08/03/23 20:00 Temperature Temperature Source Pulse Rate Pulse Rate [Apical] Respiratory Rate Respiratory Effort / Characteristics Respiratory Depth Blood Pressure Blood Pressure [Left Arm] Blood Pressure Mean Blood Pressure Mean [Left Arm] Blood Pressure Position Blood Pressure Position [Left Arm] Pulse Oximetry 99 Oxygen Delivery Method Room Air Sepsis Recent Fever Within 48 Hours Sepsis New/Unexplained Change in Mental Status Sepsis Action Taken by [facility] Medications Current Medication List: was personally reviewed by me Laboratory Data Attestation: I reviewed the patient's lab results. 08/03/23 16:42 08/03/23 16:42 Lab Results 08/03/23 Range/Units 16:42 WBC 10.29 (4.8-10.8) K/ul RBC 3.89 L (4.20-5.40) M/uL Hgb 10.5 L (12.0-16.0) g/dl Hct 32.7 L (37.0-47.0) % MCV 84.1 (80.0-100.0) fL MCH 27.0 (25.0-34.0) pg MCHC 32.1 (32.0-36.0) g/dL RDW Std Deviation 40.4 (36.4-46.3) fL RDW Coeff of Jabari 13.3 (11.5-14.5) % Plt Count 330 (130-400) K/uL MPV 9.8 (9.4-12.4) fL Immature Gran % (Auto) 0.8 % Neut % (Auto) 56.6 % Lymph % (Auto) 30.9 % [place] % (Auto) 6.6 % Eos % (Auto) 4.4 % Baso % (Auto) 0.7 % Neut # (Auto) 5.83 (1.40-6.50) K/uL Lymph # (Auto) 3.18 (1.20-3.40) K/uL [place] # (Auto) 0.68 H (0.11-0.59) K/uL Eos # (Auto) 0.45 (0.00-0.50) K/uL Baso # (Auto) 0.07 (0.00-0.20) K/uL Immature Gran # (Auto) 0.08 (0.01-0.20) K/uL Sodium 136 (136-145) mmol/L Potassium 3.6 (3.5-5.1) mmol/L Chloride 102 (98-107) mmol/L Carbon Dioxide 24 (21-32) mmol/L Anion Gap 10 (3-11) BUN 21 (6-23) mg/dl Creatinine 1.59 H (0.6-1.2) mg/dl Est Cr Clr Drug Dosing 40.6 ml/min Est GFR ( Amer) 48.3 ml/min Est GFR (Non-Af Amer) 41.6 ml/min BUN/Creatinine Ratio 13.2 (10-20) Glucose 141 H (70-99(Fasting)) mg/dl Calcium 8.9 (8.6-10.3) mg/dl Total Bilirubin 0.2 (0.2-1.0) mg/dl AST 11 L (13-39) U/L ALT 6 L (7-52) U/L Alkaline Phosphatase 54 (34-104) U/L Total Protein 6.8 (6.0-8.3) gm/dl Albumin 4.2 (3.4-5.0) gm/dl Globulin 2.6 (2.5-4.0) gm/dl Albumin/Globulin Ratio 1.6 (0.9-2) Lipase 21 (11-82) U/L HCG, Qual Negative (Negative) Urine Color Red Urine Appearance Turbid A (Clear) Urine pH 8.5 H (4.5-7.5) Ur Specific [place] 1.020 (1.000-1.030) Urine Protein 3+ H (Negative) Urine Glucose (UA) Trace H (Negative) Urine Ketones Negative (Negative) Urine Blood 3+ H (Negative) Urine Nitrite Positive A (Negative) Urine Bilirubin Negative (Negative) Urine Urobilinogen Negative (Negative) Ur Leukocyte Esterase Negative (Negative) Urine RBC >20 H (0-2) /hpf Urine WBC 21-50 H (0-5) /hpf Ur Epithelial Cells 11-20 H (0-2) /hpf Urine Bacteria None Seen (None Seen) Administered Medications Fentanyl Citrate (Fentanyl Citrate Pf 100 Mcg/2 Ml Vial) 50 mcg IV Q15M PRN PRN Reason: Pain Stop: 08/17/23 18:18 Last Admin: 08/03/23 18:27 Dose: 50 mcg Documented By: AMS Discontinued Medications Sodium Chloride (Nss) 1,000 mls @ 999 mls/hr IV .Q1H1M STA Stop: 08/03/23 17:32 Last Infusion: 08/03/23 21:54 Dose: Infused Documented By: Admin: 08/03/23 16:44 Dose: 999 mls/hr Documented By: CECY Sodium Chloride (Nss) 500 mls @ 999 mls/hr IV .Q31M ONE Stop: 08/03/23 18:49 Last Infusion: 08/03/23 21:54 Dose: Infused Documented By: Admin: 08/03/23 18:27 Dose: 999 mls/hr Documented By: HARVEY Ketorolac Tromethamine (Ketorolac Tromethamine 15 Mg/Ml Vial) 10 mg IV NOW STA Stop: 08/03/23 16:33 Last Admin: 08/03/23 16:43 Dose: 10 mg Documented By: CECY Ondansetron HCl (Ondansetron Inj 2 Mg/Ml 2 Ml Vial) 4 mg IV NOW STA Stop: 08/03/23 16:33 Last Admin: 08/03/23 16:44 Dose: 4 mg Documented By: CECY Imaging Data Attestation: I personally reviewed and interpreted this imaging study as follows: My Impression: CT of the abdomen and pelvis was obtained in the emergency department. My interpretation is hydronephrosis of the left kidney with hematuria and blood noted in the bladder as well as in the proximal ureter. Final report below. Radiologist's Impression: Abdomen/Pelvis CT 08/03/23 16:32 CT OF THE ABDOMEN AND PELVIS WITHOUT CONTRAST CLINICAL HISTORY: Left flank pain, recent stent - eval stone, pyelo COMPARISON STUDY: CT of the abdomen and pelvis April 20, 2021. KUB July 12, 2023. TECHNIQUE: Axial images of the abdomen and pelvis were obtained without IV contrast. Images were reviewed in the axial, sagittal, and coronal planes. Automated exposure control was utilized for the study. A dose lowering technique was utilized adhering to the principles of ALARA. FINDINGS: Lung bases are unremarkable. No pneumatosis, free air or portal venous gas is present. Multiple bilateral renal calculi measure up to 7 mm. There are no ureteral calculi. There is no right hydronephrosis. Moderate left hydroureteronephrosis is noted. Hyperdense material within the left collecting system and ureter represents clot. There is a large amount of clot within the bladder. The bladder is moderately distended. Blood clot fills the bladder and measures approximately 11 x 8.7 cm. There is no evidence for a bowel obstruction. There is no biliary ductal dilatation status post cholecystectomy. Unenhanced images of the liver, spleen, adrenal glands and pancreas are unremarkable. There is no evidence for acute appendicitis. There is no lymphadenopathy. IMPRESSION: 1. Distended bladder which contains a large amount of hemorrhage. Clot within the bladder measures approximately 11 x 8.7 cm. Moderate left hydroureteronephrosis with clot within the left collecting system and ureter. 2. Bilateral nephrolithiasis. No ureteral calculi. ACT 112: Negative or not required by law. Electronically signed by: Alexis Ulrich M.D. 08/03/2023 5:50 PM Discharge Plan Visit Data Chief Complaint: Hematuria Stated Complaint: STINT PLACEMENT ED Provider: Isma Delvalle Discharge Problem: Hematuria, Hydronephrosis, DUSTIN (acute kidney injury), Acute left flank pain Patient Disposition: Being Evaluated by Hospitalist Forms Stand Alone Forms: [facility] [place] [facility]r Prescriptions Prescriptions: No Action mesalamine 1.2 gram tablet,delayed release (DR/EC) 2.4 g PO BID 90 Days Qty: 360 3RF hydroxyzine HCl 50 mg tablet 50 mg PO HS PRN (Reason: insomnia/anxiety) Qty: 30 0RF ferrous sulfate 325 mg (65 mg iron) tablet 325 mg PO DAILY Qty: 30 0RF trazodone 50 mg tablet 100 mg PO .at bedtime sertraline 50 mg tablet 50 mg PO QPM Probiotic 3 billion cell capsule 3,000 mmu cells PO DAILY Rx Instructions: administer with a meal melatonin 10 mg Tablet 10 mg PO HS Nexplanon 68 mg Implant See Rx Instructions .ROUTE .COMPLEX Rx Instructions: 68 mg subdermally; every 3 years; placed on 06/25/21 acetaminophen 325 mg Tablet 325 mg PO QID PRN (Reason: Pain) ibuprofen 400 mg Tablet 400 mg PO Q8H PRN (Reason: Pain) Tums 300 mg (750 mg) Tablet,Chewable 300 mg PO BID PRN (Reason: Acid Reflux) phenazopyridine [Pyridium] 200 mg tablet 200 mg PO Q8H PRN (Reason: pain) Qty: 10 0RF tamsulosin 0.4 mg capsule 0.4 mg PO HS Qty: 30 0RF pantoprazole 40 mg tablet,delayed release (DR/EC) 40 mg PO BID Referrals Referrals: Fabiola Dean MD [Primary Care Provider] - Discharge Problem: Hematuria Qualifiers: Hematuria type: gross Qualified Code(s): R31.0 - Gross hematuria Hydronephrosis Qualifiers: Hydronephrosis type: unspecified Qualified Code(s): N13.30 - Unspecified hydronephrosis
--- NOTE | 2023-08-03 21:32 | Urology Consultation ---
<Statement entered by Yazan Abreu MD - 08/04/23 08:32> I have seen and discussed Ms. Spencer's case with Joe Nicole PA-C and agree with the above documentation. Based on the extent of clot in the CT scan, from the kidney down to the bladder, I suspect she had a bleed from her kidney, although the underlying cause of this is unclear. Mccauley catheter was placed and hand irrigation performed with a fair amount of blood clot. Urine still is grossly bloody, however is slightly darker colored, suggestive of old blood/breaking-down clot. Hand-irrigation of the bladder will not clear her upper tract, so there will likely be persistent discoloration of the urine while the upper tract clot breaks down. Hemoglobin down trended overnight, however appears more stable this morning. There is definitely a component of acute blood loss, although likely some dilution as well. We discussed that there is likely minimal role for ureteroscopy at this time. She may be a candidate for cystoscopy and clot evacuation, although bladder has been draining well overnight after irrigation performed. Pending how the morning goes, we may consider bladder ultrasound to evaluate for any residual clot. -Yazan Abreu MD. Date of Consultation August 03, 2023 Assessment & Plan (1) Hematuria: I discussed with the treating emergency room physician and the patient is being admitted on the hospitalist service. From a urologic perspective we recommend the following: I suspect the patient's hematuria may be related to her recent urologic procedure Prior to my arrival the nursing staff placed a 22 Greek three-way Mccauley catheter and hand irrigated the patient's bladder and to retrieve several visible blood clots. After my arrival I further irrigated the patient's Mccauley catheter with copious amounts of normal saline solution and was able to retrieve a considerable amount of blood clot. The patient continued to have hematuria although her urine did clear slightly. After this procedure the patient noted no suprapubic discomfort indicating that her bladder was full but did experience some discomfort from the Mccauley catheter. I feel it would be within the patient's best interest to be admitted to the hospital at this time She may have a diet at this time but we will make her n.p.o. after midnight Would recommend following serial hemoglobin and hematocrits due to her ongoing hematuria Will maintain the patient's Mccauley catheter gravity drainage at this time. If the catheter does become clogged manual irrigation and flushing technique can be employed to relieve any obstruction. If the patient's Mccauley catheter does become clogged consideration may be given to initiating continuous bladder irrigation through the patient's existing three-way Mccauley catheter The patient does have an abnormal urinalysis may be beneficial to place her on empiric antibiotics--cipro has been started As needed Pyridium can be used for discomfort from patient's Mccauley catheter Additional recommendations be forthcoming based on her clinical course as unfolds Would recommend using only SCDs for DVT prevention, no chemical means until it is ascertained whether or not patient requires any procedural intervention and due to the fact the patient has ongoing hematuria Addendum: (6:00 AM) Patient has been revisited at bedside several times since my initial visit and her Mccauley catheter has remained patent draining dark bloody urine. I did not see any additional visible blood clots since I irrigated her catheter out. Patient's labs were reviewed and prior to her procedure her hemoglobin was 12.2. Upon presentation to the emergency department yesterday her hemoglobin was 10.5. On this morning's labs at approximately 3:30 AM her hemoglobin has continued to drop and is now 7.6. The patient has been visited at bedside and she has been noted to be hemodynamically stable. Her current blood pressure is 102/78 and she is not tachycardic with a pulse of 72. She remains afebrile. The patient denies any lightheadedness or dizziness. Her skin does appear somewhat pale. Due to the noted drop in patient's hemoglobin we will repeat labs at approximate 7:00 AM this morning. If patient continues to have a considerable drop in her hemoglobin consideration may be given to performing a CT angiogram to look for active extravasation of blood. If this is noted consideration will be given to either performing a cystoscopy or perhaps some type of embolization procedure. I discussed the above with my attending physician, Dr. Abreu. The patient has been updated at bedside. We will keep her n.p.o. for the present time. History of Present Illness Reason for Consultation: Gross hematuria History of Present Illness This is a 33-year-old female who presented to the emergency department secondary to hematuria. The patient underwent a cystoscopy on 07/27/[address] De Anda of [facility] u[facility]. Patient underwent lithotripsy at this time and had a left ureteral stent placed. The patient notes that she pulled the stent out 3 days following her procedure as instructed. The patient notes that she then began to urinate blood. Earlier today the patient says that she had the urge to urinate and a feeling as though her bladder was full. She continued to have gross hematuria and was passing some large blood clots. She denies any nausea or vomiting. She denies any fevers, shakes, or chills. Other than some suprapubic discomfort she denied any abdominal pain. Because of the symptoms she presented to the emergency department as noted above. Since arrival to the hospital the patient has had labs and imaging which I independent reviewed. A CT scan of the abdomen pelvis showed the patient had a distended bladder which appeared to contain a large amount of hemorrhagic products. The clot in the bladder measured approximately 8.7 x 11 cm. There is moderate left hydroureteronephrosis with some clot in the left collecting system and ureter. There is no pneumatosis, free air or portal venous gas. There is no evidence of bowel obstruction. Labs include a CBC were white blood cell count and platelet count were normal. Hemoglobin and hematocrit were noted to be 10.5 and 32.7. (Patient's most recent hemoglobin prior to this was on 07/25/2023 which was 12.2). Chemistry profile showed sodium and potassium were normal. BUN was 21 and her creatinine was elevated at 1.5 (review of records show creatinine typically runs within the normal range). Urinalysis showed turbid urine which was positive for nitrites and negative for leukocyte Estrace. There were 21-50 white blood cells per high-power field and no bacteria on the study. At the time of my interview the patient was resting comfortably bed she was no distress Allergies Allergy/AdvReac Type Severity Reaction Status Date / Time hydromorphone [From Dilaudid] Allergy Severe Tachycardia,shortness Verified 08/01/23 15:37 of breath and rash morphine Allergy Intermediate SHORTNESS Verified 08/01/23 15:37 OF BREATH cephalexin Allergy Mild ITCHINESS Verified 08/01/23 15:37 nickel Allergy Mild ITCHY RED Verified 08/01/23 15:37 WITH EARRINGS diphenhydramine AdvReac Mild hyeractivit Verified 08/01/23 15:37 [From Benadryl] y monosodium glutamate AdvReac Fatigued Verified 08/01/23 15:37 Home Medications Medication Instructions Recorded Confirmed Type etonogestrel 68 mg subdermal See Rx Instructions .Route .COMPLEX 07/12/21 08/03/23 History implant (Nexplanon) melatonin 10 mg tablet 10 mg PO HS 07/12/21 08/03/23 History lactobacillus combination no.4 3 3,000 mmu cells PO DAILY 07/29/21 08/03/23 History billion cell capsule (Probiotic) mesalamine 1.2 gram tablet,delayed 2.4 g (2 x 1.2 gram) PO BID 90 09/30/21 08/03/23 Rx release days #360 tabs hydroxyzine HCl 50 mg tablet 50 mg PO HS PRN insomnia/anxiety 10/05/21 08/03/23 Rx #30 tabs sertraline 50 mg tablet 50 mg PO QPM MDD 09/19/22 08/03/23 History trazodone 50 mg tablet 100 mg PO .at bedtime 09/19/22 08/03/23 History ferrous sulfate 325 mg (65 mg 325 mg PO DAILY #30 tabs 12/19/22 08/03/23 Rx iron) tablet acetaminophen 325 mg tablet 325 mg PO QID PRN Pain 03/01/23 08/03/23 History ibuprofen 400 mg tablet 400 mg PO Q8H PRN Pain 03/01/23 08/03/23 History calcium carbonate (Tums) 300 mg PO BID PRN Acid Reflux 07/26/23 08/03/23 History phenazopyridine 200 mg tablet 200 mg PO Q8H PRN pain #10 tabs 07/27/23 08/03/23 Rx (Pyridium) tamsulosin 0.4 mg capsule 0.4 mg PO HS #30 caps 07/27/23 08/03/23 Rx pantoprazole 40 mg tablet,delayed 40 mg PO BID 08/03/23 08/03/23 History release Patient History Medical History History of gastric ulcer History of COVID-19 04/2020- no hosp; resolved Anemia has been receiving iron infusions past 2 mos; last one 02/2023 Post traumatic stress disorder (PTSD) LACIE (generalized anxiety disorder) MDD (major depressive disorder), recurrent episode, severe History of gastritis Hx gestational diabetes Hx of pancreatitis Ulcerative colitis GERD (gastroesophageal reflux disease) Os odontoideum CERVICAL SPINE - FULL ROM Hiatal hernia Syncope HX- FROM SINUS TACHYCARDIA (STRESS AND ELECOTROLYTE IMBALANCE); no issues since Surgical History [place] teeth removed History of ERCP History of colonoscopy History of anesthesia reaction SLOW TO WAKE UP Nausea and vomiting after administration of anesthetic agent History of breast biopsy right--benign History of cystoscopy MULTIPLE X'S WITH STENTS AND STONE REMOVAL History of lithotripsy MULTIPLE History of cholecystectomy Family History Mother Breast cancer Grandmother (Maternal) Breast cancer Grandfather (Paternal) Myocardial infarction Brother Cancer testicular Other Heart disease Hypertension No family history of adverse response to anesthesia Denies family history of Ovarian cancer Prostate cancer Colorectal cancer Stroke Social History Smoking Status: Never smoker Second Hand Exposure: No; Do You Dip or Chew Tobacco: No; Tobacco Cessation Education Requested by Patient: No Hx Alcohol Use: No Hx Substance Use: No Preferred Language: Kyrgyz Communication Ability: Effective Visual Impairment: Limited Hearing Ability: Normal Baggage Agent Required: No Beliefs That Will Affect Care: None marital status: marital status details: Russ Galvez (34) [phone] Current Living Situation: Spouse and Family Current Living Situation Comment: Lives with and 3 Children current occupational status: employed current occupation: [employer] [place] How many Children do You have: 3 Other Information That Helps Us Care for You: No Feels Safe at Home: Yes Safety Concerns: Feels Safe At This Time Childhood Exposure to Second-Hand Smoke: No caffeine: Yes Dental Care, Regularly: Yes Physical Activity Frequency: 3-4 Times per Week Physical Activity Frequency Comment: walks Seatbelt Use: always Sunscreen Use: Yes Assistive Devices: None Review of Systems Constitutional: no fever and no chills Eyes: + corrective lenses Ear, Nose, Mouth, Throat: no hearing loss Respiratory: no dyspnea Cardiovascular: no chest pain Gastrointestinal: + abdominal pain (Suprapubic discomfort) ; no nausea and no vomiting Genitourinary: as per Subjective / HPI Musculoskeletal: no back pain Integumentary: no rash Neurologic: no localized weakness Physical Exam Constitutional: WD/WN, vitals as above Eyes: Wears glasses ENMT: Ears: no hearing impairment and no external ear abnormality Mouth: no oropharynx abnormality Neck: trachea midline Respiratory: no labored breathing Cardiovascular: Rate/Rhythm: regular rate and regular rhythm Gastrointestinal (Abdomen): Abdomen is soft and nondistended. There is no rebound tenderness or guarding or signs of peritonitis. Musculoskeletal: No calf tenderness Skin: no rashes Neurologic: moves all extremities Psychiatric: A+Ox3, euthymic affect Genitourinary: Mccauley catheter is in place draining gross hematuria with some visible blood clot Results & Data Vital Signs (Past 12 Hours) Vital Signs Temp Pulse Pulse Resp BP BP Pulse Ox 08/03/23 20:00 99 08/03/23 18:37 96 H 08/03/23 18:32 90 15 100/61 99 08/03/23 16:29 36.9 C 142 H 18 100/66 98 O2 Del Method 08/03/23 20:00 Room Air 08/03/23 18:37 08/03/23 18:32 Room Air 08/03/23 16:29 Room Air PG Care Time/CCT Total # of Minutes Spent Total Time Spent with Patient: Total time spent is greater than 50% in coordination of care (as documented) at patient's floor/unit and/or counseling patient: Coding Level of Care Code 36301 IN/OBS CONSULT LVL 5,80M Diagnoses Hematuria R31.9
--- NOTE | 2023-08-03 21:46 | History & Physical Report ---
Date of Service August 03, 2023 Assessment & Plan (1) Hematuria: Plan: 33-year-old female status post lithotripsy with stent placement on 07/27/2023 with subsequent stent removal presenting with hematuria. Patient passing bright red blood with clots present. She is hemodynamically stable. hemoglobin = 10.5, hematocrit = 32.7 (down from 12.2 and 37.4, respectively on 07/25/2023). Patient does have mild elevation of creatinine as well at 1.59. CT as above with distended bladder which contains a large amount of hemorrhage. Will admit to medical with telemetry - Keep n.p.o. after midnight. IV fluids with LR at 80 mL/h x [address], closely monitor output. Irrigate as needed. Monitor CBC Will treat with empiric antibioticsciprofloxacin 400 mg IV twice daily Continue Flomax, Pyridium for now urology assistance appreciated (2) Chronic pancolonic ulcerative colitis: Plan: Chronic. Stable. Continue mesalamine (3) History of gastric ulcer: Plan: Chronic. Stable. Continue Protonix 40 mg p.o. twice daily (4) Anxiety and depression: Plan: Chronic. Stable. Continue home medications to include trazodone, sertraline, hydroxyzine History of Present Illness Chief Complaint: hematuria Primary Care Provider: Fabiola Dean MD Montana Spencer is a pleasant 33-year-old female with history of ulcerative colitis, GERD and depression/anxiety presenting from home with hematuria. Patient had a cystoscopy performed by Dr. De Anda on 07/27/2023 with lithotripsy and placement of left ureteral stent. Patient removed the stent as instructed on 07/30/2023. She reports she was able to urinate without difficulty. However, throughout the week she developed some dull aching left flank pain. She was passing some small blood clots as well as sediment and pieces of stone. Today patient was at work and she developed some urinary urgency. She went to the bathroom and passed a large amount of prasanna hematuria with clots. She also had some bladder pain and urethral pain. She attempted to go back to work but continued to have urgency with passage of hematuria and clots. She had some nausea as well as some hot flashes and shaking earlier today as well. Otherwise she denies fever, chills, her flank pain has since resolved. No abdominal pain, vomiting or diarrhea. No chest pain, cough or shortness of breath. No additional complaints at this time. ER course: Toradol 10 mg IV Normal saline x 1.5 L Zofran 4 mg IV Fentanyl 50 mcg IV Hydroxyzine 50 mg p.o. Flomax 0.4 mg p.o. Pyridium 200 mg p.o. Sertraline 50 mg p.o. Trazodone 100 mg p.o. Melatonin 3 mg p.o. Allergies Allergy/AdvReac Type Severity Reaction Status Date / Time hydromorphone [From Dilaudid] Allergy Severe Tachycardia,shortness Verified 08/01/23 15:37 of breath and rash morphine Allergy Intermediate SHORTNESS Verified 08/01/23 15:37 OF BREATH cephalexin Allergy Mild ITCHINESS Verified 08/01/23 15:37 nickel Allergy Mild ITCHY RED Verified 08/01/23 15:37 WITH EARRINGS diphenhydramine AdvReac Mild hyeractivit Verified 08/01/23 15:37 [From Benadryl] y monosodium glutamate AdvReac Fatigued Verified 08/01/23 15:37 Home Medications Medication Instructions Recorded Confirmed Type etonogestrel 68 mg subdermal See Rx Instructions .Route .COMPLEX 07/12/21 08/03/23 History implant (Nexplanon) melatonin 10 mg tablet 10 mg PO HS 07/12/21 08/03/23 History lactobacillus combination no.4 3 3,000 mmu cells PO DAILY 07/29/21 08/03/23 History billion cell capsule (Probiotic) mesalamine 1.2 gram tablet,delayed 2.4 g (2 x 1.2 gram) PO BID 90 09/30/21 08/03/23 Rx release days #360 tabs hydroxyzine HCl 50 mg tablet 50 mg PO HS PRN insomnia/anxiety 10/05/21 08/03/23 Rx #30 tabs sertraline 50 mg tablet 50 mg PO QPM MDD 09/19/22 08/03/23 History trazodone 50 mg tablet 100 mg PO .at bedtime 09/19/22 08/03/23 History ferrous sulfate 325 mg (65 mg 325 mg PO DAILY #30 tabs 12/19/22 08/03/23 Rx iron) tablet acetaminophen 325 mg tablet 325 mg PO QID PRN Pain 03/01/23 08/03/23 History ibuprofen 400 mg tablet 400 mg PO Q8H PRN Pain 03/01/23 08/03/23 History calcium carbonate (Tums) 300 mg PO BID PRN Acid Reflux 07/26/23 08/03/23 History phenazopyridine 200 mg tablet 200 mg PO Q8H PRN pain #10 tabs 07/27/23 08/03/23 Rx (Pyridium) tamsulosin 0.4 mg capsule 0.4 mg PO HS #30 caps 07/27/23 08/03/23 Rx pantoprazole 40 mg tablet,delayed 40 mg PO BID 08/03/23 08/03/23 History release Past Med/Surg History Medical History History of gastric ulcer History of COVID-19 04/2020- no hosp; resolved Anemia has been receiving iron infusions past 2 mos; last one 02/2023 Post traumatic stress disorder (PTSD) LACIE (generalized anxiety disorder) MDD (major depressive disorder), recurrent episode, severe History of gastritis Hx gestational diabetes Hx of pancreatitis Ulcerative colitis GERD (gastroesophageal reflux disease) Os odontoideum CERVICAL SPINE - FULL ROM Hiatal hernia Syncope HX- FROM SINUS TACHYCARDIA (STRESS AND ELECOTROLYTE IMBALANCE); no issues since Surgical History [place] teeth removed History of ERCP History of colonoscopy History of anesthesia reaction SLOW TO WAKE UP Nausea and vomiting after administration of anesthetic agent History of breast biopsy right--benign History of cystoscopy MULTIPLE X'S WITH STENTS AND STONE REMOVAL History of lithotripsy MULTIPLE History of cholecystectomy Family History Mother Breast cancer Grandmother (Maternal) Breast cancer Grandfather (Paternal) Myocardial infarction Brother Cancer testicular Other Heart disease Hypertension No family history of adverse response to anesthesia Denies family history of Ovarian cancer Prostate cancer Colorectal cancer Stroke Social History Smoking Status: Never smoker Second Hand Exposure: Yes (SURGICAL SMOKE X10 YEARS ); Do You Dip or Chew Tobacco: No; Hx Alcohol Use: No Hx Substance Use: No Preferred Language: Irish Communication Ability: Effective Visual Impairment: Limited Hearing 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: Normal 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 Beliefs That Will Affect Care: None marital status: marital status details: Russ Galvez [phone]) [phone] Current Living Situation: Spouse and Family Current Living Situation Comment: Lives with and 3 Children current occupational status: employed current occupation: [employer] How many Children do You have: 3 Feels Safe at Home: Yes Childhood Exposure to Second-Hand Smoke: No caffeine: Yes Dental Care, Regularly: Yes Physical Activity Frequency: 3-4 Times per Week Physical Activity Frequency Comment: walks Seatbelt Use: always Sunscreen Use: Yes Assistive Devices: Glasses Review of Systems Review of Systems: All systems reviewed & are unremarkable except as noted in HPI & below Physical Exam Physical Exam: General: patient resting comfortably, NAD, non-toxic in appearance, AA&O x 4 Skin: warm, dry, intact, no rashes or lesions HEENT: NC/AT, PERRL, EOMI, anicteric sclera, conjunctiva without injection, external ear normal to inspection and nontender, nares patent, moist mucus m embranes, dentition intact, no oropharyngeal lesions, neck supple, trachea midline, no LAD, no thyromegaly, no JVD Heart: +S1/S2, regular, no m/r/g Lungs: equal air entry bilaterally, no rales/rhonchi/wheezes Abd: +BS, soft, NT/ND, no masses/organomegaly/ascites Ext: warm, 2+ pulses in UE/LE bilaterally, no clubbing/cyanosis or edema Mccauley in place filled with bloody output with clots noted in the bag Neuro: nonfocal, patient AA&O x 4, speech intact, no facial droop, moving all extremities on command with equal strength 5/5 Results & Data Results & Data Vital Signs (Past 12 Hours) Vital Signs Temp Pulse Pulse Resp BP BP Pulse Ox 08/03/23 20:00 99 08/03/23 18:37 96 H 08/03/23 18:32 90 15 100/61 99 08/03/23 16:29 36.9 C 142 H 18 100/66 98 O2 Del Method 08/03/23 20:00 Room Air 08/03/23 18:37 08/03/23 18:32 Room Air 08/03/23 16:29 Room Air Laboratory Results Laboratory Results WBC 10.29 K/ul (4.8-10.8) 08/03/23 16:42 RBC 3.89 M/uL (4.20-5.40) L 08/03/23 16:42 Hgb 10.5 g/dl (12.0-16.0) L 08/03/23 16:42 Hct 32.7 % (37.0-47.0) L 08/03/23 16:42 MCV 84.1 fL (80.0-100.0) 08/03/23 16:42 MCH 27.0 pg (25.0-34.0) 08/03/23 16:42 MCHC 32.1 g/dL (32.0-36.0) 08/03/23 16:42 RDW Std Deviation 40.4 fL (36.4-46.3) 08/03/23 16:42 RDW Coeff of Jabari 13.3 % (11.5-14.5) 08/03/23 16:42 Plt Count 330 K/uL (130-400) 08/03/23 16:42 MPV 9.8 fL (9.4-12.4) 08/03/23 16:42 Immature Gran % (Auto) 0.8 % 08/03/23 16:42 Neut % (Auto) 56.6 % 08/03/23 16:42 Lymph % (Auto) 30.9 % 08/03/23 16:42 Crook % (Auto) 6.6 % 08/03/23 16:42 Eos % (Auto) 4.4 % 08/03/23 16:42 Baso % (Auto) 0.7 % 08/03/23 16:42 Neut # (Auto) 5.83 K/uL (1.40-6.50) 08/03/23 16:42 Lymph # (Auto) 3.18 K/uL (1.20-3.40) 08/03/23 16:42 Crook # (Auto) 0.68 K/uL (0.11-0.59) H 08/03/23 16:42 Eos # (Auto) 0.45 K/uL (0.00-0.50) 08/03/23 16:42 Baso # (Auto) 0.07 K/uL (0.00-0.20) 08/03/23 16:42 Immature Gran # (Auto) 0.08 K/uL (0.01-0.20) 08/03/23 16:42 Sodium 136 mmol/L (136-145) 08/03/23 16:42 Potassium 3.6 mmol/L (3.5-5.1) 08/03/23 16:42 Chloride 102 mmol/L (98-107) 08/03/23 16:42 Carbon Dioxide 24 mmol/L (21-32) 08/03/23 16:42 Anion Gap 10 (3-11) 08/03/23 16:42 BUN 21 mg/dl (6-23) 08/03/23 16:42 Creatinine 1.59 mg/dl (0.6-1.2) H 08/03/23 16:42 Est Cr Clr Drug Dosing 40.6 ml/min 08/03/23 16:42 Est GFR ( Amer) 48.3 ml/min 08/03/23 16:42 Est GFR (Non-Af Amer) 41.6 ml/min 08/03/23 16:42 BUN/Creatinine Ratio 13.2 (10-20) 08/03/23 16:42 Glucose 141 mg/dl (70-99(Fasting)) H 08/03/23 16:42 Calcium 8.9 mg/dl (8.6-10.3) 08/03/23 16:42 Total Bilirubin 0.2 mg/dl (0.2-1.0) 08/03/23 16:42 AST 11 U/L (13-39) L 08/03/23 16:42 ALT 6 U/L (7-52) L 08/03/23 16:42 Alkaline Phosphatase 54 U/L (34-104) 08/03/23 16:42 Total Protein 6.8 gm/dl (6.0-8.3) 08/03/23 16:42 Albumin 4.2 gm/dl (3.4-5.0) 08/03/23 16:42 Globulin 2.6 gm/dl (2.5-4.0) 08/03/23 16:42 Albumin/Globulin Ratio 1.6 (0.9-2) 08/03/23 16:42 Lipase 21 U/L (11-82) 08/03/23 16:42 HCG, Qual Negative (Negative) 08/03/23 16:42 Urine Color Red 08/03/23 16:42 Urine Appearance Turbid (Clear) A 08/03/23 16:42 Urine pH 8.5 (4.5-7.5) H 08/03/23 16:42 Ur Specific [place] 1.020 (1.000-1.030) 08/03/23 16:42 Urine Protein 3+ (Negative) H 08/03/23 16:42 Urine Glucose (UA) Trace (Negative) H 08/03/23 16:42 Urine Ketones Negative (Negative) 08/03/23 16:42 Urine Blood 3+ (Negative) H 08/03/23 16:42 Urine Nitrite Positive (Negative) A 08/03/23 16:42 Urine Bilirubin Negative (Negative) 08/03/23 16:42 Urine Urobilinogen Negative (Negative) 08/03/23 16:42 Ur Leukocyte Esterase Negative (Negative) 08/03/23 16:42 Urine RBC >20 /hpf (0-2) H 08/03/23 16:42 Urine WBC 21-50 /hpf (0-5) H 08/03/23 16:42 Ur Epithelial Cells 11-20 /hpf (0-2) H 08/03/23 16:42 Urine Bacteria None Seen (None Seen) 08/03/23 16:42 Impressions Abdomen/Pelvis CT 08/03/23 16:32 CT OF THE ABDOMEN AND PELVIS WITHOUT CONTRAST CLINICAL HISTORY: Left flank pain, recent stent - eval stone, pyelo COMPARISON STUDY: CT of the abdomen and pelvis April 20, 2021. KUB July 12, 2023. TECHNIQUE: Axial images of the abdomen and pelvis were obtained without IV contrast. Images were reviewed in the axial, sagittal, and coronal planes. Automated exposure control was utilized for the study. A dose lowering technique was utilized adhering to the principles of ALARA. FINDINGS: Lung bases are unremarkable. No pneumatosis, free air or portal venous gas is present. Multiple bilateral renal calculi measure up to 7 mm. There are no ureteral calculi. There is no right hydronephrosis. Moderate left hydroureteronephrosis is noted. Hyperdense material within the left collecting system and ureter represents clot. There is a large amount of clot within the bladder. The bladder is moderately distended. Blood clot fills the bladder and measures approximately 11 x 8.7 cm. There is no evidence for a bowel obstruction. There is no biliary ductal dilatation status post cholecystectomy. Unenhanced images of the liver, spleen, adrenal glands and pancreas are unremarkable. There is no evidence for acute appendicitis. There is no lymphadenopathy. IMPRESSION: 1. Distended bladder which contains a large amount of hemorrhage. Clot within the bladder measures approximately 11 x 8.7 cm. Moderate left hydroureteronephrosis with clot within the left collecting system and ureter. 2. Bilateral nephrolithiasis. No ureteral calculi. ACT 112: Negative or not required by law. Electronically signed by: Alexis Ulrich M.D. 08/03/2023 5:50 PM PG Care Time/CCT Total # of Minutes Spent Total Time Spent with Patient: Total time spent is greater than 50% in coordination of care (as documented) at patient's floor/unit and/or counseling patient: Coding Level of Care Code 78925 INT INP/OBS CARE 3/75MIN Diagnoses Hematuria R31.0 Hematuria type: gross Chronic pancolonic ulcerative colitis K51.00 History of gastric ulcer Z87.11 Anxiety and depression F41.9; F32.9 (1) Hematuria Hematuria type: gross Qualified Code(s): R31.0 - Gross hematuria
[2023-08-03] MEDS: PHENAZOPYRIDINE HCL 200 MG TAB PO STA (22:51)
[2023-08-03] MEDS: hydrOXYzine HCl 25 MG TAB PO STA (22:51)
[2023-08-03] MEDS: TAMSULOSIN HCL 0.4 MG CAP PO ONE (22:51)
[2023-08-03] MEDS: traZODone HCL 100 MG TAB PO STA (22:52)
[2023-08-03] MEDS: SERTRALINE HCL 50 MG TABLET PO ONE (22:52)
[2023-08-03] MEDS ORDERED: PHENAZOPYRIDINE HCL 200 MG TAB PO PRN (22:57)
[2023-08-03] MEDS ORDERED: ACETAMINOPHEN 325 MG TAB PO PRN (22:57)
[2023-08-03] MEDS ORDERED: DOCUSATE SODIUM 100 MG CAP PO PRN (22:57)
[2023-08-03] MEDS: MELATONIN 3 MG TAB PO STA (22:59)
[2023-08-03] MEDS: LACTATED RINGER'S 1,000 ML IV SCH (23:49)
[2023-08-04] MEDS: CIPROFLOXACIN / D5W 400 MG/200 ML BAG IV STA (02:55)
[2023-08-04 04:30] LABS: Hematocrit (blood only) 23.9 % (37.0-47.0); Hemoglobin 7.6 g/dl (12.0-16.0); Mean Corpuscular Hgb Conc 31.8 g/dL (32.0-36.0); Mean Corpuscular Volume 85.1 fL (80.0-100.0); Platelet Count 238 K/uL (130-400); RDW Coefficient of Variation 13.3 % (11.5-14.5); RDW Standard Deviation 41.1 fL (36.4-46.3); Red Blood Count 2.81 M/uL (4.20-5.40); White Blood Count 8.44 K/ul (4.8-10.8)
[2023-08-04 04:33] LABS: BUN Creatinine Ratio 17.4 (10-20); Calcium 7.6 mg/dl (8.6-10.3); Est GFR (African American) 60.4 ml/min; Est GFR (Non-African American) 52.1 ml/min; Potassium 3.9 mmol/L (3.5-5.1)
[2023-08-04 04:38] LABS: Prothrombin Time 11.1 Seconds (9.0-12.0)
[2023-08-04 07:16] LABS: Basophils # (auto) 0.04 K/uL (0.00-0.20); Basophils % (auto) 0.5 %; Eosinophils % (auto) 4.1 %; Hematocrit (blood only) 24.4 % (37.0-47.0); Hemoglobin 7.9 g/dl (12.0-16.0); Immature Granulocytes # (auto) 0.04 K/uL (0.01-0.20); Immature Granulocytes % (auto) 0.5 %; Lymphocytes # (auto) 2.63 K/uL (1.20-3.40); Lymphocytes % (auto) 35.7 %; Mean Corpuscular Hemoglobin 27.3 pg (25.0-34.0); Mean Corpuscular Hgb Conc 32.4 g/dL (32.0-36.0); Mean Corpuscular Volume 84.4 fL (80.0-100.0); Mean Platelet Volume 9.6 fL (9.4-12.4); Monocytes # (auto) 0.48 K/uL (0.11-0.59); Monocytes % (auto) 6.5 %; Neutrophils # (auto) 3.88 K/uL (1.40-6.50); Neutrophils % (auto) 52.7 %; Platelet Count 219 K/uL (130-400); RDW Coefficient of Variation 13.2 % (11.5-14.5); RDW Standard Deviation 41.1 fL (36.4-46.3); Red Blood Count 2.89 M/uL (4.20-5.40); White Blood Count 7.37 K/ul (4.8-10.8)
[2023-08-04 07:35] LABS: BUN Creatinine Ratio 19.8 (10-20); Calcium 7.3 mg/dl (8.6-10.3); Creatinine Clr Calc Pharmacy 53.4 ml/min; Est GFR (African American) 67.1 ml/min; Est GFR (Non-African American) 57.9 ml/min; Potassium 3.8 mmol/L (3.5-5.1)
[2023-08-04 07:41] LABS: Anisocytosis Present
[2023-08-04] MEDS: oxyCODONE HCL IR 5 MG TAB (IMMEDIATE RELEASE) PO PRN (07:54)
[2023-08-04] MEDS: PANTOprazole 40 MG TAB PO SCH (07:55)
[2023-08-04] MEDS: MESALAMINE 800 MG TABCR PO SCH (07:55)
--- NOTE | 2023-08-04 08:17 | Urology Progress Note ---
Date of Service August 04, 2023 Assessment & Plan (1) Hematuria: (2) Hydronephrosis: (3) Acute left flank pain: Plan: 33 yo/M admitted for gross hematuria; s/p left stone treatment on 07/26. Patient afebrile, SBPs 90-100s Hgb dropped from 10.5 to 7.6, repeat this am was 7.9; creatinine downtrending (1.21) Urine culture is pending Mccauley was placed on arrival and hand irrigation performed Mccauley is patent and draining during exam Plan: Maintain Mccauley catheter Okay to hand irrigate catheter as needed for clot obstruction Repeat Hgb was stable - continue to trend H/H If hemoglobin continues to drop, consider CT angiogram to look for active extravasation of blood Continue supportive care Keep NPO at present for consideration of cystoscopy and clot evacuation of the bladder For now, will continue conservative management with catheter and monitor closely will follow Update 1330- Revisited patient this afternoon She reports some pressure at her urethra Mccauley is draining appropriately Personally hand irrigated catheter with ~400 mL with return of moderate amount of small clots Will await repeat H/H Check Renal US for clot burden Will keep NPO for now Further recommendations pending results Plan discussed with Dr. De Anda, see attending note for updates to plan of care Attending note: Patient independently assessed, examined, interviewed, and evaluated. Agree with note as above. Patient's vitals and labs were all reviewed. Pertinent values in the HPI and plan section. Patient does have some blood in the urine. Has remained stable with no significant hypotension or other issues such as tachycardia. Does have dark purple/maroon color urine with small amount of clots. May be old blood passing through the system. Patient denies any trauma falls or injuries. Bleeding started suddenly on after nearly a week of no issues or problems and the stent being removed on Monday without major issue. Unsure of the images for the episode of bleeding. Patient has remained stable. Will plan to check renal ultrasound later this evening to double check the kidney and make sure there is no ongoing hydronephrosis. Will plan to monitor moving forward. Could consider changing out from a three- way catheter to a regular single chamber catheter either 18 or 20 Sin[place]a as it would likely drain better than the smaller channel with the three-way capabilities. Will plan to monitor. Hemoglobin has remained stable at 7.9. Will plan to continue to actively monitor urine for obstruction issues as well as continued passage of clot. Will monitor for any changes or sudden increase in symptoms or bother. Plan monitor closely Admission and Anticipated Discharge Date Admission Date: August 03, 2023 Subjective Patient seen at bedside in the emergency department this am She is awake and resting in bed Reports some left flank discomfort No bladder pain Mccauley catheter was manually irrigated by nursing and Urology LOREE yesterday evening She reports it has not needed additional irrigation since then Mccauley is draining appropriately during exam Review of Systems Constitutional: as per Subjective / HPI Genitourinary: as per Subjective / HPI Physical Exam Constitutional: well developed and well nourished; no acute distress Respiratory: normal respiratory effort; no respiratory distress and no labored breathing Musculoskeletal: Head/Neck/Chest: normocephalic Neurologic: moves all extremities and awake Psychiatric: Orientation: alert and oriented x 3 Genitourinary: Mccauley draining with light maroon colored urine, no clots in tubing at time of visit Results & Data Vital Signs (Past 12 Hours) Vital Signs Pulse Resp BP BP Pulse Ox O2 Del Method 08/04/23 07:28 72 18 102/52 L 99 Room Air 08/04/23 05:00 72 18 102/78 98 Room Air 08/04/23 01:00 84 18 106/72 98 Room Air 08/03/23 23:00 99 08/03/23 22:49 96/68 L 08/03/23 22:49 94 08/03/23 21:00 99 PG Care Time/CCT Total # of Minutes Spent Total Time Spent with Patient: Total time spent is greater than 50% in coordination of care (as documented) at patient's floor/unit and/or counseling patient: Coding Level of Care Code 05416 SUB INP/OBS CARE 05/04MIN Diagnoses Hematuria R31.0 Hematuria type: gross Hydronephrosis N13.30 Hydronephrosis type: unspecified Acute left flank pain R10.9 (1) Hematuria Hematuria type: gross Qualified Code(s): R31.0 - Gross hematuria (2) Hydronephrosis Hydronephrosis type: unspecified Qualified Code(s): N13.30 - Unspecified hydronephrosis
--- NOTE | 2023-08-04 10:46 | Hospitalist Progress Note ---
Date of Service August 04, 2023 Assessment & Plan (1) Hematuria: Plan: 33-year-old female status post lithotripsy with stent placement on 07/27/2023 with subsequent stent removal presenting with hematuria. Patient passing bright red blood with clots present. She is hemodynamically stable. hemoglobin = 10.5, hematocrit = 32.7 (down from 12.2 and 37.4, respectively on 07/25/2023). Patient does have mild elevation of creatinine as well at 1.59. CT as above with distended bladder which contains a large amount of hemorrhage. - IV fluids while NPO - Empiric antibiotics - IV cipro BID Urology consulted - Keep patient NPO - Trend H&H - this afternoon still with clot burden - check renal US Lombardo in place, closely monitor output. Irrigate as needed. Continue Flomax, Pyridium for now Recheck H&H 2100, AM CBC and BMP (2) DUSTIN (acute kidney injury): Plan: Baseline Cr 0.7 - 0.8 Presented with Cr of 1.59 Receiving IVF improving now 1.21 (3) Chronic pancolonic ulcerative colitis: Plan: Chronic. Stable. Continue mesalamine (4) History of gastric ulcer: Plan: Chronic. Stable. Continue Protonix 40 mg p.o. twice daily (5) Anxiety and depression: Plan: Chronic. Stable. Continue home medications to include trazodone, sertraline, hydroxyzine Plan Dispo: continued inpatient stay, following H&H DVT proh: SCDs, deferring chemical proh in setting of acute bleed Admission and Anticipated Discharge Date Admission Date: August 03, 2023 Subjective Patient ambulating in bed, returning to her bed after having more urethra pain. Does reports headaches and some dizziness. Does report hx of iron deficiency anemia - had to get iron infusions last fall. Review of Systems Review of Systems: All systems reviewed & are unremarkable except as noted in Subjective Physical Exam Physical Exam: General: NAD, VS as above Resp: normal respiratory effort, lungs clear to auscultation CV: tachycardic, no murmur, Abd:soft, mild suprapubic tenderness, no hepatosplenomegaly : lombardo draining blood colored urine Back: no flank pain Extremities: Moves all extremities, no edema Neuro: A&O x3, Results & Data Results & Data Vital Signs (Past 12 Hours) Vital Signs Temp Pulse Pulse Resp BP BP Pulse Ox 08/04/23 10:02 36.5 C 89 16 94/61 L 97 08/04/23 07:28 72 18 102/52 L 99 08/04/23 05:00 72 18 102/78 98 08/04/23 01:00 84 18 106/72 98 08/03/23 23:00 99 08/03/23 22:49 96/68 L 08/03/23 22:49 94 O2 Del Method 08/04/23 10:02 Room Air 08/04/23 07:28 Room Air 08/04/23 05:00 Room Air 08/04/23 01:00 Room Air 08/03/23 23:00 08/03/23 22:49 08/03/23 22:49 Laboratory Results CBc and chemistry reviewed PG Care Time/CCT Total # of Minutes Spent Total Time Spent with Patient: Total time spent is greater than 50% in coordination of care (as documented) at patient's floor/unit and/or counseling patient: Coding Level of Care Code 33112 SUB INP/OBS CARE 3/50MIN Diagnoses Hematuria R31.0 Hematuria type: gross DUSTIN (acute kidney injury) N17.9 Chronic pancolonic ulcerative colitis K51.00 History of gastric ulcer Z87.11 Anxiety and depression F41.9; F32.9 (1) Hematuria Hematuria type: gross Qualified Code(s): R31.0 - Gross hematuria
[2023-08-04] MEDS: IRON SUCROSE 300 MG in SODIUM CHLORIDE 0.9% 250 ML IV SCH (11:43)
[2023-08-04 14:44] LABS: Hematocrit (blood only) 24.6 % (37.0-47.0); Hemoglobin 7.9 g/dl (12.0-16.0)
[2023-08-04] MEDS: ACETAMINOPHEN 500 MG TAB PO PRN (16:17)
[2023-08-04] MEDS: ONDANSETRON INJ 2 MG/ML 2 ML VIAL IV PRN (17:21)
--- NOTE | 2023-08-04 18:05 | Ultrasound Report ---
RENAL ULTRASOUND HISTORY: Acute hematuria hematuria COMPARISON: CT 08/03/2023 FINDINGS: Right kidney: 9.6 cm. Right renal calculi redemonstrated measuring up to approximately 7 mm. No hydro nephrosis. Normal corticomedullary differentiation and cortical thickness. Left kidney: 11.0 cm. Nonobstructing calculi are again noted measuring up to approximately 6 mm. Mode rate hydronephrosis is similar to prior. Debris noted within the renal collecting system and renal pe lvis. Normal corticomedullary differentiation and cortical thickness. Bladder: Decompressed urinary bladder with Mccauley catheter in place. Hemorrhage again noted within the bladder lumen. IMPRESSION: 1. Hemorrhage again noted within the left renal collecting system resulting in moderate hydronephrosi s. 2. Mccauley catheter in place with hemorrhagic debris redemonstrated within the urinary bladder lumen. 3. Nonobstructing bilateral nephrolithiasis. ACT 112: Negative or not required by law. Electronically signed by: Ramin Carlos M.D. 08/04/2023 6:04 PM
[2023-08-04] MEDS: CIPROFLOXACIN / D5W 400 MG/200 ML BAG IV SCH (18:33)
[2023-08-04 20:59] LABS: Hematocrit (blood only) 24.6 % (37.0-47.0)
[2023-08-04] MEDS: SERTRALINE HCL 50 MG TABLET PO SCH (21:13)
[2023-08-04] MEDS: TAMSULOSIN HCL 0.4 MG CAP PO SCH (21:14)
[2023-08-04] MEDS: traZODone HCL 100 MG TAB PO SCH (21:14)
[2023-08-04] MEDS ORDERED: hydrOXYzine HCl 25 MG TAB PO PRN (21:45)
[2023-08-04] MEDS: oxyCODONE HCL IR 5 MG TAB (IMMEDIATE RELEASE) PO STA (21:57)
[2023-08-04] MEDS: ONDANSETRON INJ 2 MG/ML 2 ML VIAL IV STA (21:58)
[2023-08-05 04:36] LABS: Basophils # (auto) 0.06 K/uL (0.00-0.20); Basophils % (auto) 0.7 %; Eosinophils # (auto) 0.31 K/uL (0.00-0.50); Eosinophils % (auto) 3.8 %; Immature Granulocytes # (auto) 0.06 K/uL (0.01-0.20); Immature Granulocytes % (auto) 0.7 %; Lymphocytes # (auto) 2.53 K/uL (1.20-3.40); Lymphocytes % (auto) 30.8 %; Mean Corpuscular Hemoglobin 27.1 pg (25.0-34.0); Mean Corpuscular Volume 84.7 fL (80.0-100.0); Mean Platelet Volume 9.8 fL (9.4-12.4); Monocytes # (auto) 0.55 K/uL (0.11-0.59); Monocytes % (auto) 6.7 %; Neutrophils # (auto) 4.71 K/uL (1.40-6.50); Neutrophils % (auto) 57.3 %; Platelet Count 247 K/uL (130-400); RDW Coefficient of Variation 13.5 % (11.5-14.5); Red Blood Count 2.95 M/uL (4.20-5.40); White Blood Count 8.22 K/ul (4.8-10.8)
[2023-08-05 04:50] LABS: BUN Creatinine Ratio 11.4 (10-20); Calcium 7.7 mg/dl (8.6-10.3); Creatinine Clr Calc Pharmacy 56.7 ml/min; Est GFR (African American) 72.1 ml/min; Est GFR (Non-African American) 62.2 ml/min; Potassium 3.6 mmol/L (3.5-5.1)
--- NOTE | 2023-08-05 09:23 | Urology Progress Note ---
Date of Service August 05, 2023 Assessment & Plan (1) Hematuria: (2) Hydronephrosis: (3) Acute left flank pain: Plan: 33 yo/M admitted for gross hematuria; s/p left stone treatment on 07/26. Patient's hemoglobins have stabilized most recent coming back at 8. Had remained at 7.9 yesterday on 2 assessments. Renal ultrasound showed persistent hydronephrosis and this was reviewed interpreted by myself. [place] is patent and draining during exam is draining dark maroon/purple urine. Likely old blood draining. Patient was given diet and is undergoing conservative measures with hydration. Patient does have some blood in the urine. Has remained stable with no significant tachycardia. Patient has been having some mild hypotension without considerable issue. Does have dark purple/maroon color urine with small amount of clots. May be old blood passing through the system. Patient denies any trauma falls or injuries. Bleeding started suddenly on after nearly a week of no issues or problems and the stent being removed on Monday without major issue. Will plan to continue to actively monitor urine for obstruction issues as well as continued passage of clot. Will monitor for any changes or sudden increase in symptoms or bother. Plan monitor closely Did discuss possible removal of catheter to see patient will start voiding on her own. Reviewed different options moving forward. Will attempt catheter removal today. Will try to see if patient is able to go back to spontaneously voiding. Patient is getting an iron infusion. Will plan to monitor with plans for likely discharge if patient continues to improve. Will put an order for catheter removal. Patient should be able to move forward with diet to be advanced as tolerated. Admission and Anticipated Discharge Date Admission Date: August 03, 2023 Subjective Patient admitted with gross hematuria approximately week after treatment of stone and development of severe discomfort suprapubic pain and pelvic discomfort. Patient is afebrile. Has been undergoing hydration with drainage of bladder for retention and significant clot retention with oral medications, IV medications, IV fluids, and oral intake. Is improving slowly without considerable increase in pain or major issues. Has not developed severe vomiting or other issues. Has not experienced fever or chills. Has been tolerating oral medications. Is tolerating fluids. Has noticed some frequency and urgency. Has not had severe pain in the back and flank. Does have occasion al burning and irritation. No severe episodes or major changes. Has been tolerating catheter and continues to have dark maroon/purple old appearing clot material draining in the catheter Review of Systems Review of Systems: All systems reviewed & are unremarkable except as noted in HPI & below Physical Exam Physical Exam: General: Alert in no acute distress. HEENT: Normocephalic Atraumatic. Inspection normal. Cranial Nerves 2-12 Grossly intact. Normal inspection of face. Normal inspection of neck. Psychologic: Normal affect. Respiratory: Nonlabored. No use of accessory muscles. No tachypnea or dyspnea. Cardiovascular: No tachycardia Skin: [place] and Dry. No rashes or visible lesions. Extremities/Lymphatics: No edema Abdomen: Soft Non-distended. No rebound or guarding. Results & Data Vital Signs (Past 12 Hours) Vital Signs Temp Pulse Pulse Resp BP BP Pulse Ox 08/05/23 07:34 36.8 C 86 18 92/58 L 97 08/05/23 04:09 36.8 C 88 20 98/62 L 96 08/05/23 02:03 74 08/05/23 00:13 36.8 C 85 20 97/52 L 97 O2 Del Method 08/05/23 07:34 Room Air 08/05/23 04:09 Room Air 08/05/23 02:03 08/05/23 00:13 Room Air PG Care Time/CCT Total # of Minutes Spent Total Time Spent with Patient: Total time spent is greater than 50% in coordination of care (as documented) at patient's floor/unit and/or counseling patient: Coding Level of Care Code 40255 SUB INP/OBS CARE 3/50MIN Diagnoses Hematuria R31.0 Hematuria type: gross Hydronephrosis N13.30 Hydronephrosis type: unspecified Acute left flank pain R10.9 (1) Hematuria Hematuria type: gross Qualified Code(s): R31.0 - Gross hematuria (2) Hydronephrosis Hydronephrosis type: unspecified Qualified Code(s): N13.30 - Unspecified hydronephrosis
[2023-08-05] MEDS: LACTATED RINGER'S 1,000 ML IV SCH (11:12)
--- NOTE | 2023-08-05 13:32 | Discharge Summary ---
Discharge Summary Date of Service August 05, 2023 Notes For Next Care Provider Admitted with hematuria after recent stent removal, also with DUSTIN. Seen by urology recommended conservative management. Urinating without pain day of discharge. Continue on flomax and pyrdium, with outpatient urology follow up. Ambulatory orders for BMP and CBC Admission HPI Per Admitting Provider Montana Spencer is a pleasant 33-year-old female with history of ulcerative colitis, GERD and depression/anxiety presenting from home with hematuria. Patient had a cystoscopy performed by Dr. De Anda on 07/27/2023 with lithotripsy and placement of left ureteral stent. Patient removed the stent as instructed on 07/30/2023. She reports she was able to urinate without difficulty. However, throughout the week she developed some dull aching left flank pain. She was passing some small blood clots as well as sediment and pieces of stone. Today patient was at work and she developed some urinary urgency. She went to the b athroom and passed a large amount of prasanna hematuria with clots. She also had some bladder pain and urethral pain. She attempted to go back to work but continued to have urgency with passage of hematuria and clots. She had some nausea as well as some hot flashes and shaking earlier today as well. Otherwise she denies fever, chills, her flank pain has since resolved. No abdominal pain, vomiting or diarrhea. No chest pain, cough or shortness of breath. No additional complaints at this time. ER course: Toradol 10 mg IV Normal saline x 1.5 L Zofran 4 mg IV Fentanyl 50 mcg IV Hydroxyzine 50 mg p.o. Flomax 0.4 mg p.o. Pyridium 200 mg p.o. Sertraline 50 mg p.o. Trazodone 100 mg p.o. Melatonin 3 mg p.o. Principal Dx & Hospital Course #1 = Principal Diagnosis (1) Hematuria: 33-year-old female status post lithotripsy with stent placement on 07/27/2023 with subsequent stent removal presenting with hematuria. Patient passing bright red blood with clots present. She is hemodynamically stable. hemoglobin = 10.5, hematocrit = 32.7 (down from 12.2 and 37.4, respectively on 07/25/2023). Patient does have mild elevation of creatinine as well at 1.59. CT as above with distended bladder which contains a large amount of hemorrhage. - Received Empiric cipro, UC negative. Abx not continued at discharge. - IV venofer x2 for anemia Urology consulted - Trend H&H --> which has remained stable - renal US: hemorrhage in left renal collecting system with moderate hydronephrosis. Non obstructing bilateral nephrolithais Continue Flomax, Pyridium - remove lombardo, and if able to urinate, outpatient followup Patient able to urinate on her own. Discharge to home with outpatient urology follow up and recheck labs Monday or monday next week. (2) DUSTIN (acute kidney injury): Baseline Cr 0.7 - 0.8 Presented with Cr of 1.59 Received IVF Resolved - BMP next week to ensure not worsening with continued hydronephrosis (3) Chronic pancolonic ulcerative colitis: Chronic. Stable. Continue mesalamine (4) History of gastric ulcer: Chronic. Stable. Continue Protonix 40 mg p.o. twice daily (5) Anxiety and depression: Chronic. Stable. Continue home medications to include trazodone, sertraline, hydroxyzine Plan Dispo: discharge to home with urology follow up Discharge Exam General: NAD, VS as above Resp: normal respiratory effort, lungs clear to auscultation CV: RRR, no murmur, Abd:soft, mild suprapubic tenderness, no hepatosplenomegaly : lombardo draining dark maroon urine Back: no flank pain Extremities: Moves all extremities, no edema Neuro: A&O x3, Updated Medication List Medication Instructions Recorded Confirmed Type etonogestrel 68 mg subdermal See Rx Instructions .Route .COMPLEX 07/12/21 08/03/23 History implant (Nexplanon) melatonin 10 mg tablet 10 mg PO HS 07/12/21 08/03/23 History lactobacillus combination no.4 3 3,000 mmu cells PO DAILY 07/29/21 08/03/23 History billion cell capsule (Probiotic) mesalamine 1.2 gram tablet,delayed 2.4 g (2 x 1.2 gram) PO BID 90 09/30/21 08/03/23 Rx release days #360 tabs hydroxyzine HCl 50 mg tablet 50 mg PO HS PRN insomnia/anxiety 10/05/21 08/03/23 Rx #30 tabs sertraline 50 mg tablet 50 mg PO QPM MDD 09/19/22 08/03/23 History trazodone 50 mg tablet 100 mg PO .at bedtime 09/19/22 08/03/23 History ferrous sulfate 325 mg (65 mg 325 mg PO DAILY #30 tabs 12/19/22 08/03/23 Rx iron) tablet acetaminophen 325 mg tablet 325 mg PO QID PRN Pain 03/01/23 08/03/23 History ibuprofen 400 mg tablet 400 mg PO Q8H PRN Pain 03/01/23 08/03/23 History calcium carbonate (Tums) 300 mg PO BID PRN Acid Reflux 07/26/23 08/03/23 History tamsulosin 0.4 mg capsule 0.4 mg PO HS #30 caps 07/27/23 08/03/23 Rx pantoprazole 40 mg tablet,delayed 40 mg PO BID 08/03/23 08/03/23 History release oxycodone 5 mg tablet 5 mg PO Q4H PRN pain #10 tabs 08/05/23 Rx phenazopyridine 200 mg tablet 200 mg PO Q8H PRN pain #20 tabs 08/05/23 Rx (Pyridium) Hospital Stay Data Consultations 08/03/23 21:11 ED Decision to Admit Stat Diagnostic Imagining Performed Abdomen/Pelvis CT 08/03/23 16:32 CT OF THE ABDOMEN AND PELVIS WITHOUT CONTRAST CLINICAL HISTORY: Left flank pain, recent stent - eval stone, pyelo COMPARISON STUDY: CT of the abdomen and pelvis April 20, 2021. KUB July 12, 2023. TECHNIQUE: Axial images of the abdomen and pelvis were obtained without IV contrast. Images were reviewed in the axial, sagittal, and coronal planes. Automated exposure control was utilized for the study. A dose lowering technique was utilized adhering to the principles of ALARA. FINDINGS: Lung bases are unremarkable. No pneumatosis, free air or portal venous gas is present. Multiple bilateral renal calculi measure up to 7 mm. There are no ureteral calculi. There is no right hydronephrosis. Moderate left hydroureteronephrosis is noted. Hyperdense material within the left collecting system and ureter represents clot. There is a large amount of clot within the bladder. The bladder is moderately distended. Blood clot fills the bladder and measures approximately 11 x 8.7 cm. There is no evidence for a bowel obstruction. There is no biliary ductal dilatation status post cholecystectomy. Unenhanced images of the liver, spleen, adrenal glands and pancreas are unremarkable. There is no evidence for acute appendicitis. There is no lymphadenopathy. IMPRESSION: 1. Distended bladder which contains a large amount of hemorrhage. Clot within the bladder measures approximately 11 x 8.7 cm. Moderate left hydroureteronephrosis with clot within the left collecting system and ureter. 2. Bilateral nephrolithiasis. No ureteral calculi. ACT 112: Negative or not required by law. Electronically signed by: Alexis Ulrich M.D. 08/03/2023 5:50 PM Renal Ultrasound 08/04/23 14:30 RENAL ULTRASOUND HISTORY: Acute hematuria hematuria COMPARISON: CT 08/03/2023 FINDINGS: Right kidney: 9.6 cm. Right renal calculi redemonstrated measuring up to approximately 7 mm. No hydronephrosis. Normal corticomedullary differentiation and cortical thickness. Left kidney: 11.0 cm. Nonobstructing calculi are again noted measuring up to approximately 6 mm. Moderate hydronephrosis is similar to prior. Debris noted within the renal collecting system and renal pelvis. Normal corticomedullary differentiation and cortical thickness. Bladder: Decompressed urinary bladder with Lombardo catheter in place. Hemorrhage again noted within the bladder lumen. IMPRESSION: 1. Hemorrhage again noted within the left renal collecting system resulting in moderate hydronephrosis. 2. Lombardo catheter in place with hemorrhagic debris redemonstrated within the urinary bladder lumen. 3. Nonobstructing bilateral nephrolithiasis. ACT 112: Negative or not required by law. Electronically signed by: Ramin Carlos M.D. 08/04/2023 6:04 PM Pending Results Patient Have Any Pending Studies at Discharge: No Discharge Instructions Given to Patient (Per Discharging Provider) Ms. Spenecr, You were hospitalized after episodes of hematuria. Thankfully your hemoglobin has remain stable as you continue to bleed. You were seen by urology who choose for conservative management. Overall suspect a kidney bleed that has improved, but the blood is still trickling down the urinary tract. Will need outpatient follow up, they may consider cystoscopy at this time. Continue taking flomax and Pyridium. Please call the office on Monday to schedule urology follow up. CBC ordered for Monday to ensure stability and BMP to check kidney function. You can have this done at any [facility] facility. You also received iron infusions - you can hold you PO iron supplement for now. discuss with PCP or active directory specialist when to resume. Call the urologist or return to the ER with: - worsening pain - lightheadedness/dizziness - inability to urinate CALL 911 OR GO TO THE EMERGENCY DEPARTMENT if you experience any of the following: Severe abdominal pain or nausea/vomiting Severe chest pain, or chest pain that radiates (moves) to your jaw or arm Sudden, severe shortness of breath or difficulty breathing Thank you for allowing us to participate in your care. Total Time Total Time Spent Total Time Spent (In Minutes): Time spend day of discharge 40 minutes including direct patient care, medication reconciliation, documentation, review of labs and images, and coordination of care. Discussed with Dr. De Anda, urology Coding Level of Care Code 24361 INP/OBS DISCH >30 MIN Diagnoses Hematuria R31.0 Hematuria type: gross DUSTIN (acute kidney injury) N17.9 Chronic pancolonic ulcerative colitis K51.00 History of gastric ulcer Z87.11 Anxiety and depression F41.9; F32.9
== END 2023-08-05 14:34 | disposition home or self-care (01) | DRG 683 ==
LOC: ED 16:16 → SUATTDRO 21:45 → EDINP 21:45 → 2W 22:57